=== PATIENT | female | born 1975 | race African-American/Black ===

== ENCOUNTER 2021-05-07 02:51 | Inpatient (IN) | payer OTHER ==
[2021-05-07] MEDS ORDERED: Acetaminophen 500 MG TAB ONE (03:53)
[2021-05-07 03:58] LABS: Mean Corpuscular HGB CONC 33.1 g/dL (32.0-36.0); Mean Corpuscular Hemoglobin 23.4 pg (27.0-31.0); Mean Corpuscular Volume 70.6 fL (78.0-98.0); Mean Platelet Volume 10.7 fL (7.4-10.4); Platelet Count 223 thou/uL (130-400); RBC Distribution Width 16.4 % (11.5-14.5); Red Blood Cell (RBC) Count 5.99 mill/uL (4.20-5.40); White Blood Cell (WBC) Count 6.3 thou/uL (4.8-10.8)
[2021-05-07 04:01] LABS: Bacteria/HPF None Seen HPF (None Seen); Bilirubin Negative (Negative); Blood, Urine Negative (Negative); Clarity Clear (Clear); Glucose, Urine (Dipstick) Greater than 1000 mg/dL (Negative); Ketone, Urine Negative (Negative); Leukocyte 25 Leu/uL (Negative); Nitrite Negative (Negative); Protein, Urine (Dipstick) 70 mg/dL (Neg-Trace); RBC/HPF 0-3 HPF (0-3); Specific Gravity, Urine 1.026 (1.002-1.036); Urobilinogen Normal mg/dL (Less than 2); pH, Urine 5.5 (5.0-9.0)
[2021-05-07 04:05] LABS: Amphetamine Not Detected (NotDetected); Barbiturates Screen Not Detected (NotDetected); Benzodiazepine Screen Not Detected (NotDetected); Cocaine Metabolite Screen Not Detected (NotDetected); Methadone Not Detected (NotDetected); Methamphetamine Not Detected (NotDetected); Opiate Screen Detected (NotDetected); Oxycodone Screen Not Detected (NotDetected); Phencyclidine (PCP) Not Detected (NotDetected); THC/Cannabinoid Screen Not Detected (NotDetected); Tricyclic Screen Not Detected (NotDetected)
[2021-05-07 04:18] LABS: ALT (SGPT) Less than 7 U/L (8-55); AST (SGOT) 22 U/L (5-34); Albumin 3.8 g/dL (3.5-5.0); Alkaline Phosphatase 155 U/L (40-110); Anion Gap 14 mmol/L (10-20); BUN (Urea Nitrogen) 24 mg/dL (7.0-18.7); Bilirubin, Total 0.7 mg/dL (0.2-1.2); Calc. Creatinine Clearance 0 mL/min (70-130); Calcium 9.6 mg/dL (7.8-10.44); Carbon Dioxide 28 mmol/L (22-29); Chloride 93 mmol/L (98-107); Globulin 4.3 g/dL (2.4-3.5); Glucose 233 mg/dL (70-105); Potassium 3.4 mmol/L (3.5-5.1); Protein, Total 8.1 g/dL (6.0-8.3); Sodium 132 mmol/L (136-145)
[2021-05-07 04:44] LABS: #Basophils 0.1 thou/uL (0.0-0.2); #Lymphocytes 2.8 thou/uL (1.20-3.40); #Monocytes 0.5 thou/uL (0.11-0.59); #Neutrophils 2.9 thou/uL (1.40-6.50); %Basophils 1.1 % (0.0-1.0); %Eosinophils 0.4 % (0.0-10.0); %Lymphocytes 44.4 % (21.0-51.0); %Monocytes 7.6 % (0.0-10.0); %Neutrophils 46.6 % (42.0-75.0); MDiff Complete? YES; Microcytosis SLIGHT = 6-15 cells (100X) (0-5/hpf)
[2021-05-07] MEDS ORDERED: Acetaminophen 325 MG TAB PO PRN (04:52)
[2021-05-07 04:53] LABS: CKMB 9.2 ng/mL (0-6.6)
[2021-05-07] MEDS ORDERED: Dextrose 50% Abboject 50 ML SYRINGE SLOW IVP PRN (05:10)
[2021-05-07] MEDS ORDERED: HumaLOG 300 UNITS/3 ML VIAL SC PRN ×2 (05:10)
[2021-05-07] MEDS ORDERED: Dextrose 5% in Water 1,000 ML IV PRN (05:10)
[2021-05-07 06:24] VITALS: BMI 29.2
[2021-05-07] MEDS ORDERED: Morphine 4 MG/ML VIAL SLOW IVP SCH ×3 (06:30→15:45)
[2021-05-07] MEDS ORDERED: Potassium Chloride 20 MEQ TAB PO SCH (06:30)
[2021-05-07 06:41] LABS: Hemoglobin A1c Greater than 14.0 % (4.0-6.0)
[2021-05-07 06:51] LABS: Actual Bicarbonate (HCO3v) 23 mEq/L (22-28); Base Excess -0.2 mEq/L (-2.0 to +3.0); Calcium, Ionized (venous) 1.08 mmol/L (1.16-1.32); Chloride (VBG) 98 mmol/L (98-106); Hemoglobin (Hb) 14.1 g/dL (11.7-16.0); Potassium (VBG) 3.55 mmol/L (3.70-5.30); Sodium 131.3 mmol/L (133-146); pH (venous) 7.45 (7.32-7.43)
[2021-05-07] MEDS ORDERED: Heparin 10,000 UNITS/ 10 ML VIAL SLOW IVP SCH (07:15)
[2021-05-07] MEDS ORDERED: Heparin 25,000 units/D5W 500 ML IVPB SCH (07:15)
[2021-05-07 07:19] LABS: Cardiac Risk 5.9 (Less than 4.5); Cholesterol 240 mg/dl (< 200 Desired); HDL Cholesterol 41 mg/dL (>60 Neg Risk); LDL Cholesterol, Calculated 134 mg/dL; Magnesium 1.9 mg/dL (1.6-2.6); Phosphorus 2.9 mg/dL (2.3-4.7); Triglycerides 324 mg/dL (Less than 150)
[2021-05-07 07:35] LABS: Hemoglobin 15.7 g/dL (12.0-16.0); Platelet Count 224 thou/uL (130-400)
[2021-05-07] MEDS ORDERED: Enoxaparin Sodium 40 MG/0.4 ML SYRINGE SC SCH (09:00)
[2021-05-07] MEDS ORDERED: Morphine 2 MG/ML VIAL SLOW IVP SCH (09:45)
[2021-05-07] MEDS ORDERED: Lactated Ringer's 500 ML IV SCH (09:45)
[2021-05-07] MEDS ORDERED: Labetalol HCl 100 MG/20 ML VIAL SLOW IVP PRN (16:31)
[2021-05-07] MEDS ORDERED: Labetalol HCl 100 MG/20 ML VIAL ONE (16:59)
[2021-05-07] MEDS ORDERED: Nitroglycerin 0.4 MG TAB (25 Tab Bottle) ONE (18:24)
[2021-05-07] MEDS ORDERED: hydrALAZINE 20 MG/ML VIAL ONE (18:25)
[2021-05-07] MEDS ORDERED: Fentanyl 100 MCG/2 ML VIAL SLOW IVP SCH (18:30)
[2021-05-07] MEDS ORDERED: hydrALAZINE 20 MG/ML VIAL SLOW IVP SCH (18:30)
[2021-05-07] MEDS: Morphine 4 MG/ML VIAL SLOW IVP PRN ×2 (19:48→23:20)
[2021-05-07] MEDS: Atorvastatin Calcium 40 MG TAB PO SCH (20:44)
[2021-05-07 21:14] LABS: Hemoglobin 14.3 g/dL (12.0-16.0); Mean Corpuscular HGB CONC 33.6 g/dL (32.0-36.0); Mean Corpuscular Hemoglobin 24.3 pg (27.0-31.0); Mean Corpuscular Volume 72.2 fL (78.0-98.0); Mean Platelet Volume 10.8 fL (7.4-10.4); Platelet Count 214 thou/uL (130-400); RBC Distribution Width 16.6 % (11.5-14.5); Red Blood Cell (RBC) Count 5.87 mill/uL (4.20-5.40); White Blood Cell (WBC) Count 8.3 thou/uL (4.8-10.8)
[2021-05-07 21:27] LABS: Phosphorus 3.1 mg/dL (2.3-4.7)
[2021-05-07 21:28] LABS: ALT (SGPT) 9 U/L (8-55); AST (SGOT) 40 U/L (5-34); Albumin 3.9 g/dL (3.5-5.0); Alkaline Phosphatase 152 U/L (40-110); Anion Gap 21 mmol/L (10-20); BUN (Urea Nitrogen) 23 mg/dL (7.0-18.7); Bilirubin, Total 0.7 mg/dL (0.2-1.2); Calc. Creatinine Clearance 50 mL/min (70-130); Calcium 9.5 mg/dL (7.8-10.44); Carbon Dioxide 20 mmol/L (22-29); Chloride 97 mmol/L (98-107); Globulin 4.4 g/dL (2.4-3.5); Glucose 163 mg/dL (70-105); Magnesium 1.7 mg/dL (1.6-2.6); Potassium 3.7 mmol/L (3.5-5.1); Protein, Total 8.3 g/dL (6.0-8.3); Sodium 134 mmol/L (136-145)
[2021-05-07 21:34] LABS: Lymphocytes 22 % (21-51); MDiff Complete? YES; Monocytes 10 % (0-10); Neutrophil 68 % (42-75)
[2021-05-07 21:38] LABS: Troponin I 0.085 ng/mL (< 0.028)
[2021-05-07] MEDS ORDERED: Magnesium 2 GM/50 ML 2 GM in Premix Bag 1 BAG IVPB SCH (21:45)
[2021-05-07 23:44] LABS: Lactic Acid 1.6 mmol/L (0.5-2.2)
[2021-05-07 23:53] LABS: Troponin I 0.122 ng/mL (< 0.028)
[2021-05-08] MEDS: Morphine 4 MG/ML VIAL SLOW IVP PRN ×3 (03:18→21:15)
[2021-05-08 04:48] LABS: #Lymphocytes 2.1 thou/uL (1.20-3.40); #Monocytes 0.4 thou/uL (0.11-0.59); #Neutrophils 2.6 thou/uL (1.40-6.50); %Basophils 0.7 % (0.0-1.0); %Eosinophils 0.2 % (0.0-10.0); %Lymphocytes 40.4 % (21.0-51.0); %Monocytes 7.2 % (0.0-10.0); %Neutrophils 51.4 % (42.0-75.0); Hemoglobin 13.4 g/dL (12.0-16.0); Mean Corpuscular HGB CONC 32.4 g/dL (32.0-36.0); Mean Corpuscular Hemoglobin 23.4 pg (27.0-31.0); Mean Corpuscular Volume 72.1 fL (78.0-98.0); Mean Platelet Volume 10.9 fL (7.4-10.4); Platelet Count 192 thou/uL (130-400); RBC Distribution Width 16.5 % (11.5-14.5); Red Blood Cell (RBC) Count 5.75 mill/uL (4.20-5.40); White Blood Cell (WBC) Count 5.1 thou/uL (4.8-10.8)
[2021-05-08 05:12] LABS: ALT (SGPT) 9 U/L (8-55); AST (SGOT) 42 U/L (5-34); Albumin 3.6 g/dL (3.5-5.0); Alkaline Phosphatase 133 U/L (40-110); Anion Gap 15 mmol/L (10-20); BUN (Urea Nitrogen) 25 mg/dL (7.0-18.7); Bilirubin, Total 0.7 mg/dL (0.2-1.2); Calc. Creatinine Clearance 45 mL/min (70-130); Calcium 9.3 mg/dL (7.8-10.44); Carbon Dioxide 23 mmol/L (22-29); Chloride 97 mmol/L (98-107); Globulin 4.3 g/dL (2.4-3.5); Glucose 249 mg/dL (70-105); Potassium 3.2 mmol/L (3.5-5.1); Protein, Total 7.9 g/dL (6.0-8.3); Sodium 132 mmol/L (136-145)
[2021-05-08] MEDS ORDERED: Potassium Chloride 20 MEQ TAB PO SCH (09:45)
[2021-05-08] MEDS: Lantus 1000 UNITS/10 ML VIAL SC SCH (11:21)
[2021-05-08] MEDS: Sodium Chloride 0.9% 1,000 ML IV SCH ×2 (11:21→20:15)
[2021-05-08] MEDS ORDERED: Morphine 4 MG/ML VIAL SLOW IVP SCH ×3 (11:45→16:00)
[2021-05-08] MEDS ORDERED: hydrALAZINE 20 MG/ML VIAL SLOW IVP SCH ×2 (11:45→17:45)
[2021-05-08] MEDS ORDERED: Iopamidol 370 76% 50 ML VIAL FS ONE (12:23)
[2021-05-08] MEDS ORDERED: Iopamidol 370 76% 100 ML VIAL ONE (12:23)
[2021-05-08 12:27] LABS: Troponin I 0.112 ng/mL (< 0.028)
[2021-05-08] MEDS ORDERED: diphenhydrAMINE 50 MG/ML VIAL IVP SCH (13:45)
[2021-05-08] MEDS ORDERED: Amlodipine 5 MG TAB PO SCH (14:30)
[2021-05-08] MEDS: Enoxaparin Sodium 40 MG/0.4 ML SYRINGE SC SCH (14:37)
[2021-05-08 15:17] LABS: Anion Gap 25 mmol/L (10-20); BUN (Urea Nitrogen) 22 mg/dL (7.0-18.7); Calc. Creatinine Clearance 49 mL/min (70-130); Calcium 9.9 mg/dL (7.8-10.44); Carbon Dioxide 12 mmol/L (22-29); Chloride 98 mmol/L (98-107); Glucose 305 mg/dL (70-105); Potassium 4.4 mmol/L (3.5-5.1); Sodium 131 mmol/L (136-145)
[2021-05-08 16:00] LABS: Troponin I 0.068 ng/mL (< 0.028)
[2021-05-08] MEDS ORDERED: Esmolol 2,500 MG/250 ML 250 ML IVPB SCH (18:00)
[2021-05-08] MEDS ORDERED: Lidocaine 1% (PF) 30 ML VIAL ONE (18:15)
[2021-05-08] MEDS ORDERED: Heparin 10,000 UNITS/ 10 ML VIAL ONE (18:15)
[2021-05-08] MEDS ORDERED: Verapamil 5 MG/2 ML VIAL ONE (18:31)
[2021-05-08] MEDS ORDERED: Labetalol HCl 100 MG/20 ML VIAL ONE (18:33)
[2021-05-08] MEDS ORDERED: Fentanyl 100 MCG/2 ML VIAL ONE ×2 (18:34→19:19)
[2021-05-08] MEDS ORDERED: Midazolam HCl 2 mg/2 ml Vial ONE ×4 (18:34→19:32)
[2021-05-08] MEDS ORDERED: Metoprolol Tartrate 5 MG/5 ML VIAL ONE (18:39)
[2021-05-08] MEDS ORDERED: Hydrocortisone Sod Succ/PF 100 mg/2 ml Vial ONE (18:40)
[2021-05-08] MEDS ORDERED: diphenhydrAMINE 50 MG/ML VIAL ONE (18:40)
[2021-05-08 18:44] LABS: CKMB 20.1 ng/mL (0-6.6)
[2021-05-08] MEDS ORDERED: Nitroglycerin 100MG/250ML BOT 250 ML ONE (19:05)
[2021-05-08] MEDS ORDERED: Metoclopramide HCl 10 MG/2 ML VIAL ONE (19:28)
[2021-05-08] MEDS ORDERED: Promethazine HCl 25 MG/ML VIAL ONE (19:31)
[2021-05-08] MEDS ORDERED: hydrALAZINE 20 MG/ML VIAL ONE (19:45)
[2021-05-08] MEDS ORDERED: Esmolol 100 MG/10 ML VIAL ONE (19:47)
[2021-05-08] MEDS ORDERED: Sodium Chloride 0.9% 200 ML IV PRN (20:00)
[2021-05-08 21:08] LABS: SARS-CoV-2 PCR by NAA Not Detected (NotDetected)
[2021-05-08] MEDS: Atorvastatin Calcium 40 MG TAB PO SCH (21:13)
[2021-05-08] MEDS: Gabapentin 300 MG CAP PO SCH (21:14)
[2021-05-09] MEDS: Morphine 4 MG/ML VIAL SLOW IVP PRN ×2 (01:13→08:52)
[2021-05-09 04:18] LABS: #Monocytes 0.4 thou/uL (0.11-0.59); %Basophils 0.2 % (0.0-1.0); %Eosinophils 0.2 % (0.0-10.0); %Lymphocytes 10.7 % (21.0-51.0); %Monocytes 4.6 % (0.0-10.0); %Neutrophils 84.3 % (42.0-75.0); Hemoglobin 13.7 g/dL (12.0-16.0); Mean Corpuscular HGB CONC 31.7 g/dL (32.0-36.0); Mean Corpuscular Hemoglobin 24.4 pg (27.0-31.0); Mean Corpuscular Volume 77.1 fL (78.0-98.0); Mean Platelet Volume 6.4 fL (7.4-10.4); Platelet Count 143 thou/uL (130-400); RBC Distribution Width 17.4 % (11.5-14.5); Red Blood Cell (RBC) Count 5.63 mill/uL (4.20-5.40); White Blood Cell (WBC) Count 9.5 thou/uL (4.8-10.8)
[2021-05-09 04:46] LABS: ALT (SGPT) 11 U/L (8-55); AST (SGOT) 44 U/L (5-34); Albumin 3.8 g/dL (3.5-5.0); Alkaline Phosphatase 152 U/L (40-110); Anion Gap 24 mmol/L (10-20); BUN (Urea Nitrogen) 23 mg/dL (7.0-18.7); Bilirubin, Total 0.9 mg/dL (0.2-1.2); Calc. Creatinine Clearance 47 mL/min (70-130); Carbon Dioxide 16 mmol/L (22-29); Chloride 98 mmol/L (98-107); Globulin 4.9 g/dL (2.4-3.5); Glucose 429 mg/dL (70-105); Potassium 4.5 mmol/L (3.5-5.1); Protein, Total 8.7 g/dL (6.0-8.3); Sodium 133 mmol/L (136-145)
[2021-05-09] MEDS ORDERED: Amlodipine 5 MG TAB ONE ×2 (07:47→12:10)
[2021-05-09] MEDS: Sodium Chloride 0.9% 1,000 ML IV SCH (07:56)
[2021-05-09] MEDS: HumaLOG 300 UNITS/3 ML VIAL SC PRN ×2 (07:57→11:20)
[2021-05-09] MEDS: Lantus 1000 UNITS/10 ML VIAL SC SCH (07:58)
[2021-05-09] MEDS ORDERED: Enoxaparin Sodium 40 MG/0.4 ML SYRINGE ONE (08:02)
[2021-05-09] MEDS ORDERED: Gabapentin 300 MG CAP ONE (08:02)
[2021-05-09] MEDS: Gabapentin 300 MG CAP PO SCH (08:03)
[2021-05-09] MEDS: Enoxaparin Sodium 40 MG/0.4 ML SYRINGE SC SCH (08:03)
[2021-05-09] MEDS ORDERED: Morphine 4 MG/ML VIAL ONE (08:52)
[2021-05-09] MEDS ORDERED: Amlodipine 5 MG TAB PO SCH ×2 (09:00→12:00)
[2021-05-09] MEDS ORDERED: Lantus 1000 UNITS/10 ML VIAL SC SCH (10:30)
[2021-05-09] MEDS ORDERED: Acetaminophen 325 MG TAB ONE (11:22)
[2021-05-09] MEDS ORDERED: cloNIDine 0.1mg/24 Hour PATCH ONE (12:11)
[2021-05-09] MEDS ORDERED: cloNIDine 0.3 MG TAB ONE (12:12)
[2021-05-09 12:14] VITALS: BP 198/91
[2021-05-09 12:21] VITALS: TEMP 98
[2021-05-09] MEDS ORDERED: cloNIDine 0.3 MG TAB PO SCH (15:00)
[2021-05-10] MEDS ORDERED: Buprenorphine 8mg/Naloxone 2mg per 1 FILM PO SCH (09:00)
[2021-05-10] MEDS ORDERED: Lantus 1000 UNITS/10 ML VIAL SC SCH (09:00)
== END 2021-05-09 13:29 | disposition left against medical advice (07) | DRG 287 ==
LOC: ERS 02:51 → 2SW 04:39 → OBSVTOIN 13:34 → 2NO 18:08 → CCU 18:34 → 2NO 18:41 → CCU 05-08 20:07
PROVIDERS: ADMIT Emergency Medicine; ATTEND Emergency Medicine
PROC: 4A023N7 Measurement of Cardiac Sampling and Pressure, Left Heart, Percutaneous Approach (ICD-10-PCS; principal; 2021-05-07)
PROC: B2151ZZ Fluoroscopy of Left Heart using Low Osmolar Contrast (ICD-10-PCS; 2021-05-07)
PROC: B2111ZZ Fluoroscopy of Multiple Coronary Arteries using Low Osmolar Contrast (ICD-10-PCS; 2021-05-07)
DX: I20.0 Unstable angina (principal); N17.9 Acute kidney failure, unspecified; E87.1 Hypo-osmolality and hyponatremia; I16.1 Hypertensive emergency; Z20.822 Contact with and (suspected) exposure to COVID-19; F31.9 Bipolar disorder, unspecified; E78.5 Hyperlipidemia, unspecified; E87.6 Hypokalemia; N18.9 Chronic kidney disease, unspecified; E11.22 Type 2 diabetes mellitus with diabetic chronic kidney disease; I12.9 Hypertensive chronic kidney disease with stage 1 through stage 4 chronic kidney disease, or unspecified chronic kidney disease; E78.00 Pure hypercholesterolemia, unspecified; I08.1 Rheumatic disorders of both mitral and tricuspid valves; Z88.6 Allergy status to analgesic agent; Z88.5 Allergy status to narcotic agent; Z88.8 Allergy status to other drugs, medicaments and biological substances; Z79.899 Other long term (current) drug therapy; I25.2 Old myocardial infarction; Z95.5 Presence of coronary angioplasty implant and graft; Z98.51 Tubal ligation status; Z90.710 Acquired absence of both cervix and uterus; Z90.89 Acquired absence of other organs; Z82.49 Family history of ischemic heart disease and other diseases of the circulatory system
CPT/HCPCS: 36140; 36415; 36416; 71045; 80053; 80061; 80306; 81003; 81015; 82010; 82553; 82805; 83036; 83605; 83735; 83835; 84100; 84443; 84484; 85025; 93005; 93010; 93306; 93458; 94760; 96374; 99152; 99153; C1769; G0378; J0360; J1200; J1644; J1650; J1720; J1815; J2001; J2250; J2270; J2550; J2765; J3010; J3475; J7050; J7120; Q9967; U0003; U0005

== ENCOUNTER 2021-05-29 00:31 | Inpatient (IN) | payer OTHER ==
[2021-05-29] MEDS ORDERED: niCARdipine 20MG In NaCl 20 MG/200 ML BAG ONE (00:52)
[2021-05-29] MEDS ORDERED: Dextrose 50% Abboject 50 ML SYRINGE SLOW IVP PRN (02:21)
[2021-05-29] MEDS ORDERED: Dextrose 5% in Water 1,000 ML IV PRN (02:21)
[2021-05-29] MEDS ORDERED: HumaLOG 300 UNITS/3 ML VIAL SC PRN ×2 (02:29)
[2021-05-29] MEDS ORDERED: Heparin 10,000 UNITS/ 10 ML VIAL SLOW IVP SCH (02:30)
[2021-05-29] MEDS ORDERED: Heparin 25,000 units/D5W 500 ML IVPB SCH (02:30)
[2021-05-29] MEDS ORDERED: Nitroglycerin 50 MG/250 ML BOT 250 ML IVPB SCH (02:30)
[2021-05-29 03:21] LABS: SARS-CoV-2 NAA Rapid Test Not Detected (NotDetected)
[2021-05-29 04:14] LABS: Actual Bicarbonate (HCO3v) 22 mEq/L (22-28); Analyzer IN Cardio ER; Base Excess 1.7 mEq/L (-2.0 to +3.0); Calcium, Ionized (venous) 1.03 mmol/L (1.16-1.32); Chloride (VBG) 94 mmol/L (98-106); Hemoglobin (Hb) 14.1 g/dL (11.7-16.0); Potassium (VBG) 3.49 mmol/L (3.70-5.30); Sodium 136.6 mmol/L (133-146); pH (venous) 7.57 (7.32-7.43)
[2021-05-29] MEDS ORDERED: Amlodipine 10 MG TAB PO SCH ×2 (04:30→06:15)
[2021-05-29 04:31] LABS: Anion Gap 24 mmol/L (10-20); BUN (Urea Nitrogen) 14 mg/dL (7.0-18.7); Calc. Creatinine Clearance 0 mL/min (70-130); Calcium 10.7 mg/dL (7.8-10.44); Carbon Dioxide 20 mmol/L (22-29); Chloride 93 mmol/L (98-107); Glucose 550 mg/dL (70-105); Potassium 3.4 mmol/L (3.5-5.1); Sodium 134 mmol/L (136-145)
[2021-05-29 04:36] LABS: Troponin I 0.106 ng/mL (< 0.028)
[2021-05-29 04:43] LABS: #Monocytes 0.2 thou/uL (0.11-0.59); #Neutrophils 8.5 thou/uL (1.40-6.50); %Eosinophils 0.1 % (0.0-10.0); %Lymphocytes 10.1 % (21.0-51.0); %Monocytes 1.9 % (0.0-10.0); %Neutrophils 87.9 % (42.0-75.0); Anisocytosis MODERATE=16-30 cells (100X) (0-5/hpf); Burr Cells SLIGHT = 2-5 cells (100X) (0-1/hpf); Hemoglobin 13.2 g/dL (12.0-16.0); MDiff Complete? YES; Mean Corpuscular HGB CONC 33.3 g/dL (32.0-36.0); Mean Corpuscular Hemoglobin 24.6 pg (27.0-31.0); Mean Corpuscular Volume 73.9 fL (78.0-98.0); Microcytosis SLIGHT = 6-15 cells (100X) (0-5/hpf); Platelet Count 273 thou/uL (130-400); Platelet Morphology Comment Appears Adequate; Polychromasia SLIGHT = 2-3 cells (100X) (0-2/hpf); RBC Distribution Width 16.2 % (11.5-14.5); Red Blood Cell (RBC) Count 5.35 mill/uL (4.20-5.40); Tear Drops SLIGHT = 2-5 cells (100X) (0-1/hpf); White Blood Cell (WBC) Count 9.7 thou/uL (4.8-10.8)
[2021-05-29 04:49] VITALS: BMI 27.6
[2021-05-29] MEDS ORDERED: niCARdipine 40MG In NaCl 40 MG/200 ML BAG IVPB SCH ×4 (06:15→14:51)
[2021-05-29] MEDS: niCARdipine 25 MG in Sodium Chloride 0.9% 250 ML 250 ML IVPB SCH ×2 (06:23→09:31)
[2021-05-29] MEDS: HumaLOG 300 UNITS/3 ML VIAL SC PRN ×4 (06:58→12:12)
[2021-05-29] MEDS ORDERED: Lactated Ringer's 1,000 ML IV SCH (07:15)
[2021-05-29] MEDS ORDERED: Electrolyte Replacement Protocol 1 EACH IVPB ONE (07:16)
[2021-05-29] MEDS ORDERED: Sodium Chloride 0.9% 1,000 ML IV SCH (07:30)
[2021-05-29 07:40] LABS: Lactic Acid 2.1 mmol/L (0.5-2.2)
[2021-05-29] MEDS ORDERED: Electrolyte Replacement Protocol FS PRN (07:45)
[2021-05-29] MEDS: Sodium Chloride 0.9% 1,000 ML IV SCH ×2 (07:50→16:30)
[2021-05-29 07:52] LABS: Anion Gap 25 mmol/L (10-20); BUN (Urea Nitrogen) 16 mg/dL (7.0-18.7); Calc. Creatinine Clearance 52 mL/min (70-130); Calcium 10.2 mg/dL (7.8-10.44); Carbon Dioxide 18 mmol/L (22-29); Chloride 96 mmol/L (98-107); Potassium 3.3 mmol/L (3.5-5.1); Sodium 136 mmol/L (136-145)
[2021-05-29 07:57] LABS: Glucose 571 mg/dL (70-105)
[2021-05-29] MEDS ORDERED: Lantus 1000 UNITS/10 ML VIAL SC SCH (09:00)
[2021-05-29] MEDS ORDERED: Lisinopril 10 MG TAB PO SCH (09:00)
[2021-05-29] MEDS ORDERED: FLU VACC QS2021-22(6MOS UP)/PF 60 MCG/0.5 ML SYRINGE IM ONE (09:00)
[2021-05-29] MEDS ORDERED: Potassium Chloride 40 MEQ in Sodium Chloride 0.9% 250 ML 250 ML IVPB SCH (09:30)
[2021-05-29 09:40] LABS: PTT 133.8 sec (22.9-36.1)
[2021-05-29 11:44] LABS: Anion Gap 17 mmol/L (10-20); BUN (Urea Nitrogen) 18 mg/dL (7.0-18.7); Calc. Creatinine Clearance 55 mL/min (70-130); Calcium 9.9 mg/dL (7.8-10.44); Carbon Dioxide 24 mmol/L (22-29); Chloride 101 mmol/L (98-107); Glucose 464 mg/dL (70-105); Potassium 3.1 mmol/L (3.5-5.1); Sodium 139 mmol/L (136-145)
[2021-05-29] MEDS ORDERED: Nitroglycerin 50 MG/250 ML BOT 250 ML IVPB PRN ×2 (14:23→14:51)
[2021-05-29] MEDS ORDERED: niCARdipine 25 MG in Sodium Chloride 0.9% 250 ML 250 ML IVPB PRN ×2 (14:23→14:51)
[2021-05-29] MEDS ORDERED: niCARdipine 25 MG in Sodium Chloride 0.9% 250 ML 250 ML IVPB SCH ×3 (14:30→14:51)
[2021-05-29] MEDS ORDERED: hydrALAZINE 20 MG/ML VIAL SLOW IVP PRN (14:48)
[2021-05-29 15:40] LABS: Anion Gap 13 mmol/L (10-20); BUN (Urea Nitrogen) 17 mg/dL (7.0-18.7); Calc. Creatinine Clearance 60 mL/min (70-130); Calcium 10.1 mg/dL (7.8-10.44); Carbon Dioxide 27 mmol/L (22-29); Chloride 104 mmol/L (98-107); Glucose 197 mg/dL (70-105); Sodium 141 mmol/L (136-145)
[2021-05-29] MEDS ORDERED: Potassium Chloride 20 MEQ TAB PO SCH (16:30)
[2021-05-29] MEDS: Carvedilol 6.25 MG TAB PO SCH (18:05)
[2021-05-29] MEDS: cloNIDine 0.3 MG TAB PO SCH (19:52)
[2021-05-30 04:04] LABS: Anion Gap 16 mmol/L (10-20); Calcium 9.4 mg/dL (7.8-10.44); Carbon Dioxide 19 mmol/L (22-29); Chloride 104 mmol/L (98-107); Glucose 137 mg/dL (70-105); Potassium 3.8 mmol/L (3.5-5.1); Sodium 135 mmol/L (136-145)
[2021-05-30 04:12] LABS: BUN (Urea Nitrogen) 18 mg/dL (7.0-18.7); Calc. Creatinine Clearance 62 mL/min (70-130)
[2021-05-30] MEDS: HumaLOG 300 UNITS/3 ML VIAL SC PRN ×2 (06:29→13:18)
[2021-05-30 07:21] LABS: #Lymphocytes 2.2 thou/uL (1.20-3.40); #Monocytes 0.8 thou/uL (0.11-0.59); #Neutrophils 3.7 thou/uL (1.40-6.50); %Basophils 0.4 % (0.0-1.0); %Eosinophils 0.2 % (0.0-10.0); %Lymphocytes 32.8 % (21.0-51.0); %Neutrophils 54.6 % (42.0-75.0); Hemoglobin 13.3 g/dL (12.0-16.0); Mean Corpuscular HGB CONC 30.8 g/dL (32.0-36.0); Mean Corpuscular Hemoglobin 23.4 pg (27.0-31.0); Mean Corpuscular Volume 76.1 fL (78.0-98.0); Mean Platelet Volume 9.8 fL (7.4-10.4); Platelet Count 262 thou/uL (130-400); RBC Distribution Width 16.7 % (11.5-14.5); Red Blood Cell (RBC) Count 5.67 mill/uL (4.20-5.40); White Blood Cell (WBC) Count 6.7 thou/uL (4.8-10.8)
[2021-05-30 08:14] LABS: MDiff Complete? YES; Microcytosis SLIGHT = 6-15 cells (100X) (0-5/hpf); Platelet Morphology Comment Appears Adequate; Polychromasia SLIGHT = 2-3 cells (100X) (0-2/hpf)
[2021-05-30] MEDS: Amlodipine 5 MG TAB PO SCH (08:47)
[2021-05-30] MEDS: Carvedilol 6.25 MG TAB PO SCH ×2 (08:47→17:00)
[2021-05-30] MEDS: cloNIDine 0.3 MG TAB PO SCH ×2 (08:47→21:27)
[2021-05-30] MEDS: Lantus 1000 UNITS/10 ML VIAL SC SCH ×2 (08:52→21:27)
[2021-05-30] MEDS: metFORMIN 500 MG TAB PO SCH ×2 (09:35→18:06)
[2021-05-30] MEDS ORDERED: Ibuprofen 200 MG TAB PO PRN (10:35)
[2021-05-30] MEDS: tiZANidine HCl 4 MG TAB PO PRN (13:19)
[2021-05-30] MEDS: Acetaminophen 325 MG TAB PO PRN (13:34)
[2021-05-30] MEDS: Atorvastatin Calcium 40 MG TAB PO SCH (21:27)
[2021-05-30 23:36] LABS: Troponin I 0.254 ng/mL (< 0.028)
[2021-05-31 04:54] LABS: Hemoglobin 12.4 g/dL (12.0-16.0); Mean Corpuscular HGB CONC 31.9 g/dL (32.0-36.0); Mean Corpuscular Hemoglobin 24.1 pg (27.0-31.0); Mean Corpuscular Volume 75.6 fL (78.0-98.0); Mean Platelet Volume 9.5 fL (7.4-10.4); Platelet Count 224 thou/uL (130-400); RBC Distribution Width 16.2 % (11.5-14.5); Red Blood Cell (RBC) Count 5.14 mill/uL (4.20-5.40)
[2021-05-31 05:27] LABS: Lymphocytes 60 % (21-51); MDiff Complete? YES; Monocytes 7 % (0-10); Neutrophil 33 % (42-75)
[2021-05-31 05:44] LABS: Anion Gap 14 mmol/L (10-20); BUN (Urea Nitrogen) 35 mg/dL (7.0-18.7); Calc. Creatinine Clearance 40 mL/min (70-130); Calcium 9.2 mg/dL (7.8-10.44); Carbon Dioxide 24 mmol/L (22-29); Chloride 99 mmol/L (98-107); Glucose 92 mg/dL (70-105); Potassium 3.4 mmol/L (3.5-5.1); Sodium 134 mmol/L (136-145)
[2021-05-31] MEDS: metFORMIN 500 MG TAB PO SCH ×2 (08:22→17:24)
[2021-05-31] MEDS: Carvedilol 6.25 MG TAB PO SCH ×2 (08:23→17:24)
[2021-05-31] MEDS: Acetaminophen 325 MG TAB PO PRN (08:25)
[2021-05-31] MEDS: Amlodipine 5 MG TAB PO SCH (08:25)
[2021-05-31] MEDS: cloNIDine 0.3 MG TAB PO SCH ×2 (08:25→20:43)
[2021-05-31] MEDS: Lantus 1000 UNITS/10 ML VIAL SC SCH ×2 (08:26→22:59)
[2021-05-31] MEDS ORDERED: Lactated Ringer's 1,000 ML IV SCH (09:00)
[2021-05-31] MEDS ORDERED: Potassium Chloride 20 MEQ TAB PO SCH (09:00)
[2021-05-31 12:39] LABS: Anion Gap 15 mmol/L (10-20); BUN (Urea Nitrogen) 30 mg/dL (7.0-18.7); Calc. Creatinine Clearance 46 mL/min (70-130); Calcium 8.9 mg/dL (7.8-10.44); Carbon Dioxide 18 mmol/L (22-29); Chloride 102 mmol/L (98-107); Glucose 111 mg/dL (70-105); Potassium 3.9 mmol/L (3.5-5.1); Sodium 131 mmol/L (136-145)
[2021-05-31] MEDS ORDERED: diphenhydrAMINE 50 MG CAP PO PRN (12:54)
[2021-05-31] MEDS: HYDROcodone/Acetaminophen 5/325 mg Tablet PO SCH ×2 (13:54→17:24)
[2021-05-31] MEDS: Atorvastatin Calcium 40 MG TAB PO SCH (20:43)
[2021-05-31] MEDS: tiZANidine HCl 4 MG TAB PO PRN (20:43)
[2021-05-31] MEDS ORDERED: Sodium Chloride 0.9% 500 ML IVPB SCH (23:15)
[2021-06-01] MEDS: HYDROcodone/Acetaminophen 5/325 mg Tablet PO SCH ×3 (01:09→12:17)
[2021-06-01] MEDS: metFORMIN 500 MG TAB PO SCH (08:04)
[2021-06-01] MEDS: Carvedilol 6.25 MG TAB PO SCH (08:04)
[2021-06-01] MEDS: cloNIDine 0.3 MG TAB PO SCH (08:05)
[2021-06-01] MEDS: Lantus 1000 UNITS/10 ML VIAL SC SCH (08:05)
[2021-06-01] MEDS: tiZANidine HCl 4 MG TAB PO PRN (08:09)
[2021-06-01] MEDS ORDERED: Amlodipine 5 MG TAB PO SCH (09:00)
[2021-06-01 09:12] LABS: Anion Gap 12 mmol/L (10-20); BUN (Urea Nitrogen) 18 mg/dL (7.0-18.7); Calc. Creatinine Clearance 78 mL/min (70-130); Calcium 9.4 mg/dL (7.8-10.44); Carbon Dioxide 25 mmol/L (22-29); Chloride 100 mmol/L (98-107); Glucose 84 mg/dL (70-105); Potassium 3.2 mmol/L (3.5-5.1); Sodium 134 mmol/L (136-145)
[2021-06-01 09:25] LABS: Band 2 % (5-11); Hemoglobin 11.9 g/dL (12.0-16.0); Lymphocytes 54 % (21-51); MDiff Complete? YES; Mean Corpuscular HGB CONC 30.2 g/dL (32.0-36.0); Mean Corpuscular Hemoglobin 22.6 pg (27.0-31.0); Mean Corpuscular Volume 74.8 fL (78.0-98.0); Mean Platelet Volume 9.5 fL (7.4-10.4); Microcytosis SLIGHT = 6-15 cells (100X) (0-5/hpf); Monocytes 8 % (0-10); Neutrophil 36 % (42-75); Platelet Count 252 thou/uL (130-400); RBC Distribution Width 15.8 % (11.5-14.5); Red Blood Cell (RBC) Count 5.24 mill/uL (4.20-5.40); White Blood Cell (WBC) Count 4.4 thou/uL (4.8-10.8)
[2021-06-01 11:56] VITALS: BP 123/59; TEMP 98
[2021-06-01] MEDS ORDERED: tiZANidine HCl 4 MG TAB PO SCH (13:00)
[2021-06-01] MEDS ORDERED: cloNIDine 0.3 MG TAB PO SCH (15:00)
[2021-06-01] MEDS ORDERED: Gabapentin 300 MG CAP PO SCH (21:00)
== END 2021-06-01 16:12 | disposition home or self-care (01) | DRG 897 ==
LOC: ERS 00:31 → CCU 01:46 → 2NO 05-30 19:10
PROVIDERS: ADMIT Family Medicine; ATTEND Family Medicine
DX: F11.23 Opioid dependence with withdrawal (principal); I16.1 Hypertensive emergency; N17.9 Acute kidney failure, unspecified; E87.1 Hypo-osmolality and hyponatremia; I67.4 Hypertensive encephalopathy; I13.0 Hypertensive heart and chronic kidney disease with heart failure and stage 1 through stage 4 chronic kidney disease, or unspecified chronic kidney disease; I50.30 Unspecified diastolic (congestive) heart failure; E87.4 Mixed disorder of acid-base balance; I25.110 Atherosclerotic heart disease of native coronary artery with unstable angina pectoris; E87.3 Alkalosis; Z20.822 Contact with and (suspected) exposure to COVID-19; N18.9 Chronic kidney disease, unspecified; I25.10 Atherosclerotic heart disease of native coronary artery without angina pectoris; E11.65 Type 2 diabetes mellitus with hyperglycemia; E11.22 Type 2 diabetes mellitus with diabetic chronic kidney disease; E87.6 Hypokalemia; F31.9 Bipolar disorder, unspecified; E78.00 Pure hypercholesterolemia, unspecified; G89.4 Chronic pain syndrome; Z88.6 Allergy status to analgesic agent; Z88.8 Allergy status to other drugs, medicaments and biological substances; Z82.49 Family history of ischemic heart disease and other diseases of the circulatory system; Z90.89 Acquired absence of other organs; Z79.899 Other long term (current) drug therapy; Z79.84 Long term (current) use of oral hypoglycemic drugs; Z91.19 Patient's noncompliance with other medical treatment and regimen; Z79.4 Long term (current) use of insulin; I25.2 Old myocardial infarction; Z98.51 Tubal ligation status; Z90.710 Acquired absence of both cervix and uterus
CPT/HCPCS: 36415; 36416; 71045; 80048; 82010; 82553; 82805; 83605; 84484; 85025; 85730; 93005; 93010; 94760; J1815; J3480; J7030; J7050; J7120; U0002

== ENCOUNTER 2021-06-16 23:52 | Inpatient (IN) | payer OTHER ==
[2021-06-17] MEDS ORDERED: Calcium Carbonate 500 MG ChewTAB PO PRN (01:45)
[2021-06-17] MEDS ORDERED: Dextrose 5% in Water 1,000 ML IV PRN (01:49)
[2021-06-17] MEDS ORDERED: HumaLOG 300 UNITS/3 ML VIAL SC PRN (01:49)
[2021-06-17] MEDS ORDERED: Dextrose 50% Abboject 50 ML SYRINGE SLOW IVP PRN (01:49)
[2021-06-17 01:50] LABS: Troponin I 0.086 ng/mL (< 0.028)
[2021-06-17] MEDS: niCARdipine 25 MG in Sodium Chloride 0.9% 250 ML 250 ML IVPB SCH ×3 (02:10→07:56)
[2021-06-17] MEDS ORDERED: Promethazine HCl 25 MG in Sodium Chloride 0.9% 50 ML IVPB PRN (02:19)
[2021-06-17 02:29] VITALS: BMI 28.0
[2021-06-17 04:19] LABS: #Eosinphils 0.1 thou/uL (0.0-0.7); #Lymphocytes 1.7 thou/uL (1.20-3.40); #Monocytes 0.6 thou/uL (0.11-0.59); #Neutrophils 5.2 thou/uL (1.40-6.50); %Basophils 0.3 % (0.0-1.0); %Eosinophils 0.9 % (0.0-10.0); %Lymphocytes 22.2 % (21.0-51.0); %Monocytes 7.6 % (0.0-10.0); Hemoglobin 11.7 g/dL (12.0-16.0); Mean Corpuscular HGB CONC 32.5 g/dL (32.0-36.0); Mean Corpuscular Hemoglobin 24.4 pg (27.0-31.0); Mean Platelet Volume 9.5 fL (7.4-10.4); Platelet Count 181 thou/uL (130-400); RBC Distribution Width 14.7 % (11.5-14.5); Red Blood Cell (RBC) Count 4.79 mill/uL (4.20-5.40); White Blood Cell (WBC) Count 7.6 thou/uL (4.8-10.8)
[2021-06-17 04:42] LABS: ALT (SGPT) 7 U/L (8-55); AST (SGOT) 15 U/L (5-34); Albumin 3.6 g/dL (3.5-5.0); Alkaline Phosphatase 135 U/L (40-110); Anion Gap 13 mmol/L (10-20); BUN (Urea Nitrogen) 10 mg/dL (7.0-18.7); Bilirubin, Total 0.9 mg/dL (0.2-1.2); Calc. Creatinine Clearance 69 mL/min (70-130); Calcium 9.9 mg/dL (7.8-10.44); Carbon Dioxide 31 mmol/L (22-29); Chloride 95 mmol/L (98-107); Globulin 4.5 g/dL (2.4-3.5); Glucose 464 mg/dL (70-105); Potassium 3.1 mmol/L (3.5-5.1); Protein, Total 8.1 g/dL (6.0-8.3); Sodium 136 mmol/L (136-145)
[2021-06-17] MEDS: HumaLOG 300 UNITS/3 ML VIAL SC PRN ×5 (04:45→20:57)
[2021-06-17] MEDS ORDERED: Potassium Chloride 20 MEQ TAB PO SCH (07:00)
[2021-06-17] MEDS: Carvedilol 6.25 MG TAB PO SCH ×2 (07:34→18:38)
[2021-06-17] MEDS: metFORMIN 500 MG TAB PO SCH ×2 (07:34→18:38)
[2021-06-17] MEDS ORDERED: FLU VACC QS2021-22(6MOS UP)/PF 60 MCG/0.5 ML SYRINGE IM ONE (09:00)
[2021-06-17] MEDS ORDERED: Pantoprazole 40 MG VIAL IVP SCH (09:00)
[2021-06-17] MEDS ORDERED: Lantus 1000 UNITS/10 ML VIAL SC SCH (09:00)
[2021-06-17] MEDS ORDERED: Gabapentin 300 MG CAP PO SCH (09:00)
[2021-06-17] MEDS: tiZANidine HCl 4 MG TAB PO SCH ×4 (10:00→20:32)
[2021-06-17] MEDS: Enoxaparin Sodium 40 MG/0.4 ML SYRINGE SC SCH (10:01)
[2021-06-17] MEDS: Atorvastatin Calcium 40 MG TAB PO SCH (20:32)
[2021-06-17] MEDS: Lantus 1000 UNITS/10 ML VIAL SC SCH (20:33)
[2021-06-17] MEDS ORDERED: Amlodipine 5 MG TAB PO SCH (21:00)
[2021-06-17] MEDS: Acetaminophen 325 MG TAB PO PRN (22:15)
[2021-06-17] MEDS ORDERED: hydrALAZINE 20 MG/ML VIAL SLOW IVP PRN (23:14)
[2021-06-18 04:45] LABS: Amphetamine Not Detected (NotDetected); Barbiturates Screen Not Detected (NotDetected); Benzodiazepine Screen Not Detected (NotDetected); Cocaine Metabolite Screen Not Detected (NotDetected); Methadone Not Detected (NotDetected); Methamphetamine Not Detected (NotDetected); Opiate Screen Detected (NotDetected); Oxycodone Screen Not Detected (NotDetected); Phencyclidine (PCP) Not Detected (NotDetected); THC/Cannabinoid Screen Not Detected (NotDetected); Tricyclic Screen Not Detected (NotDetected)
[2021-06-18] MEDS: HumaLOG 300 UNITS/3 ML VIAL SC PRN ×2 (06:16→10:55)
[2021-06-18] MEDS: Enoxaparin Sodium 40 MG/0.4 ML SYRINGE SC SCH (07:46)
[2021-06-18] MEDS: Carvedilol 6.25 MG TAB PO SCH ×2 (07:47→15:44)
[2021-06-18] MEDS: metFORMIN 500 MG TAB PO SCH ×2 (07:47→15:44)
[2021-06-18] MEDS: Lantus 1000 UNITS/10 ML VIAL SC SCH ×2 (07:48→21:01)
[2021-06-18] MEDS ORDERED: tiZANidine HCl 4 MG TAB PO SCH (09:00)
[2021-06-18] MEDS ORDERED: Gabapentin 300 MG CAP PO SCH (09:00)
[2021-06-18 09:03] LABS: Anion Gap 14 mmol/L (10-20); BUN (Urea Nitrogen) 21 mg/dL (7.0-18.7); Calc. Creatinine Clearance 42 mL/min (70-130); Calcium 10.1 mg/dL (7.8-10.44); Carbon Dioxide 29 mmol/L (22-29); Chloride 98 mmol/L (98-107); Glucose 146 mg/dL (70-105); Potassium 3.6 mmol/L (3.5-5.1); Sodium 137 mmol/L (136-145)
[2021-06-18 10:52] LABS: CKMB 1.3 ng/mL (0-6.6)
[2021-06-18] MEDS: Promethazine 25 MG TAB PO PRN (16:58)
[2021-06-18] MEDS: Amlodipine 10 MG TAB PO SCH (16:59)
[2021-06-18] MEDS: hydrALAZINE 20 MG/ML VIAL SLOW IVP PRN (19:09)
[2021-06-18] MEDS: Atorvastatin Calcium 40 MG TAB PO SCH (19:56)
[2021-06-18 22:20] LABS: Troponin I 0.065 ng/mL (< 0.028)
[2021-06-18 22:22] LABS: Magnesium 1.4 mg/dL (1.6-2.6)
[2021-06-18 22:24] LABS: Phosphorus 1.8 mg/dL (2.3-4.7)
[2021-06-18] MEDS ORDERED: hydrOXYzine 25 MG TAB PO SCH (22:30)
[2021-06-18] MEDS ORDERED: PHOS-NAK 1 PKT PACK PO SCH (22:30)
[2021-06-18] MEDS ORDERED: Magnesium 2 GM/50 ML 2 GM in Premix Bag 1 BAG IVPB SCH (22:30)
[2021-06-19 00:27] LABS: Troponin I 0.055 ng/mL (< 0.028)
[2021-06-19] MEDS ORDERED: tiZANidine HCl 4 MG TAB PO SCH ×2 (00:30→12:45)
[2021-06-19] MEDS: Carvedilol 6.25 MG TAB PO SCH ×2 (08:40→17:37)
[2021-06-19] MEDS: Enoxaparin Sodium 40 MG/0.4 ML SYRINGE SC SCH (08:40)
[2021-06-19] MEDS: metFORMIN 500 MG TAB PO SCH ×3 (08:40→18:31)
[2021-06-19] MEDS: Lantus 1000 UNITS/10 ML VIAL SC SCH ×2 (08:41→20:50)
[2021-06-19] MEDS: hydrALAZINE 20 MG/ML VIAL SLOW IVP PRN (10:22)
[2021-06-19] MEDS: HumaLOG 300 UNITS/3 ML VIAL SC PRN (11:07)
[2021-06-19] MEDS: Acetaminophen 325 MG TAB PO PRN (11:12)
[2021-06-19] MEDS ORDERED: Buprenorphine HCl 2 MG SL TAB SL SCH (11:30)
[2021-06-19 13:57] LABS: #Lymphocytes 1.9 thou/uL (1.20-3.40); #Monocytes 0.6 thou/uL (0.11-0.59); #Neutrophils 2.7 thou/uL (1.40-6.50); %Basophils 0.1 % (0.0-1.0); %Eosinophils 0.6 % (0.0-10.0); %Lymphocytes 36.3 % (21.0-51.0); %Monocytes 10.7 % (0.0-10.0); %Neutrophils 52.3 % (42.0-75.0); Hemoglobin 11.7 g/dL (12.0-16.0); Mean Corpuscular Hemoglobin 24.1 pg (27.0-31.0); Mean Corpuscular Volume 75.3 fL (78.0-98.0); Mean Platelet Volume 8.8 fL (7.4-10.4); Platelet Count 243 thou/uL (130-400); RBC Distribution Width 14.7 % (11.5-14.5); Red Blood Cell (RBC) Count 4.88 mill/uL (4.20-5.40); White Blood Cell (WBC) Count 5.2 thou/uL (4.8-10.8)
[2021-06-19 14:11] LABS: Anion Gap 13 mmol/L (10-20); BUN (Urea Nitrogen) 19 mg/dL (7.0-18.7); Calc. Creatinine Clearance 56 mL/min (70-130); Calcium 9.7 mg/dL (7.8-10.44); Carbon Dioxide 28 mmol/L (22-29); Chloride 99 mmol/L (98-107); Glucose 70 mg/dL (70-105); Potassium 3.3 mmol/L (3.5-5.1); Sodium 137 mmol/L (136-145)
[2021-06-19] MEDS ORDERED: Magnesium Oxide 400 MG TAB PO SCH (14:30)
[2021-06-19] MEDS ORDERED: Potassium Chloride 20 MEQ TAB PO SCH (17:00)
[2021-06-19] MEDS ORDERED: Carvedilol 25 MG TAB PO SCH (17:45)
[2021-06-19] MEDS: Buprenorphine HCl 2 MG SL TAB SL SCH (20:49)
[2021-06-19] MEDS: Amlodipine 10 MG TAB PO SCH (20:49)
[2021-06-19] MEDS: Atorvastatin Calcium 40 MG TAB PO SCH (20:49)
[2021-06-19] MEDS: tiZANidine HCl 4 MG TAB PO PRN (22:16)
[2021-06-20] MEDS: hydrALAZINE 20 MG/ML VIAL SLOW IVP PRN ×2 (03:54→21:01)
[2021-06-20 05:39] LABS: Anion Gap 13 mmol/L (10-20); BUN (Urea Nitrogen) 20 mg/dL (7.0-18.7); Calc. Creatinine Clearance 56 mL/min (70-130); Carbon Dioxide 27 mmol/L (22-29); Chloride 99 mmol/L (98-107); Glucose 75 mg/dL (70-105); Magnesium 1.6 mg/dL (1.6-2.6); Potassium 3.5 mmol/L (3.5-5.1); Sodium 135 mmol/L (136-145)
[2021-06-20] MEDS: tiZANidine HCl 4 MG TAB PO PRN ×3 (06:19→22:26)
[2021-06-20] MEDS: metFORMIN 500 MG TAB PO SCH ×2 (08:13→17:43)
[2021-06-20] MEDS: Enoxaparin Sodium 40 MG/0.4 ML SYRINGE SC SCH (08:13)
[2021-06-20] MEDS: Carvedilol 25 MG TAB PO SCH ×3 (08:13→17:47)
[2021-06-20] MEDS: Lantus 1000 UNITS/10 ML VIAL SC SCH ×2 (09:28→20:58)
[2021-06-20] MEDS ORDERED: Sodium Chloride 0.9% 1,000 ML IV SCH (10:00)
[2021-06-20] MEDS: Buprenorphine HCl 2 MG SL TAB SL SCH ×2 (12:51→20:58)
[2021-06-20] MEDS: Acetaminophen 325 MG TAB PO PRN ×2 (12:52→21:01)
[2021-06-20] MEDS: Amlodipine 10 MG TAB PO SCH (20:58)
[2021-06-20] MEDS: Atorvastatin Calcium 40 MG TAB PO SCH (20:58)
[2021-06-20] MEDS: Magnesium Oxide 400 MG TAB PO SCH (20:59)
[2021-06-20 22:00] LABS: Troponin I 0.053 ng/mL (< 0.028)
[2021-06-21] MEDS ORDERED: tiZANidine HCl 4 MG TAB PO PRN (00:56)
[2021-06-21 01:26] LABS: Troponin I 0.045 ng/mL (< 0.028)
[2021-06-21 07:05] LABS: Anion Gap 15 mmol/L (10-20); BUN (Urea Nitrogen) 17 mg/dL (7.0-18.7); Calc. Creatinine Clearance 66 mL/min (70-130); Calcium 9.3 mg/dL (7.8-10.44); Carbon Dioxide 24 mmol/L (22-29); Chloride 101 mmol/L (98-107); Glucose 86 mg/dL (70-105); Magnesium 1.4 mg/dL (1.6-2.6); Potassium 3.6 mmol/L (3.5-5.1); Sodium 136 mmol/L (136-145)
[2021-06-21] MEDS: metFORMIN 500 MG TAB PO SCH ×2 (08:23→16:11)
[2021-06-21] MEDS: Magnesium Oxide 400 MG TAB PO SCH (08:23)
[2021-06-21] MEDS: Enoxaparin Sodium 40 MG/0.4 ML SYRINGE SC SCH (08:23)
[2021-06-21] MEDS: Lantus 1000 UNITS/10 ML VIAL SC SCH ×2 (08:24→20:19)
[2021-06-21] MEDS: Carvedilol 25 MG TAB PO SCH ×2 (08:37→16:11)
[2021-06-21] MEDS ORDERED: Carvedilol 6.25 MG TAB PO SCH (09:15)
[2021-06-21] MEDS ORDERED: Magnesium 2 GM/50 ML 2 GM in Premix Bag 1 BAG IVPB SCH (10:45)
[2021-06-21] MEDS: tiZANidine HCl 4 MG TAB PO PRN ×2 (12:13→20:21)
[2021-06-21] MEDS: Buprenorphine HCl 2 MG SL TAB SL SCH ×2 (12:17→20:18)
[2021-06-21] MEDS: hydrOXYzine 25 MG TAB PO SCH ×2 (16:11→20:18)
[2021-06-21] MEDS: Atorvastatin Calcium 40 MG TAB PO SCH (20:18)
[2021-06-21] MEDS: Amlodipine 10 MG TAB PO SCH (20:18)
[2021-06-22] MEDS: tiZANidine HCl 4 MG TAB PO PRN ×2 (04:25→11:39)
[2021-06-22] MEDS: Acetaminophen 325 MG TAB PO PRN (04:32)
[2021-06-22] MEDS: hydrALAZINE 20 MG/ML VIAL SLOW IVP PRN (04:33)
[2021-06-22] MEDS: Promethazine 25 MG TAB PO PRN (04:39)
[2021-06-22] MEDS ORDERED: Carvedilol 25 MG TAB PO SCH (08:00)
[2021-06-22] MEDS: hydrOXYzine 25 MG TAB PO SCH ×2 (08:20→15:10)
[2021-06-22] MEDS: Carvedilol 25 MG TAB PO SCH (08:21)
[2021-06-22] MEDS: Enoxaparin Sodium 40 MG/0.4 ML SYRINGE SC SCH (08:21)
[2021-06-22] MEDS: metFORMIN 500 MG TAB PO SCH (08:21)
[2021-06-22] MEDS: Lantus 1000 UNITS/10 ML VIAL SC SCH ×2 (08:22→11:51)
[2021-06-22 09:25] LABS: Anion Gap 14 mmol/L (10-20); BUN (Urea Nitrogen) 16 mg/dL (7.0-18.7); Calc. Creatinine Clearance 66 mL/min (70-130); Calcium 9.7 mg/dL (7.8-10.44); Carbon Dioxide 27 mmol/L (22-29); Chloride 99 mmol/L (98-107); Glucose 115 mg/dL (70-105); Magnesium 1.6 mg/dL (1.6-2.6); Potassium 3.9 mmol/L (3.5-5.1); Sodium 136 mmol/L (136-145)
[2021-06-22] MEDS: Buprenorphine HCl 2 MG SL TAB SL SCH (11:38)
[2021-06-22 12:20] VITALS: BP 124/60; TEMP 98.3
[2021-06-23 15:14] LABS: Dopamine 24H Ur 542 ug/24 hr (0-510); Dopamine,Ur 361 ug/L (Undefined); Epinephrine 24H Ur 15 ug/24 hr (0-20); Epinephrine,Ur 10 ug/L (Undefined); Norephinephrine 24H U 66 ug/24 hr (0-135); Norephinephrine,Ur 44 ug/L (Undefined)
[2021-06-26 21:39] LABS: Metanephrine,Ur 173 ug/L (Undefined); Metanephrines Total-24H 260 ug/24 hr (36-209); Normetanephrine,Ur 447 ug/L (Undefined); Normetanephrines-24H U 671 ug/24 hr (131-612)
== END 2021-06-22 16:05 | disposition home or self-care (01) | DRG 304 ==
LOC: ERS 23:52 → CCU 06-17 00:37 → 2SW 06-18 15:10
PROVIDERS: ADMIT Student in an Organized Health Care Education/Training Program; ATTEND Student in an Organized Health Care Education/Training Program
PROC: 8E0ZXY6 Isolation (ICD-10-PCS; principal; 2021-06-17)
DX: I16.1 Hypertensive emergency (principal); U07.1 COVID-19; N17.9 Acute kidney failure, unspecified; F11.20 Opioid dependence, uncomplicated; I24.8 Other forms of acute ischemic heart disease; F41.9 Anxiety disorder, unspecified; E78.5 Hyperlipidemia, unspecified; I25.10 Atherosclerotic heart disease of native coronary artery without angina pectoris; N18.9 Chronic kidney disease, unspecified; E11.22 Type 2 diabetes mellitus with diabetic chronic kidney disease; I12.9 Hypertensive chronic kidney disease with stage 1 through stage 4 chronic kidney disease, or unspecified chronic kidney disease; E78.00 Pure hypercholesterolemia, unspecified; E11.65 Type 2 diabetes mellitus with hyperglycemia; F31.9 Bipolar disorder, unspecified; I51.7 Cardiomegaly; K21.9 Gastro-esophageal reflux disease without esophagitis; Z88.8 Allergy status to other drugs, medicaments and biological substances; Z88.6 Allergy status to analgesic agent; Z79.84 Long term (current) use of oral hypoglycemic drugs; Z79.4 Long term (current) use of insulin; Z79.899 Other long term (current) drug therapy; Z90.09 Acquired absence of other part of head and neck; Z95.5 Presence of coronary angioplasty implant and graft; Z91.14 Patient's other noncompliance with medication regimen; Z98.51 Tubal ligation status; Z90.710 Acquired absence of both cervix and uterus; Z76.5 Malingerer [conscious simulation]
CPT/HCPCS: 36415; 36416; 71275; 74174; 80048; 80053; 80306; 82384; 82553; 83735; 83835; 84100; 84484; 85025; 93005; 93010; 96374; J0360; J0571; J1650; J1815; J3475; J7050; Q0169

== ENCOUNTER 2021-07-06 13:53 | Observation (INO) | payer OTHER ==
[2021-07-06 16:17] VITALS: BMI 30.7
[2021-07-06] MEDS ORDERED: Acetaminophen 325 MG TAB PO PRN (16:38)
[2021-07-06] MEDS ORDERED: Gabapentin 300 MG CAP PO PRN (16:51)
[2021-07-06] MEDS ORDERED: hydrALAZINE 20 MG/ML VIAL SLOW IVP PRN ×2 (16:54→17:06)
[2021-07-06] MEDS ORDERED: hydrALAZINE 25 MG TAB PO SCH ×2 (17:30→21:00)
[2021-07-06] MEDS: Carvedilol 25 MG TAB PO SCH (17:59)
[2021-07-06] MEDS: metFORMIN 500 MG TAB PO SCH (17:59)
[2021-07-06] MEDS ORDERED: tiZANidine HCl 4 MG TAB PO SCH ×2 (18:00→21:00)
[2021-07-06] MEDS: HumaLOG 300 UNITS/3 ML VIAL SC SCH (18:01)
[2021-07-06 18:42] LABS: Troponin I 0.055 ng/mL (< 0.028)
[2021-07-06 20:45] LABS: Troponin I 0.057 ng/mL (< 0.028)
[2021-07-06] MEDS ORDERED: Amlodipine 10 MG TAB PO SCH (21:00)
[2021-07-06] MEDS ORDERED: Atorvastatin Calcium 40 MG TAB PO SCH (21:00)
[2021-07-06] MEDS ORDERED: Buprenorphine HCl 2 MG SL TAB PO SCH (21:00)
[2021-07-06] MEDS: hydrOXYzine 25 MG TAB PO SCH (21:24)
[2021-07-06] MEDS: Lantus 1000 UNITS/10 ML VIAL SC SCH (21:33)
[2021-07-06] MEDS ORDERED: Nitroglycerin 2% Ointment 1 INCH/1 GM Packet TOP SCH (22:00)
[2021-07-07] MEDS ORDERED: hydrOXYzine 25 MG TAB PO SCH (05:15)
[2021-07-07] MEDS ORDERED: hydrALAZINE 20 MG/ML VIAL SLOW IVP SCH (05:15)
[2021-07-07] MEDS ORDERED: Lidocaine 5% Patch TD SCH (05:15)
[2021-07-07] MEDS ORDERED: tiZANidine HCl 4 MG TAB PO SCH ×2 (05:15→09:00)
[2021-07-07 06:12] LABS: ALT (SGPT) 12 U/L (8-55); AST (SGOT) 27 U/L (5-34); Albumin 4.5 g/dL (3.5-5.0); Alkaline Phosphatase 144 U/L (40-110); Anion Gap 16 mmol/L (10-20); BUN (Urea Nitrogen) 25 mg/dL (7.0-18.7); Bilirubin, Total 1.5 mg/dL (0.2-1.2); Calc. Creatinine Clearance 67 mL/min (70-130); Calcium 10.5 mg/dL (7.8-10.44); Carbon Dioxide 30 mmol/L (22-29); Chloride 93 mmol/L (98-107); Globulin 5.2 g/dL (2.4-3.5); Glucose 107 mg/dL (70-105); Potassium 3.1 mmol/L (3.5-5.1); Protein, Total 9.7 g/dL (6.0-8.3); Sodium 136 mmol/L (136-145)
[2021-07-07] MEDS: Promethazine 25 MG TAB PO PRN ×2 (06:50→18:01)
[2021-07-07] MEDS ORDERED: Dextrose 50% Abboject 50 ML SYRINGE SLOW IVP PRN (07:12)
[2021-07-07] MEDS ORDERED: HumaLOG 300 UNITS/3 ML VIAL SC PRN ×2 (07:12)
[2021-07-07] MEDS ORDERED: Dextrose 5% in Water 1,000 ML IV PRN (07:12)
[2021-07-07] MEDS ORDERED: Potassium Chloride 20 MEQ TAB PO SCH (07:15)
[2021-07-07] MEDS: tiZANidine HCl 4 MG TAB PO SCH ×3 (08:39→16:56)
[2021-07-07] MEDS: metFORMIN 500 MG TAB PO SCH ×2 (08:40→17:24)
[2021-07-07] MEDS: Carvedilol 25 MG TAB PO SCH ×2 (08:40→16:58)
[2021-07-07] MEDS: hydrOXYzine 25 MG TAB PO SCH ×2 (08:40→16:56)
[2021-07-07] MEDS ORDERED: Lisinopril 5 MG TAB PO SCH (09:00)
[2021-07-07] MEDS ORDERED: Famotidine 20 MG TAB PO SCH (09:00)
[2021-07-07] MEDS ORDERED: FLU VACC QS2021-22(6MOS UP)/PF 60 MCG/0.5 ML SYRINGE IM ONE (09:00)
[2021-07-07] MEDS ORDERED: hydrALAZINE 25 MG TAB PO SCH (09:00)
[2021-07-07] MEDS ORDERED: Enoxaparin Sodium 30 MG/0.3 ML SYRINGE SC SCH (09:00)
[2021-07-07 10:06] LABS: Magnesium 1.8 mg/dL (1.6-2.6)
[2021-07-07] MEDS ORDERED: Magnesium Sulfate 2 GM in Sodium Chloride 0.9% 100 ML IVPB SCH (11:15)
[2021-07-07] MEDS ORDERED: Magnesium 2 GM/50 ML 2 GM in Premix Bag 1 BAG IVPB SCH (12:00)
[2021-07-07] MEDS: HumaLOG 300 UNITS/3 ML VIAL SC SCH ×3 (12:33→17:23)
[2021-07-07] MEDS: Lantus 1000 UNITS/10 ML VIAL SC SCH (12:37)
[2021-07-07] MEDS ORDERED: Sodium Chloride 0.9% 500 ML IV SCH (13:00)
[2021-07-07 16:11] VITALS: TEMP 98.6
[2021-07-07] MEDS ORDERED: predniSONE 50 MG TAB ONE (16:39)
[2021-07-07 18:03] VITALS: BP 144/67
[2021-07-07] MEDS ORDERED: Transdermal Patch Removal TOP SCH (21:00)
[2021-07-08] MEDS ORDERED: Lidocaine 5% Patch TD SCH (09:00)
[2021-07-08] MEDS ORDERED: Enoxaparin Sodium 40 MG/0.4 ML SYRINGE SC SCH (09:00)
== END 2021-07-07 18:15 | disposition home or self-care (01) ==
LOC: 2NO 16:01
PROVIDERS: ADMIT Student in an Organized Health Care Education/Training Program; ATTEND Student in an Organized Health Care Education/Training Program
DX: I16.0 Hypertensive urgency (principal); G89.29 Other chronic pain; R07.89 Other chest pain; E11.65 Type 2 diabetes mellitus with hyperglycemia; I25.10 Atherosclerotic heart disease of native coronary artery without angina pectoris; F11.10 Opioid abuse, uncomplicated; I11.9 Hypertensive heart disease without heart failure; E78.5 Hyperlipidemia, unspecified; I25.2 Old myocardial infarction; Z91.14 Patient's other noncompliance with medication regimen; Z79.4 Long term (current) use of insulin; Z79.84 Long term (current) use of oral hypoglycemic drugs; Z79.899 Other long term (current) drug therapy; Z88.5 Allergy status to narcotic agent; Z88.6 Allergy status to analgesic agent; Z88.8 Allergy status to other drugs, medicaments and biological substances
CPT/HCPCS: 36415; 36416; 80053; 83735; 96372; 96374; G0378; J0360; J1650; J1815; J3475; J7050; J7512; Q0169

== ENCOUNTER 2021-07-14 01:12 | Inpatient (IN) | payer OTHER ==
[2021-07-14] MEDS ORDERED: Labetalol HCl 100 MG/20 ML VIAL ONE (02:38)
[2021-07-14] MEDS ORDERED: Acetaminophen 325 MG TAB ONE ×2 (03:15→11:41)
[2021-07-14] MEDS ORDERED: Clindamycin/D5W 600 mg/50 ml Premix Bag ONE ×2 (03:33→14:21)
[2021-07-14 04:15] LABS: Bacteria/HPF None Seen HPF (None Seen); Bilirubin Negative (Negative); Blood, Urine Negative (Negative); Clarity Clear (Clear); Glucose, Urine (Dipstick) 300 mg/dL (Negative); Ketone, Urine Negative (Negative); Leukocyte 75 Leu/uL (Negative); Nitrite Negative (Negative); Protein, Urine (Dipstick) 20 mg/dL (Neg-Trace); RBC/HPF None Seen HPF (0-3); Specific Gravity, Urine 1.012 (1.002-1.036); Urobilinogen Normal mg/dL (Less than 2); WBC/HPF 0-3 HPF (0-3)
[2021-07-14] MEDS ORDERED: Labetalol HCl 100 MG/20 ML VIAL SLOW IVP SCH (04:30)
[2021-07-14] MEDS ORDERED: Amlodipine 10 MG TAB PO SCH (04:30)
[2021-07-14] MEDS ORDERED: Lisinopril 5 MG TAB PO SCH (04:30)
[2021-07-14] MEDS ORDERED: Dextrose 5% in Water 1,000 ML IV PRN (04:37)
[2021-07-14] MEDS ORDERED: Dextrose 50% Abboject 50 ML SYRINGE SLOW IVP PRN (04:37)
[2021-07-14] MEDS ORDERED: Acetaminophen 325 MG TAB PO PRN (04:37)
[2021-07-14] MEDS ORDERED: HumaLOG 300 UNITS/3 ML VIAL SC PRN (04:43)
[2021-07-14] MEDS ORDERED: Lisinopril 10 MG TAB ONE (04:50)
[2021-07-14] MEDS ORDERED: Amlodipine 5 MG TAB ONE (04:50)
[2021-07-14] MEDS ORDERED: Labetalol HCl 100 MG/20 ML VIAL SLOW IVP PRN (04:53)
[2021-07-14] MEDS ORDERED: Gabapentin 300 MG CAP PO PRN (05:06)
[2021-07-14 06:07] LABS: BUN (Urea Nitrogen) 15 mg/dL (7.0-18.7); CRP (Inflammatory) 5.07 mg/dL (= or < 0.5); Calc. Creatinine Clearance 0 mL/min (70-130); Carbon Dioxide 21 mmol/L (22-29); Chloride 104 mmol/L (98-107); Glucose 203 mg/dL (70-105); Potassium 3.7 mmol/L (3.5-5.1); Sodium 137 mmol/L (136-145)
[2021-07-14 06:08] LABS: Anion Gap 16 mmol/L (10-20)
[2021-07-14] MEDS ORDERED: Morphine 4 MG/ML VIAL ONE (06:10)
[2021-07-14] MEDS ORDERED: diphenhydrAMINE 50 MG/ML VIAL ONE (06:10)
[2021-07-14] MEDS ORDERED: hydrALAZINE 20 MG/ML VIAL ONE (06:14)
[2021-07-14] MEDS: Clindamycin/D5W 600 MG in Premix Bag 1 BAG IVPB SCH ×3 (06:28→21:29)
[2021-07-14 06:57] LABS: #Eosinphils 0.1 thou/uL (0.0-0.7); #Lymphocytes 2.1 thou/uL (1.20-3.40); #Monocytes 1.2 thou/uL (0.11-0.59); #Neutrophils 7.6 thou/uL (1.40-6.50); %Basophils 0.2 % (0.0-1.0); %Eosinophils 0.5 % (0.0-10.0); %Lymphocytes 19.2 % (21.0-51.0); %Monocytes 11.3 % (0.0-10.0); %Neutrophils 68.8 % (42.0-75.0); Hemoglobin 9.9 g/dL (12.0-16.0); Mean Corpuscular HGB CONC 31.2 g/dL (32.0-36.0); Mean Corpuscular Hemoglobin 23.4 pg (27.0-31.0); Mean Corpuscular Volume 75.1 fL (78.0-98.0); Mean Platelet Volume 9.9 fL (7.4-10.4); Platelet Count 195 thou/uL (130-400); RBC Distribution Width 14.1 % (11.5-14.5); Red Blood Cell (RBC) Count 4.21 mill/uL (4.20-5.40); White Blood Cell (WBC) Count 11.1 thou/uL (4.8-10.8)
[2021-07-14 08:31] LABS: Iron 14 ug/dL (50-170); Iron Binding Capacity, Total 428 mcg/dL (265-497)
[2021-07-14 08:33] LABS: Troponin I 0.047 ng/mL (< 0.028)
[2021-07-14] MEDS ORDERED: Lantus 1000 UNITS/10 ML VIAL SC SCH ×3 (09:00→21:00)
[2021-07-14] MEDS ORDERED: Insulin Glargine 80 UNITS in Pre-Filled Syringe 1 EACH SC SCH (09:00)
[2021-07-14] MEDS: Carvedilol 25 MG TAB PO SCH ×2 (11:22→18:22)
[2021-07-14] MEDS: Enoxaparin Sodium 40 MG/0.4 ML SYRINGE SC SCH (11:22)
[2021-07-14] MEDS: hydrOXYzine 25 MG TAB PO SCH ×3 (11:22→21:25)
[2021-07-14 11:25] LABS: SARS-CoV-2 PCR by NAA Not Detected (NotDetected)
[2021-07-14] MEDS ORDERED: hydrOXYzine 25 MG TAB ONE ×2 (11:30→11:32)
[2021-07-14] MEDS ORDERED: Enoxaparin Sodium 40 MG/0.4 ML SYRINGE ONE (11:30)
[2021-07-14] MEDS: Lidocaine 5% Patch TD SCH (11:38)
[2021-07-14] MEDS ORDERED: hydrALAZINE 20 MG/ML VIAL SLOW IVP PRN (12:00)
[2021-07-14 12:37] VITALS: BMI 28.8
[2021-07-14] MEDS: tiZANidine HCl 4 MG TAB PO SCH ×4 (12:54→21:26)
[2021-07-14 15:59] LABS: Amphetamine Not Detected (NotDetected); Barbiturates Screen Not Detected (NotDetected); Benzodiazepine Screen Not Detected (NotDetected); Cocaine Metabolite Screen Not Detected (NotDetected); Methadone Not Detected (NotDetected); Methamphetamine Not Detected (NotDetected); Opiate Screen Not Detected (NotDetected); Oxycodone Screen Not Detected (NotDetected); Phencyclidine (PCP) Not Detected (NotDetected); THC/Cannabinoid Screen Not Detected (NotDetected); Tricyclic Screen Not Detected (NotDetected)
[2021-07-14] MEDS: Lantus 1000 UNITS/10 ML VIAL SC SCH ×2 (16:17→22:12)
[2021-07-14] MEDS ORDERED: Naloxone HCl 0.4 mg/ml Vial IV SCH (16:45)
[2021-07-14] MEDS: Atorvastatin Calcium 40 MG TAB PO SCH (21:26)
[2021-07-14] MEDS: Transdermal Patch Removal TOP SCH (21:37)
[2021-07-14] MEDS ORDERED: Carvedilol 25 MG TAB PO SCH (22:00)
[2021-07-15 04:44] LABS: #Lymphocytes 1.6 thou/uL (1.20-3.40); #Monocytes 1.3 thou/uL (0.11-0.59); #Neutrophils 6.7 thou/uL (1.40-6.50); %Basophils 0.3 % (0.0-1.0); %Eosinophils 0.4 % (0.0-10.0); %Monocytes 12.9 % (0.0-10.0); %Neutrophils 69.4 % (42.0-75.0); Hemoglobin 9.7 g/dL (12.0-16.0); Mean Corpuscular HGB CONC 31.4 g/dL (32.0-36.0); Mean Corpuscular Hemoglobin 24.1 pg (27.0-31.0); Mean Corpuscular Volume 76.7 fL (78.0-98.0); Platelet Count 199 thou/uL (130-400); RBC Distribution Width 14.2 % (11.5-14.5); Red Blood Cell (RBC) Count 4.01 mill/uL (4.20-5.40); White Blood Cell (WBC) Count 9.6 thou/uL (4.8-10.8)
[2021-07-15 05:11] LABS: Anion Gap 13 mmol/L (10-20); BUN (Urea Nitrogen) 21 mg/dL (7.0-18.7); Calc. Creatinine Clearance 59 mL/min (70-130); Carbon Dioxide 26 mmol/L (22-29); Chloride 101 mmol/L (98-107); Glucose 126 mg/dL (70-105); Potassium 3.6 mmol/L (3.5-5.1); Sodium 136 mmol/L (136-145)
[2021-07-15] MEDS: Clindamycin/D5W 600 MG in Premix Bag 1 BAG IVPB SCH ×3 (05:34→22:44)
[2021-07-15] MEDS ORDERED: Promethazine 25 MG TAB PO SCH (09:30)
[2021-07-15] MEDS ORDERED: Ferrous Sulfate 325 MG TAB PO SCH (09:45)
[2021-07-15] MEDS ORDERED: Acetaminophen/Codeine 30-300mg Tablet PO SCH (09:45)
[2021-07-15] MEDS: Buprenorphine 8mg/Naloxone 2mg per 1 FILM SL SCH (10:01)
[2021-07-15] MEDS: Enoxaparin Sodium 40 MG/0.4 ML SYRINGE SC SCH (10:02)
[2021-07-15] MEDS: Lantus 1000 UNITS/10 ML VIAL SC SCH ×2 (10:03→22:49)
[2021-07-15] MEDS: Lisinopril 5 MG TAB PO SCH (10:03)
[2021-07-15] MEDS: Carvedilol 25 MG TAB PO SCH ×2 (10:03→16:21)
[2021-07-15] MEDS: hydrOXYzine 25 MG TAB PO SCH ×3 (10:04→22:42)
[2021-07-15] MEDS: tiZANidine HCl 4 MG TAB PO SCH ×4 (10:04→22:42)
[2021-07-15] MEDS: Lidocaine 5% Patch TD SCH (10:07)
[2021-07-15] MEDS: HumaLOG 300 UNITS/3 ML VIAL SC PRN (12:04)
[2021-07-15] MEDS: Acetaminophen/Codeine 30-300mg Tablet PO PRN ×2 (15:10→22:42)
[2021-07-15] MEDS ORDERED: Amlodipine 10 MG TAB PO SCH (21:00)
[2021-07-15] MEDS: Atorvastatin Calcium 40 MG TAB PO SCH (22:42)
[2021-07-15] MEDS: Transdermal Patch Removal TOP SCH (22:49)
[2021-07-16] MEDS: Acetaminophen/Codeine 30-300mg Tablet PO PRN ×3 (04:57→14:12)
[2021-07-16] MEDS: Clindamycin/D5W 600 MG in Premix Bag 1 BAG IVPB SCH ×2 (04:58→14:09)
[2021-07-16 05:19] LABS: #Eosinphils 0.1 thou/uL (0.0-0.7); #Lymphocytes 2.3 thou/uL (1.20-3.40); #Monocytes 1.3 thou/uL (0.11-0.59); #Neutrophils 6.4 thou/uL (1.40-6.50); %Basophils 0.1 % (0.0-1.0); %Eosinophils 0.5 % (0.0-10.0); %Lymphocytes 23.1 % (21.0-51.0); %Monocytes 13.2 % (0.0-10.0); %Neutrophils 63.1 % (42.0-75.0); Hemoglobin 11.6 g/dL (12.0-16.0); Mean Corpuscular HGB CONC 31.1 g/dL (32.0-36.0); Mean Corpuscular Hemoglobin 24.1 pg (27.0-31.0); Mean Corpuscular Volume 77.4 fL (78.0-98.0); Mean Platelet Volume 9.5 fL (7.4-10.4); Platelet Count 220 thou/uL (130-400); RBC Distribution Width 14.3 % (11.5-14.5); Red Blood Cell (RBC) Count 4.83 mill/uL (4.20-5.40); White Blood Cell (WBC) Count 10.1 thou/uL (4.8-10.8)
[2021-07-16 05:42] LABS: Anion Gap 18 mmol/L (10-20); BUN (Urea Nitrogen) 23 mg/dL (7.0-18.7); Calc. Creatinine Clearance 55 mL/min (70-130); Calcium 9.7 mg/dL (7.8-10.44); Carbon Dioxide 20 mmol/L (22-29); Chloride 100 mmol/L (98-107); Glucose 162 mg/dL (70-105); Potassium 3.6 mmol/L (3.5-5.1); Sodium 134 mmol/L (136-145)
[2021-07-16] MEDS: HumaLOG 300 UNITS/3 ML VIAL SC PRN (05:56)
[2021-07-16] MEDS ORDERED: Ferrous Sulfate 325 MG TAB PO SCH (08:00)
[2021-07-16] MEDS: Carvedilol 25 MG TAB PO SCH (09:03)
[2021-07-16] MEDS: Lisinopril 5 MG TAB PO SCH (09:03)
[2021-07-16] MEDS: hydrOXYzine 25 MG TAB PO SCH (09:03)
[2021-07-16] MEDS: Enoxaparin Sodium 40 MG/0.4 ML SYRINGE SC SCH (09:07)
[2021-07-16] MEDS: Lidocaine 5% Patch TD SCH (09:09)
[2021-07-16] MEDS: Lantus 1000 UNITS/10 ML VIAL SC SCH (09:09)
[2021-07-16] MEDS: tiZANidine HCl 4 MG TAB PO SCH ×2 (09:37→14:10)
[2021-07-16] MEDS ORDERED: Promethazine 25 MG TAB PO SCH (09:45)
[2021-07-16] MEDS: Buprenorphine 8mg/Naloxone 2mg per 1 FILM SL SCH (09:51)
[2021-07-16 15:53] VITALS: BP 100/53; TEMP 97.7
== END 2021-07-16 16:51 | disposition home or self-care (01) | DRG 872 ==
LOC: ERS 01:12 → INTOOBSV 03:48 → ERHOLD 03:48 → 2NO 14:54 → OBSVTOIN 07-16 09:59
PROVIDERS: ADMIT Emergency Medicine; ATTEND Emergency Medicine
PROC: 0HBMXZZ Excision of Right Foot Skin, External Approach (ICD-10-PCS; principal; 2021-07-15)
DX: A41.89 Other specified sepsis (principal); E87.1 Hypo-osmolality and hyponatremia; L03.115 Cellulitis of right lower limb; E78.5 Hyperlipidemia, unspecified; I25.10 Atherosclerotic heart disease of native coronary artery without angina pectoris; F31.9 Bipolar disorder, unspecified; I16.0 Hypertensive urgency; D50.9 Iron deficiency anemia, unspecified; N18.31 Chronic kidney disease, stage 3a; I12.9 Hypertensive chronic kidney disease with stage 1 through stage 4 chronic kidney disease, or unspecified chronic kidney disease; E11.22 Type 2 diabetes mellitus with diabetic chronic kidney disease; L84 Corns and callosities; G89.4 Chronic pain syndrome; E78.00 Pure hypercholesterolemia, unspecified; M60.9 Myositis, unspecified; Z20.822 Contact with and (suspected) exposure to COVID-19; Z95.5 Presence of coronary angioplasty implant and graft; Z79.899 Other long term (current) drug therapy; Z88.8 Allergy status to other drugs, medicaments and biological substances; Z79.4 Long term (current) use of insulin; I25.2 Old myocardial infarction; Z90.49 Acquired absence of other specified parts of digestive tract; Z98.51 Tubal ligation status; Z90.710 Acquired absence of both cervix and uterus; Z88.5 Allergy status to narcotic agent
CPT/HCPCS: 36415; 36416; 80048; 80306; 81003; 82728; 83540; 83550; 84484; 85025; 85652; 86140; 93005; 93010; 96365; 96372; 96375; 96376; G0378; J0360; J1200; J1650; J1815; J2270; J2310; J3490; Q0169; U0003; U0005

== ENCOUNTER 2021-07-21 05:19 | Inpatient (IN) | payer OTHER ==
[2021-07-21] MEDS: Morphine 4 MG/ML VIAL SLOW IVP PRN ×4 (08:39→20:40)
[2021-07-21] MEDS ORDERED: Dextrose 5% in Water 1,000 ML IV PRN (08:43)
[2021-07-21] MEDS ORDERED: Guaifenesin DM 100-10/5 ML UDCUP PO PRN (08:43)
[2021-07-21] MEDS ORDERED: Acetaminophen 325 MG TAB PO PRN (08:43)
[2021-07-21] MEDS ORDERED: Dextrose 50% Abboject 50 ML SYRINGE SLOW IVP PRN (08:43)
[2021-07-21] MEDS ORDERED: HumaLOG 300 UNITS/3 ML VIAL SC PRN ×2 (08:46)
[2021-07-21] MEDS ORDERED: Promethazine HCl 12.5 MG in Sodium Chloride 0.9% 50 ML IVPB PRN (08:52)
[2021-07-21] MEDS ORDERED: Benzonatate 100 MG CAP PO PRN (08:54)
[2021-07-21] MEDS ORDERED: Acetaminophen 500 MG TAB PO SCH (09:00)
[2021-07-21] MEDS ORDERED: Promethazine 25 MG TAB PO PRN (09:10)
[2021-07-21] MEDS ORDERED: hydrALAZINE 20 MG/ML VIAL SLOW IVP PRN (09:12)
[2021-07-21] MEDS ORDERED: Morphine 4 MG/ML VIAL SLOW IVP PRN (09:31)
[2021-07-21] MEDS ORDERED: Carvedilol 25 MG TAB PO SCH ×3 (09:37→17:00)
[2021-07-21] MEDS ORDERED: Lisinopril 5 MG TAB PO SCH ×2 (09:38→10:00)
[2021-07-21] MEDS ORDERED: Piperacillin/Tazobactam 3.375 GM in Sodium Chloride 0.9% 100 ML IVPB SCH ×2 (12:00→14:00)
[2021-07-21] MEDS: Lactated Ringer's 1,000 ML IV SCH ×2 (12:11→17:02)
[2021-07-21] MEDS: Vancomycin HCl 1.5 GM in Sodium Chloride 0.9% 250 ML 300 ML IVPB SCH (12:11)
[2021-07-21] MEDS: Acetaminophen 325 MG TAB PO SCH ×3 (12:11→23:00)
[2021-07-21] MEDS: tiZANidine HCl 4 MG TAB PO SCH ×3 (12:11→20:05)
[2021-07-21] MEDS ORDERED: Non-Formulary Item 1 EACH (Tizanidine Hcl [Tizanidine Hcl] 4 MG Capsule) PO SCH (13:00)
[2021-07-21] MEDS: hydrOXYzine 25 MG TAB PO SCH ×2 (15:44→20:11)
[2021-07-21] MEDS: Carvedilol 25 MG TAB PO SCH (15:44)
[2021-07-21] MEDS: Enoxaparin Sodium 40 MG/0.4 ML SYRINGE SC SCH (20:05)
[2021-07-21] MEDS: Atorvastatin Calcium 40 MG TAB PO SCH (20:06)
[2021-07-21] MEDS: Amlodipine 10 MG TAB PO SCH (20:06)
[2021-07-21] MEDS: Gabapentin 300 MG CAP PO PRN (20:06)
[2021-07-21] MEDS: Lantus 1000 UNITS/10 ML VIAL SC SCH (20:07)
[2021-07-21] MEDS: Transdermal Patch Removal TOP SCH (20:40)
[2021-07-22] MEDS ORDERED: Piperacillin/Tazobactam 3.375 GM in Sodium Chloride 0.9% 100 ML IVPB SCH (00:01)
[2021-07-22] MEDS: Morphine 4 MG/ML VIAL SLOW IVP PRN ×3 (01:01→09:07)
[2021-07-22] MEDS: Piperacillin/Tazobactam 3.375 GM in Sodium Chloride 0.9% 100 ML IVPB SCH ×3 (03:03→20:30)
[2021-07-22] MEDS: Lactated Ringer's 1,000 ML IV SCH ×2 (03:03→11:22)
[2021-07-22] MEDS: HumaLOG 300 UNITS/3 ML VIAL SC PRN ×2 (04:12→11:24)
[2021-07-22] MEDS: Acetaminophen 325 MG TAB PO SCH ×4 (05:07→23:02)
[2021-07-22 06:32] LABS: #Eosinphils 0.2 thou/uL (0.0-0.7); #Lymphocytes 1.6 thou/uL (1.20-3.40); #Monocytes 0.4 thou/uL (0.11-0.59); #Neutrophils 2.6 thou/uL (1.40-6.50); %Basophils 0.4 % (0.0-1.0); %Eosinophils 3.7 % (0.0-10.0); %Lymphocytes 32.9 % (21.0-51.0); Hemoglobin 8.4 g/dL (12.0-16.0); Mean Corpuscular HGB CONC 31.5 g/dL (32.0-36.0); Mean Corpuscular Hemoglobin 23.8 pg (27.0-31.0); Mean Corpuscular Volume 75.7 fL (78.0-98.0); Mean Platelet Volume 8.1 fL (7.4-10.4); Platelet Count 302 thou/uL (130-400); Red Blood Cell (RBC) Count 3.54 mill/uL (4.20-5.40); White Blood Cell (WBC) Count 4.8 thou/uL (4.8-10.8)
[2021-07-22 06:50] LABS: ALT (SGPT) 16 U/L (8-55); AST (SGOT) 29 U/L (5-34); Albumin 2.9 g/dL (3.5-5.0); Alkaline Phosphatase 146 U/L (40-110); Anion Gap 12 mmol/L (10-20); BUN (Urea Nitrogen) 17 mg/dL (7.0-18.7); Bilirubin, Total 0.3 mg/dL (0.2-1.2); Calc. Creatinine Clearance 786 mL/min (70-130); Calcium 8.7 mg/dL (7.8-10.44); Carbon Dioxide 24 mmol/L (22-29); Chloride 103 mmol/L (98-107); Globulin 4.3 g/dL (2.4-3.5); Glucose 207 mg/dL (70-105); Potassium 3.7 mmol/L (3.5-5.1); Protein, Total 7.2 g/dL (6.0-8.3); Sodium 135 mmol/L (136-145)
[2021-07-22] MEDS ORDERED: Lisinopril 5 MG TAB PO SCH (09:00)
[2021-07-22] MEDS ORDERED: LACTOBACILLUS COMBINATION NO 4 PO SCH (09:00)
[2021-07-22] MEDS: hydrOXYzine 25 MG TAB PO SCH ×3 (09:07→20:29)
[2021-07-22] MEDS: Carvedilol 25 MG TAB PO SCH ×2 (09:07→17:46)
[2021-07-22] MEDS: tiZANidine HCl 4 MG TAB PO SCH ×4 (09:07→20:31)
[2021-07-22] MEDS: Lisinopril 5 MG TAB PO SCH (09:07)
[2021-07-22] MEDS: Ferrous Sulfate 325 MG TAB PO SCH (09:07)
[2021-07-22] MEDS: Saccharomyces boulardii 250 MG CAP PO SCH (09:07)
[2021-07-22] MEDS: Lidocaine 5% Patch TD SCH (09:09)
[2021-07-22] MEDS: Lantus 1000 UNITS/10 ML VIAL SC SCH ×2 (09:09→20:31)
[2021-07-22] MEDS: Buprenorphine 8mg/Naloxone 2mg per 1 FILM SL SCH (09:35)
[2021-07-22] MEDS: Polyethylene Glycol 3350 17 GM Packet PO SCH (09:36)
[2021-07-22 10:26] VITALS: BMI 31.8
[2021-07-22] MEDS ORDERED: Buprenorphine 8mg/Naloxone 2mg per 1 FILM SL PRN (10:42)
[2021-07-22] MEDS: Vancomycin HCl 1.5 GM in Sodium Chloride 0.9% 250 ML 300 ML IVPB SCH (11:22)
[2021-07-22] MEDS: Gabapentin 300 MG CAP PO PRN ×2 (13:34→20:31)
[2021-07-22] MEDS: Enoxaparin Sodium 40 MG/0.4 ML SYRINGE SC SCH (20:30)
[2021-07-22] MEDS: Amlodipine 10 MG TAB PO SCH (20:30)
[2021-07-22] MEDS: Atorvastatin Calcium 40 MG TAB PO SCH (20:31)
[2021-07-22] MEDS: Transdermal Patch Removal TOP SCH (20:32)
[2021-07-23] MEDS: Piperacillin/Tazobactam 3.375 GM in Sodium Chloride 0.9% 100 ML IVPB SCH (06:07)
[2021-07-23] MEDS: Acetaminophen 325 MG TAB PO SCH (06:08)
[2021-07-23] MEDS: Gabapentin 300 MG CAP PO PRN (06:08)
[2021-07-23] MEDS ORDERED: Buprenorphine HCl 2 MG SL TAB SL SCH (06:30)
[2021-07-23 06:47] LABS: #Eosinphils 0.2 thou/uL (0.0-0.7); #Lymphocytes 1.9 thou/uL (1.20-3.40); #Monocytes 0.4 thou/uL (0.11-0.59); #Neutrophils 2.6 thou/uL (1.40-6.50); %Basophils 0.8 % (0.0-1.0); %Eosinophils 4.8 % (0.0-10.0); %Lymphocytes 36.7 % (21.0-51.0); %Monocytes 8.2 % (0.0-10.0); %Neutrophils 49.6 % (42.0-75.0); Hemoglobin 9.2 g/dL (12.0-16.0); Mean Corpuscular HGB CONC 31.3 g/dL (32.0-36.0); Mean Corpuscular Hemoglobin 23.7 pg (27.0-31.0); Mean Corpuscular Volume 75.5 fL (78.0-98.0); Mean Platelet Volume 7.8 fL (7.4-10.4); Platelet Count 365 thou/uL (130-400); RBC Distribution Width 14.1 % (11.5-14.5); Red Blood Cell (RBC) Count 3.88 mill/uL (4.20-5.40); White Blood Cell (WBC) Count 5.2 thou/uL (4.8-10.8)
[2021-07-23 07:20] LABS: ALT (SGPT) 26 U/L (8-55); AST (SGOT) 43 U/L (5-34); Albumin 3.2 g/dL (3.5-5.0); Alkaline Phosphatase 235 U/L (40-110); Anion Gap 14 mmol/L (10-20); BUN (Urea Nitrogen) 16 mg/dL (7.0-18.7); Bilirubin, Total 0.3 mg/dL (0.2-1.2); Calc. Creatinine Clearance 71 mL/min (70-130); Calcium 9.2 mg/dL (7.8-10.44); Carbon Dioxide 25 mmol/L (22-29); Globulin 4.9 g/dL (2.4-3.5); Glucose 131 mg/dL (70-105); Potassium 4.3 mmol/L (3.5-5.1); Protein, Total 8.1 g/dL (6.0-8.3)
[2021-07-23 08:04] LABS: Chloride 103 mmol/L (98-107); Sodium 138 mmol/L (136-145)
[2021-07-23 08:18] LABS: Cocaine Metabolite Screen Not Detected (NotDetected); Methamphetamine Not Detected (NotDetected); Opiate Screen Detected (NotDetected); Phencyclidine (PCP) Not Detected (NotDetected); THC/Cannabinoid Screen Not Detected (NotDetected)
[2021-07-23 08:19] LABS: Amphetamine Not Detected (NotDetected); Barbiturates Screen Not Detected (NotDetected); Benzodiazepine Screen Not Detected (NotDetected); Methadone Not Detected (NotDetected); Oxycodone Screen Not Detected (NotDetected); Tricyclic Screen Not Detected (NotDetected)
[2021-07-23] MEDS: Carvedilol 25 MG TAB PO SCH (09:31)
[2021-07-23] MEDS: hydrOXYzine 25 MG TAB PO SCH (09:31)
[2021-07-23] MEDS: Ferrous Sulfate 325 MG TAB PO SCH (09:31)
[2021-07-23] MEDS: Polyethylene Glycol 3350 17 GM Packet PO SCH (09:32)
[2021-07-23] MEDS: Lisinopril 5 MG TAB PO SCH (09:32)
[2021-07-23] MEDS: tiZANidine HCl 4 MG TAB PO SCH ×2 (09:32→12:30)
[2021-07-23] MEDS: Saccharomyces boulardii 250 MG CAP PO SCH (09:35)
[2021-07-23] MEDS: Lantus 1000 UNITS/10 ML VIAL SC SCH (09:35)
[2021-07-23] MEDS ORDERED: HYDROcodone/Acetaminophen 10/325 mg Tablet PO SCH (10:00)
[2021-07-23] MEDS: Buprenorphine 8mg/Naloxone 2mg per 1 FILM SL SCH (10:18)
[2021-07-23] MEDS: Lidocaine 5% Patch TD SCH (10:20)
[2021-07-23 11:51] LABS: Vancomycin, Trough 9.1 ug/mL
[2021-07-23] MEDS: HumaLOG 300 UNITS/3 ML VIAL SC PRN (12:26)
[2021-07-23 12:30] VITALS: BP 148/80; TEMP 97.9
[2021-07-23] MEDS ORDERED: Vancomycin 1 GM in Premix Bag 1 BAG IVPB SCH (12:30)
[2021-07-24] MEDS ORDERED: Vancomycin 1 GM in Premix Bag 1 BAG IVPB SCH (00:01)
== END 2021-07-23 13:21 | disposition home or self-care (01) | DRG 638 ==
LOC: T4-A 07:07
PROVIDERS: ADMIT Family Medicine; ATTEND Family Medicine
PROC: 0HBMXZZ Excision of Right Foot Skin, External Approach (ICD-10-PCS; principal; 2021-07-21)
PROC: 0HBMXZZ Excision of Right Foot Skin, External Approach (ICD-10-PCS; 2021-07-22)
DX: E11.628 Type 2 diabetes mellitus with other skin complications (principal); L03.115 Cellulitis of right lower limb; F11.20 Opioid dependence, uncomplicated; Z20.822 Contact with and (suspected) exposure to COVID-19; E78.5 Hyperlipidemia, unspecified; I25.10 Atherosclerotic heart disease of native coronary artery without angina pectoris; F41.9 Anxiety disorder, unspecified; M60.9 Myositis, unspecified; E11.22 Type 2 diabetes mellitus with diabetic chronic kidney disease; N18.32 Chronic kidney disease, stage 3b; I12.9 Hypertensive chronic kidney disease with stage 1 through stage 4 chronic kidney disease, or unspecified chronic kidney disease; L84 Corns and callosities; K59.00 Constipation, unspecified; Z79.82 Long term (current) use of aspirin; Z79.899 Other long term (current) drug therapy; I25.2 Old myocardial infarction
CPT/HCPCS: 36415; 36416; 76705; 80053; 80202; 80306; 85025; J0360; J0571; J1650; J1815; J2270; J2543; J3370; J3490; J7050; J7120; Q0169

== ENCOUNTER 2021-07-30 17:36 | Inpatient (IN) | payer OTHER ==
[2021-07-30] MEDS ORDERED: Morphine 4 MG/ML VIAL ONE (18:15)
[2021-07-30] MEDS ORDERED: niCARdipine 25 MG/10 ML VIAL ONE (18:58)
[2021-07-30] MEDS ORDERED: Acetaminophen 325 MG TAB PO PRN (19:25)
[2021-07-30] MEDS ORDERED: niCARdipine 25 MG in Sodium Chloride 0.9% 250 ML 250 ML IVPB PRN (19:25)
[2021-07-30] MEDS ORDERED: Senokot S 8.6-50 MG TAB PO PRN (19:25)
[2021-07-30] MEDS ORDERED: Electrolyte Replacement Protocol 1 EACH IVPB ONE (19:25)
[2021-07-30] MEDS ORDERED: Dextrose 50% Abboject 50 ML SYRINGE SLOW IVP PRN (19:25)
[2021-07-30] MEDS ORDERED: HumaLOG 300 UNITS/3 ML VIAL SC PRN (19:25)
[2021-07-30] MEDS ORDERED: Calcium Carbonate 500 MG ChewTAB PO PRN (19:25)
[2021-07-30] MEDS ORDERED: Acetaminophen 650 MG Suppository PR PRN (19:25)
[2021-07-30] MEDS ORDERED: Dextrose 5% in Water 1,000 ML IV PRN (19:25)
[2021-07-30 19:31] LABS: CKMB 2.6 ng/mL (0-6.6)
[2021-07-30] MEDS ORDERED: tiZANidine HCl 4 MG TAB PO SCH (19:45)
[2021-07-30] MEDS ORDERED: Electrolyte Replacement Protocol FS PRN (19:45)
[2021-07-30] MEDS ORDERED: HYDROcodone/Acetaminophen 10/325 mg Tablet PO SCH (20:15)
[2021-07-30] MEDS ORDERED: Lidocaine 5% Patch TD SCH (20:15)
[2021-07-30] MEDS ORDERED: hydrOXYzine 25 MG TAB PO SCH ×2 (20:15→21:00)
[2021-07-30] MEDS ORDERED: Gabapentin 300 MG CAP PO PRN (20:31)
[2021-07-30] MEDS ORDERED: HYDROcodone/Acetaminophen 10/325 mg Tablet PO PRN (20:35)
[2021-07-30] MEDS: SODIUM CHLORIDE IVPB PRN (21:58)
[2021-07-30] MEDS: ADMIXTURE FEE IVPB PRN (21:58)
[2021-07-30] MEDS: NICARDIPINE IVPB PRN (21:58)
[2021-07-30 22:01] LABS: Bacteria/HPF None Seen HPF (None Seen); Bilirubin Negative (Negative); Blood, Urine Negative (Negative); Clarity Clear (Clear); Glucose, Urine (Dipstick) Normal (Negative); Ketone, Urine Negative (Negative); Leukocyte Negative Leu/uL (Negative); Nitrite Negative (Negative); Protein, Urine (Dipstick) 30 mg/dL (Neg-Trace); RBC/HPF 0-3 HPF (0-3); Specific Gravity, Urine 1.008 (1.002-1.036); Squamous Epithelial None Seen HPF (0-3); Urobilinogen Normal mg/dL (Less than 2); WBC/HPF 0-3 HPF (0-3)
[2021-07-30] MEDS: Amlodipine 10 MG TAB PO SCH (22:01)
[2021-07-30] MEDS: Famotidine 20 MG TAB PO SCH (22:01)
[2021-07-30] MEDS: Atorvastatin Calcium 40 MG TAB PO SCH (22:01)
[2021-07-30 22:07] LABS: Urine Culture Reflex No No
[2021-07-30 22:10] LABS: Amphetamine Not Detected (NotDetected); Barbiturates Screen Not Detected (NotDetected); Benzodiazepine Screen Not Detected (NotDetected); Cocaine Metabolite Screen Not Detected (NotDetected); Methadone Not Detected (NotDetected); Methamphetamine Not Detected (NotDetected); Opiate Screen Detected (NotDetected); Oxycodone Screen Not Detected (NotDetected); Phencyclidine (PCP) Not Detected (NotDetected); THC/Cannabinoid Screen Not Detected (NotDetected); Tricyclic Screen Not Detected (NotDetected)
[2021-07-30] MEDS: Clindamycin 150 MG CAP PO SCH (22:12)
[2021-07-30] MEDS: tiZANidine HCl 4 MG TAB PO SCH (22:14)
[2021-07-30 22:29] LABS: Troponin I 0.037 ng/mL (< 0.028)
[2021-07-30] MEDS: Promethazine 25 MG TAB PO PRN (22:30)
[2021-07-30 22:35] VITALS: BMI 32.3
[2021-07-30 22:37] LABS: Creatinine, Urine Less than 20.00 mg/dL (47-110); Protein, Urine Random Quant 40 mg/dL (1-14)
[2021-07-31] MEDS: tiZANidine HCl 4 MG TAB PO SCH ×5 (00:08→20:43)
[2021-07-31] MEDS: ADMIXTURE FEE IVPB PRN (02:57)
[2021-07-31] MEDS: SODIUM CHLORIDE IVPB PRN (02:57)
[2021-07-31] MEDS: NICARDIPINE IVPB PRN (02:57)
[2021-07-31 04:05] LABS: #Basophils 0.2 thou/uL (0.0-0.2); #Eosinphils 0.1 thou/uL (0.0-0.7); #Lymphocytes 2.3 thou/uL (1.20-3.40); #Monocytes 0.6 thou/uL (0.11-0.59); #Neutrophils 3.4 thou/uL (1.40-6.50); %Basophils 2.4 % (0.0-1.0); %Eosinophils 1.3 % (0.0-10.0); %Lymphocytes 35.3 % (21.0-51.0); %Monocytes 9.3 % (0.0-10.0); %Neutrophils 51.7 % (42.0-75.0); Hemoglobin 9.6 g/dL (12.0-16.0); Mean Corpuscular Hemoglobin 23.7 pg (27.0-31.0); Mean Platelet Volume 7.5 fL (7.4-10.4); Platelet Count 335 thou/uL (130-400); RBC Distribution Width 14.7 % (11.5-14.5); Red Blood Cell (RBC) Count 4.04 mill/uL (4.20-5.40); White Blood Cell (WBC) Count 6.6 thou/uL (4.8-10.8)
[2021-07-31 04:22] LABS: ALT (SGPT) 21 U/L (8-55); AST (SGOT) 29 U/L (5-34); Alkaline Phosphatase 118 U/L (40-110); Anion Gap 11 mmol/L (10-20); BUN (Urea Nitrogen) 22 mg/dL (7.0-18.7); Bilirubin, Total 0.8 mg/dL (0.2-1.2); Calc. Creatinine Clearance 88 mL/min (70-130); Carbon Dioxide 26 mmol/L (22-29); Chloride 104 mmol/L (98-107); Globulin 4.3 g/dL (2.4-3.5); Glucose 79 mg/dL (70-105); Potassium 3.6 mmol/L (3.5-5.1); Protein, Total 7.3 g/dL (6.0-8.3); Sodium 137 mmol/L (136-145)
[2021-07-31] MEDS: Clindamycin 150 MG CAP PO SCH ×3 (05:38→20:36)
[2021-07-31] MEDS ORDERED: Carvedilol 25 MG TAB PO SCH (08:00)
[2021-07-31] MEDS: Ferrous Sulfate 325 MG TAB PO SCH (08:46)
[2021-07-31] MEDS ORDERED: Buprenorphine 8mg/Naloxone 2mg per 1 FILM PO SCH (09:00)
[2021-07-31] MEDS ORDERED: Transdermal Patch Removal TOP SCH (09:00)
[2021-07-31] MEDS ORDERED: Carvedilol 6.25 MG TAB PO SCH (09:00)
[2021-07-31] MEDS ORDERED: Lisinopril 5 MG TAB PO SCH (09:00)
[2021-07-31] MEDS: Buprenorphine HCl 2 MG SL TAB SL SCH (09:33)
[2021-07-31] MEDS: Enoxaparin Sodium 40 MG/0.4 ML SYRINGE SC SCH (09:34)
[2021-07-31] MEDS: Lisinopril 20 MG TAB PO SCH (09:34)
[2021-07-31] MEDS: Famotidine 20 MG TAB PO SCH (09:34)
[2021-07-31] MEDS: Floranex 1 GM Packet PO SCH (09:34)
[2021-07-31] MEDS: HumaLOG 300 UNITS/3 ML VIAL SC PRN ×2 (11:39→17:51)
[2021-07-31] MEDS: Lidocaine Patch Removal TOP SCH (11:41)
[2021-07-31] MEDS: Carvedilol 6.25 MG TAB PO SCH (16:15)
[2021-07-31] MEDS: Amlodipine 10 MG TAB PO SCH (20:37)
[2021-07-31] MEDS: Atorvastatin Calcium 40 MG TAB PO SCH (20:38)
[2021-07-31] MEDS ORDERED: Lidocaine 5% Patch TD SCH (21:00)
[2021-08-01] MEDS ORDERED: tiZANidine HCl 4 MG TAB PO SCH (01:45)
[2021-08-01] MEDS ORDERED: Valproate Sodium 250 mg/5 ml UD Cup PER TUBE SCH (02:00)
[2021-08-01] MEDS: Clindamycin 150 MG CAP PO SCH (05:47)
[2021-08-01] MEDS: HumaLOG 300 UNITS/3 ML VIAL SC PRN (05:48)
[2021-08-01] MEDS: Carvedilol 6.25 MG TAB PO SCH ×2 (07:59→16:07)
[2021-08-01] MEDS: tiZANidine HCl 4 MG TAB PO SCH ×3 (07:59→16:07)
[2021-08-01] MEDS: Lisinopril 20 MG TAB PO SCH (08:00)
[2021-08-01] MEDS: Enoxaparin Sodium 40 MG/0.4 ML SYRINGE SC SCH (08:00)
[2021-08-01] MEDS: Ferrous Sulfate 325 MG TAB PO SCH (08:00)
[2021-08-01] MEDS: Lidocaine Patch Removal TOP SCH (08:00)
[2021-08-01] MEDS: Promethazine 25 MG TAB PO PRN (08:23)
[2021-08-01] MEDS: Floranex 1 GM Packet PO SCH (08:24)
[2021-08-01] MEDS: Buprenorphine HCl 2 MG SL TAB SL SCH (09:21)
[2021-08-01] MEDS ORDERED: Lantus 1000 UNITS/10 ML VIAL SC SCH ×5 (10:00→21:00)
[2021-08-01 16:59] VITALS: BP 149/84; TEMP 98
[2021-08-02] MEDS ORDERED: Lantus 1000 UNITS/10 ML VIAL SC SCH (09:00)
[2021-08-02] MEDS ORDERED: FLU VACC QS2021-22(6MOS UP)/PF 60 MCG/0.5 ML SYRINGE IM ONE (09:00)
[2021-08-03 15:02] LABS: ANA Symphony (Qualitative) Negative (Negative); ANA Symphony (Quantitative) 0.3 Ratio (< 0.7 Negative); dsDNA IgG Antibody 2.2 IU/mL (<10 Negative)
== END 2021-08-01 17:00 | disposition home or self-care (01) | DRG 280 ==
LOC: ERS 17:36 → CCU 19:21 → T4-A 07-31 12:22
PROVIDERS: ADMIT Family Medicine; ATTEND Family Medicine
DX: I16.1 Hypertensive emergency (principal); J81.0 Acute pulmonary edema; I21.A1 Myocardial infarction type 2; F11.20 Opioid dependence, uncomplicated; L03.115 Cellulitis of right lower limb; Z20.822 Contact with and (suspected) exposure to COVID-19; Z23 Encounter for immunization; E78.5 Hyperlipidemia, unspecified; F31.9 Bipolar disorder, unspecified; D50.9 Iron deficiency anemia, unspecified; E78.00 Pure hypercholesterolemia, unspecified; N18.32 Chronic kidney disease, stage 3b; E11.22 Type 2 diabetes mellitus with diabetic chronic kidney disease; K59.09 Other constipation; I12.9 Hypertensive chronic kidney disease with stage 1 through stage 4 chronic kidney disease, or unspecified chronic kidney disease; E11.621 Type 2 diabetes mellitus with foot ulcer; Z88.6 Allergy status to analgesic agent; Z88.5 Allergy status to narcotic agent; Z88.8 Allergy status to other drugs, medicaments and biological substances; I25.2 Old myocardial infarction; Z79.84 Long term (current) use of oral hypoglycemic drugs; Z79.899 Other long term (current) drug therapy
CPT/HCPCS: 36415; 36416; 76770; 80053; 80306; 81001; 82088; 82306; 82533; 82553; 82570; 84156; 84244; 85025; 85652; 86038; 86225; 93005; 93010; 93306; 93975; J0571; J1650; J1815; J2270; J7050; Q0169

== ENCOUNTER 2021-08-17 20:11 | Emergency (ER) | payer OTHER ==
[2021-08-17] MEDS ORDERED: hydrOXYzine 25 MG TAB ONE (22:14)
[2021-08-17] MEDS ORDERED: Amlodipine 5 MG TAB ONE ×2 (22:14→22:20)
[2021-08-17] MEDS ORDERED: Carvedilol 6.25 MG TAB PO SCH (22:30)
[2021-08-17] MEDS ORDERED: Amlodipine 10 MG TAB PO SCH (22:30)
== END 2021-08-17 22:45 | disposition home or self-care (01) ==
LOC: ERS 20:11
DX: M79.89 Other specified soft tissue disorders (principal); I10 Essential (primary) hypertension; E78.00 Pure hypercholesterolemia, unspecified; E11.9 Type 2 diabetes mellitus without complications; I25.10 Atherosclerotic heart disease of native coronary artery without angina pectoris; Z79.899 Other long term (current) drug therapy

== ENCOUNTER 2021-10-24 03:03 | Inpatient (IN) | payer OTHER ==
[2021-10-24 04:40] VITALS: BMI 31.8
[2021-10-24] MEDS ORDERED: Morphine 10 MG/ML VIAL SLOW IVP PRN (05:51)
[2021-10-24] MEDS ORDERED: Dextrose 5% in Water 1,000 ML IV PRN (05:51)
[2021-10-24] MEDS ORDERED: Dextrose 50% Abboject 50 ML SYRINGE SLOW IVP PRN (05:51)
[2021-10-24] MEDS ORDERED: HumaLOG 300 UNITS/3 ML VIAL SC PRN (05:51)
[2021-10-24] MEDS ORDERED: Senokot S 8.6-50 MG TAB PO PRN (08:24)
[2021-10-24] MEDS ORDERED: Calcium Carbonate 500 MG ChewTAB PO PRN (08:24)
[2021-10-24] MEDS ORDERED: Ondansetron PF 4 MG/2 ML Vial IVP PRN (08:24)
[2021-10-24] MEDS ORDERED: Acetaminophen 325 MG TAB PO PRN (08:24)
[2021-10-24] MEDS ORDERED: Morphine 2 MG/ML VIAL SLOW IVP PRN (08:27)
[2021-10-24] MEDS ORDERED: tiZANidine HCl 4 MG TAB PO SCH (09:00)
[2021-10-24] MEDS: Famotidine 20 MG TAB PO SCH ×2 (10:42→20:54)
[2021-10-24] MEDS: Cefepime 1 GM in Sodium Chloride 0.9% 100 ML IVPB SCH ×2 (10:42→21:48)
[2021-10-24] MEDS: Sodium Chloride 0.9% 1,000 ML IV SCH ×2 (10:42→18:33)
[2021-10-24] MEDS: Morphine 4 MG/ML VIAL SLOW IVP PRN ×3 (10:43→19:24)
[2021-10-24] MEDS: Enoxaparin Sodium 40 MG/0.4 ML SYRINGE SC SCH (10:44)
[2021-10-24] MEDS ORDERED: fentaNYL Citrate/PF 100 MCG/2 ML SYRINGE ONE (15:56)
[2021-10-24] MEDS ORDERED: HYDROmorphone 0.5 MG/0.5 ML SYRINGE ONE ×3 (16:07→18:05)
[2021-10-24] MEDS ORDERED: Labetalol HCl 100 MG/20 ML VIAL ONE ×2 (16:13→17:34)
[2021-10-24] MEDS ORDERED: Lidocaine 1% w/Epinephrine 1:100K 20 ML VIAL ONE (16:20)
[2021-10-24] MEDS ORDERED: Bupivacaine PF 0.5% 30 ML VIAL ONE (16:20)
[2021-10-24] MEDS ORDERED: Lidocaine 1% PF 5 ML VIAL ONE (16:41)
[2021-10-24] MEDS ORDERED: PROPOFOL 200 MG/20 ML VIAL ONE (16:41)
[2021-10-24] MEDS: tiZANidine HCl 4 MG TAB PO SCH ×3 (17:16→20:54)
[2021-10-24] MEDS ORDERED: Promethazine HCl 25 MG/ML VIAL IVPB PRN (17:37)
[2021-10-24] MEDS ORDERED: Meperidine HCl/PF 25 MG/ML VIAL SLOW IVP PRN (17:37)
[2021-10-24] MEDS ORDERED: HYDROmorphone 2 MG/ML VIAL SLOW IVP PRN (17:37)
[2021-10-24] MEDS ORDERED: Promethazine HCl 25 MG/ML VIAL IM PRN (17:37)
[2021-10-24] MEDS ORDERED: hydrALAZINE 20 MG/ML VIAL SLOW IVP SCH (17:45)
[2021-10-24] MEDS ORDERED: hydrALAZINE 20 MG/ML VIAL ONE (17:45)
[2021-10-25] MEDS: VANCOMYCIN 1.25 GM/250 ML BAG 1.25 GM in Premix Bag 1 BAG IVPB SCH (01:22)
[2021-10-25] MEDS: Morphine 4 MG/ML VIAL SLOW IVP PRN ×6 (01:50→20:16)
[2021-10-25] MEDS: tiZANidine HCl 4 MG TAB PO SCH ×4 (03:16→21:18)
[2021-10-25] MEDS: Sodium Chloride 0.9% 1,000 ML IV SCH ×2 (03:17→14:19)
[2021-10-25 06:26] LABS: #Eosinphils 0.1 thou/uL (0.0-0.7); #Lymphocytes 1.1 thou/uL (1.20-3.40); #Monocytes 0.5 thou/uL (0.11-0.59); #Neutrophils 4.5 thou/uL (1.40-6.50); %Basophils 0.1 % (0.0-1.0); %Eosinophils 1.8 % (0.0-10.0); %Lymphocytes 16.8 % (21.0-51.0); %Monocytes 8.5 % (0.0-10.0); %Neutrophils 72.7 % (42.0-75.0); Hemoglobin 7.5 g/dL (12.0-16.0); Mean Corpuscular HGB CONC 29.4 g/dL (32.0-36.0); Mean Corpuscular Hemoglobin 20.9 pg (27.0-31.0); Mean Corpuscular Volume 71.2 fL (78.0-98.0); Mean Platelet Volume 9.9 fL (7.4-10.4); Platelet Count 284 thou/uL (130-400); RBC Distribution Width 17.8 % (11.5-14.5); Red Blood Cell (RBC) Count 3.58 mill/uL (4.20-5.40); White Blood Cell (WBC) Count 6.3 thou/uL (4.8-10.8)
[2021-10-25 06:29] LABS: INR-International Normal Ratio 1.2; Prothrombin Time 15.4 sec (12.0-14.7)
[2021-10-25] MEDS: HumaLOG 300 UNITS/3 ML VIAL SC PRN ×3 (06:38→17:23)
[2021-10-25 07:05] LABS: ALT (SGPT) 7 U/L (8-55); AST (SGOT) 15 U/L (5-34); Albumin 2.5 g/dL (3.5-5.0); Alkaline Phosphatase 106 U/L (40-110); Anion Gap 15 mmol/L (10-20); BUN (Urea Nitrogen) 18 mg/dL (7.0-18.7); Bilirubin, Total 0.4 mg/dL (0.2-1.2); Calc. Creatinine Clearance 73 mL/min (70-130); Carbon Dioxide 20 mmol/L (22-29); Chloride 103 mmol/L (98-107); Globulin 4.4 g/dL (2.4-3.5); Glucose 195 mg/dL (70-105); Potassium 3.8 mmol/L (3.5-5.1); Protein, Total 6.9 g/dL (6.0-8.3); Sodium 134 mmol/L (136-145)
[2021-10-25] MEDS: Famotidine 20 MG TAB PO SCH ×2 (08:28→20:09)
[2021-10-25] MEDS: Enoxaparin Sodium 40 MG/0.4 ML SYRINGE SC SCH (08:29)
[2021-10-25] MEDS: hydrALAZINE 20 MG/ML VIAL SLOW IVP PRN ×2 (08:29→17:24)
[2021-10-25] MEDS: Cefepime 1 GM in Sodium Chloride 0.9% 100 ML IVPB SCH ×2 (09:39→21:19)
[2021-10-25] MEDS: HYDROcodone/Acetaminophen 5/325 mg Tablet PO PRN ×3 (10:27→20:09)
[2021-10-25] MEDS ORDERED: Gabapentin 300 MG CAP PO SCH (21:00)
[2021-10-25] MEDS: Labetalol HCl 100 MG/20 ML VIAL SLOW IVP PRN (21:21)
[2021-10-26] MEDS: Sodium Chloride 0.9% 1,000 ML IV SCH ×3 (00:04→21:07)
[2021-10-26] MEDS: Morphine 4 MG/ML VIAL SLOW IVP PRN ×6 (00:04→23:44)
[2021-10-26 01:01] LABS: Vancomycin, Trough 9.3 ug/mL
[2021-10-26] MEDS: hydrALAZINE 20 MG/ML VIAL SLOW IVP PRN (01:19)
[2021-10-26] MEDS: HYDROcodone/Acetaminophen 5/325 mg Tablet PO PRN ×3 (01:19→10:53)
[2021-10-26] MEDS: Labetalol HCl 100 MG/20 ML VIAL SLOW IVP PRN ×2 (01:20→08:44)
[2021-10-26] MEDS: VANCOMYCIN 1.25 GM/250 ML BAG 1.25 GM in Premix Bag 1 BAG IVPB SCH ×3 (02:02→23:44)
[2021-10-26] MEDS: tiZANidine HCl 4 MG TAB PO SCH ×4 (03:14→21:08)
[2021-10-26] MEDS: HumaLOG 300 UNITS/3 ML VIAL SC PRN ×3 (05:41→17:03)
[2021-10-26] MEDS: Enoxaparin Sodium 40 MG/0.4 ML SYRINGE SC SCH (08:40)
[2021-10-26] MEDS: Famotidine 20 MG TAB PO SCH ×2 (08:40→21:08)
[2021-10-26] MEDS ORDERED: Gabapentin 300 MG CAP PO PRN (08:49)
[2021-10-26] MEDS ORDERED: hydrOXYzine 25 MG TAB PO PRN (08:49)
[2021-10-26] MEDS ORDERED: Floranex 1 GM Packet PO SCH (09:15)
[2021-10-26] MEDS ORDERED: metFORMIN 500 MG TAB PO SCH (09:15)
[2021-10-26] MEDS ORDERED: Carvedilol 6.25 MG TAB PO SCH (09:15)
[2021-10-26] MEDS ORDERED: Gabapentin 300 MG CAP PO SCH (09:30)
[2021-10-26] MEDS: Insulin Glargine 30 UNITS/0.3 ML VIAL SC SCH ×2 (09:32→21:09)
[2021-10-26] MEDS: Cefepime 1 GM in Sodium Chloride 0.9% 100 ML IVPB SCH ×2 (09:32→21:16)
[2021-10-26] MEDS: Lisinopril 20 MG TAB PO SCH (10:08)
[2021-10-26] MEDS: TICAGRELOR 90 MG TABLET PO SCH ×2 (10:09→21:15)
[2021-10-26] MEDS: NIFEdipine XL 60 MG TAB PO SCH (10:09)
[2021-10-26] MEDS: Promethazine 25 MG TAB PO PRN (10:53)
[2021-10-26] MEDS: HYDROcodone/Acetaminophen 10/325 mg Tablet PO PRN ×2 (15:53→21:09)
[2021-10-26] MEDS: Carvedilol 6.25 MG TAB PO SCH (17:02)
[2021-10-26] MEDS: metFORMIN 500 MG TAB PO SCH (17:03)
[2021-10-26] MEDS: Gabapentin 300 MG CAP PO SCH (20:28)
[2021-10-26] MEDS: Atorvastatin Calcium 40 MG TAB PO SCH (21:08)
[2021-10-27] MEDS: HYDROcodone/Acetaminophen 10/325 mg Tablet PO PRN ×3 (01:50→22:13)
[2021-10-27] MEDS: tiZANidine HCl 4 MG TAB PO SCH ×4 (03:08→21:39)
[2021-10-27] MEDS: Morphine 4 MG/ML VIAL SLOW IVP PRN ×5 (03:08→20:44)
[2021-10-27 06:22] LABS: #Eosinphils 0.2 thou/uL (0.0-0.7); #Lymphocytes 1.1 thou/uL (1.20-3.40); #Monocytes 0.4 thou/uL (0.11-0.59); #Neutrophils 5.6 thou/uL (1.40-6.50); %Eosinophils 2.2 % (0.0-10.0); %Lymphocytes 15.5 % (21.0-51.0); %Monocytes 4.9 % (0.0-10.0); %Neutrophils 77.4 % (42.0-75.0); Mean Corpuscular HGB CONC 30.3 g/dL (32.0-36.0); Mean Corpuscular Hemoglobin 21.6 pg (27.0-31.0); Mean Corpuscular Volume 71.2 fL (78.0-98.0); Mean Platelet Volume 9.3 fL (7.4-10.4); Platelet Count 324 thou/uL (130-400); RBC Distribution Width 18.2 % (11.5-14.5); White Blood Cell (WBC) Count 7.2 thou/uL (4.8-10.8)
[2021-10-27] MEDS: Famotidine 20 MG TAB PO SCH ×2 (09:21→21:36)
[2021-10-27] MEDS: Cefepime 1 GM in Sodium Chloride 0.9% 100 ML IVPB SCH ×2 (09:21→21:35)
[2021-10-27] MEDS: metFORMIN 500 MG TAB PO SCH ×2 (09:22→17:35)
[2021-10-27] MEDS: TICAGRELOR 90 MG TABLET PO SCH ×2 (09:22→21:36)
[2021-10-27] MEDS: Lisinopril 20 MG TAB PO SCH (09:22)
[2021-10-27] MEDS: NIFEdipine XL 60 MG TAB PO SCH (09:22)
[2021-10-27] MEDS: Carvedilol 6.25 MG TAB PO SCH ×2 (09:22→17:35)
[2021-10-27] MEDS: Gabapentin 300 MG CAP PO SCH ×2 (09:22→21:36)
[2021-10-27] MEDS: Enoxaparin Sodium 40 MG/0.4 ML SYRINGE SC SCH (09:23)
[2021-10-27] MEDS: Spironolactone 25 MG TAB PO SCH (09:23)
[2021-10-27] MEDS: Ferrous Sulfate 325 MG TAB PO SCH (09:23)
[2021-10-27] MEDS: Floranex 1 GM Packet PO SCH (09:23)
[2021-10-27] MEDS: Sodium Chloride 0.9% 1,000 ML IV SCH ×2 (09:24→21:38)
[2021-10-27] MEDS: Insulin Glargine 30 UNITS/0.3 ML VIAL SC SCH ×2 (09:30→21:40)
[2021-10-27] MEDS: VANCOMYCIN 1.25 GM/250 ML BAG 1.25 GM in Premix Bag 1 BAG IVPB SCH (12:53)
[2021-10-27] MEDS: Promethazine 25 MG TAB PO PRN (13:30)
[2021-10-27 14:44] LABS: Anion Gap 13 mmol/L (10-20); BUN (Urea Nitrogen) 7 mg/dL (7.0-18.7); Calc. Creatinine Clearance 105 mL/min (70-130); Calcium 8.7 mg/dL (7.8-10.44); Carbon Dioxide 23 mmol/L (22-29); Chloride 107 mmol/L (98-107); Glucose 78 mg/dL (70-105); Potassium 3.6 mmol/L (3.5-5.1); Sodium 139 mmol/L (136-145)
[2021-10-27] MEDS ORDERED: Insulin Glargine 30 UNITS/0.3 ML VIAL SC SCH (21:00)
[2021-10-27] MEDS: Atorvastatin Calcium 40 MG TAB PO SCH (21:36)
[2021-10-27 23:41] LABS: Vancomycin, Trough 27.2 ug/mL
[2021-10-28] MEDS: VANCOMYCIN 1.25 GM/250 ML BAG 1.25 GM in Premix Bag 1 BAG IVPB SCH (00:30)
[2021-10-28] MEDS: Morphine 4 MG/ML VIAL SLOW IVP PRN ×5 (02:05→21:19)
[2021-10-28] MEDS: HYDROcodone/Acetaminophen 10/325 mg Tablet PO PRN ×2 (04:10→17:03)
[2021-10-28] MEDS: tiZANidine HCl 4 MG TAB PO SCH ×4 (04:10→21:18)
[2021-10-28] MEDS: TICAGRELOR 90 MG TABLET PO SCH ×2 (08:55→21:19)
[2021-10-28] MEDS: metFORMIN 500 MG TAB PO SCH ×2 (08:55→15:27)
[2021-10-28] MEDS: Carvedilol 6.25 MG TAB PO SCH ×2 (08:55→15:27)
[2021-10-28] MEDS: Ferrous Sulfate 325 MG TAB PO SCH (08:56)
[2021-10-28] MEDS: Famotidine 20 MG TAB PO SCH ×2 (08:56→21:18)
[2021-10-28] MEDS: Spironolactone 25 MG TAB PO SCH (08:56)
[2021-10-28] MEDS: Gabapentin 300 MG CAP PO SCH ×2 (08:56→21:19)
[2021-10-28] MEDS: Lisinopril 20 MG TAB PO SCH (08:56)
[2021-10-28] MEDS: Insulin Glargine 30 UNITS/0.3 ML VIAL SC SCH ×2 (08:56→21:23)
[2021-10-28] MEDS: Floranex 1 GM Packet PO SCH (08:57)
[2021-10-28] MEDS: Enoxaparin Sodium 40 MG/0.4 ML SYRINGE SC SCH (08:57)
[2021-10-28] MEDS: Cefepime 1 GM in Sodium Chloride 0.9% 100 ML IVPB SCH (08:57)
[2021-10-28] MEDS: NIFEdipine XL 60 MG TAB PO SCH (08:57)
[2021-10-28] MEDS: Sodium Chloride 0.9% 1,000 ML IV SCH ×2 (10:16→21:31)
[2021-10-28] MEDS: Vancomycin 1 GM in Premix Bag 1 BAG IVPB SCH ×2 (12:10→23:50)
[2021-10-28] MEDS: Atorvastatin Calcium 40 MG TAB PO SCH (21:19)
[2021-10-28] MEDS: Cefepime 2 GM in Sodium Chloride 0.9% 100 ML IVPB SCH (21:23)
[2021-10-29] MEDS: tiZANidine HCl 4 MG TAB PO SCH ×2 (04:13→09:54)
[2021-10-29] MEDS: Morphine 4 MG/ML VIAL SLOW IVP PRN ×3 (04:13→12:50)
[2021-10-29 04:33] LABS: #Eosinphils 0.2 thou/uL (0.0-0.7); #Lymphocytes 1.6 thou/uL (1.20-3.40); #Monocytes 0.5 thou/uL (0.11-0.59); #Neutrophils 4.1 thou/uL (1.40-6.50); %Basophils 0.4 % (0.0-1.0); %Lymphocytes 25.6 % (21.0-51.0); %Monocytes 7.1 % (0.0-10.0); %Neutrophils 63.9 % (42.0-75.0); Mean Corpuscular HGB CONC 30.7 g/dL (32.0-36.0); Mean Corpuscular Hemoglobin 21.9 pg (27.0-31.0); Mean Corpuscular Volume 71.4 fL (78.0-98.0); Mean Platelet Volume 9.2 fL (7.4-10.4); Platelet Count 332 thou/uL (130-400); Red Blood Cell (RBC) Count 3.66 mill/uL (4.20-5.40); White Blood Cell (WBC) Count 6.3 thou/uL (4.8-10.8)
[2021-10-29 04:53] LABS: Anion Gap 11 mmol/L (10-20); BUN (Urea Nitrogen) 11 mg/dL (7.0-18.7); Calc. Creatinine Clearance 77 mL/min (70-130); Calcium 8.2 mg/dL (7.8-10.44); Carbon Dioxide 24 mmol/L (22-29); Chloride 104 mmol/L (98-107); Glucose 142 mg/dL (70-105); Potassium 3.9 mmol/L (3.5-5.1); Sodium 135 mmol/L (136-145)
[2021-10-29 08:12] VITALS: TEMP 98.4
[2021-10-29] MEDS: Ferrous Sulfate 325 MG TAB PO SCH (08:25)
[2021-10-29] MEDS: TICAGRELOR 90 MG TABLET PO SCH (08:25)
[2021-10-29] MEDS: Enoxaparin Sodium 40 MG/0.4 ML SYRINGE SC SCH (08:25)
[2021-10-29] MEDS: Floranex 1 GM Packet PO SCH (08:25)
[2021-10-29] MEDS: Lisinopril 20 MG TAB PO SCH (08:25)
[2021-10-29] MEDS: Famotidine 20 MG TAB PO SCH (08:25)
[2021-10-29] MEDS: NIFEdipine XL 60 MG TAB PO SCH (08:25)
[2021-10-29] MEDS: metFORMIN 500 MG TAB PO SCH (08:26)
[2021-10-29] MEDS: Spironolactone 25 MG TAB PO SCH (08:26)
[2021-10-29] MEDS: Carvedilol 6.25 MG TAB PO SCH (08:26)
[2021-10-29] MEDS: Gabapentin 300 MG CAP PO SCH (08:26)
[2021-10-29] MEDS: Insulin Glargine 30 UNITS/0.3 ML VIAL SC SCH (08:27)
[2021-10-29] MEDS: HYDROcodone/Acetaminophen 10/325 mg Tablet PO PRN ×2 (08:34→13:58)
[2021-10-29 08:35] VITALS: BP 97/64
[2021-10-29] MEDS: Sodium Chloride 0.9% 1,000 ML IV SCH (09:54)
[2021-10-29] MEDS: Cefepime 2 GM in Sodium Chloride 0.9% 100 ML IVPB SCH (09:54)
[2021-10-29] MEDS: Vancomycin 1 GM in Premix Bag 1 BAG IVPB SCH (11:41)
[2021-10-29] MEDS: Promethazine 25 MG TAB PO PRN (13:24)
== END 2021-10-29 14:08 | disposition home or self-care (01) | DRG 240 ==
LOC: T4-A 04:01
PROVIDERS: ADMIT Emergency Medicine; ATTEND Emergency Medicine
PROC: 0Y6N0Z9 Detachment at Left Foot, Partial 1st Ray, Open Approach (ICD-10-PCS; principal; 2021-10-24)
PROC: 0Y6N0ZB Detachment at Left Foot, Partial 2nd Ray, Open Approach (ICD-10-PCS; 2021-10-24)
PROC: 02H633Z Insertion of Infusion Device into Right Atrium, Percutaneous Approach (ICD-10-PCS; 2021-10-26)
DX: E11.52 Type 2 diabetes mellitus with diabetic peripheral angiopathy with gangrene (principal); N17.9 Acute kidney failure, unspecified; I25.810 Atherosclerosis of coronary artery bypass graft(s) without angina pectoris; Z20.822 Contact with and (suspected) exposure to COVID-19; E11.628 Type 2 diabetes mellitus with other skin complications; E11.22 Type 2 diabetes mellitus with diabetic chronic kidney disease; I12.9 Hypertensive chronic kidney disease with stage 1 through stage 4 chronic kidney disease, or unspecified chronic kidney disease; F31.9 Bipolar disorder, unspecified; E66.9 Obesity, unspecified; E11.621 Type 2 diabetes mellitus with foot ulcer; N18.30 Chronic kidney disease, stage 3 unspecified; L97.529 Non-pressure chronic ulcer of other part of left foot with unspecified severity; N18.2 Chronic kidney disease, stage 2 (mild); R33.9 Retention of urine, unspecified; E11.65 Type 2 diabetes mellitus with hyperglycemia; D63.1 Anemia in chronic kidney disease; Z88.6 Allergy status to analgesic agent; Z88.8 Allergy status to other drugs, medicaments and biological substances; Z79.899 Other long term (current) drug therapy; Z91.14 Patient's other noncompliance with medication regimen; Z79.4 Long term (current) use of insulin; Z79.84 Long term (current) use of oral hypoglycemic drugs; Z68.31 Body mass index [BMI] 31.0-31.9, adult; Z95.5 Presence of coronary angioplasty implant and graft
CPT/HCPCS: 36415; 36416; 71045; 80048; 80053; 80202; 85025; 85610; 88305; 93005; 93010; C1713; J0360; J0692; J1170; J1650; J1815; J2270; J2704; J3370; J3490; J7050; Q0169; S0020

== ENCOUNTER 2021-11-10 23:37 | Inpatient (IN) | payer OTHER ==
[2021-11-11] MEDS ORDERED: Ondansetron PF 4 MG/2 ML Vial IVP PRN (00:22)
[2021-11-11] MEDS ORDERED: Acetaminophen 325 MG TAB PO PRN (00:22)
[2021-11-11] MEDS ORDERED: hydrALAZINE 20 MG/ML VIAL SLOW IVP PRN (00:35)
[2021-11-11] MEDS ORDERED: niCARdipine 25 MG in Sodium Chloride 0.9% 250 ML 250 ML IVPB SCH (00:45)
[2021-11-11] MEDS ORDERED: Morphine 2 MG/ML VIAL ONE (00:52)
[2021-11-11] MEDS ORDERED: niCARdipine 25 MG/10 ML VIAL ONE (00:53)
[2021-11-11] MEDS ORDERED: cloNIDine 0.1 MG TAB ONE (00:53)
[2021-11-11] MEDS ORDERED: Lisinopril 20 MG TAB PO SCH ×2 (01:00→09:00)
[2021-11-11] MEDS ORDERED: cloNIDine 0.3 MG TAB PO SCH (01:00)
[2021-11-11] MEDS ORDERED: Labetalol HCl 100 MG TAB PO SCH (01:00)
[2021-11-11] MEDS ORDERED: Promethazine HCl 12.5 MG in Sodium Chloride 0.9% 50 ML IVPB SCH (01:15)
[2021-11-11] MEDS ORDERED: HYDROcodone/Acetaminophen 5/325 mg Tablet ONE (02:51)
[2021-11-11] MEDS ORDERED: HYDROcodone/Acetaminophen 10/325 mg Tablet ONE (02:53)
[2021-11-11] MEDS: Morphine 2 MG/ML VIAL SLOW IVP PRN ×2 (03:42→10:51)
[2021-11-11] MEDS: Sodium Chloride 0.9% 1,000 ML IV SCH (03:54)
[2021-11-11] MEDS: HumaLOG 300 UNITS/3 ML VIAL SC PRN ×3 (06:23→20:37)
[2021-11-11 08:49] LABS: Anion Gap 15 mmol/L (10-20); BUN (Urea Nitrogen) 13 mg/dL (7.0-18.7); Calc. Creatinine Clearance 80 mL/min (70-130); Calcium 9.2 mg/dL (7.8-10.44); Carbon Dioxide 25 mmol/L (22-29); Chloride 100 mmol/L (98-107); Glucose 296 mg/dL (70-105); Sodium 136 mmol/L (136-145)
[2021-11-11 08:53] LABS: Troponin I 0.101 ng/mL (< 0.028)
[2021-11-11 09:14] LABS: #Basophils 0.1 thou/uL (0.0-0.2); #Lymphocytes 1.1 thou/uL (1.20-3.40); #Monocytes 0.4 thou/uL (0.11-0.59); #Neutrophils 5.9 thou/uL (1.40-6.50); %Basophils 0.7 % (0.0-1.0); %Eosinophils 0.2 % (0.0-10.0); %Lymphocytes 15.1 % (21.0-51.0); %Monocytes 5.7 % (0.0-10.0); %Neutrophils 78.2 % (42.0-75.0); Hemoglobin 9.8 g/dL (12.0-16.0); Mean Corpuscular HGB CONC 29.3 g/dL (32.0-36.0); Mean Corpuscular Hemoglobin 20.9 pg (27.0-31.0); Mean Corpuscular Volume 71.3 fL (78.0-98.0); Mean Platelet Volume 6.3 fL (7.4-10.4); Platelet Count 200 thou/uL (130-400); RBC Distribution Width 18.6 % (11.5-14.5); Red Blood Cell (RBC) Count 4.67 mill/uL (4.20-5.40); White Blood Cell (WBC) Count 7.5 thou/uL (4.8-10.8)
[2021-11-11 09:15] LABS: Hypochromia SLIGHT = 6-15 cells (100X) (0-5/hpf); MDiff Complete? YES; Microcytosis SLIGHT = 6-15 cells (100X) (0-5/hpf); Platelet Morphology Comment Appears Adequate; Polychromasia SLIGHT = 2-3 cells (100X) (0-2/hpf)
[2021-11-11] MEDS: Enoxaparin Sodium 40 MG/0.4 ML SYRINGE SC SCH (09:55)
[2021-11-11] MEDS: Famotidine 20 MG TAB PO SCH ×2 (09:56→20:19)
[2021-11-11] MEDS: cloNIDine 0.3 MG TAB PO SCH ×2 (09:56→16:07)
[2021-11-11] MEDS: Labetalol HCl 100 MG TAB PO SCH ×3 (09:56→21:31)
[2021-11-11] MEDS: metFORMIN 500 MG TAB PO SCH ×2 (09:56→20:18)
[2021-11-11] MEDS: TICAGRELOR 90 MG TABLET PO SCH ×2 (09:57→20:19)
[2021-11-11] MEDS ORDERED: NPH, Human Insulin Isophane 300 UNIT/3 ML VIAL SC SCH (11:00)
[2021-11-11] MEDS ORDERED: Amlodipine 5 MG TAB PO SCH (11:15)
[2021-11-11] MEDS ORDERED: NIFEdipine XL 60 MG TAB PO SCH (11:30)
[2021-11-11] MEDS: tiZANidine HCl 4 MG TAB PO SCH ×3 (13:53→20:17)
[2021-11-11] MEDS ORDERED: Carvedilol 6.25 MG TAB PO SCH (17:00)
[2021-11-11] MEDS: Gabapentin 300 MG CAP PO PRN (19:27)
[2021-11-11] MEDS: Atorvastatin Calcium 40 MG TAB PO SCH (20:19)
[2021-11-11] MEDS: HYDROcodone/Acetaminophen 10/325 mg Tablet PO PRN (20:24)
[2021-11-11] MEDS: Insulin Glargine 30 UNITS/0.3 ML VIAL SC SCH (20:28)
[2021-11-11] MEDS: Promethazine 25 MG TAB PO PRN (20:37)
[2021-11-11] MEDS: NIFEdipine XL 60 MG TAB PO SCH (21:32)
[2021-11-11 22:25] LABS: Amphetamine Not Detected (NotDetected); Barbiturates Screen Not Detected (NotDetected); Benzodiazepine Screen Not Detected (NotDetected); Cocaine Metabolite Screen Not Detected (NotDetected); Methadone Not Detected (NotDetected); Methamphetamine Not Detected (NotDetected); Opiate Screen Detected (NotDetected); Oxycodone Screen Not Detected (NotDetected); Phencyclidine (PCP) Not Detected (NotDetected); THC/Cannabinoid Screen Not Detected (NotDetected); Tricyclic Screen Not Detected (NotDetected)
[2021-11-11 22:34] LABS: SARS-CoV-2 NAA Rapid Test Not Detected (NotDetected)
[2021-11-12 04:34] LABS: Albumin 2.8 g/dL (3.5-5.0); Anion Gap 14 mmol/L (10-20); BUN (Urea Nitrogen) 19 mg/dL (7.0-18.7); BUN/Creatinine Ratio 8.12; Calc. Creatinine Clearance 39 mL/min (70-130); Calcium 9.2 mg/dL (7.8-10.44); Carbon Dioxide 25 mmol/L (22-29); Chloride 104 mmol/L (98-107); Glucose 63 mg/dL (70-105); Phosphorus 4.9 mg/dL (2.3-4.7); Potassium 3.5 mmol/L (3.5-5.1); Sodium 139 mmol/L (136-145)
[2021-11-12] MEDS: Sodium Chloride 0.9% 1,000 ML IV SCH ×4 (05:47→17:19)
[2021-11-12] MEDS ORDERED: Spironolactone 25 MG TAB PO SCH (08:00)
[2021-11-12] MEDS ORDERED: Senokot S 8.6-50 MG TAB PO PRN (08:28)
[2021-11-12] MEDS: Famotidine 20 MG TAB PO SCH ×2 (08:52→21:27)
[2021-11-12] MEDS: LACTINEX 1 TAB PO SCH (08:52)
[2021-11-12] MEDS: Enoxaparin Sodium 40 MG/0.4 ML SYRINGE SC SCH (08:52)
[2021-11-12] MEDS: Ferrous Sulfate 325 MG TAB PO SCH (08:52)
[2021-11-12] MEDS: metFORMIN 500 MG TAB PO SCH ×2 (08:53→21:27)
[2021-11-12] MEDS: TICAGRELOR 90 MG TABLET PO SCH ×2 (08:54→21:27)
[2021-11-12] MEDS: Gabapentin 300 MG CAP PO PRN (08:54)
[2021-11-12] MEDS: tiZANidine HCl 4 MG TAB PO SCH ×4 (08:54→21:27)
[2021-11-12] MEDS ORDERED: Amlodipine 5 MG TAB PO SCH (09:00)
[2021-11-12] MEDS ORDERED: NIFEdipine XL 60 MG TAB PO SCH (09:00)
[2021-11-12] MEDS ORDERED: Lisinopril 20 MG TAB PO SCH (09:00)
[2021-11-12] MEDS: NIFEdipine XL 60 MG TAB PO SCH ×2 (09:18→21:27)
[2021-11-12] MEDS: Morphine 2 MG/ML VIAL SLOW IVP PRN ×3 (10:34→21:28)
[2021-11-12] MEDS: Labetalol HCl 100 MG TAB PO SCH ×2 (10:35→21:33)
[2021-11-12 14:31] VITALS: BMI 30.5
[2021-11-12] MEDS: Atorvastatin Calcium 40 MG TAB PO SCH (21:27)
[2021-11-12] MEDS: Insulin Glargine 30 UNITS/0.3 ML VIAL SC SCH (21:28)
[2021-11-13] MEDS: Sodium Chloride 0.9% 1,000 ML IV SCH ×3 (01:06→16:21)
[2021-11-13] MEDS: Morphine 2 MG/ML VIAL SLOW IVP PRN ×5 (02:56→20:36)
[2021-11-13 06:35] LABS: Hemoglobin 10.3 g/dL (12.0-16.0); Mean Corpuscular HGB CONC 29.7 g/dL (32.0-36.0); Mean Corpuscular Hemoglobin 21.2 pg (27.0-31.0); Mean Corpuscular Volume 71.2 fL (78.0-98.0); Mean Platelet Volume 6.1 fL (7.4-10.4); Platelet Count 168 thou/uL (130-400); RBC Distribution Width 18.8 % (11.5-14.5); Red Blood Cell (RBC) Count 4.86 mill/uL (4.20-5.40); White Blood Cell (WBC) Count 3.5 thou/uL (4.8-10.8)
[2021-11-13 06:53] LABS: Anion Gap 13 mmol/L (10-20); BUN (Urea Nitrogen) 19 mg/dL (7.0-18.7); Calc. Creatinine Clearance 54 mL/min (70-130); Calcium 8.5 mg/dL (7.8-10.44); Carbon Dioxide 21 mmol/L (22-29); Chloride 108 mmol/L (98-107); Glucose 89 mg/dL (70-105); Potassium 4.8 mmol/L (3.5-5.1); Sodium 137 mmol/L (136-145)
[2021-11-13] MEDS: Ferrous Sulfate 325 MG TAB PO SCH (08:47)
[2021-11-13] MEDS: TICAGRELOR 90 MG TABLET PO SCH ×2 (08:47→20:47)
[2021-11-13] MEDS: LACTINEX 1 TAB PO SCH (08:47)
[2021-11-13] MEDS: Famotidine 20 MG TAB PO SCH ×2 (08:48→20:35)
[2021-11-13] MEDS: metFORMIN 500 MG TAB PO SCH ×2 (08:48→20:34)
[2021-11-13] MEDS: NIFEdipine XL 60 MG TAB PO SCH ×2 (08:48→20:34)
[2021-11-13] MEDS: tiZANidine HCl 4 MG TAB PO SCH ×4 (08:48→20:35)
[2021-11-13] MEDS: Enoxaparin Sodium 40 MG/0.4 ML SYRINGE SC SCH (08:49)
[2021-11-13] MEDS: Labetalol HCl 100 MG TAB PO SCH ×2 (08:49→20:34)
[2021-11-13] MEDS: Promethazine 25 MG TAB PO PRN ×2 (10:39→20:46)
[2021-11-13 12:20] LABS: Bilirubin Negative (Negative); Blood, Urine Negative (Negative); Clarity Clear (Clear); Glucose, Urine (Dipstick) 50 mg/dL (Negative); Ketone, Urine Negative (Negative); Leukocyte Negative Leu/uL (Negative); Nitrite Negative (Negative); Protein, Urine (Dipstick) 50 mg/dL (Neg-Trace); RBC/HPF 0-3 HPF (0-3); Specific Gravity, Urine 1.012 (1.002-1.036); Squamous Epithelial 0-3 HPF (0-3); Urobilinogen Normal mg/dL (Less than 2)
[2021-11-13 12:21] LABS: Bacteria/HPF 1+ HPF (None Seen)
[2021-11-13 12:22] LABS: Urine Culture Reflex Yes Yes
[2021-11-13 12:52] LABS: Protein, Urine Random Quant 58 mg/dL (1-14); Sodium, Urine 108 mmol/L (Not Available); Urea Nitrogen, Random Urine 277 mg/dl
[2021-11-13] MEDS: Insulin Glargine 30 UNITS/0.3 ML VIAL SC SCH (20:35)
[2021-11-13] MEDS: Atorvastatin Calcium 40 MG TAB PO SCH (20:35)
[2021-11-14] MEDS: Morphine 2 MG/ML VIAL SLOW IVP PRN ×3 (00:36→14:17)
[2021-11-14] MEDS ORDERED: Baclofen 10 MG TAB PO SCH (01:15)
[2021-11-14] MEDS: HYDROcodone/Acetaminophen 10/325 mg Tablet PO PRN ×2 (03:49→11:18)
[2021-11-14] MEDS: hydrOXYzine 25 MG TAB PO PRN (03:50)
[2021-11-14] MEDS: Promethazine 25 MG TAB PO PRN (06:17)
[2021-11-14] MEDS: Sodium Chloride 0.9% 1,000 ML IV SCH ×3 (06:22→21:07)
[2021-11-14] MEDS ORDERED: Morphine 2 MG/ML VIAL SLOW IVP SCH ×2 (06:30→07:15)
[2021-11-14 06:43] LABS: Albumin 3.3 g/dL (3.5-5.0); Anion Gap 13 mmol/L (10-20); BUN (Urea Nitrogen) 13 mg/dL (7.0-18.7); BUN/Creatinine Ratio 11.02; Calc. Creatinine Clearance 77 mL/min (70-130); Calcium 9.2 mg/dL (7.8-10.44); Carbon Dioxide 20 mmol/L (22-29); Chloride 106 mmol/L (98-107); Glucose 91 mg/dL (70-105); Iron 28 ug/dL (50-170); Iron Binding Capacity, Total 410 mcg/dL (265-497); Phosphorus 2.9 mg/dL (2.3-4.7); Potassium 4.2 mmol/L (3.5-5.1); Sodium 135 mmol/L (136-145)
[2021-11-14] MEDS: TICAGRELOR 90 MG TABLET PO SCH ×2 (07:57→21:07)
[2021-11-14] MEDS: Enoxaparin Sodium 40 MG/0.4 ML SYRINGE SC SCH (07:57)
[2021-11-14] MEDS: NIFEdipine XL 60 MG TAB PO SCH ×2 (07:58→21:08)
[2021-11-14] MEDS: Ferrous Sulfate 325 MG TAB PO SCH (07:58)
[2021-11-14] MEDS: Labetalol HCl 100 MG TAB PO SCH ×3 (07:58→21:09)
[2021-11-14] MEDS: metFORMIN 500 MG TAB PO SCH ×2 (07:59→21:08)
[2021-11-14] MEDS: LACTINEX 1 TAB PO SCH (07:59)
[2021-11-14] MEDS: tiZANidine HCl 4 MG TAB PO SCH ×4 (07:59→21:09)
[2021-11-14] MEDS: Famotidine 20 MG TAB PO SCH ×2 (07:59→21:08)
[2021-11-14] MEDS ORDERED: Prevnar 13-Val Conj/PF 0.5 ML SYRINGE IM ONE (09:00)
[2021-11-14] MEDS: Sodium Bicarbonate Tab 325 MG TAB PO SCH ×2 (09:08→21:08)
[2021-11-14] MEDS ORDERED: Iron, Sodium Ferric Gluconate 250 MG in Sodium Chloride 0.9% 250 ML 250 ML IVPB SCH (13:30)
[2021-11-14] MEDS: Insulin Glargine 30 UNITS/0.3 ML VIAL SC SCH (20:13)
[2021-11-14] MEDS: Atorvastatin Calcium 40 MG TAB PO SCH (21:08)
[2021-11-15] MEDS: hydrOXYzine 25 MG TAB PO PRN (01:59)
[2021-11-15] MEDS: Gabapentin 300 MG CAP PO PRN (03:52)
[2021-11-15] MEDS: HYDROcodone/Acetaminophen 10/325 mg Tablet PO PRN ×2 (04:20→09:15)
[2021-11-15] MEDS: Sodium Chloride 0.9% 1,000 ML IV SCH (05:25)
[2021-11-15] MEDS ORDERED: Iopamidol 370 76% 100 ML VIAL ONE (08:41)
[2021-11-15] MEDS ORDERED: tiZANidine HCl 4 MG TAB PO SCH ×2 (09:00→17:00)
[2021-11-15] MEDS: NIFEdipine XL 60 MG TAB PO SCH ×2 (09:15→20:50)
[2021-11-15] MEDS: LACTINEX 1 TAB PO SCH (09:15)
[2021-11-15] MEDS: Sodium Bicarbonate Tab 325 MG TAB PO SCH (09:15)
[2021-11-15] MEDS: Enoxaparin Sodium 40 MG/0.4 ML SYRINGE SC SCH (09:15)
[2021-11-15] MEDS: Ferrous Sulfate 325 MG TAB PO SCH (09:17)
[2021-11-15] MEDS: Famotidine 20 MG TAB PO SCH ×2 (09:17→20:50)
[2021-11-15] MEDS: Labetalol HCl 100 MG TAB PO SCH ×3 (09:18→20:49)
[2021-11-15] MEDS: metFORMIN 500 MG TAB PO SCH ×2 (09:18→20:06)
[2021-11-15] MEDS: TICAGRELOR 90 MG TABLET PO SCH ×2 (09:19→20:53)
[2021-11-15 10:19] LABS: Anion Gap 18 mmol/L (10-20); BUN (Urea Nitrogen) 9 mg/dL (7.0-18.7); Calc. Creatinine Clearance 91 mL/min (70-130); Calcium 9.4 mg/dL (7.8-10.44); Carbon Dioxide 13 mmol/L (22-29); Chloride 110 mmol/L (98-107); Glucose 62 mg/dL (70-105); Potassium 5.4 mmol/L (3.5-5.1); Sodium 136 mmol/L (136-145)
[2021-11-15] MEDS ORDERED: Sodium Bicarbonate Tab 325 MG TAB PO SCH ×2 (12:06→12:15)
[2021-11-15] MEDS ORDERED: Dextrose 50% Abboject 50 ML SYRINGE SLOW IVP SCH (12:15)
[2021-11-15] MEDS ORDERED: Insulin Regular 300 UNITS/3 ML VIAL IVP SCH (12:15)
[2021-11-15] MEDS: HYDROmorphone 2 MG TAB PO PRN ×2 (13:34→20:49)
[2021-11-15] MEDS: tiZANidine HCl 4 MG TAB PO SCH ×2 (16:42→20:48)
[2021-11-15] MEDS: Insulin Glargine 30 UNITS/0.3 ML VIAL SC SCH (19:15)
[2021-11-15 19:54] LABS: Anion Gap 12 mmol/L (10-20); BUN (Urea Nitrogen) 9 mg/dL (7.0-18.7); Calc. Creatinine Clearance 90 mL/min (70-130); Calcium 8.6 mg/dL (7.8-10.44); Carbon Dioxide 22 mmol/L (22-29); Chloride 107 mmol/L (98-107); Glucose 67 mg/dL (70-105); Potassium 3.7 mmol/L (3.5-5.1); Sodium 137 mmol/L (136-145)
[2021-11-15] MEDS: Atorvastatin Calcium 40 MG TAB PO SCH (20:50)
[2021-11-16] MEDS: HYDROmorphone 2 MG TAB PO PRN ×3 (04:09→16:06)
[2021-11-16] MEDS: Gabapentin 300 MG CAP PO PRN (04:10)
[2021-11-16] MEDS: Morphine 2 MG/ML VIAL SLOW IVP PRN (04:46)
[2021-11-16 06:55] LABS: Anion Gap 17 mmol/L (10-20); BUN (Urea Nitrogen) 9 mg/dL (7.0-18.7); Calc. Creatinine Clearance 73 mL/min (70-130); Calcium 9.3 mg/dL (7.8-10.44); Carbon Dioxide 20 mmol/L (22-29); Chloride 104 mmol/L (98-107); Glucose 131 mg/dL (70-105); Potassium 3.9 mmol/L (3.5-5.1); Sodium 137 mmol/L (136-145)
[2021-11-16 07:22] LABS: #Eosinphils 0.1 thou/uL (0.0-0.7); #Lymphocytes 1.2 thou/uL (1.20-3.40); #Monocytes 0.5 thou/uL (0.11-0.59); #Neutrophils 3.3 thou/uL (1.40-6.50); %Basophils 0.5 % (0.0-1.0); %Eosinophils 1.9 % (0.0-10.0); %Lymphocytes 23.3 % (21.0-51.0); %Monocytes 10.3 % (0.0-10.0); Anisocytosis SLIGHT = 6-15 cells (100X) (0-5/hpf); Hemoglobin 11.3 g/dL (12.0-16.0); MDiff Complete? YES; Mean Corpuscular HGB CONC 29.3 g/dL (32.0-36.0); Mean Corpuscular Hemoglobin 20.8 pg (27.0-31.0); Mean Corpuscular Volume 71.1 fL (78.0-98.0); Mean Platelet Volume 6.4 fL (7.4-10.4); Platelet Count 232 thou/uL (130-400); RBC Distribution Width 19.4 % (11.5-14.5); Red Blood Cell (RBC) Count 5.41 mill/uL (4.20-5.40); White Blood Cell (WBC) Count 5.1 thou/uL (4.8-10.8)
[2021-11-16] MEDS: LACTINEX 1 TAB PO SCH (09:21)
[2021-11-16] MEDS: Ferrous Sulfate 325 MG TAB PO SCH (09:22)
[2021-11-16] MEDS: NIFEdipine XL 60 MG TAB PO SCH (09:22)
[2021-11-16] MEDS: Sodium Bicarbonate Tab 325 MG TAB PO SCH ×2 (09:22→16:07)
[2021-11-16] MEDS: Enoxaparin Sodium 40 MG/0.4 ML SYRINGE SC SCH (09:23)
[2021-11-16] MEDS: Famotidine 20 MG TAB PO SCH (09:23)
[2021-11-16] MEDS: tiZANidine HCl 4 MG TAB PO SCH ×3 (09:23→16:08)
[2021-11-16] MEDS: TICAGRELOR 90 MG TABLET PO SCH (09:26)
[2021-11-16] MEDS: Labetalol HCl 100 MG TAB PO SCH ×2 (09:27→16:05)
[2021-11-16] MEDS ORDERED: Carvedilol 6.25 MG TAB PO SCH (10:00)
[2021-11-16] MEDS: Carvedilol 6.25 MG TAB PO SCH ×2 (16:08→16:12)
[2021-11-16 16:49] VITALS: BP 107/70; TEMP 98.1
== END 2021-11-16 18:50 | disposition home or self-care (01) | DRG 281 ==
LOC: ERS 23:37 → CCU 11-11 00:30 → T4-B 11-12 10:10
PROVIDERS: ADMIT Hospitalist; ATTEND Hospitalist
DX: I16.1 Hypertensive emergency (principal); I21.A1 Myocardial infarction type 2; N17.9 Acute kidney failure, unspecified; E87.2 Acidosis; I16.0 Hypertensive urgency; Z20.822 Contact with and (suspected) exposure to COVID-19; I10 Essential (primary) hypertension; E11.65 Type 2 diabetes mellitus with hyperglycemia; K59.00 Constipation, unspecified; E11.51 Type 2 diabetes mellitus with diabetic peripheral angiopathy without gangrene; E11.40 Type 2 diabetes mellitus with diabetic neuropathy, unspecified; E78.5 Hyperlipidemia, unspecified; G89.29 Other chronic pain; D64.9 Anemia, unspecified; I15.9 Secondary hypertension, unspecified; E11.22 Type 2 diabetes mellitus with diabetic chronic kidney disease; N18.2 Chronic kidney disease, stage 2 (mild); E78.2 Mixed hyperlipidemia; S91.302A Unspecified open wound, left foot, initial encounter; I25.118 Atherosclerotic heart disease of native coronary artery with other forms of angina pectoris; Z79.82 Long term (current) use of aspirin; Z79.899 Other long term (current) drug therapy; Z88.8 Allergy status to other drugs, medicaments and biological substances; Z88.5 Allergy status to narcotic agent; Z79.84 Long term (current) use of oral hypoglycemic drugs; Z79.4 Long term (current) use of insulin
CPT/HCPCS: 36415; 36416; 71275; 74018; 80048; 80069; 80306; 81001; 82550; 82728; 83540; 83550; 84156; 84300; 84443; 84540; 85025; 85027; 87086; 93005; 96365; 96374; 96375; J1650; J1815; J2270; J2550; J2916; J7050; J7999; Q0169; U0002

== ENCOUNTER 2021-11-25 14:56 | Inpatient (IN) | payer OTHER ==
[2021-11-25] MEDS ORDERED: Promethazine HCl 25 MG in Sodium Chloride 0.9% 50 ML IVPB SCH (16:00)
[2021-11-25] MEDS ORDERED: tiZANidine HCl 4 MG TAB PO SCH (16:00)
[2021-11-25 17:17] LABS: CKMB 3.2 ng/mL (0-6.6)
[2021-11-25 17:31] LABS: SARS-CoV-2 NAA Rapid Test Not Detected (NotDetected)
[2021-11-25] MEDS ORDERED: Morphine 2 MG/ML VIAL SLOW IVP PRN (18:09)
[2021-11-25] MEDS ORDERED: Bisacodyl 5 MG TAB PO PRN (18:10)
[2021-11-25] MEDS ORDERED: Acetaminophen 325 MG TAB PO PRN (18:10)
[2021-11-25] MEDS ORDERED: niCARdipine 40MG In NaCl 40 MG/200 ML BAG IVPB SCH (18:15)
[2021-11-25] MEDS ORDERED: Dextrose 50% Abboject 50 ML SYRINGE SLOW IVP PRN (18:16)
[2021-11-25] MEDS ORDERED: Dextrose 5% in Water 1,000 ML IV PRN (18:16)
[2021-11-25] MEDS ORDERED: niCARdipine 25 MG/10 ML VIAL ONE ×2 (18:31→22:13)
[2021-11-25] MEDS ORDERED: Morphine 2 MG/ML VIAL ONE (21:26)
[2021-11-25] MEDS: Morphine 2 MG/ML VIAL SLOW IVP PRN (21:32)
[2021-11-25] MEDS ORDERED: Acetaminophen 325 MG TAB ONE (22:21)
[2021-11-25] MEDS: NIFEdipine XL 60 MG TAB PO SCH (23:38)
[2021-11-25] MEDS: TICAGRELOR 90 MG TABLET PO SCH (23:38)
[2021-11-26 00:25] VITALS: BMI 29.2
[2021-11-26] MEDS: tiZANidine HCl 4 MG TAB PO PRN ×4 (02:18→22:27)
[2021-11-26] MEDS: Morphine 2 MG/ML VIAL SLOW IVP PRN ×5 (02:47→21:30)
[2021-11-26] MEDS: HumaLOG 300 UNITS/3 ML VIAL SC PRN ×3 (06:12→17:01)
[2021-11-26 07:23] LABS: #Eosinphils 0.1 thou/uL (0.0-0.7); #Lymphocytes 1.8 thou/uL (1.20-3.40); #Monocytes 0.4 thou/uL (0.11-0.59); #Neutrophils 2.1 thou/uL (1.40-6.50); %Basophils 0.7 % (0.0-1.0); %Eosinophils 1.2 % (0.0-10.0); %Lymphocytes 40.3 % (21.0-51.0); %Monocytes 9.6 % (0.0-10.0); %Neutrophils 48.3 % (42.0-75.0); Hemoglobin 11.8 g/dL (12.0-16.0); Mean Corpuscular HGB CONC 30.3 g/dL (32.0-36.0); Mean Corpuscular Hemoglobin 21.6 pg (27.0-31.0); Mean Corpuscular Volume 71.4 fL (78.0-98.0); Mean Platelet Volume 11.3 fL (7.4-10.4); Platelet Count 260 thou/uL (130-400); Red Blood Cell (RBC) Count 5.47 mill/uL (4.20-5.40); White Blood Cell (WBC) Count 4.4 thou/uL (4.8-10.8)
[2021-11-26 07:40] LABS: Anion Gap 16 mmol/L (10-20); BUN (Urea Nitrogen) 15 mg/dL (7.0-18.7); Calc. Creatinine Clearance 88 mL/min (70-130); Calcium 10.1 mg/dL (7.8-10.44); Carbon Dioxide 25 mmol/L (22-29); Chloride 99 mmol/L (98-107); Glucose 190 mg/dL (70-105); Potassium 3.6 mmol/L (3.5-5.1); Sodium 136 mmol/L (136-145)
[2021-11-26] MEDS: NIFEdipine XL 60 MG TAB PO SCH ×2 (08:08→21:31)
[2021-11-26] MEDS: Enoxaparin Sodium 40 MG/0.4 ML SYRINGE SC SCH (08:08)
[2021-11-26] MEDS: Gabapentin 300 MG CAP PO PRN (08:09)
[2021-11-26] MEDS: Ferrous Sulfate 325 MG TAB PO SCH (08:09)
[2021-11-26] MEDS: TICAGRELOR 90 MG TABLET PO SCH ×2 (08:11→21:31)
[2021-11-26] MEDS: Carvedilol 6.25 MG TAB PO SCH ×2 (08:11→16:53)
[2021-11-26] MEDS: Polyethylene Glycol 3350 17 GM Packet PO SCH (08:11)
[2021-11-26] MEDS ORDERED: Docusate 100 MG CAP PO SCH (16:45)
[2021-11-26] MEDS: Docusate 100 MG CAP PO SCH (21:31)
[2021-11-26] MEDS: Buprenorphine 8mg/Naloxone 2mg per 1 FILM PO SCH (21:56)
[2021-11-26] MEDS: Promethazine HCl 25 MG in Sodium Chloride 0.9% 50 ML IVPB PRN (22:20)
[2021-11-27] MEDS: Morphine 2 MG/ML VIAL SLOW IVP PRN ×5 (01:25→21:07)
[2021-11-27] MEDS: HumaLOG 300 UNITS/3 ML VIAL SC PRN ×4 (06:06→21:07)
[2021-11-27] MEDS: Carvedilol 6.25 MG TAB PO SCH ×2 (08:25→16:35)
[2021-11-27] MEDS: NIFEdipine XL 60 MG TAB PO SCH ×2 (08:25→21:06)
[2021-11-27] MEDS: Enoxaparin Sodium 40 MG/0.4 ML SYRINGE SC SCH (08:25)
[2021-11-27] MEDS: Amlodipine 5 MG TAB PO SCH (08:26)
[2021-11-27] MEDS: Polyethylene Glycol 3350 17 GM Packet PO SCH (08:26)
[2021-11-27] MEDS: TICAGRELOR 90 MG TABLET PO SCH ×2 (08:26→21:06)
[2021-11-27] MEDS: Ferrous Sulfate 325 MG TAB PO SCH (08:26)
[2021-11-27] MEDS: Spironolactone 25 MG TAB PO SCH (08:26)
[2021-11-27] MEDS: Buprenorphine 8mg/Naloxone 2mg per 1 FILM PO SCH ×2 (08:26→21:06)
[2021-11-27] MEDS: Docusate 100 MG CAP PO SCH ×2 (08:26→21:06)
[2021-11-27] MEDS: tiZANidine HCl 4 MG TAB PO PRN ×3 (08:44→22:45)
[2021-11-27] MEDS: Promethazine HCl 25 MG in Sodium Chloride 0.9% 50 ML IVPB PRN ×2 (09:23→21:08)
[2021-11-27] MEDS ORDERED: Methylnaltrexone 12 MG/0.6 ML VIAL SC SCH ×2 (13:15→16:00)
[2021-11-28] MEDS ORDERED: hydrALAZINE 20 MG/ML VIAL SLOW IVP PRN (01:37)
[2021-11-28] MEDS: Morphine 2 MG/ML VIAL SLOW IVP PRN (02:01)
[2021-11-28] MEDS: Gabapentin 300 MG CAP PO PRN (02:01)
[2021-11-28] MEDS: tiZANidine HCl 4 MG TAB PO PRN ×2 (04:27→19:11)
[2021-11-28 04:28] LABS: Hemoglobin 11.7 g/dL (12.0-16.0); Mean Corpuscular HGB CONC 31.5 g/dL (32.0-36.0); Mean Corpuscular Hemoglobin 22.3 pg (27.0-31.0); Mean Corpuscular Volume 70.6 fL (78.0-98.0); Platelet Count 224 thou/uL (130-400); RBC Distribution Width 19.6 % (11.5-14.5); Red Blood Cell (RBC) Count 5.26 mill/uL (4.20-5.40); White Blood Cell (WBC) Count 5.1 thou/uL (4.8-10.8)
[2021-11-28 04:41] LABS: Anion Gap 16 mmol/L (10-20); BUN (Urea Nitrogen) 19 mg/dL (7.0-18.7); Calc. Creatinine Clearance 71 mL/min (70-130); Calcium 9.4 mg/dL (7.8-10.44); Carbon Dioxide 20 mmol/L (22-29); Chloride 99 mmol/L (98-107); Glucose 208 mg/dL (70-105); Potassium 5.2 mmol/L (3.5-5.1); Sodium 130 mmol/L (136-145)
[2021-11-28] MEDS ORDERED: Gabapentin 300 MG CAP PO SCH (05:00)
[2021-11-28] MEDS: Morphine 4 MG/ML VIAL SLOW IVP PRN ×4 (05:17→19:11)
[2021-11-28] MEDS: HumaLOG 300 UNITS/3 ML VIAL SC PRN ×2 (06:22→20:39)
[2021-11-28] MEDS ORDERED: Sodium Chloride 0.9% 1,000 ML IV SCH (08:15)
[2021-11-28] MEDS: Carvedilol 6.25 MG TAB PO SCH ×2 (08:52→20:33)
[2021-11-28] MEDS: Ferrous Sulfate 325 MG TAB PO SCH (08:53)
[2021-11-28] MEDS: Spironolactone 25 MG TAB PO SCH (08:53)
[2021-11-28] MEDS: Amlodipine 5 MG TAB PO SCH (08:54)
[2021-11-28] MEDS: Docusate 100 MG CAP PO SCH ×2 (08:54→20:34)
[2021-11-28] MEDS: Enoxaparin Sodium 40 MG/0.4 ML SYRINGE SC SCH (08:55)
[2021-11-28] MEDS: Lidocaine 5% Patch TD SCH (08:56)
[2021-11-28] MEDS: Polyethylene Glycol 3350 17 GM Packet PO SCH (08:56)
[2021-11-28] MEDS: TICAGRELOR 90 MG TABLET PO SCH ×2 (08:56→20:35)
[2021-11-28] MEDS: NIFEdipine XL 60 MG TAB PO SCH ×2 (09:01→20:34)
[2021-11-28] MEDS: Buprenorphine 8mg/Naloxone 2mg per 1 FILM PO SCH ×2 (09:24→20:35)
[2021-11-28] MEDS: cloNIDine 0.1 MG TAB PO SCH (20:34)
[2021-11-28] MEDS ORDERED: Transdermal Patch Removal TOP SCH (21:00)
[2021-11-29] MEDS: tiZANidine HCl 4 MG TAB PO PRN ×3 (01:19→13:50)
[2021-11-29] MEDS: Morphine 4 MG/ML VIAL SLOW IVP PRN ×3 (01:19→13:47)
[2021-11-29] MEDS: HumaLOG 300 UNITS/3 ML VIAL SC PRN (06:40)
[2021-11-29 06:41] LABS: Anion Gap 14 mmol/L (10-20); BUN (Urea Nitrogen) 19 mg/dL (7.0-18.7); Calc. Creatinine Clearance 69 mL/min (70-130); Calcium 9.6 mg/dL (7.8-10.44); Carbon Dioxide 27 mmol/L (22-29); Chloride 98 mmol/L (98-107); Glucose 161 mg/dL (70-105); Potassium 3.8 mmol/L (3.5-5.1); Sodium 135 mmol/L (136-145)
[2021-11-29 08:38] VITALS: BP 145/76; TEMP 97.8
[2021-11-29] MEDS: Polyethylene Glycol 3350 17 GM Packet PO SCH (08:41)
[2021-11-29] MEDS: Enoxaparin Sodium 40 MG/0.4 ML SYRINGE SC SCH (08:42)
[2021-11-29] MEDS: cloNIDine 0.1 MG TAB PO SCH (08:42)
[2021-11-29] MEDS: NIFEdipine XL 60 MG TAB PO SCH (08:42)
[2021-11-29] MEDS: Docusate 100 MG CAP PO SCH (08:42)
[2021-11-29] MEDS: Ferrous Sulfate 325 MG TAB PO SCH (08:42)
[2021-11-29] MEDS: Carvedilol 6.25 MG TAB PO SCH (08:42)
[2021-11-29] MEDS: Lidocaine 5% Patch TD SCH (08:43)
[2021-11-29] MEDS: Buprenorphine 8mg/Naloxone 2mg per 1 FILM PO SCH (09:59)
[2021-11-29] MEDS: TICAGRELOR 90 MG TABLET PO SCH (11:37)
== END 2021-11-29 14:46 | disposition home or self-care (01) | DRG 281 ==
LOC: ERS 14:56 → ERHOLD 17:48 → CCU 23:46 → IMCU/EMU 11-26 06:36 → 2NO 11-26 19:02 → T4-A 11-28 13:37
PROVIDERS: ADMIT Internal Medicine; ATTEND Internal Medicine
DX: I16.0 Hypertensive urgency (principal); I21.A1 Myocardial infarction type 2; I16.1 Hypertensive emergency; E87.1 Hypo-osmolality and hyponatremia; I25.10 Atherosclerotic heart disease of native coronary artery without angina pectoris; G89.4 Chronic pain syndrome; E11.51 Type 2 diabetes mellitus with diabetic peripheral angiopathy without gangrene; K59.00 Constipation, unspecified; E87.5 Hyperkalemia; Z20.822 Contact with and (suspected) exposure to COVID-19; Z89.612 Acquired absence of left leg above knee; Z90.710 Acquired absence of both cervix and uterus; Z88.8 Allergy status to other drugs, medicaments and biological substances; Z79.4 Long term (current) use of insulin; Z79.899 Other long term (current) drug therapy; Z95.5 Presence of coronary angioplasty implant and graft; Z90.49 Acquired absence of other specified parts of digestive tract
CPT/HCPCS: 36415; 36416; 74018; 80048; 82553; 85025; 85027; 93005; 96365; 96366; 96368; J0360; J1650; J1815; J2212; J2270; J2550; J7050; U0002

== ENCOUNTER 2022-06-30 14:40 | Day surgery (SDC) | payer OTHER | END 2022-06-30 15:18 | disposition home or self-care (01) | LOC: ONC/OP 14:40 | PROVIDERS: ATTEND Internal Medicine | DX: Z45.2 Encounter for adjustment and management of vascular access device (principal); Z88.5 Allergy status to narcotic agent; Z88.8 Allergy status to other drugs, medicaments and biological substances ==

== ENCOUNTER 2022-07-11 00:47 | Inpatient (IN) | payer OTHER ==
[2022-07-11] MEDS: Azithromycin 500 MG in Sodium Chloride 0.9% 250 ML 250 ML IVPB SCH (04:19)
[2022-07-11 04:35] LABS: #Monocytes 1.1 thou/uL (0.11-0.59); #Neutrophils 4.9 thou/uL (1.40-6.50); %Basophils 0.3 % (0.0-1.0); %Eosinophils 0.5 % (0.0-10.0); %Lymphocytes 24.9 % (21.0-51.0); %Monocytes 13.9 % (0.0-10.0); %Neutrophils 60.5 % (42.0-75.0); Mean Corpuscular HGB CONC 30.4 g/dL (32.0-36.0); Mean Corpuscular Hemoglobin 24.4 pg (27.0-31.0); Mean Corpuscular Volume 80.3 fl (78.0-98.0); Mean Platelet Volume 10.6 fL (7.4-10.4); Platelet Count 199 10x3/uL (130-400); RBC Distribution Width 18.6 % (11.5-14.5); Red Blood Cell (RBC) Count 3.68 mill/uL (4.20-5.40); White Blood Cell (WBC) Count 8.1 10x3/uL (4.8-10.8)
[2022-07-11 04:55] LABS: Anion Gap 13 mmol/L (10-20); BUN (Urea Nitrogen) 16 mg/dL (7.0-18.7); Calc. Creatinine Clearance 81 mL/min (70-130); Calcium 8.6 mg/dL (7.8-10.44); Carbon Dioxide 21 mmol/L (22-29); Chloride 104 mmol/L (98-107); Estimated GFR 54; Glucose 162 mg/dL (70-105); Potassium 3.4 mmol/L (3.5-5.1); Sodium 135 mmol/L (136-145)
[2022-07-11] MEDS: Furosemide 40 MG/4 ML VIAL SLOW IVP SCH ×2 (05:15→14:20)
[2022-07-11] MEDS: Morphine 4 MG/ML VIAL SLOW IVP PRN ×4 (05:15→18:25)
[2022-07-11 07:56] LABS: Troponin I 0.044 ng/mL (< 0.028)
[2022-07-11] MEDS: cloNIDine 0.1 MG TAB PO SCH ×2 (09:16→21:34)
[2022-07-11] MEDS: Potassium Chloride 20 MEQ TAB PO SCH (09:16)
[2022-07-11] MEDS: Empagliflozin 10 MG TAB PO SCH (09:16)
[2022-07-11] MEDS: Amlodipine 5 MG TAB PO SCH ×2 (09:16→21:32)
[2022-07-11] MEDS: Heparin 5,000 UNITS/ML VIAL SC SCH ×3 (09:17→21:34)
[2022-07-11] MEDS: Insulin Glargine 30 UNITS/0.3 ML VIAL SC SCH (09:24)
[2022-07-11] MEDS ORDERED: HumaLOG 300 UNITS/3 ML VIAL SC PRN (11:31)
[2022-07-11] MEDS ORDERED: Dextrose 50% Abboject 50 ML SYRINGE SLOW IVP PRN (11:31)
[2022-07-11] MEDS ORDERED: Dextrose 5% in Water 1,000 ML IV PRN (11:31)
[2022-07-11] MEDS ORDERED: Electrolyte Replacement Protocol FS SCH (11:45)
[2022-07-11 11:59] LABS: Iron 16 ug/dL (50-170); Iron Binding Capacity, Total 313 mcg/dL (265-497)
[2022-07-11] MEDS: Iron, Sodium Ferric Gluconate 125 MG in Sodium Chloride 0.9% 100 ML IVPB SCH (16:29)
[2022-07-11] MEDS ORDERED: Promethazine HCl 6.25 MG/5 ML Syrup PO PRN (16:44)
[2022-07-11] MEDS: tiZANidine HCl 4 MG TAB PO SCH ×2 (17:08→21:32)
[2022-07-11] MEDS ORDERED: Buprenorphine HCl 2 MG SL TAB PO SCH (21:00)
[2022-07-11] MEDS: Buprenorphine HCl 2 MG SL TAB PO SCH (21:31)
[2022-07-11] MEDS: Gabapentin 300 MG CAP PO SCH (21:33)
[2022-07-11] MEDS: Atorvastatin Calcium 40 MG TAB PO SCH (21:34)
[2022-07-11] MEDS: Sodium Bicarbonate Tab 325 MG TAB PO SCH (21:34)
[2022-07-11] MEDS: Colchicine 0.6 MG TAB PO SCH (21:34)
[2022-07-12] MEDS: cefTRIAXone\\ROCEPHIN 2 GM in Sodium Chloride 0.9% 100 ML IVPB SCH (00:26)
[2022-07-12] MEDS: Azithromycin 500 MG in Sodium Chloride 0.9% 250 ML 250 ML IVPB SCH (02:58)
[2022-07-12 05:03] LABS: #Lymphocytes 1.6 thou/uL (1.20-3.40); #Monocytes 1.3 thou/uL (0.11-0.59); #Neutrophils 6.1 thou/uL (1.40-6.50); %Basophils 0.2 % (0.0-1.0); %Eosinophils 0.5 % (0.0-10.0); %Lymphocytes 17.5 % (21.0-51.0); %Neutrophils 67.7 % (42.0-75.0); Hemoglobin 8.7 g/dL (12.0-16.0); Mean Corpuscular HGB CONC 30.4 g/dL (32.0-36.0); Mean Corpuscular Hemoglobin 24.4 pg (27.0-31.0); Mean Corpuscular Volume 80.4 fl (78.0-98.0); Mean Platelet Volume 10.7 fL (7.4-10.4); Platelet Count 201 10x3/uL (130-400); RBC Distribution Width 18.2 % (11.5-14.5); Red Blood Cell (RBC) Count 3.57 mill/uL (4.20-5.40); White Blood Cell (WBC) Count 9.1 10x3/uL (4.8-10.8)
[2022-07-12 05:25] LABS: Troponin I 0.044 ng/mL (< 0.028)
[2022-07-12 05:27] LABS: Anion Gap 15 mmol/L (10-20); BUN (Urea Nitrogen) 18 mg/dL (7.0-18.7); Calc. Creatinine Clearance 73 mL/min (70-130); Calcium 8.4 mg/dL (7.8-10.44); Carbon Dioxide 24 mmol/L (22-29); Chloride 102 mmol/L (98-107); Estimated GFR 48; Glucose 139 mg/dL (70-105); Potassium 3.7 mmol/L (3.5-5.1); Sodium 137 mmol/L (136-145)
[2022-07-12] MEDS: Furosemide 40 MG/4 ML VIAL SLOW IVP SCH ×2 (06:22→14:36)
[2022-07-12] MEDS ORDERED: Aspirin 81 mg Enteric Coated Tablet PO SCH (09:00)
[2022-07-12] MEDS: Sodium Bicarbonate Tab 325 MG TAB PO SCH ×2 (09:09→21:01)
[2022-07-12] MEDS: cloNIDine 0.1 MG TAB PO SCH (09:09)
[2022-07-12] MEDS: Carvedilol 6.25 MG TAB PO SCH ×2 (09:09→16:43)
[2022-07-12] MEDS: Potassium Chloride 20 MEQ TAB PO SCH (09:10)
[2022-07-12] MEDS: Gabapentin 300 MG CAP PO SCH ×3 (09:10→21:01)
[2022-07-12] MEDS: Heparin 5,000 UNITS/ML VIAL SC SCH ×3 (09:10→21:02)
[2022-07-12] MEDS: Colchicine 0.6 MG TAB PO SCH ×2 (09:10→21:02)
[2022-07-12] MEDS: Amlodipine 5 MG TAB PO SCH (09:10)
[2022-07-12] MEDS: Empagliflozin 10 MG TAB PO SCH (09:10)
[2022-07-12] MEDS: tiZANidine HCl 4 MG TAB PO SCH ×4 (09:10→21:01)
[2022-07-12] MEDS: Ferrous Sulfate 325 MG TAB PO SCH (09:10)
[2022-07-12] MEDS: Morphine 4 MG/ML VIAL SLOW IVP PRN ×2 (09:11→22:07)
[2022-07-12] MEDS: Buprenorphine HCl 2 MG SL TAB PO SCH ×2 (09:19→21:02)
[2022-07-12] MEDS: HumaLOG 300 UNITS/3 ML VIAL SC PRN (11:31)
[2022-07-12] MEDS: Iron, Sodium Ferric Gluconate 125 MG in Sodium Chloride 0.9% 100 ML IVPB SCH (16:42)
[2022-07-12] MEDS: Atorvastatin Calcium 40 MG TAB PO SCH (21:02)
[2022-07-13] MEDS: cefTRIAXone\\ROCEPHIN 2 GM in Sodium Chloride 0.9% 100 ML IVPB SCH (00:39)
[2022-07-13] MEDS: Azithromycin 500 MG in Sodium Chloride 0.9% 250 ML 250 ML IVPB SCH (02:31)
[2022-07-13 05:15] LABS: Anion Gap 16 mmol/L (10-20); BUN (Urea Nitrogen) 21 mg/dL (7.0-18.7); Calc. Creatinine Clearance 58 mL/min (70-130); Calcium 8.1 mg/dL (7.8-10.44); Carbon Dioxide 22 mmol/L (22-29); Chloride 102 mmol/L (98-107); Estimated GFR 38; Glucose 173 mg/dL (70-105); Potassium 3.8 mmol/L (3.5-5.1); Sodium 136 mmol/L (136-145)
[2022-07-13 05:17] LABS: #Eosinphils 0.2 thou/uL (0.0-0.7); #Neutrophils 3.7 thou/uL (1.40-6.50); %Basophils 0.6 % (0.0-1.0); %Eosinophils 2.6 % (0.0-10.0); %Monocytes 14.1 % (0.0-10.0); %Neutrophils 53.8 % (42.0-75.0); Hemoglobin 8.9 g/dL (12.0-16.0); Mean Corpuscular HGB CONC 29.9 g/dL (32.0-36.0); Mean Corpuscular Hemoglobin 24.2 pg (27.0-31.0); Mean Platelet Volume 10.6 fL (7.4-10.4); Platelet Count 199 10x3/uL (130-400); RBC Distribution Width 18.1 % (11.5-14.5); Red Blood Cell (RBC) Count 3.67 mill/uL (4.20-5.40); White Blood Cell (WBC) Count 6.9 10x3/uL (4.8-10.8)
[2022-07-13] MEDS: Furosemide 40 MG/4 ML VIAL SLOW IVP SCH (05:35)
[2022-07-13] MEDS: Morphine 4 MG/ML VIAL SLOW IVP PRN ×3 (07:23→21:31)
[2022-07-13] MEDS: Sodium Bicarbonate Tab 325 MG TAB PO SCH ×2 (08:50→21:30)
[2022-07-13] MEDS: Ferrous Sulfate 325 MG TAB PO SCH (08:50)
[2022-07-13] MEDS: Potassium Chloride 20 MEQ TAB PO SCH (08:51)
[2022-07-13] MEDS: Carvedilol 6.25 MG TAB PO SCH ×2 (08:51→17:04)
[2022-07-13] MEDS: Empagliflozin 10 MG TAB PO SCH (08:51)
[2022-07-13] MEDS: Gabapentin 300 MG CAP PO SCH ×3 (08:51→21:31)
[2022-07-13] MEDS: tiZANidine HCl 4 MG TAB PO SCH ×4 (08:51→21:31)
[2022-07-13] MEDS: Heparin 5,000 UNITS/ML VIAL SC SCH ×3 (08:51→21:32)
[2022-07-13] MEDS: Colchicine 0.6 MG TAB PO SCH ×2 (08:51→21:31)
[2022-07-13] MEDS ORDERED: EPOETIN ALFA-EPBX (ESRD) 10,000 UNIT/ML VIAL SC SCH (09:00)
[2022-07-13] MEDS: Buprenorphine HCl 2 MG SL TAB PO SCH ×2 (09:03→21:32)
[2022-07-13] MEDS: HumaLOG 300 UNITS/3 ML VIAL SC PRN (11:41)
[2022-07-13] MEDS: HYDROcodone/Acetaminophen 10/325 mg Tablet PO PRN (17:04)
[2022-07-13] MEDS: Atorvastatin Calcium 40 MG TAB PO SCH (21:30)
[2022-07-14] MEDS: cefTRIAXone\\ROCEPHIN 2 GM in Sodium Chloride 0.9% 100 ML IVPB SCH (00:26)
[2022-07-14] MEDS: Azithromycin 500 MG in Sodium Chloride 0.9% 250 ML 250 ML IVPB SCH (02:51)
[2022-07-14] MEDS: Morphine 4 MG/ML VIAL SLOW IVP PRN ×3 (02:55→11:37)
[2022-07-14] MEDS: HYDROcodone/Acetaminophen 10/325 mg Tablet PO PRN (04:12)
[2022-07-14 04:35] LABS: #Eosinphils 0.1 thou/uL (0.0-0.7); #Lymphocytes 1.8 thou/uL (1.20-3.40); #Neutrophils 4.1 thou/uL (1.40-6.50); %Basophils 0.3 % (0.0-1.0); %Eosinophils 1.8 % (0.0-10.0); %Lymphocytes 25.4 % (21.0-51.0); %Monocytes 14.3 % (0.0-10.0); %Neutrophils 58.2 % (42.0-75.0); Hemoglobin 10.4 g/dL (12.0-16.0); Mean Corpuscular HGB CONC 29.7 g/dL (32.0-36.0); Mean Corpuscular Hemoglobin 24.5 pg (27.0-31.0); Mean Corpuscular Volume 82.5 fl (78.0-98.0); Mean Platelet Volume 10.3 fL (7.4-10.4); Platelet Count 214 10x3/uL (130-400); RBC Distribution Width 18.2 % (11.5-14.5); Red Blood Cell (RBC) Count 4.25 mill/uL (4.20-5.40)
[2022-07-14 04:41] LABS: Anion Gap 16 mmol/L (10-20); BUN (Urea Nitrogen) 21 mg/dL (7.0-18.7); Calc. Creatinine Clearance 58 mL/min (70-130); Calcium 8.7 mg/dL (7.8-10.44); Carbon Dioxide 21 mmol/L (22-29); Chloride 103 mmol/L (98-107); Estimated GFR 39; Glucose 161 mg/dL (70-105); Potassium 4.4 mmol/L (3.5-5.1); Sodium 136 mmol/L (136-145)
[2022-07-14] MEDS: Sodium Bicarbonate Tab 325 MG TAB PO SCH (09:08)
[2022-07-14] MEDS: Carvedilol 6.25 MG TAB PO SCH (09:09)
[2022-07-14] MEDS: Ferrous Sulfate 325 MG TAB PO SCH (09:10)
[2022-07-14] MEDS: Potassium Chloride 20 MEQ TAB PO SCH (09:10)
[2022-07-14] MEDS: Colchicine 0.6 MG TAB PO SCH (09:10)
[2022-07-14] MEDS: Gabapentin 300 MG CAP PO SCH ×2 (09:11→14:33)
[2022-07-14] MEDS: Empagliflozin 10 MG TAB PO SCH (09:11)
[2022-07-14] MEDS: Buprenorphine HCl 2 MG SL TAB PO SCH (09:12)
[2022-07-14] MEDS: tiZANidine HCl 4 MG TAB PO SCH ×2 (09:13→14:33)
[2022-07-14] MEDS: Heparin 5,000 UNITS/ML VIAL SC SCH ×2 (09:13→14:33)
[2022-07-14] MEDS: Insulin Glargine 30 UNITS/0.3 ML VIAL SC SCH (09:14)
[2022-07-14] MEDS: HumaLOG 300 UNITS/3 ML VIAL SC PRN (11:37)
[2022-07-14 12:20] VITALS: BP 116/72; TEMP 98.2
[2022-07-14 15:10] VITALS: BMI 31.8
== END 2022-07-14 16:00 | disposition home or self-care (01) | DRG 193 ==
LOC: 2NO 02:10
PROVIDERS: ADMIT Internal Medicine; ATTEND Internal Medicine
DX: J18.9 Pneumonia, unspecified organism (principal); I50.33 Acute on chronic diastolic (congestive) heart failure; J96.01 Acute respiratory failure with hypoxia; I24.8 Other forms of acute ischemic heart disease; I13.0 Hypertensive heart and chronic kidney disease with heart failure and stage 1 through stage 4 chronic kidney disease, or unspecified chronic kidney disease; N17.9 Acute kidney failure, unspecified; E87.20 Acidosis, unspecified; D63.1 Anemia in chronic kidney disease; N18.30 Chronic kidney disease, stage 3 unspecified; E11.22 Type 2 diabetes mellitus with diabetic chronic kidney disease; E78.5 Hyperlipidemia, unspecified; I34.0 Nonrheumatic mitral (valve) insufficiency; E03.9 Hypothyroidism, unspecified; I25.118 Atherosclerotic heart disease of native coronary artery with other forms of angina pectoris; Z79.899 Other long term (current) drug therapy; Z88.8 Allergy status to other drugs, medicaments and biological substances; Z88.6 Allergy status to analgesic agent; Z79.4 Long term (current) use of insulin; Z91.14 Patient's other noncompliance with medication regimen
CPT/HCPCS: 36415; 36416; 71046; 80048; 82040; 82728; 83036; 83540; 83550; 84145; 84443; 84484; 85025; 93306; 97139; J0456; J0571; J0696; J1644; J1815; J1940; J2270; J2916; J3490; J7050; Q5105; U0003; U0005

== ENCOUNTER 2022-08-11 16:12 | Emergency (ER) | payer OTHER ==
[~2022-08-11 16:12] MED LIST: Iopamidol-370 76% 500 ML 1 ML ONE
[2022-08-11 17:42] LABS: #Basophils 0.1 thou/uL (0.0-0.2); #Lymphocytes 0.9 thou/uL (1.20-3.40); #Monocytes 0.3 thou/uL (0.11-0.59); #Neutrophils 2.7 thou/uL (1.40-6.50); %Basophils 2.3 % (0.0-1.0); %Eosinophils 0.7 % (0.0-10.0); %Lymphocytes 22.7 % (21.0-51.0); %Monocytes 7.5 % (0.0-10.0); %Neutrophils 66.9 % (42.0-75.0); Hemoglobin 13.1 g/dL (12.0-16.0); Mean Corpuscular Hemoglobin 24.3 pg (27.0-31.0); Mean Corpuscular Volume 81.2 fl (78.0-98.0); Mean Platelet Volume 11.3 fL (7.4-10.4); Platelet Count 205 10x3/uL (130-400); RBC Distribution Width 18.1 % (11.5-14.5); Red Blood Cell (RBC) Count 5.38 mill/uL (4.20-5.40)
[2022-08-11 17:47] LABS: BHCG - Serum Negative (NEGATIVE); Pregs Control Background? CLEAR/WHITE (CLR/WHITE); Pregs Control Bar Appear? YES (CONTROL BAR)
[2022-08-11 18:03] LABS: ALT (SGPT) 18 U/L (8-55); AST (SGOT) 33 U/L (5-34); Albumin 3.4 g/dL (3.5-5.0); Alkaline Phosphatase 152 U/L (40-110); Anion Gap 14 mmol/L (10-20); BUN (Urea Nitrogen) 18 mg/dL (7.0-18.7); Bilirubin, Total 1.7 mg/dL (0.2-1.2); Calc. Creatinine Clearance 0 mL/min (70-130); Calcium 9.1 mg/dL (7.8-10.44); Carbon Dioxide 23 mmol/L (22-29); Chloride 101 mmol/L (98-107); Estimated GFR 56; Globulin 4.8 g/dL (2.4-3.5); Glucose 148 mg/dL (70-105); Potassium 3.6 mmol/L (3.5-5.1); Protein, Total 8.2 g/dL (6.0-8.3); Sodium 134 mmol/L (136-145)
[2022-08-11] MEDS ORDERED: cloNIDine 0.1 MG TAB ONE (19:24)
[2022-08-11] MEDS ORDERED: Labetalol HCl 100 MG TAB ONE (19:25)
[2022-08-11] MEDS ORDERED: Carvedilol 6.25 MG TAB PO SCH (20:00)
[2022-08-11 20:10] LABS: Bilirubin Negative (Negative); Blood, Urine Negative (Negative); Clarity Clear (Clear); Glucose, Urine (Dipstick) Greater than 1000 mg/dL (Negative); Ketone, Urine Negative (Negative); Leukocyte Negative Leu/uL (Negative); Nitrite Negative (Negative); Protein, Urine (Dipstick) 100 mg/dL (Neg-Trace); RBC/HPF 0-3 HPF (0-3); Specific Gravity, Urine 1.009 (1.002-1.036); Squamous Epithelial 0-3 HPF (0-3); Urobilinogen Normal mg/dL (Less than 2); WBC/HPF 0-3 HPF (0-3)
[2022-08-11 20:12] LABS: Bacteria/HPF Rare-Few HPF (None Seen)
[2022-08-11 20:15] LABS: Amphetamine Not Detected (NotDetected); Barbiturates Screen Not Detected (NotDetected); Benzodiazepine Screen Not Detected (NotDetected); Cocaine Metabolite Screen Not Detected (NotDetected); Methadone Not Detected (NotDetected); Methamphetamine Not Detected (NotDetected); Opiate Screen Not Detected (NotDetected); Oxycodone Screen Not Detected (NotDetected); Phencyclidine (PCP) Not Detected (NotDetected); THC/Cannabinoid Screen Not Detected (NotDetected); Tricyclic Screen Not Detected (NotDetected)
== END 2022-08-11 23:50 | disposition left against medical advice (07) ==
LOC: ERS 16:12
DX: I11.0 Hypertensive heart disease with heart failure (principal); I50.9 Heart failure, unspecified; D72.819 Decreased white blood cell count, unspecified; I25.10 Atherosclerotic heart disease of native coronary artery without angina pectoris; E11.9 Type 2 diabetes mellitus without complications
CPT/HCPCS: 36415; 36416; 70450; 71045; 71275; 74174; 80053; 80306; 81003; 81015; 83880; 84484; 84703; 85025; 93005; Q9967

== ENCOUNTER 2023-02-27 19:22 | Inpatient (IN) | payer OTHER ==
[2023-02-27] MEDS ORDERED: Ondansetron PF 4 MG/2 ML Vial IVP PRN (22:15)
[2023-02-27] MEDS ORDERED: Acetaminophen 650 MG Suppository PR PRN (22:15)
[2023-02-27] MEDS ORDERED: Dextrose 50% Abboject 50 ML SYRINGE SLOW IVP PRN (22:15)
[2023-02-27] MEDS ORDERED: Ondansetron ODT 4 MG TAB PO PRN (22:15)
[2023-02-27] MEDS ORDERED: Dextrose 5% in Water 1,000 ML IV PRN (22:15)
[2023-02-27] MEDS ORDERED: Glucagon 1 MG/ML KIT IM PRN (22:15)
[2023-02-27] MEDS ORDERED: HumaLOG 300 UNITS/3 ML VIAL SC PRN ×2 (22:15)
[2023-02-27 22:40] VITALS: BMI 31.1
[2023-02-27] MEDS ORDERED: hydrALAZINE 20 MG/ML VIAL SLOW IVP PRN (22:54)
[2023-02-27] MEDS ORDERED: Gabapentin 300 MG CAP PO SCH (23:00)
[2023-02-27] MEDS ORDERED: Carvedilol 6.25 MG TAB PO SCH (23:00)
[2023-02-27] MEDS: Sodium Chloride 0.9% 1,000 ML IV SCH (23:17)
[2023-02-27 23:32] LABS: Anion Gap 18 mmol/L (10-20); BUN (Urea Nitrogen) 21 mg/dL (7.0-18.7); Calc. Creatinine Clearance 47 mL/min (70-130); Calcium 9.7 mg/dL (7.8-10.44); Carbon Dioxide 21 mmol/L (22-29); Chloride 101 mmol/L (98-107); Estimated GFR 31; Glucose 138 mg/dL (70-105); Potassium 3.9 mmol/L (3.5-5.1); Sodium 136 mmol/L (136-145)
[2023-02-28] MEDS: Morphine 4 MG/ML VIAL SLOW IVP PRN ×4 (03:24→17:30)
[2023-02-28 05:56] LABS: #Eosinphils 0.1 thou/uL (0.0-0.7); #Monocytes 0.6 thou/uL (0.11-0.59); %Basophils 0.7 % (0.0-1.0); %Eosinophils 1.9 % (0.0-10.0); %Lymphocytes 34.9 % (21.0-51.0); %Monocytes 15.2 % (0.0-10.0); %Neutrophils 47.1 % (42.0-75.0); Hemoglobin 10.4 g/dL (12.0-16.0); Mean Corpuscular HGB CONC 30.6 g/dL (32.0-36.0); Mean Corpuscular Hemoglobin 23.9 pg (27.0-31.0); Mean Platelet Volume 9.9 fL (7.4-10.4); Platelet Count 242 10x3/uL (130-400); RBC Distribution Width 14.3 % (11.5-14.5); Red Blood Cell (RBC) Count 4.36 mill/uL (4.20-5.40); White Blood Cell (WBC) Count 4.2 10x3/uL (4.8-10.8)
[2023-02-28 06:18] LABS: Anion Gap 14 mmol/L (10-20); BUN (Urea Nitrogen) 22 mg/dL (7.0-18.7); Calc. Creatinine Clearance 53 mL/min (70-130); Calcium 9.1 mg/dL (7.8-10.44); Carbon Dioxide 24 mmol/L (22-29); Chloride 103 mmol/L (98-107); Estimated GFR 36; Glucose 133 mg/dL (70-105); Potassium 3.8 mmol/L (3.5-5.1); Sodium 137 mmol/L (136-145)
[2023-02-28] MEDS: Sodium Chloride 0.9% 1,000 ML IV SCH ×2 (08:51→21:13)
[2023-02-28] MEDS ORDERED: Iopamidol-370 76% 500 ML MDV (1 ML CHARGE) ONE (08:52)
[2023-02-28] MEDS ORDERED: Lisinopril 20 MG TAB PO SCH (09:00)
[2023-02-28 09:07] LABS: Bilirubin Negative (Negative); Blood, Urine Trace (Negative); Clarity Clear (Clear); Glucose, Urine (Dipstick) 30 mg/dL (Negative); Ketone, Urine Negative (Negative); Leukocyte Negative Leu/uL (Negative); Nitrite Negative (Negative); Protein, Urine (Dipstick) 100 mg/dL (Neg-Trace); RBC/HPF 0-3 HPF (0-3); Squamous Epithelial 0-3 HPF (0-3); Urobilinogen Normal mg/dL (Less than 2); WBC/HPF 0-3 HPF (0-3); pH, Urine 7.5 (5.0-9.0)
[2023-02-28 09:10] LABS: Bacteria/HPF 1+ HPF (None Seen)
[2023-02-28] MEDS: tiZANidine HCl 4 MG TAB PO SCH ×5 (09:22→21:14)
[2023-02-28] MEDS: Labetalol HCl 100 MG TAB PO SCH ×2 (10:20→21:14)
[2023-02-28] MEDS: Carvedilol 6.25 MG TAB PO SCH ×2 (10:20→21:15)
[2023-02-28] MEDS: Gabapentin 300 MG CAP PO SCH ×2 (10:29→21:16)
[2023-02-28] MEDS: cloNIDine 0.1 MG TAB PO SCH (10:30)
[2023-02-28] MEDS: Amlodipine 5 MG TAB PO SCH ×2 (10:30→21:15)
[2023-02-28] MEDS: Acetaminophen 325 MG TAB PO PRN (16:18)
[2023-03-01] MEDS: Morphine 4 MG/ML VIAL SLOW IVP PRN ×2 (04:10→08:26)
[2023-03-01 05:32] LABS: #Eosinphils 0.1 thou/uL (0.0-0.7); #Monocytes 0.5 thou/uL (0.11-0.59); #Neutrophils 1.1 thou/uL (1.40-6.50); %Basophils 0.6 % (0.0-1.0); %Lymphocytes 46.1 % (21.0-51.0); %Monocytes 16.1 % (0.0-10.0); %Neutrophils 33.9 % (42.0-75.0); Hematocrit 35.3 % (36.0-47.0); Hemoglobin 11.1 g/dL (12.0-16.0); Mean Corpuscular HGB CONC 31.4 g/dL (32.0-36.0); Mean Corpuscular Hemoglobin 24.2 pg (27.0-31.0); Mean Corpuscular Volume 77.1 fl (78.0-98.0); Mean Platelet Volume 10.3 fL (7.4-10.4); Platelet Count 184 10x3/uL (130-400); RBC Distribution Width 14.4 % (11.5-14.5); Red Blood Cell (RBC) Count 4.58 mill/uL (4.20-5.40); White Blood Cell (WBC) Count 3.3 10x3/uL (4.8-10.8)
[2023-03-01 05:51] LABS: Anion Gap 14 mmol/L (10-20); BUN (Urea Nitrogen) 20 mg/dL (7.0-18.7); Calc. Creatinine Clearance 55 mL/min (70-130); Calcium 8.9 mg/dL (7.8-10.44); Carbon Dioxide 18 mmol/L (22-29); Chloride 107 mmol/L (98-107); Estimated GFR 38; Glucose 144 mg/dL (70-105); Potassium 4.3 mmol/L (3.5-5.1); Sodium 135 mmol/L (136-145)
[2023-03-01] MEDS: Sodium Chloride 0.9% 1,000 ML IV SCH ×2 (06:19→17:04)
[2023-03-01] MEDS: Labetalol HCl 100 MG TAB PO SCH (07:17)
[2023-03-01] MEDS: Carvedilol 6.25 MG TAB PO SCH (07:17)
[2023-03-01] MEDS: Sodium Bicarbonate Tab 325 MG TAB PO SCH ×2 (08:20→14:59)
[2023-03-01] MEDS: tiZANidine HCl 4 MG TAB PO SCH ×3 (08:21→16:08)
[2023-03-01] MEDS: Gabapentin 300 MG CAP PO SCH (08:21)
[2023-03-01] MEDS: Acetaminophen 325 MG TAB PO PRN (08:21)
[2023-03-01] MEDS: Amlodipine 5 MG TAB PO SCH (08:22)
[2023-03-01] MEDS: cloNIDine 0.1 MG TAB PO SCH (08:22)
[2023-03-01] MEDS ORDERED: ADENOSINE 60 MG/20 ML SDV ONE (08:47)
[2023-03-01 14:24] LABS: Creatinine, Urine 41.03 mg/dL (47-110)
[2023-03-01 15:09] VITALS: BP 163/75; TEMP 97.6
[2023-03-01] MEDS ORDERED: cloNIDine 0.1 MG TAB PO SCH (21:00)
== END 2023-03-01 17:38 | disposition home or self-care (01) | DRG 313 ==
LOC: 2SE 19:22 → OBSVTOIN 03-01 14:11
PROVIDERS: ADMIT Student in an Organized Health Care Education/Training Program; ATTEND Internal Medicine
DX: R07.89 Other chest pain (principal); I13.0 Hypertensive heart and chronic kidney disease with heart failure and stage 1 through stage 4 chronic kidney disease, or unspecified chronic kidney disease; I42.9 Cardiomyopathy, unspecified; N17.9 Acute kidney failure, unspecified; E87.1 Hypo-osmolality and hyponatremia; E87.21 Acute metabolic acidosis; I50.9 Heart failure, unspecified; N18.30 Chronic kidney disease, stage 3 unspecified; D63.1 Anemia in chronic kidney disease; E11.22 Type 2 diabetes mellitus with diabetic chronic kidney disease; E03.9 Hypothyroidism, unspecified; I25.10 Atherosclerotic heart disease of native coronary artery without angina pectoris; Z95.5 Presence of coronary angioplasty implant and graft; Z88.6 Allergy status to analgesic agent; Z88.8 Allergy status to other drugs, medicaments and biological substances; Z79.899 Other long term (current) drug therapy; Z90.49 Acquired absence of other specified parts of digestive tract; Z90.710 Acquired absence of both cervix and uterus; Z98.890 Other specified postprocedural states; Z87.891 Personal history of nicotine dependence; Z82.49 Family history of ischemic heart disease and other diseases of the circulatory system; Z89.412 Acquired absence of left great toe; Z89.411 Acquired absence of right great toe
CPT/HCPCS: 36415; 36416; 71275; 78452; 80048; 81001; 82570; 84156; 85025; 93017; 93970; 96372; 96374; 96376; A9500; G0378; J0153; J1650; J1815; J2270; J7050; Q9967

== ENCOUNTER 2023-05-27 00:15 | Emergency (ER) | payer OTHER ==
[2023-05-27] MEDS ORDERED: Acetaminophen/Codeine 30-300mg Tablet ONE (00:32)
[2023-05-27] MEDS ORDERED: Carvedilol 25 MG TAB ONE (00:33)
[2023-05-27 01:21] LABS: SARS-CoV-2 NAA Rapid Test Not Detected (NotDetected)
== END 2023-05-27 01:55 | disposition home or self-care (01) ==
LOC: ERS 00:15
DX: J18.9 Pneumonia, unspecified organism (principal); E11.22 Type 2 diabetes mellitus with diabetic chronic kidney disease; N18.9 Chronic kidney disease, unspecified; I12.9 Hypertensive chronic kidney disease with stage 1 through stage 4 chronic kidney disease, or unspecified chronic kidney disease; Z87.891 Personal history of nicotine dependence
CPT/HCPCS: 71045

== ENCOUNTER 2023-06-09 15:42 | Emergency (ER) | payer OTHER | END 2023-06-09 18:35 | disposition home or self-care (01) | LOC: ERS 15:42 | DX: M79.672 Pain in left foot (principal); I12.9 Hypertensive chronic kidney disease with stage 1 through stage 4 chronic kidney disease, or unspecified chronic kidney disease; N18.9 Chronic kidney disease, unspecified; Z87.891 Personal history of nicotine dependence ==

== ENCOUNTER 2023-07-20 21:21 | Emergency (ER) | payer OTHER | END 2023-07-21 00:09 | disposition home or self-care (01) | LOC: ERS 21:21 | DX: H65.91 Unspecified nonsuppurative otitis media, right ear (principal); H73.91 Unspecified disorder of tympanic membrane, right ear; E11.22 Type 2 diabetes mellitus with diabetic chronic kidney disease; N18.9 Chronic kidney disease, unspecified; I12.9 Hypertensive chronic kidney disease with stage 1 through stage 4 chronic kidney disease, or unspecified chronic kidney disease; Z87.891 Personal history of nicotine dependence | CPT/HCPCS: 99282 ==

== ENCOUNTER 2023-07-24 20:22 | Inpatient (IN) | payer OTHER ==
[2023-07-24] MEDS ORDERED: CEFAZOLIN 2 GM VIAL ONE (21:17)
[2023-07-24] MEDS ORDERED: Sodium Chloride 0.9% 100 ML ONE (21:17)
[2023-07-24] MEDS ORDERED: Cefepime 2 GM VIAL ONE (21:18)
[2023-07-24 22:16] LABS: Bacteria/HPF None Seen HPF (None Seen); Bilirubin Negative (Negative); Blood, Urine Negative (Negative); CAUTI Indications for Culture Pelvic or flank pain; Clarity Clear (Clear); Glucose, Urine (Dipstick) Greater than 1000 mg/dL (Negative); Ketone, Urine Negative (Negative); Leukocyte Negative Leu/uL (Negative); Nitrite Negative (Negative); Protein, Urine (Dipstick) 70 mg/dL (Neg-Trace); RBC/HPF 0-3 HPF (0-3); Specific Gravity, Urine 1.022 (1.002-1.036); Squamous Epithelial 0-3 HPF (0-3); Urobilinogen Normal mg/dL (Less than 2); WBC/HPF None Seen HPF (0-3)
[2023-07-24 22:17] LABS: Urine Culture Reflex No No
[2023-07-24 22:40] LABS: #Eosinphils 0.1 thou/uL (0.0-0.7); #Monocytes 0.6 thou/uL (0.11-0.59); #Neutrophils 4.7 thou/uL (1.40-6.50); %Basophils 0.2 % (0.0-1.0); %Eosinophils 1.8 % (0.0-10.0); %Lymphocytes 17.9 % (21.0-51.0); %Neutrophils 70.8 % (42.0-75.0); Hematocrit 29.4 % (36.0-47.0); Mean Corpuscular HGB CONC 30.6 g/dL (32.0-36.0); Mean Corpuscular Hemoglobin 24.6 pg (27.0-31.0); Mean Corpuscular Volume 80.3 fl (78.0-98.0); Mean Platelet Volume 11.1 fL (7.4-10.4); Platelet Count 195 10x3/uL (130-400); RBC Distribution Width 15.7 % (11.5-14.5); Red Blood Cell (RBC) Count 3.66 mill/uL (4.20-5.40); White Blood Cell (WBC) Count 6.6 10x3/uL (4.8-10.8)
[2023-07-24 23:06] LABS: ALT (SGPT) 10 U/L (8-55); AST (SGOT) 17 U/L (5-34); Albumin 3.4 g/dL (3.5-5.0); Alkaline Phosphatase 131 U/L (40-110); Anion Gap 14 mmol/L (10-20); BUN (Urea Nitrogen) 23 mg/dL (7.0-18.7); Bilirubin, Total 0.6 mg/dL (0.2-1.2); Calc. Creatinine Clearance 0 mL/min (70-130); Calcium 9.1 mg/dL (7.8-10.44); Carbon Dioxide 24 mmol/L (22-29); Chloride 101 mmol/L (98-107); Estimated GFR 36; Globulin 4.9 g/dL (2.4-3.5); Glucose 349 mg/dL (70-105); Potassium 4.6 mmol/L (3.5-5.1); Protein, Total 8.3 g/dL (6.0-8.3); Sodium 134 mmol/L (136-145)
[2023-07-24] MEDS ORDERED: Vancomycin 1 GM/200 ML (FROZEN) BAG ONE (23:31)
[2023-07-24] MEDS ORDERED: Acetaminophen 500 MG TAB ONE (23:33)
[2023-07-25] MEDS ORDERED: Acetaminophen 325 MG TAB PO PRN ×2 (00:18→05:30)
[2023-07-25] MEDS ORDERED: Ondansetron PF 4 MG/2 ML Vial IVP PRN (00:18)
[2023-07-25] MEDS ORDERED: Morphine 2 MG/ML VIAL ONE (00:21)
[2023-07-25] MEDS ORDERED: Glucagon 1 MG/ML KIT IM PRN (00:26)
[2023-07-25] MEDS ORDERED: Dextrose 50% Abboject 50 ML SYRINGE SLOW IVP PRN (00:26)
[2023-07-25] MEDS ORDERED: Dextrose 5% in Water 1,000 ML IV PRN (00:26)
[2023-07-25] MEDS: Vancomycin 1 GM in Premix 1 BAG IVPB SCH (02:07)
[2023-07-25] MEDS: HYDROcodone/Acetaminophen 5/325 mg Tablet PO PRN (04:18)
[2023-07-25] MEDS: HumaLOG 300 UNITS/3 ML VIAL SC PRN ×2 (04:19→20:03)
[2023-07-25 06:29] LABS: Anion Gap 13 mmol/L (10-20); BUN (Urea Nitrogen) 20 mg/dL (7.0-18.7); Calc. Creatinine Clearance 85 mL/min (70-130); Calcium 8.9 mg/dL (7.8-10.44); Carbon Dioxide 18 mmol/L (22-29); Chloride 106 mmol/L (98-107); Estimated GFR 50; Glucose 269 mg/dL (70-105); Potassium 4.3 mmol/L (3.5-5.1); Sodium 133 mmol/L (136-145)
[2023-07-25 07:41] LABS: #Eosinphils 0.1 thou/uL (0.0-0.7); #Monocytes 0.6 thou/uL (0.11-0.59); #Neutrophils 4.7 thou/uL (1.40-6.50); %Basophils 0.3 % (0.0-1.0); %Eosinophils 1.7 % (0.0-10.0); %Lymphocytes 15.9 % (21.0-51.0); %Monocytes 9.8 % (0.0-10.0); %Neutrophils 71.8 % (42.0-75.0); Hematocrit 29.7 % (36.0-47.0); Hemoglobin 8.9 g/dL (12.0-16.0); Mean Corpuscular Hemoglobin 24.5 pg (27.0-31.0); Mean Corpuscular Volume 81.6 fl (78.0-98.0); Mean Platelet Volume 11.3 fL (7.4-10.4); Platelet Count 197 10x3/uL (130-400); RBC Distribution Width 15.7 % (11.5-14.5); Red Blood Cell (RBC) Count 3.64 mill/uL (4.20-5.40); White Blood Cell (WBC) Count 6.6 10x3/uL (4.8-10.8)
[2023-07-25] MEDS: Spironolactone 25 MG TAB PO SCH (08:18)
[2023-07-25] MEDS: Gabapentin 300 MG CAP PO SCH (08:18)
[2023-07-25] MEDS: Carvedilol 25 MG TAB PO SCH (08:18)
[2023-07-25] MEDS: Torsemide 20 MG TAB PO SCH (08:19)
[2023-07-25] MEDS: FLU VACC QS2023-24(6MOS UP)/PF 60 MCG/0.5 ML SYRINGE IM ONE (08:21)
[2023-07-25 10:17] LABS: Hemoglobin A1c 12.3 % (4.0-6.0)
[2023-07-25] MEDS: Cefepime 1 GM in Sodium Chloride 0.9% 100 ML IVPB SCH (11:00)
[2023-07-25] MEDS: fentaNYL 50 mcg/mL 1 mL Vial SLOW IVP PRN ×2 (11:00→13:02)
[2023-07-25] MEDS: tiZANidine HCl 4 MG TAB PO SCH (15:27)
[2023-07-25] MEDS: Insulin Glargine 30 UNITS/0.3 ML VIAL SC SCH (20:04)
[2023-07-25] MEDS: Atorvastatin Calcium 40 MG TAB PO SCH (20:04)
[2023-07-25] MEDS ORDERED: Buprenorphine 8mg/Naloxone 2mg per 1 FILM SL SCH (21:00)
[2023-07-26] MEDS: VANCOMYCIN IVPB SCH (02:12)
[2023-07-26 06:17] LABS: #Eosinphils 0.2 thou/uL (0.0-0.7); #Monocytes 0.8 thou/uL (0.11-0.59); #Neutrophils 3.9 thou/uL (1.40-6.50); %Basophils 0.3 % (0.0-1.0); %Eosinophils 3.3 % (0.0-10.0); %Lymphocytes 27.3 % (21.0-51.0); %Monocytes 11.2 % (0.0-10.0); %Neutrophils 57.6 % (42.0-75.0); Hematocrit 30.6 % (36.0-47.0); Hemoglobin 9.4 g/dL (12.0-16.0); Mean Corpuscular HGB CONC 30.7 g/dL (32.0-36.0); Mean Corpuscular Hemoglobin 24.5 pg (27.0-31.0); Mean Corpuscular Volume 79.9 fl (78.0-98.0); Mean Platelet Volume 10.9 fL (7.4-10.4); Platelet Count 245 10x3/uL (130-400); RBC Distribution Width 15.7 % (11.5-14.5); Red Blood Cell (RBC) Count 3.83 mill/uL (4.20-5.40); White Blood Cell (WBC) Count 6.7 10x3/uL (4.8-10.8)
[2023-07-26 06:48] LABS: Anion Gap 12 mmol/L (10-20); BUN (Urea Nitrogen) 17 mg/dL (7.0-18.7); Calc. Creatinine Clearance 74 mL/min (70-130); Calcium 9.5 mg/dL (7.8-10.44); Carbon Dioxide 27 mmol/L (22-29); Chloride 100 mmol/L (98-107); Estimated GFR 45; Glucose 145 mg/dL (70-105); Potassium 4.2 mmol/L (3.5-5.1); Sodium 135 mmol/L (136-145)
[2023-07-26] MEDS ORDERED: PROPOFOL 20 ML ONE (08:40)
[2023-07-26] MEDS ORDERED: fentaNYL PF 100 MCG/2 ML SYRINGE ONE (08:40)
[2023-07-26] MEDS ORDERED: Lidocaine 1% PF 5 ML VIAL ONE (08:40)
[2023-07-26] MEDS ORDERED: Midazolam HCl 2 mg/2 ml Vial ONE (08:40)
[2023-07-26] MEDS ORDERED: Metoclopramide HCl 10 MG TAB ONE (09:06)
[2023-07-26] MEDS ORDERED: ePHEDrine Sulfate 50 MG/10 ML VIAL ONE (09:06)
[2023-07-26] MEDS ORDERED: fentaNYL 50 mcg/mL 1 mL Vial ONE ×3 (09:21→09:57)
[2023-07-26] MEDS: HYDROcodone/Acetaminophen 5/325 mg Tablet PO PRN (11:08)
[2023-07-27 05:22] LABS: #Eosinphils 0.2 thou/uL (0.0-0.7); #Monocytes 0.6 thou/uL (0.11-0.59); #Neutrophils 3.1 thou/uL (1.40-6.50); %Basophils 0.4 % (0.0-1.0); %Eosinophils 3.7 % (0.0-10.0); %Lymphocytes 29.3 % (21.0-51.0); %Monocytes 10.5 % (0.0-10.0); %Neutrophils 55.7 % (42.0-75.0); Hematocrit 25.9 % (36.0-47.0); Hemoglobin 7.9 g/dL (12.0-16.0); Mean Corpuscular HGB CONC 30.5 g/dL (32.0-36.0); Mean Corpuscular Hemoglobin 23.9 pg (27.0-31.0); Mean Corpuscular Volume 78.5 fl (78.0-98.0); Mean Platelet Volume 10.9 fL (7.4-10.4); Platelet Count 233 10x3/uL (130-400); RBC Distribution Width 15.4 % (11.5-14.5); White Blood Cell (WBC) Count 5.6 10x3/uL (4.8-10.8)
[2023-07-27 05:53] LABS: Anion Gap 13 mmol/L (10-20); BUN (Urea Nitrogen) 19 mg/dL (7.0-18.7); Calc. Creatinine Clearance 60 mL/min (70-130); Calcium 8.6 mg/dL (7.8-10.44); Carbon Dioxide 22 mmol/L (22-29); Chloride 101 mmol/L (98-107); Estimated GFR 35; Glucose 330 mg/dL (70-105); Potassium 4.1 mmol/L (3.5-5.1); Sodium 132 mmol/L (136-145)
[2023-07-27 05:54] LABS: Vancomycin, Trough 14.9 ug/mL
[2023-07-27] MEDS: VANCOMYCIN IVPB SCH (06:06)
[2023-07-27] MEDS ORDERED: Sevoflurane 250 ML INH ANEST BOTTLE ONE (07:04)
[2023-07-27] MEDS: HumaLOG 300 UNITS/3 ML VIAL SC SCH (07:59)
[2023-07-27] MEDS: cloNIDine 0.1 MG TAB PO SCH (08:15)
[2023-07-27] MEDS: Morphine 4 MG/ML VIAL SLOW IVP PRN (16:47)
[2023-07-27] MEDS: Insulin Glargine 30 UNITS/0.3 ML VIAL SC SCH (20:54)
[2023-07-28 13:10] VITALS: BMI 36.3
[2023-07-28 16:52] VITALS: BP 139/89; TEMP 98.1
== END 2023-07-28 19:19 | disposition home or self-care (01) | DRG 623 ==
LOC: ERS 20:22 → T4-A 07-25 00:50 → T4-B 07-25 00:54
PROVIDERS: ADMIT Internal Medicine; ATTEND Internal Medicine
PROC: 0JBR0ZZ Excision of Left Foot Subcutaneous Tissue and Fascia, Open Approach (ICD-10-PCS; principal; 2023-07-26)
DX: E11.621 Type 2 diabetes mellitus with foot ulcer (principal); I13.0 Hypertensive heart and chronic kidney disease with heart failure and stage 1 through stage 4 chronic kidney disease, or unspecified chronic kidney disease; I50.32 Chronic diastolic (congestive) heart failure; E11.22 Type 2 diabetes mellitus with diabetic chronic kidney disease; I25.10 Atherosclerotic heart disease of native coronary artery without angina pectoris; E11.69 Type 2 diabetes mellitus with other specified complication; L97.529 Non-pressure chronic ulcer of other part of left foot with unspecified severity; E11.51 Type 2 diabetes mellitus with diabetic peripheral angiopathy without gangrene; M54.9 Dorsalgia, unspecified; G89.29 Other chronic pain; Z79.899 Other long term (current) drug therapy; Z88.8 Allergy status to other drugs, medicaments and biological substances; Z79.4 Long term (current) use of insulin; Z95.5 Presence of coronary angioplasty implant and graft; Z90.49 Acquired absence of other specified parts of digestive tract; Z90.710 Acquired absence of both cervix and uterus; Z98.51 Tubal ligation status; Z98.890 Other specified postprocedural states; Z90.89 Acquired absence of other organs; Z83.3 Family history of diabetes mellitus; Z68.36 Body mass index [BMI] 36.0-36.9, adult; E66.9 Obesity, unspecified; N18.2 Chronic kidney disease, stage 2 (mild)
CPT/HCPCS: 36415; 36416; 80048; 80053; 80202; 81001; 83036; 83605; 83880; 85025; 86140; 87040; 87070; 87077; 87186; 87205; 96365; 96367; 96375; 97139; J0692; J1815; J2250; J2270; J2272; J2704; J3010; J3370-JW; J3490

== ENCOUNTER 2023-08-12 17:57 | Emergency (ER) | payer OTHER ==
[2023-08-12] MEDS ORDERED: HYDROcodone/Acetaminophen 5/325 mg Tablet ONE (19:33)
[2023-08-12] MEDS ORDERED: Rivaroxaban 15 MG TAB PO SCH (21:45)
== END 2023-08-12 21:57 | disposition home or self-care (01) ==
LOC: ERS 17:57
DX: I82.442 Acute embolism and thrombosis of left tibial vein (principal); E11.621 Type 2 diabetes mellitus with foot ulcer; I25.10 Atherosclerotic heart disease of native coronary artery without angina pectoris; I12.9 Hypertensive chronic kidney disease with stage 1 through stage 4 chronic kidney disease, or unspecified chronic kidney disease; E11.22 Type 2 diabetes mellitus with diabetic chronic kidney disease; N18.9 Chronic kidney disease, unspecified; Z55.6 Problems related to health literacy; Z75.3 Unavailability and inaccessibility of health-care facilities; Z79.4 Long term (current) use of insulin; Z79.84 Long term (current) use of oral hypoglycemic drugs

== ENCOUNTER 2023-08-13 10:34 | Emergency (ER) | payer OTHER ==
[2023-08-13 11:46] LABS: #Monocytes 0.4 thou/uL (0.11-0.59); %Eosinophils 0.1 % (0.0-10.0); %Lymphocytes 7.5 % (21.0-51.0); %Monocytes 5.5 % (0.0-10.0); %Neutrophils 86.6 % (42.0-75.0); Hematocrit 36.5 % (36.0-47.0); Hemoglobin 11.9 g/dL (12.0-16.0); Mean Corpuscular HGB CONC 32.6 g/dL (32.0-36.0); Mean Corpuscular Hemoglobin 24.4 pg (27.0-31.0); Mean Corpuscular Volume 74.9 fl (78.0-98.0); Mean Platelet Volume 11.3 fL (7.4-10.4); Platelet Count 221 10x3/uL (130-400); RBC Distribution Width 15.4 % (11.5-14.5); Red Blood Cell (RBC) Count 4.87 mill/uL (4.20-5.40); White Blood Cell (WBC) Count 6.9 10x3/uL (4.8-10.8)
[2023-08-13 11:49] LABS: Actual Bicarbonate (HCO3v) 24.1 mEq/L (22-28); Base Excess 0.6 mEq/L (-2.0 to +3.0); Calcium, Ionized (venous) 1.08 mmol/L (1.16-1.32); Chloride (VBG) 93 mmol/L (98-106); Hematocrit-VBG 38 % (36.0-47.0); Potassium (VBG) 4.08 mmol/L (3.70-5.30); Sodium 131 mmol/L (133-146); pH (venous) 7.454 (7.32-7.43)
[2023-08-13 12:02] LABS: Acetaminophen Less than 10 mcg/mL (10.0-30.0); Alcohol Less than 10.0 mg/dL (Less than 10); Lipase 45 U/L (8-78); Magnesium 2.2 mg/dL (1.6-2.6); Salicylate Less than 8.0 mg/dL (15.0-30.0)
[2023-08-13 12:03] LABS: ALT (SGPT) 17 U/L (8-55); AST (SGOT) 30 U/L (5-34); Albumin 3.9 g/dL (3.5-5.0); Alkaline Phosphatase 203 U/L (40-110); Anion Gap 20 mmol/L (10-20); BUN (Urea Nitrogen) 32 mg/dL (7.0-18.7); Bilirubin, Total 1.6 mg/dL (0.2-1.2); Calc. Creatinine Clearance 0 mL/min (70-130); Calcium 9.9 mg/dL (7.8-10.44); Carbon Dioxide 22 mmol/L (22-29); Chloride 91 mmol/L (98-107); Estimated GFR 26; Globulin 5.7 g/dL (2.4-3.5); Protein, Total 9.6 g/dL (6.0-8.3); Sodium 129 mmol/L (136-145)
[2023-08-13 12:06] LABS: Glucose 708 mg/dL (70-105)
[2023-08-13 12:19] LABS: Anisocytosis SLIGHT = 6-15 cells HPF (0-5); CellaVision Operator ID LAB.MJL; Hypochromia SLIGHT = 6-15 cells HPF (0-5); Microcytosis SLIGHT = 6-15 cells HPF (0-5); Platelet Adequacy Comment Platelets Normal; Polychromasia SLIGHT = 2-3 cells HPF (0-2)
[2023-08-13 12:27] LABS: Amphetamine Not Detected (NotDetected); Barbiturates Screen Not Detected (NotDetected); Benzodiazepine Screen Not Detected (NotDetected); Cocaine Metabolite Screen Not Detected (NotDetected); Methadone Not Detected (NotDetected); Methamphetamine Not Detected (NotDetected); Opiate Screen Detected (NotDetected); Oxycodone Screen Not Detected (NotDetected); Phencyclidine (PCP) Not Detected (NotDetected); THC/Cannabinoid Screen Not Detected (NotDetected); Tricyclic Screen Detected (NotDetected)
[2023-08-13 12:45] LABS: Bacteria/HPF 3+ HPF (None Seen); Bilirubin Negative (Negative); Blood, Urine 2+ (Negative); CAUTI Indications for Culture Alt mental st,lethar; Clarity Clear (Clear); Glucose, Urine (Dipstick) Greater than 1000 mg/dL (Negative); Ketone, Urine Negative (Negative); Leukocyte Negative Leu/uL (Negative); Nitrite Negative (Negative); Protein, Urine (Dipstick) 200 mg/dL (Neg-Trace); RBC/HPF 0-3 HPF (0-3); Specific Gravity, Urine 1.022 (1.002-1.036); Urobilinogen Normal mg/dL (Less than 2); WBC/HPF 0-3 HPF (0-3); pH, Urine 6.5 (5.0-9.0)
[2023-08-13 12:47] LABS: Urine Culture Reflex No No
[2023-08-13] MEDS ORDERED: Promethazine HCl 25 MG in Sodium Chloride 0.9% 50 ML IVPB SCH (13:00)
[2023-08-13] MEDS ORDERED: Insulin Regular 300 UNITS/3 ML VIAL ONE (13:12)
== END 2023-08-13 14:00 | disposition home or self-care (01) ==
LOC: ERS 10:34
DX: E11.65 Type 2 diabetes mellitus with hyperglycemia (principal); R11.2 Nausea with vomiting, unspecified; E11.22 Type 2 diabetes mellitus with diabetic chronic kidney disease; I12.9 Hypertensive chronic kidney disease with stage 1 through stage 4 chronic kidney disease, or unspecified chronic kidney disease; N18.9 Chronic kidney disease, unspecified; I25.10 Atherosclerotic heart disease of native coronary artery without angina pectoris; Z87.891 Personal history of nicotine dependence; Z79.4 Long term (current) use of insulin; Z79.84 Long term (current) use of oral hypoglycemic drugs
CPT/HCPCS: 36415; 36416; 74176; 80053; 80306; 80307; 81001; 82805; 83605; 83690; 83735; 85025; 93005; 96361; 96365; 96375; J1815; J2550

== ENCOUNTER 2023-08-18 20:17 | Inpatient (IN) | payer OTHER ==
[2023-08-18] MEDS ORDERED: cefTRIAXone (ROCEPHIN) 1 GM VIAL ONE (21:06)
[2023-08-18] MEDS ORDERED: Sodium Chloride 0.9% 100 ML ONE (21:06)
[2023-08-18] MEDS ORDERED: Acetaminophen 500 MG TAB ONE (21:06)
[2023-08-18 21:10] LABS: #Monocytes 1.1 thou/uL (0.11-0.59); #Neutrophils 10.2 thou/uL (1.40-6.50); %Basophils 0.2 % (0.0-1.0); %Eosinophils 0.2 % (0.0-10.0); %Lymphocytes 12.2 % (21.0-51.0); %Monocytes 8.7 % (0.0-10.0); %Neutrophils 78.1 % (42.0-75.0); Hematocrit 37.3 % (36.0-47.0); Hemoglobin 11.8 g/dL (12.0-16.0); Mean Corpuscular HGB CONC 31.6 g/dL (32.0-36.0); Mean Corpuscular Hemoglobin 24.3 pg (27.0-31.0); Mean Corpuscular Volume 76.9 fl (78.0-98.0); Mean Platelet Volume 11.1 fL (7.4-10.4); Platelet Count 276 10x3/uL (130-400); RBC Distribution Width 15.1 % (11.5-14.5); Red Blood Cell (RBC) Count 4.85 mill/uL (4.20-5.40); White Blood Cell (WBC) Count 13.1 10x3/uL (4.8-10.8)
[2023-08-18 21:27] LABS: Phosphorus 2.9 mg/dL (2.3-4.7)
[2023-08-18 21:28] LABS: ALT (SGPT) 9 U/L (8-55); AST (SGOT) 17 U/L (5-34); Albumin 3.8 g/dL (3.5-5.0); Alkaline Phosphatase 212 U/L (40-110); Anion Gap 17 mmol/L (10-20); BUN (Urea Nitrogen) 32 mg/dL (7.0-18.7); Bilirubin, Total 1.5 mg/dL (0.2-1.2); Calc. Creatinine Clearance 0 mL/min (70-130); Calcium 9.3 mg/dL (7.8-10.44); Carbon Dioxide 26 mmol/L (22-29); Chloride 86 mmol/L (98-107); Estimated GFR 18; Globulin 5.2 g/dL (2.4-3.5); Lipase 28 U/L (8-78); Magnesium 1.9 mg/dL (1.6-2.6); Sodium 125 mmol/L (136-145)
[2023-08-18 21:32] LABS: Troponin I 0.054 ng/mL (< 0.028)
[2023-08-18 21:39] LABS: Critical Call Chemistry NUR.SH13@2139; Glucose 566 mg/dL (70-105)
[2023-08-18 21:50] LABS: Actual Bicarbonate (HCO3v) 25.2 mEq/L (22-28); Base Excess -0.9 mEq/L (-2.0 to +3.0); Calcium, Ionized (venous) 1.09 mmol/L (1.16-1.32); Chloride (VBG) 87 mmol/L (98-106); Hematocrit-VBG 37 % (36.0-47.0); Hemoglobin (Hb) 12.6 g/dL (11.7-16.0); Potassium (VBG) 4.01 mmol/L (3.70-5.30); Sodium 127 mmol/L (133-146); pH (venous) 7.344 (7.32-7.43)
[2023-08-18] MEDS ORDERED: Morphine 4 MG/ML VIAL ONE (21:51)
[2023-08-18] MEDS ORDERED: Metoclopramide HCl 10 MG (2 mL) VIAL ONE (21:52)
[2023-08-18] MEDS ORDERED: Insulin Regular 300 UNITS/3 ML VIAL ONE (22:03)
[2023-08-18] MEDS ORDERED: Ondansetron PF 4 MG/2 ML Vial IVP PRN (22:46)
[2023-08-18] MEDS: Sodium Chloride 0.9% 1,000 ML IV SCH (23:00)
[2023-08-18] MEDS ORDERED: Glucagon 1 MG/ML KIT IM PRN (23:08)
[2023-08-18] MEDS ORDERED: Dextrose 50% Abboject 50 ML SYRINGE SLOW IVP PRN (23:08)
[2023-08-18] MEDS ORDERED: Dextrose 5% in Water 1,000 ML IV PRN (23:08)
[2023-08-18 23:43] LABS: Hematocrit 32.9 % (36.0-47.0); Hemoglobin 10.5 g/dL (12.0-16.0); Platelet Count 266 10x3/uL (130-400)
[2023-08-18 23:51] LABS: Hemoglobin A1c 13.1 % (4.0-6.0)
[2023-08-19 00:03] LABS: Troponin I 0.067 ng/mL (< 0.028)
[2023-08-19 00:30] VITALS: BMI 34.6
[2023-08-19] MEDS ORDERED: HYDROcodone/Acetaminophen 7.5/325 mg Tablet ONE ×3 (00:30→14:01)
[2023-08-19] MEDS: HYDROcodone/Acetaminophen 7.5/325 mg Tablet PO PRN (00:43)
[2023-08-19] MEDS ORDERED: Vancomycin Dose by Levels Sliding Scale (Wt 71-99) FS SCH (01:15)
[2023-08-19] MEDS: Insulin Glargine 30 UNITS/0.3 ML VIAL SC SCH ×2 (02:00→02:51)
[2023-08-19] MEDS: Vancomycin (BATCH) 2 GM in Premix 1 BAG IVPB SCH (02:04)
[2023-08-19] MEDS ORDERED: Enoxaparin 60 MG (0.6 mL) SYRINGE ONE (04:04)
[2023-08-19] MEDS ORDERED: Enoxaparin 30 MG (0.3 mL) SYRINGE ONE (04:05)
[2023-08-19] MEDS: Enoxaparin 100 MG (1 mL) SYRINGE SC SCH (04:42)
[2023-08-19 04:56] LABS: Anion Gap 20 mmol/L (10-20); BUN (Urea Nitrogen) 29 mg/dL (7.0-18.7); Calc. Creatinine Clearance 38 mL/min (70-130); Calcium 9.2 mg/dL (7.8-10.44); Carbon Dioxide 20 mmol/L (22-29); Chloride 92 mmol/L (98-107); Estimated GFR 21; Glucose 388 mg/dL (70-105); Sodium 128 mmol/L (136-145)
[2023-08-19] MEDS ORDERED: Morphine 4 MG/ML VIAL ONE (05:41)
[2023-08-19] MEDS: Morphine 4 MG/ML VIAL SLOW IVP SCH (05:48)
[2023-08-19 06:04] LABS: #Monocytes 1.4 thou/uL (0.11-0.59); #Neutrophils 8.5 thou/uL (1.40-6.50); %Basophils 0.2 % (0.0-1.0); %Eosinophils 0.1 % (0.0-10.0); %Lymphocytes 15.4 % (21.0-51.0); %Monocytes 12.1 % (0.0-10.0); %Neutrophils 71.7 % (42.0-75.0); Hematocrit 40.1 % (36.0-47.0); Hemoglobin 12.9 g/dL (12.0-16.0); Mean Corpuscular HGB CONC 32.2 g/dL (32.0-36.0); Mean Corpuscular Hemoglobin 24.6 pg (27.0-31.0); Mean Corpuscular Volume 76.4 fl (78.0-98.0); Mean Platelet Volume 10.9 fL (7.4-10.4); Platelet Count 227 10x3/uL (130-400); Red Blood Cell (RBC) Count 5.25 mill/uL (4.20-5.40); White Blood Cell (WBC) Count 11.8 10x3/uL (4.8-10.8)
[2023-08-19] MEDS: Communication Order-Pharmacy FS ONE (07:45)
[2023-08-19] MEDS ORDERED: Cefepime 1 GM VIAL ONE (09:11)
[2023-08-19] MEDS ORDERED: Sodium Chloride 0.9% 100 ML ONE (09:11)
[2023-08-19] MEDS ORDERED: Famotidine/PF 20 mg/2ml Vial ONE (09:12)
[2023-08-19] MEDS: Famotidine/PF 20 mg/2ml Vial SLOW IVP SCH (09:26)
[2023-08-19] MEDS: Cefepime 1 GM in Sodium Chloride 0.9% 100 ML IVPB SCH (09:27)
[2023-08-19] MEDS ORDERED: Vancomycin 1 GM/200 ML (FROZEN) BAG ONE (10:22)
[2023-08-19] MEDS ORDERED: HumaLOG 300 UNITS/3 ML VIAL ONE (11:41)
[2023-08-19] MEDS: HumaLOG 300 UNITS/3 ML VIAL SC PRN ×2 (11:46→21:09)
[2023-08-19] MEDS: Morphine 2 MG/ML VIAL SLOW IVP PRN (18:08)
[2023-08-19] MEDS: tiZANidine HCl 4 MG TAB PO SCH (18:10)
[2023-08-19] MEDS: hydrALAZINE 20 MG/ML VIAL SLOW IVP PRN (18:42)
[2023-08-19 18:52] LABS: Anion Gap 21 mmol/L (10-20); BUN (Urea Nitrogen) 30 mg/dL (7.0-18.7); Calc. Creatinine Clearance 39 mL/min (70-130); Carbon Dioxide 22 mmol/L (22-29); Chloride 96 mmol/L (98-107); Estimated GFR 22; Glucose 319 mg/dL (70-105); Potassium 4.1 mmol/L (3.5-5.1); Sodium 135 mmol/L (136-145)
[2023-08-19] MEDS: Gabapentin 300 MG CAP PO SCH (20:36)
[2023-08-19] MEDS: cloNIDine 0.1 MG TAB PO SCH (20:36)
[2023-08-19] MEDS: Promethazine 25 MG TAB PO SCH (21:08)
[2023-08-19] MEDS: Sodium Chloride 0.9% 1,000 ML IV SCH (23:52)
[2023-08-20] MEDS: Enoxaparin 100 MG (1 mL) SYRINGE SC SCH (05:15)
[2023-08-20 05:50] LABS: #Eosinphils 0.1 thou/uL (0.0-0.7); #Monocytes 1.2 thou/uL (0.11-0.59); #Neutrophils 8.8 thou/uL (1.40-6.50); %Basophils 0.2 % (0.0-1.0); %Eosinophils 0.5 % (0.0-10.0); %Lymphocytes 11.8 % (21.0-51.0); %Monocytes 10.4 % (0.0-10.0); %Neutrophils 76.6 % (42.0-75.0); Hematocrit 33.4 % (36.0-47.0); Hemoglobin 10.3 g/dL (12.0-16.0); Mean Corpuscular HGB CONC 30.8 g/dL (32.0-36.0); Mean Corpuscular Volume 77.9 fl (78.0-98.0); Platelet Count 259 10x3/uL (130-400); RBC Distribution Width 15.4 % (11.5-14.5); Red Blood Cell (RBC) Count 4.29 mill/uL (4.20-5.40); White Blood Cell (WBC) Count 11.5 10x3/uL (4.8-10.8)
[2023-08-20 06:26] LABS: Chloride 99 mmol/L (98-107); Potassium 4.1 mmol/L (3.5-5.1); Sodium 130 mmol/L (136-145)
[2023-08-20 06:27] LABS: Calcium 8.6 mg/dL (7.8-10.44); Glucose 372 mg/dL (70-105)
[2023-08-20 06:29] LABS: Carbon Dioxide 20 mmol/L (22-29); Vancomycin, Random 35.1 ug/mL (See Comment)
[2023-08-20 06:31] LABS: Calc. Creatinine Clearance 40 mL/min (70-130); Estimated GFR 23
[2023-08-20 06:32] LABS: Anion Gap 15 mmol/L (10-20); BUN (Urea Nitrogen) 35 mg/dL (7.0-18.7)
[2023-08-20 06:40] LABS: CRP (Inflammatory) 34.25 mg/dL (= or < 0.5)
[2023-08-20] MEDS: Insulin Glargine 30 UNITS/0.3 ML VIAL SC SCH (10:10)
[2023-08-20 16:58] LABS: Bilirubin Negative (Negative); Blood, Urine Trace (Negative); Clarity Turbid (Clear); Glucose, Urine (Dipstick) Greater than 1000 mg/dL (Negative); Ketone, Urine Negative (Negative); Leukocyte Negative Leu/uL (Negative); Nitrite Negative (Negative); Protein, Urine (Dipstick) 100 mg/dL (Neg-Trace); RBC/HPF 0-3 HPF (0-3); Specific Gravity, Urine 1.016 (1.002-1.036); Squamous Epithelial 0-3 HPF (0-3); Urobilinogen Normal mg/dL (Less than 2); pH, Urine 5.5 (5.0-9.0)
[2023-08-20 17:00] LABS: Bacteria/HPF 1+ HPF (None Seen)
[2023-08-20] MEDS: Sodium Chloride 0.9% 1,000 ML IV SCH (18:02)
[2023-08-21] MEDS: HumaLOG 300 UNITS/3 ML VIAL SC SCH (07:54)
[2023-08-21] MEDS ORDERED: DAPTOMYCIN IVPB PRN (07:54)
[2023-08-21 09:40] LABS: #Eosinphils 0.2 thou/uL (0.0-0.7); #Monocytes 0.5 thou/uL (0.11-0.59); #Neutrophils 4.8 thou/uL (1.40-6.50); %Basophils 0.1 % (0.0-1.0); %Lymphocytes 17.6 % (21.0-51.0); %Monocytes 7.9 % (0.0-10.0); %Neutrophils 71.1 % (42.0-75.0); Hematocrit 28.1 % (36.0-47.0); Hemoglobin 8.8 g/dL (12.0-16.0); Mean Corpuscular HGB CONC 31.3 g/dL (32.0-36.0); Mean Corpuscular Hemoglobin 24.2 pg (27.0-31.0); Mean Corpuscular Volume 77.4 fl (78.0-98.0); Mean Platelet Volume 10.4 fL (7.4-10.4); Platelet Count 246 10x3/uL (130-400); RBC Distribution Width 15.4 % (11.5-14.5); Red Blood Cell (RBC) Count 3.63 mill/uL (4.20-5.40); White Blood Cell (WBC) Count 6.7 10x3/uL (4.8-10.8)
[2023-08-21 10:10] LABS: Anion Gap 12 mmol/L (10-20); BUN (Urea Nitrogen) 28 mg/dL (7.0-18.7); Calc. Creatinine Clearance 55 mL/min (70-130); Calcium 8.2 mg/dL (7.8-10.44); Carbon Dioxide 22 mmol/L (22-29); Chloride 104 mmol/L (98-107); Estimated GFR 33; Glucose 237 mg/dL (70-105); Potassium 3.4 mmol/L (3.5-5.1); Sodium 135 mmol/L (136-145)
[2023-08-21] MEDS: Senokot 8.6 MG TAB PO PRN (11:33)
[2023-08-21] MEDS: Morphine 4 MG/ML VIAL SLOW IVP PRN (11:34)
[2023-08-21] MEDS: Sodium Chloride 0.9% 1,000 ML IV SCH (11:50)
[2023-08-21] MEDS: DAPTOmycin 1,000 MG in Sodium Chloride 0.9% 50 ML IVPB SCH (12:39)
[2023-08-21] MEDS: Promethazine 25 MG TAB PO PRN (17:13)
[2023-08-21] MEDS: Enoxaparin 100 MG (1 mL) SYRINGE SC SCH (17:14)
[2023-08-21] MEDS: HYDROmorphone 0.5 MG/0.5 ML SYRINGE SLOW IVP SCH (18:33)
[2023-08-21] MEDS: hydrALAZINE 25 MG TAB PO SCH (20:18)
[2023-08-22 06:43] LABS: Anion Gap 14 mmol/L (10-20); BUN (Urea Nitrogen) 19 mg/dL (7.0-18.7); Calc. Creatinine Clearance 69 mL/min (70-130); Calcium 8.5 mg/dL (7.8-10.44); Carbon Dioxide 19 mmol/L (22-29); Chloride 107 mmol/L (98-107); Estimated GFR 44; Glucose 195 mg/dL (70-105); Potassium 3.4 mmol/L (3.5-5.1); Sodium 137 mmol/L (136-145)
[2023-08-22] MEDS ORDERED: Iopamidol 370 76% 100 ML VIAL ONE (09:02)
[2023-08-22] MEDS: hydrALAZINE 25 MG TAB PO SCH (09:32)
[2023-08-22] MEDS ORDERED: hydrALAZINE 25 MG TAB PO SCH (15:00)
[2023-08-22] MEDS: Morphine 2 MG/ML VIAL SLOW IVP PRN (22:13)
[2023-08-23] MEDS: fentaNYL 50 mcg/mL 1 mL Vial SLOW IVP PRN (04:09)
[2023-08-23 05:43] LABS: Hematocrit 39.7 % (36.0-47.0); Hemoglobin 12.1 g/dL (12.0-16.0); Platelet Count 155 10x3/uL (130-400)
[2023-08-23] MEDS ORDERED: Sodium Bicarbonate 2.5 MEQ/5 ML SDV ONE ×4 (10:23→11:06)
[2023-08-23] MEDS ORDERED: Lidocaine 1% PF 5 ML VIAL ONE (10:24)
[2023-08-23] MEDS ORDERED: Iopamidol 100 ML FS ONE (11:04)
[2023-08-23] MEDS: hydrALAZINE 25 MG TAB PO SCH (12:24)
[2023-08-23] MEDS: Morphine 4 MG/ML VIAL SLOW IVP SCH (21:35)
[2023-08-23] MEDS: Polyethylene Glycol 3350 17 GM Packet PO PRN (21:37)
[2023-08-24 05:39] LABS: Hematocrit 33.9 % (36.0-47.0); Hemoglobin 10.1 g/dL (12.0-16.0); Platelet Count 222 10x3/uL (130-400)
[2023-08-24] MEDS: Gabapentin 300 MG CAP PO SCH ×2 (16:19→20:39)
[2023-08-24] MEDS: HYDROcodone/Acetaminophen 7.5/325 mg Tablet PO PRN (17:49)
[2023-08-24] MEDS: Senokot S 8.6-50 MG TAB PO SCH (21:00)
[2023-08-24] MEDS: Morphine 2 MG/ML VIAL SLOW IVP PRN (21:00)
[2023-08-25 05:09] LABS: Anion Gap 14 mmol/L (10-20); BUN (Urea Nitrogen) 18 mg/dL (7.0-18.7); CK (CPK) 156 U/L (29-168); Calc. Creatinine Clearance 80 mL/min (70-130); Calcium 8.9 mg/dL (7.8-10.44); Carbon Dioxide 24 mmol/L (22-29); Chloride 106 mmol/L (98-107); Estimated GFR 47; Glucose 67 mg/dL (70-105); Potassium 3.9 mmol/L (3.5-5.1); Sodium 140 mmol/L (136-145)
[2023-08-25] MEDS: Insulin Glargine 30 UNITS/0.3 ML VIAL SC SCH (08:57)
[2023-08-25 12:37] VITALS: BP 145/70; TEMP 97.6
[2023-08-25] MEDS ORDERED: Enoxaparin 100 MG (1 mL) SYRINGE SC SCH (18:00)
== END 2023-08-25 15:56 | disposition home or self-care (01) | DRG 872 ==
LOC: ERS 20:17 → ERHOLD 22:48 → 2NO 08-19 17:15
PROVIDERS: ADMIT Hospitalist; ATTEND Emergency Medicine
PROC: 3E03329 Introduction of Other Anti-infective into Peripheral Vein, Percutaneous Approach (ICD-10-PCS; 2023-08-19)
PROC: 02HV33Z Insertion of Infusion Device into Superior Vena Cava, Percutaneous Approach (ICD-10-PCS; principal; 2023-08-23)
PROC: B5181ZA Fluoroscopy of Superior Vena Cava using Low Osmolar Contrast, Guidance (ICD-10-PCS; 2023-08-23)
DX: A41.02 Sepsis due to Methicillin resistant Staphylococcus aureus (principal); N17.9 Acute kidney failure, unspecified; I50.32 Chronic diastolic (congestive) heart failure; I13.0 Hypertensive heart and chronic kidney disease with heart failure and stage 1 through stage 4 chronic kidney disease, or unspecified chronic kidney disease; R65.20 Severe sepsis without septic shock; Z88.8 Allergy status to other drugs, medicaments and biological substances; Z88.5 Allergy status to narcotic agent; Z79.4 Long term (current) use of insulin; Z79.84 Long term (current) use of oral hypoglycemic drugs; I25.10 Atherosclerotic heart disease of native coronary artery without angina pectoris; E11.22 Type 2 diabetes mellitus with diabetic chronic kidney disease; Z90.49 Acquired absence of other specified parts of digestive tract; Z90.710 Acquired absence of both cervix and uterus; Z90.89 Acquired absence of other organs; Z98.51 Tubal ligation status; Z79.899 Other long term (current) drug therapy; E11.65 Type 2 diabetes mellitus with hyperglycemia; E11.621 Type 2 diabetes mellitus with foot ulcer; I16.0 Hypertensive urgency; N18.30 Chronic kidney disease, stage 3 unspecified; Z83.3 Family history of diabetes mellitus; Z86.718 Personal history of other venous thrombosis and embolism; K59.00 Constipation, unspecified
CPT/HCPCS: 36415; 36416; 36569; 71045; 71260; 72129; 72132; 74177; 80048; 80053; 80202; 81001; 82010; 82550; 82805; 83036; 83605; 83690; 83735; 83880; 84100; 84484; 85014; 85018; 85025; 85049; 85520; 86140; 87040; 87077; 87186; 93306; 94760; 96374; 96375; 97139; C1751; J0360; J0692; J0696; J0878; J1170; J1650; J1815; J2270; J2272; J2765; J3010; J3370; J3370-JW; J3490; J7050; Q0169; Q9967; S0028

== ENCOUNTER 2023-09-02 07:47 | Inpatient (IN) | payer OTHER ==
[2023-09-02] MEDS ORDERED: Morphine 10 MG/ML VIAL ONE (08:09)
[2023-09-02 08:50] LABS: Hemoglobin 9.9 g/dL (12.0-16.0); Manual Diff?? YES; Mean Corpuscular Hemoglobin 24.3 pg (27.0-31.0); Mean Corpuscular Volume 81.1 fl (78.0-98.0); Mean Platelet Volume 10.9 fL (7.4-10.4); Platelet Count 357 10x3/uL (130-400); RBC Distribution Width 18.5 % (11.5-14.5); Red Blood Cell (RBC) Count 4.07 mill/uL (4.20-5.40); White Blood Cell (WBC) Count 6.5 10x3/uL (4.8-10.8)
[2023-09-02 08:55] LABS: Delete Auto Diff?? YES
[2023-09-02] MEDS ORDERED: hydrALAZINE 20 MG/ML VIAL ONE (09:11)
[2023-09-02 09:17] LABS: AST (SGOT) 828 U/L (5-34); Albumin 2.7 g/dL (3.5-5.0); Alkaline Phosphatase 167 U/L (40-110); Anion Gap 13 mmol/L (10-20); BUN (Urea Nitrogen) 15 mg/dL (7.0-18.7); Bilirubin, Total 1.1 mg/dL (0.2-1.2); Calc. Creatinine Clearance 0 mL/min (70-130); Calcium 8.1 mg/dL (7.8-10.44); Carbon Dioxide 21 mmol/L (22-29); Chloride 97 mmol/L (98-107); Estimated GFR 55; Globulin 5.2 g/dL (2.4-3.5); Glucose 344 mg/dL (70-105); Potassium 4.3 mmol/L (3.5-5.1); Protein, Total 7.9 g/dL (6.0-8.3); Sodium 127 mmol/L (136-145)
[2023-09-02 09:18] LABS: Troponin I 0.166 ng/mL (< 0.028)
[2023-09-02 09:24] LABS: Band 2 % (5-11); CellaVision Operator ID LAB.KW3; Eosinophils 1 % (0-10); Lymphocytes 13 % (21-51); Monocytes 6 % (0-10); Neutrophil 77 % (42-75); Platelet Adequacy Comment Platelets Normal; Polychromasia MODERATE = 3-4 cells HPF (0-2); Reactive Lymphocytes 1 % (0-10); Total Cell Count 101
[2023-09-02 09:32] LABS: ALT (SGPT) 261 U/L (8-55)
[2023-09-02] MEDS ORDERED: Morphine 4 MG/ML VIAL ONE (10:26)
[2023-09-02] MEDS ORDERED: Iopamidol-370 76% 500 ML MDV (1 ML CHARGE) ONE (11:51)
[2023-09-02 12:56] LABS: Troponin I 0.185 ng/mL (< 0.028)
[2023-09-02] MEDS ORDERED: Ondansetron PF 4 MG/2 ML Vial IVP PRN (13:17)
[2023-09-02] MEDS ORDERED: Electrolyte Replacement Protocol 1 EACH IVPB SCH (13:17)
[2023-09-02] MEDS ORDERED: Dextrose 50% Abboject 50 ML SYRINGE SLOW IVP PRN (13:24)
[2023-09-02] MEDS ORDERED: Dextrose 5% in Water 1,000 ML IV PRN (13:24)
[2023-09-02] MEDS ORDERED: Glucagon 1 MG/ML KIT IM PRN (13:24)
[2023-09-02 13:36] VITALS: BMI 38.0
[2023-09-02 14:39] LABS: Acetaminophen Less than 10 mcg/mL (10.0-30.0); CRP (Inflammatory) 3.08 mg/dL (= or < 0.5)
[2023-09-02 14:59] LABS: HBCM Index 0.11 S/CO (0-0.79); HBSAg Index 0.21 S/CO (0-0.99); Hep A IgM AB Non-Reactive (NonReactive); Hep A IgM S/CO 0.21 S/CO (0-0.79); Hep B Surf Ag Non-Reactive S/CO (NonReactive); Hep C IgG Ab Non-Reactive S/CO (NonReactive); Hepatitis B Core IgM Abs Non-Reactive S/CO (NonReactive)
[2023-09-02] MEDS: Sodium Chloride 0.9% 1,000 ML IV SCH (15:10)
[2023-09-02] MEDS ORDERED: Morphine 2 MG/ML VIAL ONE (15:27)
[2023-09-02 16:08] LABS: Troponin I 0.124 ng/mL (< 0.028)
[2023-09-02] MEDS: Morphine 2 MG/ML VIAL SLOW IVP PRN (16:13)
[2023-09-02] MEDS: Promethazine HCl 12.5 MG in Sodium Chloride 0.9% 50 ML IVPB PRN (16:17)
[2023-09-02] MEDS: Albumin 25% 25 GM (100 mL) BOT IVPB SCH (20:43)
[2023-09-02] MEDS: TICAGRELOR 90 MG TABLET PO SCH (20:44)
[2023-09-02] MEDS: Linezolid 600 MG in Premix 1 BAG IVPB SCH (21:04)
[2023-09-02] MEDS: Furosemide 20 MG (2 mL) VIAL SLOW IVP SCH (21:07)
[2023-09-02] MEDS: Insulin Regular 300 UNITS/3 ML VIAL SC PRN (21:12)
[2023-09-02 22:45] LABS: Bacteria/HPF None Seen HPF (None Seen); Bilirubin Negative (Negative); Blood, Urine 3+ (Negative); Clarity Clear (Clear); Glucose, Urine (Dipstick) 300 mg/dL (Negative); Ketone, Urine Negative (Negative); Leukocyte Negative Leu/uL (Negative); Nitrite Negative (Negative); Protein, Urine (Dipstick) 200 mg/dL (Neg-Trace); RBC/HPF 0-3 HPF (0-3); Specific Gravity, Urine 1.013 (1.002-1.036); Squamous Epithelial 0-3 HPF (0-3); Urobilinogen Normal mg/dL (Less than 2); WBC/HPF 0-3 HPF (0-3)
[2023-09-02] MEDS: Morphine 4 MG/ML VIAL SLOW IVP PRN (23:48)
[2023-09-03 00:06] LABS: Amphetamine Not Detected (NotDetected); Barbiturates Screen Not Detected (NotDetected); Benzodiazepine Screen Not Detected (NotDetected); Cocaine Metabolite Screen Not Detected (NotDetected); Methadone Not Detected (NotDetected); Methamphetamine Not Detected (NotDetected); Opiate Screen Detected (NotDetected); Oxycodone Screen Not Detected (NotDetected); Phencyclidine (PCP) Not Detected (NotDetected); THC/Cannabinoid Screen Not Detected (NotDetected); Tricyclic Screen Not Detected (NotDetected)
[2023-09-03] MEDS: Sodium Chloride 0.9% 1,000 ML IV SCH ×2 (00:37→15:58)
[2023-09-03 01:28] LABS: Creatinine, Urine 36.77 mg/dL (47-110)
[2023-09-03] MEDS: hydrALAZINE 20 MG/ML VIAL SLOW IVP PRN (04:08)
[2023-09-03] MEDS: Promethazine HCl 12.5 MG in Sodium Chloride 0.9% 50 ML IVPB SCH (04:52)
[2023-09-03] MEDS: HYDROmorphone 0.5 MG/0.5 ML SYRINGE SLOW IVP SCH (05:43)
[2023-09-03] MEDS: Albumin 25% 25 GM (100 mL) BOT IVPB SCH (06:08)
[2023-09-03] MEDS: Enoxaparin 40 MG (0.4 mL) SYRINGE SC SCH (08:20)
[2023-09-03] MEDS: hydrALAZINE 25 MG TAB PO SCH (08:33)
[2023-09-03] MEDS ORDERED: Torsemide 20 MG TAB PO SCH (09:00)
[2023-09-03] MEDS: Amlodipine 10 MG TAB PO SCH (10:11)
[2023-09-03] MEDS: HYDROcodone/Acetaminophen 5/325 mg Tablet PO SCH (11:15)
[2023-09-03] MEDS: tiZANidine HCl 4 MG TAB PO SCH (12:01)
[2023-09-03] MEDS: Labetalol HCl 100 MG/20 ML VIAL SLOW IVP PRN (12:22)
[2023-09-03] MEDS: Insulin Glargine 30 UNITS/0.3 ML VIAL SC SCH (12:26)
[2023-09-03 15:07] LABS: ALT (SGPT) 224 U/L (8-55); AST (SGOT) 842 U/L (5-34); Albumin 3.2 g/dL (3.5-5.0); Alkaline Phosphatase 143 U/L (40-110); Anion Gap 15 mmol/L (10-20); BUN (Urea Nitrogen) 16 mg/dL (7.0-18.7); Bilirubin, Total 1.4 mg/dL (0.2-1.2); Calc. Creatinine Clearance 78 mL/min (70-130); Calcium 8.9 mg/dL (7.8-10.44); Carbon Dioxide 23 mmol/L (22-29); Chloride 98 mmol/L (98-107); Estimated GFR 45; Globulin 4.6 g/dL (2.4-3.5); Glucose 356 mg/dL (70-105); Protein, Total 7.8 g/dL (6.0-8.3); Sodium 132 mmol/L (136-145)
[2023-09-03 15:13] LABS: #Basophils Less than 0.03 10x3/uL (0.0-0.2); #Eosinphils Less than 0.03 10x3/uL (0.0-0.7); %Basophils 0.2 % (0.0-1.0); %Eosinophils 0.1 % (0.0-10.0); %Lymphocytes 6.8 % (21.0-51.0); %Monocytes 5.6 % (0.0-10.0); %Neutrophils 86.8 % (42.0-75.0); Hematocrit 32.3 % (36.0-47.0); Hemoglobin 9.7 g/dL (12.0-16.0); Mean Corpuscular Hemoglobin 24.3 pg (27.0-31.0); Mean Corpuscular Volume 80.8 fl (78.0-98.0); Mean Platelet Volume 10.7 fL (7.4-10.4); Platelet Count 313 10x3/uL (130-400); RBC Distribution Width 19.5 % (11.5-14.5)
[2023-09-03 15:32] LABS: CK (CPK) 38001 U/L (29-168)
[2023-09-03] MEDS: Insulin Regular 300 UNITS/3 ML VIAL SC PRN (18:39)
[2023-09-04 05:42] LABS: ALT (SGPT) 168 U/L (8-55); AST (SGOT) 594 U/L (5-34); Albumin 3.6 g/dL (3.5-5.0); Alkaline Phosphatase 115 U/L (40-110); Anion Gap 12 mmol/L (10-20); BUN (Urea Nitrogen) 18 mg/dL (7.0-18.7); Bilirubin, Total 1.3 mg/dL (0.2-1.2); Calc. Creatinine Clearance 65 mL/min (70-130); Calcium 8.6 mg/dL (7.8-10.44); Carbon Dioxide 25 mmol/L (22-29); Chloride 101 mmol/L (98-107); Estimated GFR 36; Globulin 3.7 g/dL (2.4-3.5); Glucose 342 mg/dL (70-105); Potassium 3.9 mmol/L (3.5-5.1); Protein, Total 7.3 g/dL (6.0-8.3); Sodium 134 mmol/L (136-145)
[2023-09-04] MEDS: Amlodipine 10 MG TAB PO SCH (08:32)
[2023-09-04] MEDS: Insulin Glargine 30 UNITS/0.3 ML VIAL SC SCH (08:32)
[2023-09-04] MEDS: Furosemide 20 MG (2 mL) VIAL SLOW IVP SCH (20:29)
[2023-09-05 04:53] LABS: Creatinine, Urine Less than 20.00 mg/dL (47-110); Protein, Urine Random Quant 127 mg/dL (1-14)
[2023-09-05 05:58] LABS: ALT (SGPT) 201 U/L (8-55); AST (SGOT) 678 U/L (5-34); Albumin 3.8 g/dL (3.5-5.0); Alkaline Phosphatase 132 U/L (40-110); Anion Gap 16 mmol/L (10-20); BUN (Urea Nitrogen) 11 mg/dL (7.0-18.7); Bilirubin, Total 1.6 mg/dL (0.2-1.2); Calc. Creatinine Clearance 95 mL/min (70-130); Calcium 9.2 mg/dL (7.8-10.44); Carbon Dioxide 23 mmol/L (22-29); Chloride 101 mmol/L (98-107); Estimated GFR 56; Globulin 4.5 g/dL (2.4-3.5); Glucose 211 mg/dL (70-105); Potassium 3.3 mmol/L (3.5-5.1); Protein, Total 8.3 g/dL (6.0-8.3); Sodium 137 mmol/L (136-145)
[2023-09-05] MEDS: Morphine 4 MG/ML VIAL SLOW IVP SCH (06:06)
[2023-09-05 06:24] LABS: CK (CPK) 23547 U/L (29-168)
[2023-09-05 07:22] LABS: Magnesium 1.3 mg/dL (1.6-2.6)
[2023-09-05] MEDS: Magnesium Sulfate In Water 4 GM in Premix 1 BAG IVPB SCH (09:25)
[2023-09-05] MEDS: Potassium Chloride 20 MEQ TAB PO SCH (09:26)
[2023-09-05 17:57] LABS: Potassium 3.9 mmol/L (3.5-5.1)
[2023-09-06] MEDS ORDERED: hydrALAZINE 20 MG/ML VIAL SLOW IVP PRN (00:44)
[2023-09-06] MEDS ORDERED: Nitroglycerin 0.4 MG TAB (25 Tab Bottle) SL PRN (09:26)
[2023-09-06] MEDS: Morphine 4 MG/ML VIAL SLOW IVP PRN (09:54)
[2023-09-06] MEDS ORDERED: Iopamidol 370 76% 100 ML VIAL ONE (10:15)
[2023-09-06 10:33] LABS: Magnesium 1.7 mg/dL (1.6-2.6); Phosphorus 1.9 mg/dL (2.3-4.7)
[2023-09-06 10:35] LABS: ALT (SGPT) 173 U/L (8-55); AST (SGOT) 381 U/L (5-34); Albumin 3.4 g/dL (3.5-5.0); Alkaline Phosphatase 139 U/L (40-110); Anion Gap 13 mmol/L (10-20); BUN (Urea Nitrogen) 13 mg/dL (7.0-18.7); Bilirubin, Total 1.4 mg/dL (0.2-1.2); Calc. Creatinine Clearance 92 mL/min (70-130); Calcium 9.1 mg/dL (7.8-10.44); Carbon Dioxide 26 mmol/L (22-29); Chloride 101 mmol/L (98-107); Estimated GFR 54; Globulin 4.7 g/dL (2.4-3.5); Glucose 265 mg/dL (70-105); Potassium 3.7 mmol/L (3.5-5.1); Protein, Total 8.1 g/dL (6.0-8.3); Sodium 136 mmol/L (136-145)
[2023-09-06 10:51] LABS: Critical Call Chem Troponin I NUR.MM26@1050; Troponin I 0.827 ng/mL (< 0.028)
[2023-09-06 11:03] LABS: CK (CPK) 10292 U/L (29-168)
[2023-09-06] MEDS: Insulin Glargine 30 UNITS/0.3 ML VIAL SC SCH (11:11)
[2023-09-06] MEDS: hydrALAZINE 20 MG/ML VIAL SLOW IVP PRN ×2 (12:19→13:23)
[2023-09-06] MEDS: Magnesium 2 GM/50 ML(in water) 2 GM in Premix 1 BAG IVPB SCH (13:23)
[2023-09-06] MEDS: PHOS-NAK 1 PKT PACK PO SCH (13:24)
[2023-09-06 13:36] LABS: Critical Call Chem Troponin I NUR.KT2 @1336; Troponin I 0.883 ng/mL (< 0.028)
[2023-09-06 16:19] LABS: Critical Call Chem Troponin I NUR.KT2 @1618; Troponin I 0.808 ng/mL (< 0.028)
[2023-09-07 05:14] LABS: #Basophils Less than 0.03 10x3/uL (0.0-0.2); %Basophils 0.5 % (0.0-1.0); %Eosinophils 7.3 % (0.0-10.0); %Lymphocytes 20.5 % (21.0-51.0); %Monocytes 14.4 % (0.0-10.0); %Neutrophils 57.1 % (42.0-75.0); Hematocrit 36.6 % (36.0-47.0); Mean Corpuscular HGB CONC 30.1 g/dL (32.0-36.0); Mean Corpuscular Hemoglobin 24.2 pg (27.0-31.0); Mean Corpuscular Volume 80.6 fL (78.0-98.0); Mean Platelet Volume 10.2 fL (7.4-10.4); Platelet Count 221 10x3/uL (130-400); RBC Distribution Width 19.6 % (11.5-14.5); Red Blood Cell (RBC) Count 4.54 mill/uL (4.20-5.40)
[2023-09-07 05:46] LABS: ALT (SGPT) 144 U/L (8-55); AST (SGOT) 217 U/L (5-34); Albumin 3.3 g/dL (3.5-5.0); Alkaline Phosphatase 126 U/L (40-110); Anion Gap 14 mmol/L (10-20); BUN (Urea Nitrogen) 17 mg/dL (7.0-18.7); Bilirubin, Total 0.9 mg/dL (0.2-1.2); Calc. Creatinine Clearance 81 mL/min (70-130); Calcium 8.8 mg/dL (7.8-10.44); Carbon Dioxide 21 mmol/L (22-29); Chloride 105 mmol/L (98-107); Estimated GFR 47; Globulin 4.4 g/dL (2.4-3.5); Glucose 189 mg/dL (70-105); Potassium 4.2 mmol/L (3.5-5.1); Protein, Total 7.7 g/dL (6.0-8.3); Sodium 136 mmol/L (136-145)
[2023-09-07 05:59] LABS: CK (CPK) 5299 U/L (29-168)
[2023-09-07 07:22] LABS: Magnesium 1.8 mg/dL (1.6-2.6); Phosphorus 2.9 mg/dL (2.3-4.7)
[2023-09-07] MEDS: Insulin Glargine 30 UNITS/0.3 ML VIAL SC SCH (09:16)
[2023-09-07] MEDS: Magnesium 2 GM/50 ML(in water) 2 GM in Premix 1 BAG IVPB SCH (09:16)
[2023-09-07] MEDS: NIFEdipine XL 60 MG ER.TAB PO SCH (09:30)
[2023-09-07] MEDS: Sodium Chloride 0.9% 1,000 ML IV SCH (11:19)
[2023-09-07] MEDS: Polyethylene Glycol 3350 17 GM Packet PO SCH (11:19)
[2023-09-07] MEDS: HYDROcodone/Acetaminophen 5/325 mg Tablet PO PRN (11:19)
[2023-09-07] MEDS: Morphine 4 MG/ML VIAL SLOW IVP PRN (12:34)
[2023-09-07] MEDS: HumaLOG 300 UNITS/3 ML VIAL SC PRN ×2 (12:35→21:45)
[2023-09-07] MEDS: Senokot S 8.6-50 MG TAB PO SCH (20:02)
[2023-09-08 06:12] LABS: ALT (SGPT) 113 U/L (8-55); AST (SGOT) 118 U/L (5-34); Albumin 3.3 g/dL (3.5-5.0); Alkaline Phosphatase 119 U/L (40-110); Anion Gap 14 mmol/L (10-20); BUN (Urea Nitrogen) 18 mg/dL (7.0-18.7); Bilirubin, Total 0.9 mg/dL (0.2-1.2); CK (CPK) 2351 U/L (29-168); Calc. Creatinine Clearance 85 mL/min (70-130); Calcium 9.2 mg/dL (7.8-10.44); Carbon Dioxide 20 mmol/L (22-29); Chloride 106 mmol/L (98-107); Estimated GFR 49; Globulin 4.3 g/dL (2.4-3.5); Glucose 223 mg/dL (70-105); Potassium 4.6 mmol/L (3.5-5.1); Protein, Total 7.6 g/dL (6.0-8.3); Sodium 135 mmol/L (136-145)
[2023-09-08] MEDS: Polyethylene Glycol 3350 17 GM Packet PO SCH (08:23)
[2023-09-08] MEDS ORDERED: Non-Formulary Item 1 EACH (Carvedilol [Carvedilol] 12.5 MG Tablet) PO SCH (09:00)
[2023-09-08] MEDS: Albumin 25% 25 GM (100 mL) BOT IVPB SCH (11:21)
[2023-09-08] MEDS: Acetaminophen 500 MG TAB PO SCH (17:50)
[2023-09-08] MEDS: oxyCODONE 5 MG TAB PO PRN (17:50)
[2023-09-08] MEDS: hydrALAZINE 25 MG TAB PO SCH (21:09)
[2023-09-08] MEDS: Lidocaine 4% Patch TD SCH (21:49)
[2023-09-08] MEDS: Morphine 2 MG/ML VIAL SLOW IVP SCH (21:49)
[2023-09-08] MEDS: Transdermal Patch Removal TOP SCH (21:57)
[2023-09-09 05:47] LABS: #Basophils Less than 0.03 10x3/uL (0.0-0.2); %Basophils 0.5 % (0.0-1.0); %Eosinophils 3.2 % (0.0-10.0); %Lymphocytes 15.8 % (21.0-51.0); %Monocytes 10.8 % (0.0-10.0); %Neutrophils 69.4 % (42.0-75.0); Hematocrit 31.1 % (36.0-47.0); Hemoglobin 9.3 g/dL (12.0-16.0); Mean Corpuscular HGB CONC 29.9 g/dL (32.0-36.0); Mean Corpuscular Hemoglobin 24.2 pg (27.0-31.0); Mean Platelet Volume 10.2 fL (7.4-10.4); Platelet Count 182 10x3/uL (130-400); RBC Distribution Width 19.3 % (11.5-14.5); Red Blood Cell (RBC) Count 3.84 mill/uL (4.20-5.40)
[2023-09-09] MEDS: Morphine 4 MG/ML VIAL SLOW IVP SCH (05:59)
[2023-09-09 06:04] LABS: Anion Gap 14 mmol/L (10-20); BUN (Urea Nitrogen) 18 mg/dL (7.0-18.7); CK (CPK) 1120 U/L (29-168); Calc. Creatinine Clearance 78 mL/min (70-130); Calcium 10.3 mg/dL (7.8-10.44); Carbon Dioxide 26 mmol/L (22-29); Chloride 99 mmol/L (98-107); Estimated GFR 43; Glucose 329 mg/dL (70-105); Potassium 4.9 mmol/L (3.5-5.1); Sodium 134 mmol/L (136-145)
[2023-09-09] MEDS: NIFEdipine XL 90 MG ER.TAB PO SCH (08:42)
[2023-09-09] MEDS: Insulin Glargine 30 UNITS/0.3 ML VIAL SC SCH (08:43)
[2023-09-09] MEDS: Empagliflozin 10 MG TAB PO SCH (09:34)
[2023-09-09 09:49] LABS: Iron 31 ug/dL (50-170); Iron Binding Capacity, Total 301 mcg/dL (265-497)
[2023-09-09] MEDS: Lorazepam 2 MG/ML VIAL SLOW IVP PRN (13:00)
[2023-09-09] MEDS ORDERED: Buprenorphine 8mg/Naloxone 2mg per 1 FILM PO SCH (14:00)
[2023-09-09] MEDS: oxyCODONE 5 MG TAB PO SCH ×2 (15:08→20:33)
[2023-09-09] MEDS: NIFEdipine XL 30 MG ER.TAB PO SCH (20:33)
[2023-09-09] MEDS: Lidocaine 4% Patch TD SCH (23:57)
[2023-09-10] MEDS: traMADol HCl 50 MG TAB PO SCH (00:03)
[2023-09-10] MEDS: oxyCODONE 5 MG TAB PO SCH (00:16)
[2023-09-10 05:38] LABS: Anion Gap 14 mmol/L (10-20); BUN (Urea Nitrogen) 22 mg/dL (7.0-18.7); Calc. Creatinine Clearance 79 mL/min (70-130); Calcium 9.4 mg/dL (7.8-10.44); Carbon Dioxide 23 mmol/L (22-29); Chloride 101 mmol/L (98-107); Estimated GFR 44; Glucose 134 mg/dL (70-105); Potassium 4.3 mmol/L (3.5-5.1); Sodium 134 mmol/L (136-145)
[2023-09-10 05:45] LABS: Hematocrit 33.2 % (36.0-47.0); Hemoglobin 9.7 g/dL (12.0-16.0); Mean Corpuscular HGB CONC 29.2 g/dL (32.0-36.0); Mean Corpuscular Hemoglobin 23.7 pg (27.0-31.0); Mean Platelet Volume 10.1 fL (7.4-10.4); Platelet Count 174 10x3/uL (130-400); RBC Distribution Width 19.3 % (11.5-14.5)
[2023-09-10 06:32] LABS: Anisocytosis SLIGHT = 6-15 cells HPF (0-5); Eosinophils 4 % (0-10); Hypochromia SLIGHT = 6-15 cells HPF (0-5); Large Platelets 20.6 % (0-5); Lymphocytes 30 % (21-51); Macrocytosis SLIGHT = 6-15 cells HPF (0-5); Monocytes 3 % (0-10); Neutrophil 61 % (42-75); Ovalocytes SLIGHT = 2-5 cells HPF (0-1); Platelet Adequacy Comment Platelets Normal; Polychromasia SLIGHT = 2-3 cells HPF (0-2); Smudge Cells 17.5 %
[2023-09-10] MEDS: NIFEdipine XL 60 MG ER.TAB PO SCH (09:30)
[2023-09-10] MEDS: Buprenorphine 8mg/Naloxone 2mg per 1 FILM PO SCH (09:31)
[2023-09-10] MEDS: Spironolactone 25 MG TAB PO SCH (09:46)
[2023-09-10] MEDS: Iron, Sodium Ferric Gluconate 250 MG in Sodium Chloride 0.9% 250 ML 250 ML IVPB SCH (11:19)
[2023-09-10] MEDS: Transdermal Patch Removal TOP SCH (11:37)
[2023-09-10] MEDS: Morphine 2 MG/ML VIAL SLOW IVP SCH (14:25)
[2023-09-10 16:14] VITALS: BP 184/78; TEMP 98.5
[2023-09-10] MEDS: Lactated Ringer's 1,000 ML IV SCH (17:22)
[2023-09-10] MEDS: hydrALAZINE 25 MG TAB PO SCH (17:22)
[2023-09-10] MEDS: Albumin 25% 25 GM (100 mL) BOT IVPB SCH (17:23)
[2023-09-10] MEDS ORDERED: hydrALAZINE 25 MG TAB PO SCH (21:00)
[2023-09-10] MEDS ORDERED: oxyCODONE 5 MG TAB PO SCH (21:00)
[2023-09-10] MEDS ORDERED: Gabapentin 300 MG CAP PO SCH (21:00)
[2023-09-11] MEDS ORDERED: Spironolactone 25 MG TAB PO SCH (08:00)
== END 2023-09-10 18:15 | disposition left against medical advice (07) | DRG 441 ==
LOC: ERS 07:47 → ERHOLD 11:59 → 2SE 20:10
PROVIDERS: ADMIT Family Medicine; ATTEND Hospitalist
DX: K72.00 Acute and subacute hepatic failure without coma (principal); I50.33 Acute on chronic diastolic (congestive) heart failure; E87.1 Hypo-osmolality and hyponatremia; I13.0 Hypertensive heart and chronic kidney disease with heart failure and stage 1 through stage 4 chronic kidney disease, or unspecified chronic kidney disease; N17.9 Acute kidney failure, unspecified; M62.82 Rhabdomyolysis; I5A Non-ischemic myocardial injury (non-traumatic); N18.30 Chronic kidney disease, stage 3 unspecified; I25.10 Atherosclerotic heart disease of native coronary artery without angina pectoris; E11.621 Type 2 diabetes mellitus with foot ulcer; E11.40 Type 2 diabetes mellitus with diabetic neuropathy, unspecified; E86.9 Volume depletion, unspecified; D63.1 Anemia in chronic kidney disease; I34.0 Nonrheumatic mitral (valve) insufficiency; E83.42 Hypomagnesemia; K59.00 Constipation, unspecified; T36.8X5A Adverse effect of other systemic antibiotics, initial encounter; E11.22 Type 2 diabetes mellitus with diabetic chronic kidney disease; Z90.49 Acquired absence of other specified parts of digestive tract; Z90.710 Acquired absence of both cervix and uterus; Z89.422 Acquired absence of other left toe(s); Z89.421 Acquired absence of other right toe(s)
CPT/HCPCS: 36415; 36416; 71045; 71275; 72148; 72195; 74174; 74176; 76705; 80048; 80053; 80074; 80143; 80306; 81001; 82550; 82570; 82728; 83540; 83550; 83735; 83874; 83880; 83930; 83935; 84100; 84145; 84156; 84300; 84484; 85025; 85379; 86140; 87040; 93005; 93010; 93306; 94760; 96374; 96375; 96376; 97139; 80307; J0360; J0571; J1170; J1650; J1815; J1940; J2020; J2060; J2270; J2272; J2550; J2916; J3475; J7050; P9047; Q9967

== ENCOUNTER 2023-11-03 13:45 | Outpatient (CLI) | payer OTHER ==
[2023-11-03 14:54] LABS: #Basophils 0.04 10x3/uL (0.0-0.2); #Eosinphils 0.17 10x3/uL (0.0-0.5); #Monocytes 0.69 10x3/uL (0.0-1.1); #Neutrophils 4.62 10x3/uL (1.5-8.4); %Basophils 0.6 % (0.0-2.0); %Eosinophils 2.4 % (0.0-6.0); %Lymphocytes 20.2 % (18.0-47.0); %Monocytes 9.9 % (0.0-10.0); %Neutrophils 66.6 % (40.0-75.0); Hematocrit 34.5 % (34.9-44.5); Mean Corpuscular HGB CONC 31.9 g/dL (32.0-36.0); Mean Corpuscular Hemoglobin 24.8 pg (27.0-33.0); Mean Corpuscular Volume 77.7 fl (81.6-98.3); Mean Platelet Volume 11.2 fl (7.4-10.4); Platelet Count 239 10x3/uL (150-450); RBC Distribution Width 16.2 % (11.5-14.5); Red Blood Cell (RBC) Count 4.44 10x6/uL (3.90-5.03); White Blood Cell (WBC) Count 6.9 10x3/uL (3.5-10.5)
[2023-11-03 15:29] LABS: ALT (SGPT) 12 U/L (8-55); AST (SGOT) 18 U/L (5-34); Albumin 3.2 g/dL (3.5-5.0); Alkaline Phosphatase 117 U/L (40-110); Anion Gap 16 mmol/L (10-20); BUN (Urea Nitrogen) 17 mg/dL (7.0-18.7); Bilirubin, Direct 0.4 mg/dL (0.1-0.3); Calc. Creatinine Clearance 0 mL/min (70-130); Calcium 9.3 mg/dL (7.8-10.44); Carbon Dioxide 23 mmol/L (22-29); Cardiac Risk 2.8 (Less than 4.5); Chloride 99 mmol/L (98-107); Cholesterol 168 mg/dl (< 200 Desired); Estimated GFR 45; Glucose 190 mg/dL (70-105); HDL Cholesterol 59 mg/dL (>60 Neg Risk); LDL Cholesterol, Calculated 80 mg/dL; Potassium 4.2 mmol/L (3.5-5.1); Protein, Total 7.2 g/dL (6.0-8.3); Sodium 134 mmol/L (136-145); Triglycerides 143 mg/dL (Less than 150)
== END 2023-11-03 13:46 | disposition home or self-care (01) ==
LOC: LABBT 13:45
PROVIDERS: ATTEND Internal Medicine Cardiovascular Disease
DX: Z01.812 Encounter for preprocedural laboratory examination (principal)
CPT/HCPCS: 80053; 80061; 80076; 85025

== ENCOUNTER 2023-11-09 15:41 | Emergency (ER) | payer OTHER ==
[2023-11-09 16:29] LABS: #Basophils Less than 0.03 10x3/uL (0.0-0.2); %Basophils 0.4 % (0.0-1.0); %Eosinophils 1.3 % (0.0-10.0); %Lymphocytes 29.4 % (21.0-51.0); %Monocytes 9.4 % (0.0-10.0); %Neutrophils 59.5 % (42.0-75.0); Hematocrit 39.7 % (36.0-47.0); Hemoglobin 12.5 g/dL (12.0-16.0); Mean Corpuscular HGB CONC 31.5 g/dL (32.0-36.0); Mean Corpuscular Hemoglobin 24.4 pg (27.0-31.0); Mean Corpuscular Volume 77.5 fL (78.0-98.0); Mean Platelet Volume 10.4 fL (7.4-10.4); Platelet Count 214 10x3/uL (130-400); RBC Distribution Width 15.3 % (11.5-14.5); Red Blood Cell (RBC) Count 5.12 mill/uL (4.20-5.40)
[2023-11-09] MEDS ORDERED: HYDROcodone/Acetaminophen 10/325 mg Tablet ONE (16:38)
[2023-11-09 16:56] LABS: ALT (SGPT) 13 U/L (8-55); AST (SGOT) 20 U/L (5-34); Albumin 3.3 g/dL (3.5-5.0); Alkaline Phosphatase 145 U/L (40-110); Anion Gap 16 mmol/L (10-20); BUN (Urea Nitrogen) 20 mg/dL (7.0-18.7); Bilirubin, Total 0.6 mg/dL (0.2-1.2); Calc. Creatinine Clearance 0 mL/min (70-130); Calcium 9.7 mg/dL (7.8-10.44); Carbon Dioxide 21 mmol/L (22-29); Chloride 92 mmol/L (98-107); Estimated GFR 29; Globulin 5.6 g/dL (2.4-3.5); Glucose 659 mg/dL (70-105); Potassium 4.1 mmol/L (3.5-5.1); Protein, Total 8.9 g/dL (6.0-8.3); Sodium 125 mmol/L (136-145)
[2023-11-09] MEDS ORDERED: HumaLOG 300 UNITS/3 ML VIAL ONE (17:26)
== END 2023-11-09 17:35 | disposition home or self-care (01) ==
LOC: ERS 15:41
DX: E11.621 Type 2 diabetes mellitus with foot ulcer (principal); L97.429 Non-pressure chronic ulcer of left heel and midfoot with unspecified severity; E11.40 Type 2 diabetes mellitus with diabetic neuropathy, unspecified; I13.0 Hypertensive heart and chronic kidney disease with heart failure and stage 1 through stage 4 chronic kidney disease, or unspecified chronic kidney disease; E11.22 Type 2 diabetes mellitus with diabetic chronic kidney disease; N18.9 Chronic kidney disease, unspecified; I50.9 Heart failure, unspecified; I25.2 Old myocardial infarction; I25.10 Atherosclerotic heart disease of native coronary artery without angina pectoris; I73.9 Peripheral vascular disease, unspecified; I42.9 Cardiomyopathy, unspecified; Z79.4 Long term (current) use of insulin; Z79.84 Long term (current) use of oral hypoglycemic drugs; Z79.01 Long term (current) use of anticoagulants; Z79.899 Other long term (current) drug therapy
CPT/HCPCS: 36416; 80053; 83605; 85025; 86141; 87040; 87077; 87149; J1815

== ENCOUNTER 2023-11-12 07:14 | Inpatient (IN) | payer OTHER ==
[2023-11-12] MEDS ORDERED: fentaNYL 50 mcg/mL 1 mL Vial ONE (08:15)
[2023-11-12 09:21] LABS: Anion Gap 18 mmol/L (10-20); BUN (Urea Nitrogen) 38 mg/dL (7.0-18.7); Calc. Creatinine Clearance 35 mL/min (70-130); Calcium 9.7 mg/dL (7.8-10.44); Carbon Dioxide 21 mmol/L (22-29); Chloride 90 mmol/L (98-107); Estimated GFR 21; Glucose 670 mg/dL (70-105); Potassium 3.7 mmol/L (3.5-5.1); Sodium 125 mmol/L (136-145)
[2023-11-12] MEDS ORDERED: Acetaminophen/Codeine 30-300mg Tablet PO PRN (12:02)
[2023-11-12] MEDS ORDERED: Ondansetron ODT 4 MG TAB PO PRN (12:06)
[2023-11-12] MEDS ORDERED: Glucagon 1 MG/ML KIT IM PRN (12:06)
[2023-11-12] MEDS ORDERED: Dextrose 50% Abboject 50 ML SYRINGE SLOW IVP PRN (12:06)
[2023-11-12] MEDS ORDERED: Dextrose 5% in Water 1,000 ML IV PRN (12:06)
[2023-11-12] MEDS ORDERED: hydrALAZINE 20 MG/ML VIAL ONE (12:41)
[2023-11-12] MEDS: hydrALAZINE 20 MG/ML VIAL SLOW IVP SCH (12:47)
[2023-11-12] MEDS ORDERED: tiZANidine HCl 4 MG TAB ONE (12:50)
[2023-11-12] MEDS ORDERED: Morphine 2 MG/ML VIAL ONE (12:50)
[2023-11-12] MEDS: Amoxicillin/Potassium Clav 875 MG TAB PO SCH (13:00)
[2023-11-12] MEDS ORDERED: Promethazine HCl 25 MG/ML VIAL ONE (13:24)
[2023-11-12] MEDS ORDERED: Non-Formulary Item 1 EACH (Insulin Aspart [Novolog] 100 UNIT/ML Vial) SQ SCH (15:00)
[2023-11-12] MEDS: HumaLOG 300 UNITS/3 ML VIAL SC SCH ×2 (15:45→16:09)
[2023-11-12] MEDS: Sodium Chloride 0.9% 1,000 ML IV SCH ×2 (16:05→22:27)
[2023-11-12] MEDS: Heparin 5,000 UNITS/ML VIAL SC SCH (16:12)
[2023-11-12 16:52] VITALS: BMI 33.3
[2023-11-12] MEDS ORDERED: INSULIN ASPART 15 UNIT SQ SCH (17:00)
[2023-11-12 17:22] LABS: #Basophils Less than 0.03 10x3/uL (0.0-0.2); %Basophils 0.3 % (0.0-1.0); %Eosinophils 0.4 % (0.0-10.0); %Lymphocytes 15.4 % (21.0-51.0); %Monocytes 7.3 % (0.0-10.0); Hemoglobin 14.4 g/dL (12.0-16.0); Mean Corpuscular HGB CONC 32.7 g/dL (32.0-36.0); Mean Corpuscular Hemoglobin 23.8 pg (27.0-31.0); Mean Corpuscular Volume 72.7 fL (78.0-98.0); Mean Platelet Volume 10.9 fL (7.4-10.4); Platelet Count 212 10x3/uL (130-400); RBC Distribution Width 15.7 % (11.5-14.5); Red Blood Cell (RBC) Count 6.05 mill/uL (4.20-5.40)
[2023-11-12] MEDS: Morphine 2 MG/ML VIAL SLOW IVP PRN (17:23)
[2023-11-12] MEDS: Carvedilol 6.25 MG TAB PO SCH (17:23)
[2023-11-12 17:40] LABS: Microcytosis SLIGHT = 6-15 cells HPF (0-5); Platelet Adequacy Comment Platelets Normal; Polychromasia SLIGHT = 2-3 cells HPF (0-2); Target Cells SLIGHT = 2-5 cells HPF (0-1)
[2023-11-12] MEDS: Acetaminophen/Codeine 30-300mg Tablet PO PRN (19:13)
[2023-11-12] MEDS: NIFEdipine XL 60 MG ER.TAB PO SCH (20:18)
[2023-11-12] MEDS: Insulin Glargine 30 UNITS/0.3 ML VIAL SC SCH (20:18)
[2023-11-12] MEDS: Gabapentin 300 MG CAP PO SCH (20:18)
[2023-11-12] MEDS: tiZANidine HCl 4 MG TAB PO PRN (20:30)
[2023-11-12] MEDS: Ondansetron PF 4 MG/2 ML Vial IVP PRN (20:31)
[2023-11-12] MEDS ORDERED: Carvedilol 3.125 MG TAB PO SCH (21:00)
[2023-11-12] MEDS: Lidocaine 4% Patch TD SCH (22:30)
[2023-11-12] MEDS: Isosorbide Mononitrate 30 MG ER.TAB PO SCH (22:30)
[2023-11-12] MEDS: Sodium Bicarbonate Tab 325 MG TAB PO SCH (22:30)
[2023-11-13] MEDS: Promethazine HCl 12.5 MG in Sodium Chloride 0.9% 50 ML IVPB PRN (04:26)
[2023-11-13 04:33] LABS: #Basophils Less than 0.03 10x3/uL (0.0-0.2); %Basophils 0.3 % (0.0-1.0); %Eosinophils 1.4 % (0.0-10.0); %Monocytes 7.6 % (0.0-10.0); %Neutrophils 61.6 % (42.0-75.0); Hemoglobin 12.8 g/dL (12.0-16.0); Mean Corpuscular Hemoglobin 24.2 pg (27.0-31.0); Mean Corpuscular Volume 75.5 fL (78.0-98.0); Mean Platelet Volume 11.3 fL (7.4-10.4); Platelet Count 255 10x3/uL (130-400); RBC Distribution Width 15.2 % (11.5-14.5)
[2023-11-13 05:03] LABS: Albumin 2.9 g/dL (3.5-5.0); Anion Gap 17 mmol/L (10-20); BUN (Urea Nitrogen) 27 mg/dL (7.0-18.7); BUN/Creatinine Ratio 14.29; Calc. Creatinine Clearance 52 mL/min (70-130); Calcium 8.9 mg/dL (7.8-10.44); Carbon Dioxide 20 mmol/L (22-29); Chloride 102 mmol/L (98-107); Estimated GFR 32; Glucose 209 mg/dL (70-105); Phosphorus 2.9 mg/dL (2.3-4.7); Potassium 3.9 mmol/L (3.5-5.1); Sodium 135 mmol/L (136-145)
[2023-11-13] MEDS: Morphine 2 MG/ML VIAL SLOW IVP SCH (05:36)
[2023-11-13] MEDS: Carvedilol 6.25 MG TAB PO SCH (08:23)
[2023-11-13] MEDS: Ferrous Gluconate 324 MG TAB PO SCH (08:23)
[2023-11-13] MEDS: Transdermal Patch Removal TOP SCH (08:24)
[2023-11-13] MEDS ORDERED: Non-Formulary Item 1 EACH (Ferrous Gluconate [Ferrous Gluconate] 324 MG Tablet) PO SCH (09:00)
[2023-11-13] MEDS ORDERED: Amlodipine 5 MG TAB PO SCH (09:00)
[2023-11-13] MEDS: Morphine 2 MG/ML VIAL SLOW IVP PRN (09:48)
[2023-11-13] MEDS: tiZANidine HCl 4 MG TAB PO PRN (09:49)
[2023-11-13] MEDS: HYDROcodone/Acetaminophen 5/325 mg Tablet PO PRN (09:49)
[2023-11-14] MEDS: hydrALAZINE 20 MG/ML VIAL SLOW IVP SCH (00:59)
[2023-11-14 04:20] LABS: #Basophils Less than 0.03 10x3/uL (0.0-0.2); %Basophils 0.3 % (0.0-1.0); %Eosinophils 1.4 % (0.0-10.0); %Lymphocytes 22.7 % (21.0-51.0); %Neutrophils 66.3 % (42.0-75.0); Hematocrit 40.3 % (36.0-47.0); Mean Corpuscular HGB CONC 32.3 g/dL (32.0-36.0); Mean Corpuscular Hemoglobin 24.1 pg (27.0-31.0); Mean Corpuscular Volume 74.6 fL (78.0-98.0); Mean Platelet Volume 11.2 fL (7.4-10.4); Platelet Count 206 10x3/uL (130-400); RBC Distribution Width 15.6 % (11.5-14.5)
[2023-11-14 04:32] LABS: Hemoglobin A1c 12.8 % (4.0-6.0)
[2023-11-14 04:34] LABS: Anion Gap 18 mmol/L (10-20); BUN (Urea Nitrogen) 23 mg/dL (7.0-18.7); Calc. Creatinine Clearance 47 mL/min (70-130); Calcium 9.8 mg/dL (7.8-10.44); Carbon Dioxide 20 mmol/L (22-29); Chloride 98 mmol/L (98-107); Estimated GFR 29; Glucose 331 mg/dL (70-105); Potassium 3.9 mmol/L (3.5-5.1); Sodium 132 mmol/L (136-145)
[2023-11-14] MEDS: Insulin Glargine 30 UNITS/0.3 ML VIAL SC SCH ×2 (08:29→19:38)
[2023-11-14] MEDS: Albumin 25% 25 GM (100 mL) BOT IVPB SCH (09:35)
[2023-11-14] MEDS: Sodium Bicarbonate 75 MEQ in Sodium Chloride 0.45% 1,000 ML IV SCH (12:55)
[2023-11-15 04:05] LABS: #Basophils 0.03 10x3/uL (0.0-0.2); %Basophils 0.6 % (0.0-1.0); %Eosinophils 1.8 % (0.0-10.0); %Lymphocytes 37.7 % (21.0-51.0); %Monocytes 9.6 % (0.0-10.0); %Neutrophils 50.1 % (42.0-75.0); Hematocrit 32.9 % (36.0-47.0); Hemoglobin 10.4 g/dL (12.0-16.0); Mean Corpuscular HGB CONC 31.6 g/dL (32.0-36.0); Mean Corpuscular Hemoglobin 24.5 pg (27.0-31.0); Mean Corpuscular Volume 77.6 fL (78.0-98.0); Mean Platelet Volume 11.1 fL (7.4-10.4); Platelet Count 192 10x3/uL (130-400); RBC Distribution Width 15.6 % (11.5-14.5); Red Blood Cell (RBC) Count 4.24 mill/uL (4.20-5.40)
[2023-11-15 04:27] LABS: Anion Gap 16 mmol/L (10-20); BUN (Urea Nitrogen) 24 mg/dL (7.0-18.7); Calc. Creatinine Clearance 50 mL/min (70-130); Calcium 9.2 mg/dL (7.8-10.44); Carbon Dioxide 24 mmol/L (22-29); Chloride 98 mmol/L (98-107); Estimated GFR 31; Glucose 258 mg/dL (70-105); Potassium 3.8 mmol/L (3.5-5.1); Sodium 134 mmol/L (136-145)
[2023-11-15 08:04] VITALS: BMI 33.1
[2023-11-15] MEDS: Isosorbide Mononitrate 60 MG ER.TAB PO SCH (09:10)
[2023-11-15] MEDS: Lactated Ringer's 1,000 ML IV SCH (09:13)
[2023-11-15 15:12] LABS: Iron 123 ug/dL (50-170); Iron Binding Capacity, Total 334 mcg/dL (265-497)
[2023-11-16] MEDS: Morphine 4 MG/ML VIAL SLOW IVP SCH (02:01)
[2023-11-16 04:04] LABS: #Basophils 0.04 10x3/uL (0.0-0.2); %Basophils 0.7 % (0.0-1.0); %Eosinophils 2.4 % (0.0-10.0); %Lymphocytes 36.3 % (21.0-51.0); %Monocytes 12.6 % (0.0-10.0); %Neutrophils 47.8 % (42.0-75.0); Hematocrit 34.5 % (36.0-47.0); Hemoglobin 10.7 g/dL (12.0-16.0); Mean Corpuscular Hemoglobin 23.7 pg (27.0-31.0); Mean Corpuscular Volume 76.5 fL (78.0-98.0); Mean Platelet Volume 10.7 fL (7.4-10.4); Platelet Count 190 10x3/uL (130-400); RBC Distribution Width 15.7 % (11.5-14.5); Red Blood Cell (RBC) Count 4.51 mill/uL (4.20-5.40)
[2023-11-16 04:37] LABS: Anion Gap 16 mmol/L (10-20); BUN (Urea Nitrogen) 22 mg/dL (7.0-18.7); Calc. Creatinine Clearance 62 mL/min (70-130); Calcium 9.9 mg/dL (7.8-10.44); Carbon Dioxide 24 mmol/L (22-29); Chloride 98 mmol/L (98-107); Estimated GFR 40; Glucose 128 mg/dL (70-105); Magnesium 1.7 mg/dL (1.6-2.6); Potassium 3.7 mmol/L (3.5-5.1); Sodium 134 mmol/L (136-145)
[2023-11-16] MEDS: Insulin Glargine 30 UNITS/0.3 ML VIAL SC SCH (09:44)
[2023-11-16] MEDS: Senokot S 8.6-50 MG TAB PO PRN (09:44)
[2023-11-16] MEDS: HYDROcodone/Acetaminophen 10/325 mg Tablet PO PRN (14:25)
[2023-11-16] MEDS: Metoclopramide HCl 10 MG (2 mL) VIAL IVP PRN (14:48)
[2023-11-16] MEDS: Melatonin 3 MG TAB PO SCH (22:43)
[2023-11-16] MEDS: Morphine 2 MG/ML VIAL SLOW IVP PRN (22:44)
[2023-11-17 05:33] LABS: Albumin 2.7 g/dL (3.5-5.0); Anion Gap 14 mmol/L (10-20); BUN (Urea Nitrogen) 22 mg/dL (7.0-18.7); BUN/Creatinine Ratio 16.06; Calc. Creatinine Clearance 71 mL/min (70-130); Calcium 9.3 mg/dL (7.8-10.44); Carbon Dioxide 23 mmol/L (22-29); Chloride 102 mmol/L (98-107); Estimated GFR 47; Glucose 74 mg/dL (70-105); Phosphorus 4.1 mg/dL (2.3-4.7); Potassium 3.6 mmol/L (3.5-5.1); Sodium 135 mmol/L (136-145)
[2023-11-17] MEDS ORDERED: Heparin 10,000 UNITS/ 10 ML VIAL ONE (06:33)
[2023-11-17] MEDS ORDERED: Nitroglycerin 50 MG/250 ML BOT 0 ML ONE (06:39)
[2023-11-17] MEDS ORDERED: Adenosine 90 mg (30 mL) VIAL ONE (06:39)
[2023-11-17] MEDS ORDERED: fentaNYL 50 mcg/mL 1 mL Vial ONE ×3 (07:22→08:12)
[2023-11-17] MEDS ORDERED: Midazolam HCl 2 mg/2 ml Vial ONE ×2 (07:22→08:00)
[2023-11-17] MEDS ORDERED: hydrALAZINE 20 MG/ML VIAL ONE (07:30)
[2023-11-17] MEDS ORDERED: TICAGRELOR 90 MG TABLET ONE (08:14)
[2023-11-17] MEDS ORDERED: Iopamidol 370 76% 100 ML VIAL ONE (11:25)
[2023-11-18 05:04] LABS: #Basophils 0.03 10x3/uL (0.0-0.2); %Basophils 0.5 % (0.0-1.0); %Eosinophils 3.2 % (0.0-10.0); %Lymphocytes 35.2 % (21.0-51.0); %Monocytes 12.9 % (0.0-10.0); Hematocrit 30.6 % (36.0-47.0); Hemoglobin 9.3 g/dL (12.0-16.0); Mean Corpuscular HGB CONC 30.4 g/dL (32.0-36.0); Mean Corpuscular Hemoglobin 23.8 pg (27.0-31.0); Mean Corpuscular Volume 78.5 fL (78.0-98.0); Mean Platelet Volume 11.2 fL (7.4-10.4); Platelet Count 158 10x3/uL (130-400); RBC Distribution Width 16.2 % (11.5-14.5)
[2023-11-18 05:24] LABS: ALT (SGPT) 14 U/L (8-55); AST (SGOT) 26 U/L (5-34); Albumin 2.8 g/dL (3.5-5.0); Alkaline Phosphatase 83 U/L (40-110); Anion Gap 15 mmol/L (10-20); BUN (Urea Nitrogen) 25 mg/dL (7.0-18.7); Bilirubin, Total 0.4 mg/dL (0.2-1.2); Calc. Creatinine Clearance 54 mL/min (70-130); Calcium 8.6 mg/dL (7.8-10.44); Carbon Dioxide 21 mmol/L (22-29); Chloride 101 mmol/L (98-107); Estimated GFR 34; Globulin 3.8 g/dL (2.4-3.5); Glucose 349 mg/dL (70-105); Potassium 4.4 mmol/L (3.5-5.1); Protein, Total 6.6 g/dL (6.0-8.3); Sodium 133 mmol/L (136-145)
[2023-11-18] MEDS: Albumin 25% 25 GM (100 mL) BOT IVPB SCH (06:29)
[2023-11-18] MEDS: TICAGRELOR 90 MG TABLET PO SCH (07:54)
[2023-11-18] MEDS: Lactated Ringer's 1,000 ML IV SCH (08:48)
[2023-11-18] MEDS ORDERED: Glucagon 1 MG/ML KIT IM PRN (10:12)
[2023-11-18] MEDS ORDERED: Dextrose 50% Abboject 50 ML SYRINGE SLOW IVP PRN (10:12)
[2023-11-18] MEDS ORDERED: Dextrose 5% in Water 1,000 ML IV PRN (10:12)
[2023-11-18] MEDS: HumaLOG 300 UNITS/3 ML VIAL SC PRN (10:44)
[2023-11-18 12:03] VITALS: TEMP 97.8
[2023-11-18 12:10] VITALS: BP 124/62
== END 2023-11-18 13:58 | disposition home or self-care (01) | DRG 322 ==
LOC: SDC 07:14 → 2SW 15:34 → OBSVTOIN 11-13 11:59
PROVIDERS: ADMIT Internal Medicine; ATTEND Family Medicine
PROC: 30233J1 Transfusion of Nonautologous Serum Albumin into Peripheral Vein, Percutaneous Approach (ICD-10-PCS; 2023-11-14)
PROC: 4A023N7 Measurement of Cardiac Sampling and Pressure, Left Heart, Percutaneous Approach (ICD-10-PCS; principal; 2023-11-17)
PROC: 027034Z Dilation of Coronary Artery, One Artery with Drug-eluting Intraluminal Device, Percutaneous Approach (ICD-10-PCS; 2023-11-17)
PROC: B2151ZZ Fluoroscopy of Left Heart using Low Osmolar Contrast (ICD-10-PCS; 2023-11-17)
PROC: B2111ZZ Fluoroscopy of Multiple Coronary Arteries using Low Osmolar Contrast (ICD-10-PCS; 2023-11-17)
DX: I25.119 Atherosclerotic heart disease of native coronary artery with unspecified angina pectoris (principal); N17.9 Acute kidney failure, unspecified; I50.32 Chronic diastolic (congestive) heart failure; I13.0 Hypertensive heart and chronic kidney disease with heart failure and stage 1 through stage 4 chronic kidney disease, or unspecified chronic kidney disease; E87.20 Acidosis, unspecified; E87.1 Hypo-osmolality and hyponatremia; N18.30 Chronic kidney disease, stage 3 unspecified; L97.529 Non-pressure chronic ulcer of other part of left foot with unspecified severity; E11.65 Type 2 diabetes mellitus with hyperglycemia; G89.4 Chronic pain syndrome; E11.51 Type 2 diabetes mellitus with diabetic peripheral angiopathy without gangrene; I73.9 Peripheral vascular disease, unspecified; Z79.4 Long term (current) use of insulin; Z79.899 Other long term (current) drug therapy; Z88.8 Allergy status to other drugs, medicaments and biological substances; Z88.5 Allergy status to narcotic agent; I25.2 Old myocardial infarction
CPT/HCPCS: 36415; 36416; 80048; 80053; 80069; 82040; 82728; 83036; 83540; 83550; 83735; 85025; 85347; 92928; 93005; 93010; 93458; 96372; 96374; 96375; 96376; 97139; 99152; 99153; C1725; C1726; C1760; C1769; C1874; C9600; G0378; J0153; J0360; J1644; J1815; J2250; J2270; J2272; J2405; J2550; J2765; J3010; J7050; J7120; P9047; Q9967

== ENCOUNTER 2023-11-27 21:14 | Emergency (ER) | payer OTHER ==
[2023-11-27 22:35] LABS: #Basophils Less than 0.03 10x3/uL (0.0-0.2); %Basophils 0.5 % (0.0-1.0); %Eosinophils 1.7 % (0.0-10.0); %Lymphocytes 30.9 % (21.0-51.0); %Monocytes 11.6 % (0.0-10.0); %Neutrophils 55.1 % (42.0-75.0); Hemoglobin 12.3 g/dL (12.0-16.0); Mean Corpuscular HGB CONC 31.5 g/dL (32.0-36.0); Mean Corpuscular Hemoglobin 23.8 pg (27.0-31.0); Mean Corpuscular Volume 75.4 fL (78.0-98.0); Mean Platelet Volume 10.9 fL (7.4-10.4); Platelet Count 278 10x3/uL (130-400); RBC Distribution Width 16.2 % (11.5-14.5); Red Blood Cell (RBC) Count 5.17 mill/uL (4.20-5.40)
[2023-11-27 23:21] LABS: ALT (SGPT) 69 U/L (8-55); AST (SGOT) 34 U/L (5-34); Albumin 3.5 g/dL (3.5-5.0); Alkaline Phosphatase 131 U/L (40-110); Anion Gap 20 mmol/L (10-20); BUN (Urea Nitrogen) 39 mg/dL (7.0-18.7); Bilirubin, Total 0.7 mg/dL (0.2-1.2); Calc. Creatinine Clearance 0 mL/min (70-130); Calcium 9.4 mg/dL (7.8-10.44); Carbon Dioxide 20 mmol/L (22-29); Chloride 95 mmol/L (98-107); Estimated GFR 21; Globulin 4.9 g/dL (2.4-3.5); Glucose 550 mg/dL (70-105); Lipase 76 U/L (8-78); Potassium 3.7 mmol/L (3.5-5.1); Protein, Total 8.4 g/dL (6.0-8.3); Sodium 131 mmol/L (136-145)
[2023-11-27] MEDS ORDERED: tiZANidine HCl 4 MG TAB ONE (23:55)
[2023-11-28 01:10] LABS: Troponin I 0.092 ng/mL (< 0.028)
[2023-11-28 02:17] LABS: Analyzer IN Cardio ER; Base Excess -0.9 mEq/L (-2.0 to +3.0); Calcium, Ionized (venous) 1.04 mmol/L (1.16-1.32); Chloride (VBG) 95 mmol/L (98-106); Hematocrit-VBG 39 % (36.0-47.0); Hemoglobin (Hb) 13.1 g/dL (11.7-16.0); Potassium (VBG) 3.69 mmol/L (3.70-5.30); Sodium 135 mmol/L (133-146); pH (venous) 7.424 (7.32-7.43)
[2023-11-28] MEDS ORDERED: Acetaminophen 500 MG TAB ONE (03:30)
== END 2023-11-28 03:37 | disposition home or self-care (01) ==
LOC: ERS 21:14
DX: R07.9 Chest pain, unspecified (principal); N17.9 Acute kidney failure, unspecified; I13.0 Hypertensive heart and chronic kidney disease with heart failure and stage 1 through stage 4 chronic kidney disease, or unspecified chronic kidney disease; E11.22 Type 2 diabetes mellitus with diabetic chronic kidney disease; I50.9 Heart failure, unspecified; N18.9 Chronic kidney disease, unspecified; E11.65 Type 2 diabetes mellitus with hyperglycemia; Z79.4 Long term (current) use of insulin
CPT/HCPCS: 36415; 71045; 80053; 82010; 82805; 83690; 83735; 83880; 84484; 85025; 93005

== ENCOUNTER 2023-12-18 12:42 | Inpatient (IN) | payer OTHER ==
[2023-12-18] MEDS ORDERED: Naloxone HCl 2 mg/2 ml Syringe ONE (14:17)
[2023-12-18 14:49] LABS: Actual Bicarbonate (HCO3a) 28.7 mEq/L (22-28); Analyzer IN Cardio ER; Base Excess (BEa) 3.5 mEq/L (-2.0 to +3.0); CO2 Tension 45.8 mmHg (35.0-45.0); Calcium, Ionized (arterial) 1.09 mmol/L (1.12-1.30); Hematocrit-ABG 36 % (36.0-47.0); Hemoglobin (Hb) 12.4 g/dL (12.0-16.0); O2 Tension (PaO2), arterial 84.7 mmHg (80.0-100.0); Potassium - ABG Lab 3.69 mmol/L (3.70-5.30); pH, Arterial 7.415 (7.35-7.45)
[2023-12-18 14:50] LABS: Puncture Site RRA
[2023-12-18 15:34] LABS: Bacteria/HPF None Seen HPF (None Seen); Bilirubin Negative (Negative); Blood, Urine 2+ (Negative); CAUTI Indications for Culture Alt mental st,lethar; Clarity Clear (Clear); Glucose, Urine (Dipstick) Greater than 1000 mg/dL (Negative); Ketone, Urine Negative (Negative); Leukocyte Negative Leu/uL (Negative); Nitrite Negative (Negative); Protein, Urine (Dipstick) 300 mg/dL (Neg-Trace); RBC/HPF 0-3 HPF (0-3); Specific Gravity, Urine 1.019 (1.002-1.036); Squamous Epithelial 0-3 HPF (0-3); Urobilinogen Normal mg/dL (Less than 2); WBC/HPF 0-3 HPF (0-3)
[2023-12-18 15:35] LABS: Urine Culture Reflex No No
[2023-12-18 15:37] LABS: #Basophils Less than 0.03 10x3/uL (0.0-0.2); %Basophils 0.3 % (0.0-1.0); %Eosinophils 3.1 % (0.0-10.0); %Lymphocytes 15.7 % (21.0-51.0); %Monocytes 5.3 % (0.0-10.0); %Neutrophils 75.4 % (42.0-75.0); Hematocrit 35.4 % (36.0-47.0); Hemoglobin 11.5 g/dL (12.0-16.0); Mean Corpuscular HGB CONC 32.5 g/dL (32.0-36.0); Mean Corpuscular Volume 73.8 fL (78.0-98.0); Mean Platelet Volume 10.4 fL (7.4-10.4); Platelet Count 245 10x3/uL (130-400); RBC Distribution Width 15.3 % (11.5-14.5)
[2023-12-18 15:37] LABS: BHCG - Serum Negative (NEGATIVE); Pregs Control Background? CLEAR/WHITE (CLR/WHITE); Pregs Control Bar Appear? YES (CONTROL BAR)
[2023-12-18 15:46] LABS: Amphetamine Not Detected (NotDetected); Barbiturates Screen Not Detected (NotDetected); Benzodiazepine Screen Not Detected (NotDetected); Cocaine Metabolite Screen Not Detected (NotDetected); Methadone Not Detected (NotDetected); Methamphetamine Not Detected (NotDetected); Opiate Screen Detected (NotDetected); Oxycodone Screen Not Detected (NotDetected); Phencyclidine (PCP) Not Detected (NotDetected); THC/Cannabinoid Screen Not Detected (NotDetected); Tricyclic Screen Not Detected (NotDetected)
[2023-12-18 16:03] LABS: Troponin I 0.147 ng/mL (< 0.028)
[2023-12-18] MEDS ORDERED: fentaNYL 50 mcg/mL 1 mL Vial ONE ×2 (16:16→16:17)
[2023-12-18] MEDS ORDERED: Iopamidol-370 76% 500 ML MDV (1 ML CHARGE) ONE (16:18)
[2023-12-18 16:30] LABS: Acetaminophen Less than 10 mcg/mL (10.0-30.0); Alcohol Less than 10.0 mg/dL (Less than 10); CK (CPK) 438 U/L (29-168); Lipase 31 U/L (8-78); Salicylate Less than 8.0 mg/dL (15.0-30.0)
[2023-12-18 16:54] LABS: ALT (SGPT) 13 U/L (8-55); AST (SGOT) 35 U/L (5-34); Albumin 2.8 g/dL (3.5-5.0); Alkaline Phosphatase 128 U/L (40-110); Anion Gap 18 mmol/L (10-20); BUN (Urea Nitrogen) 26 mg/dL (7.0-18.7); Bilirubin, Total 0.9 mg/dL (0.2-1.2); Calc. Creatinine Clearance 0 mL/min (70-130); Carbon Dioxide 23 mmol/L (22-29); Chloride 92 mmol/L (98-107); Estimated GFR 24; Globulin 4.2 g/dL (2.4-3.5); Glucose 335 mg/dL (70-105); Potassium 3.5 mmol/L (3.5-5.1); Sodium 129 mmol/L (136-145)
[2023-12-18 17:19] LABS: Influenza A by NAA Not Detected (NotDetected); Influenza B by NAA Not Detected (NotDetected); SARS-CoV-2 NAA Rapid Test Not Detected (NotDetected)
[2023-12-18] MEDS ORDERED: Dextrose 50% Abboject 50 ML SYRINGE SLOW IVP PRN ×2 (17:39→17:45)
[2023-12-18] MEDS ORDERED: Glucagon 1 MG/ML KIT IM PRN ×2 (17:39→17:45)
[2023-12-18] MEDS ORDERED: Dextrose 5% in Water 1,000 ML IV PRN ×2 (17:39→17:45)
[2023-12-18] MEDS ORDERED: Insulin Lispro 100 UNIT/ML 10 ML VIAL SC PRN (17:45)
[2023-12-18 18:14] VITALS: BMI 32.9
[2023-12-18 20:54] LABS: Troponin I 0.185 ng/mL (< 0.028)
[2023-12-18] MEDS: Insulin Glargine 30 UNITS/0.3 ML VIAL SC SCH (23:15)
[2023-12-18] MEDS: TICAGRELOR 90 MG TABLET PO SCH (23:15)
[2023-12-18] MEDS: Acetaminophen 325 MG TAB PO SCH (23:16)
[2023-12-18] MEDS: Famotidine 20 MG TAB PO SCH (23:16)
[2023-12-18] MEDS: Isosorbide Mononitrate 60 MG ER.TAB PO SCH (23:16)
[2023-12-19] MEDS ORDERED: Acetaminophen/Codeine 30-300mg Tablet PO PRN (00:36)
[2023-12-19] MEDS: Acetaminophen/Codeine 30-300mg Tablet PO PRN (00:49)
[2023-12-19] MEDS: hydrALAZINE 20 MG/ML VIAL SLOW IVP PRN (02:31)
[2023-12-19] MEDS: hydrOXYzine 25 MG TAB PO SCH (03:06)
[2023-12-19] MEDS: Promethazine HCl 25 MG in Sodium Chloride 0.9% 50 ML IVPB SCH (03:54)
[2023-12-19 05:18] LABS: #Basophils Less than 0.03 10x3/uL (0.0-0.2); #Eosinphils Less than 0.03 10x3/uL (0.0-0.7); %Basophils 0.3 % (0.0-1.0); %Lymphocytes 16.4 % (21.0-51.0); %Monocytes 12.8 % (0.0-10.0); %Neutrophils 70.2 % (42.0-75.0); Hematocrit 41.1 % (36.0-47.0); Hemoglobin 12.8 g/dL (12.0-16.0); Mean Corpuscular HGB CONC 31.1 g/dL (32.0-36.0); Mean Corpuscular Hemoglobin 23.7 pg (27.0-31.0); Platelet Count 280 10x3/uL (130-400); RBC Distribution Width 15.9 % (11.5-14.5); Red Blood Cell (RBC) Count 5.41 mill/uL (4.20-5.40)
[2023-12-19 05:32] LABS: Anion Gap 19 mmol/L (10-20); BUN (Urea Nitrogen) 20 mg/dL (7.0-18.7); Calc. Creatinine Clearance 51 mL/min (70-130); Calcium 9.9 mg/dL (7.8-10.44); Carbon Dioxide 18 mmol/L (22-29); Chloride 98 mmol/L (98-107); Estimated GFR 32; Glucose 274 mg/dL (70-105); Potassium 2.9 mmol/L (3.5-5.1); Sodium 132 mmol/L (136-145)
[2023-12-19] MEDS ORDERED: Ketorolac Tromethamine 30 MG (1 mL) VIAL IVP SCH (05:45)
[2023-12-19] MEDS ORDERED: Labetalol HCl 100 MG/20 ML VIAL SLOW IVP SCH (06:00)
[2023-12-19] MEDS: fentaNYL 50 mcg/mL 1 mL Vial SLOW IVP SCH (06:15)
[2023-12-19] MEDS ORDERED: Ferrous Gluconate 324 MG TAB PO SCH (08:00)
[2023-12-19] MEDS ORDERED: Polyethylene Glycol 3350 17 GM Packet PO PRN (08:26)
[2023-12-19 08:52] LABS: Phosphorus 2.3 mg/dL (2.3-4.7)
[2023-12-19] MEDS ORDERED: Furosemide 40 MG TAB PO SCH (09:00)
[2023-12-19] MEDS ORDERED: Enoxaparin 40 MG (0.4 mL) SYRINGE SC SCH (09:00)
[2023-12-19] MEDS: Senokot S 8.6-50 MG TAB PO SCH (09:15)
[2023-12-19] MEDS: Lactated Ringer's 1,000 ML IV SCH (09:15)
[2023-12-19] MEDS: Carvedilol 25 MG TAB PO SCH (09:15)
[2023-12-19] MEDS: Heparin 5,000 UNITS/ML VIAL SC SCH (09:15)
[2023-12-19] MEDS: Lidocaine 4% Patch TD SCH (09:15)
[2023-12-19] MEDS: Potassium Chloride 20 MEQ TAB PO SCH (09:15)
[2023-12-19] MEDS: Promethazine HCl 12.5 MG in Sodium Chloride 0.9% 50 ML IVPB PRN (10:23)
[2023-12-19 11:10] LABS: Troponin I 0.195 ng/mL (< 0.028)
[2023-12-19] MEDS: fentaNYL 50 mcg/mL 1 mL Vial SLOW IVP PRN (13:08)
[2023-12-19] MEDS: Gabapentin 300 MG CAP PO SCH ×2 (13:09→21:16)
[2023-12-19] MEDS: tiZANidine HCl 4 MG TAB PO PRN (15:26)
[2023-12-19] MEDS: Insulin Glargine 30 UNITS/0.3 ML VIAL SC SCH (17:01)
[2023-12-19 17:09] LABS: Anion Gap 17 mmol/L (10-20); BUN (Urea Nitrogen) 19 mg/dL (7.0-18.7); Calc. Creatinine Clearance 58 mL/min (70-130); Calcium 9.7 mg/dL (7.8-10.44); Carbon Dioxide 19 mmol/L (22-29); Chloride 99 mmol/L (98-107); Estimated GFR 37; Glucose 441 mg/dL (70-105); Potassium 3.9 mmol/L (3.5-5.1); Sodium 131 mmol/L (136-145)
[2023-12-19] MEDS: Insulin Lispro 100 UNIT/ML 10 ML VIAL SC PRN ×2 (18:36→21:18)
[2023-12-19] MEDS: Transdermal Patch Removal TOP SCH (21:00)
[2023-12-19] MEDS ORDERED: Insulin Glargine 30 UNITS/0.3 ML VIAL SC SCH (21:00)
[2023-12-20 05:00] LABS: #Basophils Less than 0.03 10x3/uL (0.0-0.2); #Eosinphils Less than 0.03 10x3/uL (0.0-0.7); %Basophils 0.3 % (0.0-1.0); %Eosinophils 0.1 % (0.0-10.0); %Lymphocytes 19.3 % (21.0-51.0); %Monocytes 13.1 % (0.0-10.0); %Neutrophils 66.9 % (42.0-75.0); Hematocrit 38.4 % (36.0-47.0); Hemoglobin 12.2 g/dL (12.0-16.0); Mean Corpuscular HGB CONC 31.8 g/dL (32.0-36.0); Mean Corpuscular Hemoglobin 23.7 pg (27.0-31.0); Mean Corpuscular Volume 74.7 fL (78.0-98.0); Mean Platelet Volume 10.9 fL (7.4-10.4); Platelet Count 255 10x3/uL (130-400); RBC Distribution Width 16.2 % (11.5-14.5); Red Blood Cell (RBC) Count 5.14 mill/uL (4.20-5.40)
[2023-12-20 05:11] LABS: Anion Gap 14 mmol/L (10-20); BUN (Urea Nitrogen) 20 mg/dL (7.0-18.7); Calc. Creatinine Clearance 44 mL/min (70-130); Calcium 9.3 mg/dL (7.8-10.44); Carbon Dioxide 23 mmol/L (22-29); Chloride 102 mmol/L (98-107); Estimated GFR 27; Glucose 209 mg/dL (70-105); Potassium 3.2 mmol/L (3.5-5.1); Sodium 136 mmol/L (136-145)
[2023-12-20] MEDS ORDERED: Cefepime 2 GM in Sodium Chloride 0.9% 100 ML IVPB SCH (07:45)
[2023-12-20] MEDS: Famotidine 20 MG TAB PO SCH (08:30)
[2023-12-20] MEDS: Insulin Glargine 30 UNITS/0.3 ML VIAL SC SCH (08:45)
[2023-12-20] MEDS: Cefepime 2 GM in Sodium Chloride 0.9% 100 ML IVPB SCH (08:45)
[2023-12-20] MEDS ORDERED: Vancomycin 1 GM in Premix 1 BAG IVPB SCH (09:00)
[2023-12-20] MEDS: Vancomycin 1 GM in Premix 1 BAG IVPB SCH ×2 (10:16→15:13)
[2023-12-20] MEDS ORDERED: HumaLOG 300 UNITS/3 ML VIAL SC PRN (14:27)
[2023-12-20] MEDS: Insulin Lispro 100 UNIT/ML 10 ML VIAL SC PRN (17:02)
[2023-12-20] MEDS: Lactated Ringer's 1,000 ML IV SCH (17:03)
[2023-12-20] MEDS: Acetaminophen/Codeine 30-300mg Tablet PO PRN (18:07)
[2023-12-20] MEDS ORDERED: Ondansetron PF 4 MG/2 ML Vial IVP PRN (20:30)
[2023-12-20] MEDS ORDERED: Ondansetron ODT 4 MG TAB PO PRN (20:30)
[2023-12-20] MEDS: Acetaminophen/Codeine 30-300mg Tablet PO SCH (20:53)
[2023-12-20] MEDS: Cefepime 1 GM in Sodium Chloride 0.9% 100 ML IVPB SCH (20:54)
[2023-12-20] MEDS: Heparin 5,000 UNITS/ML VIAL SC SCH (20:57)
[2023-12-20] MEDS ORDERED: Insulin Glargine 30 UNITS/0.3 ML VIAL SC SCH (21:00)
[2023-12-20] MEDS: tiZANidine HCl 4 MG TAB PO SCH (21:56)
[2023-12-20] MEDS: Promethazine 25 MG TAB PO PRN (22:26)
[2023-12-20] MEDS: cloNIDine 0.1 MG TAB PO PRN (23:55)
[2023-12-21] MEDS ORDERED: Nitroglycerin 0.4 MG TAB (25 Tab Bottle) SL PRN (00:49)
[2023-12-21] MEDS: Labetalol HCl 100 MG/20 ML VIAL SLOW IVP SCH (00:53)
[2023-12-21 01:44] LABS: Magnesium 2.1 mg/dL (1.6-2.6)
[2023-12-21] MEDS: hydrALAZINE 20 MG/ML VIAL SLOW IVP SCH (02:08)
[2023-12-21] MEDS: tiZANidine HCl 4 MG TAB PO SCH ×2 (02:08→15:04)
[2023-12-21 02:17] LABS: Troponin I 0.407 ng/mL (< 0.028)
[2023-12-21 04:29] LABS: #Basophils 0.03 10x3/uL (0.0-0.2); %Basophils 0.4 % (0.0-1.0); %Eosinophils 0.9 % (0.0-10.0); %Lymphocytes 17.2 % (21.0-51.0); %Monocytes 11.3 % (0.0-10.0); %Neutrophils 69.6 % (42.0-75.0); Hematocrit 37.5 % (36.0-47.0); Hemoglobin 11.6 g/dL (12.0-16.0); Mean Corpuscular HGB CONC 30.9 g/dL (32.0-36.0); Mean Corpuscular Hemoglobin 23.5 pg (27.0-31.0); Mean Corpuscular Volume 75.9 fL (78.0-98.0); Mean Platelet Volume 11.2 fL (7.4-10.4); Platelet Count 212 10x3/uL (130-400); RBC Distribution Width 16.2 % (11.5-14.5); Red Blood Cell (RBC) Count 4.94 mill/uL (4.20-5.40)
[2023-12-21 04:38] LABS: ALT (SGPT) 10 U/L (8-55); AST (SGOT) 27 U/L (5-34); Albumin 2.3 g/dL (3.5-5.0); Alkaline Phosphatase 101 U/L (40-110); Anion Gap 18 mmol/L (10-20); BUN (Urea Nitrogen) 25 mg/dL (7.0-18.7); Bilirubin, Total 0.6 mg/dL (0.2-1.2); Calc. Creatinine Clearance 44 mL/min (70-130); Calcium 8.7 mg/dL (7.8-10.44); Carbon Dioxide 20 mmol/L (22-29); Chloride 104 mmol/L (98-107); Estimated GFR 27; Globulin 3.9 g/dL (2.4-3.5); Glucose 221 mg/dL (70-105); Magnesium 1.9 mg/dL (1.6-2.6); Potassium 3.5 mmol/L (3.5-5.1); Protein, Total 6.2 g/dL (6.0-8.3); Sodium 138 mmol/L (136-145)
[2023-12-21 04:43] LABS: Vancomycin, Random 23.7 ug/mL (See Comment)
[2023-12-21 06:28] LABS: Critical Call Chem Troponin I DECREASING; Troponin I 0.343 ng/mL (< 0.028)
[2023-12-21] MEDS: Insulin Glargine 30 UNITS/0.3 ML VIAL SC SCH (08:27)
[2023-12-21] MEDS: tiZANidine HCl 4 MG TAB PO PRN (11:46)
[2023-12-21] MEDS: Acetaminophen/Codeine 30-300mg Tablet PO PRN (17:18)
[2023-12-21] MEDS: NIFEdipine XL 60 MG ER.TAB PO SCH (22:58)
[2023-12-21] MEDS: Sodium Bicarbonate 150 MEQ in Sterile Water 1,000 ML IV SCH (22:58)
[2023-12-22] MEDS: Aspirin 325 MG TAB PO SCH (01:11)
[2023-12-22 04:39] LABS: #Basophils Less than 0.03 10x3/uL (0.0-0.2); %Basophils 0.4 % (0.0-1.0); %Eosinophils 3.8 % (0.0-10.0); %Lymphocytes 37.7 % (21.0-51.0); %Monocytes 9.7 % (0.0-10.0); %Neutrophils 48.2 % (42.0-75.0); Hematocrit 39.4 % (36.0-47.0); Hemoglobin 12.2 g/dL (12.0-16.0); Mean Corpuscular Hemoglobin 23.3 pg (27.0-31.0); Mean Corpuscular Volume 75.2 fL (78.0-98.0); Mean Platelet Volume 10.6 fL (7.4-10.4); Platelet Count 237 10x3/uL (130-400); Red Blood Cell (RBC) Count 5.24 mill/uL (4.20-5.40)
[2023-12-22 05:02] LABS: Vancomycin, Random 24.6 ug/mL (See Comment)
[2023-12-22 06:30] LABS: Chloride 99 mmol/L (98-107); Potassium 3.3 mmol/L (3.5-5.1); Sodium 136 mmol/L (136-145)
[2023-12-22 06:31] LABS: Calcium 9.4 mg/dL (7.8-10.44); Glucose 176 mg/dL (70-105)
[2023-12-22 06:32] LABS: Globulin 4.5 g/dL (2.4-3.5); Protein, Total 7.5 g/dL (6.0-8.3)
[2023-12-22 06:33] LABS: Anion Gap 16 mmol/L (10-20); Carbon Dioxide 24 mmol/L (22-29)
[2023-12-22 06:34] LABS: Alkaline Phosphatase 108 U/L (40-110); Bilirubin, Total 0.6 mg/dL (0.2-1.2)
[2023-12-22 06:35] LABS: BUN (Urea Nitrogen) 23 mg/dL (7.0-18.7); Calc. Creatinine Clearance 60 mL/min (70-130); Estimated GFR 38
[2023-12-22 06:37] LABS: ALT (SGPT) 11 U/L (8-55); AST (SGOT) 24 U/L (5-34); CK (CPK) 98 U/L (29-168)
[2023-12-22 09:09] LABS: Magnesium 1.9 mg/dL (1.6-2.6)
[2023-12-22] MEDS: NIFEdipine XL 30 MG ER.TAB PO SCH (09:45)
[2023-12-22] MEDS: Potassium Chloride 20 MEQ TAB PO SCH (09:45)
[2023-12-22] MEDS: Carvedilol 6.25 MG TAB PO SCH (09:45)
[2023-12-22] MEDS: Pantoprazole DR 40 MG TAB PO SCH (09:45)
[2023-12-22] MEDS ORDERED: Vancomycin HCl 500 MG in Sodium Chloride 0.9% 100 ML IVPB SCH (10:00)
[2023-12-22] MEDS: Acetaminophen/Codeine 30-300mg Tablet PO PRN (16:22)
[2023-12-22 17:12] VITALS: BP 176/101; TEMP 98.1
== END 2023-12-22 17:36 | disposition home or self-care (01) | DRG 92 ==
LOC: ERS 12:42 → 2NO 16:42 → OBSVTOIN 12-20 09:18
PROVIDERS: ADMIT Internal Medicine; ATTEND Internal Medicine
PROC: 4A033R1 Measurement of Arterial Saturation, Peripheral, Percutaneous Approach (ICD-10-PCS; principal; 2023-12-18)
DX: G92.8 Other toxic encephalopathy (principal); E87.1 Hypo-osmolality and hyponatremia; N17.9 Acute kidney failure, unspecified; I50.32 Chronic diastolic (congestive) heart failure; I13.0 Hypertensive heart and chronic kidney disease with heart failure and stage 1 through stage 4 chronic kidney disease, or unspecified chronic kidney disease; E87.21 Acute metabolic acidosis; R45.851 Suicidal ideations; I95.9 Hypotension, unspecified; E87.6 Hypokalemia; I25.10 Atherosclerotic heart disease of native coronary artery without angina pectoris; G89.4 Chronic pain syndrome; E11.22 Type 2 diabetes mellitus with diabetic chronic kidney disease; F19.90 Other psychoactive substance use, unspecified, uncomplicated; T40.2X5A Adverse effect of other opioids, initial encounter; E11.65 Type 2 diabetes mellitus with hyperglycemia; E11.21 Type 2 diabetes mellitus with diabetic nephropathy; N18.32 Chronic kidney disease, stage 3b; E11.51 Type 2 diabetes mellitus with diabetic peripheral angiopathy without gangrene; Z88.5 Allergy status to narcotic agent; Z88.8 Allergy status to other drugs, medicaments and biological substances; Z79.4 Long term (current) use of insulin; Z79.899 Other long term (current) drug therapy; Z79.2 Long term (current) use of antibiotics; Z89.411 Acquired absence of right great toe; Z89.412 Acquired absence of left great toe; Z89.422 Acquired absence of other left toe(s); Z90.49 Acquired absence of other specified parts of digestive tract; Z90.710 Acquired absence of both cervix and uterus; Z98.51 Tubal ligation status; Z98.890 Other specified postprocedural states; Z68.32 Body mass index [BMI] 32.0-32.9, adult
CPT/HCPCS: 36415; 36416; 36600; 70450; 71045; 71275; 74174; 76770; 80048; 80053; 80202; 80306; 80307; 81001; 82140; 82550; 82805; 83605; 83690; 83735; 83880; 84100; 84146; 84443; 84484; 84703; 85025; 86141; 87040; 87077; 87149; 93005; 93010; 96372; 96375; 96376; A4217; G0378; J0360; J0692; J1644; J1815; J2310; J2550; J3010; J3370-JW; J3490; J7120; Q0169; Q9967

== ENCOUNTER 2023-12-28 16:34 | Emergency (ER) | payer OTHER ==
[2023-12-28] MEDS ORDERED: Morphine 4 MG/ML VIAL ONE (19:15)
== END 2023-12-28 19:29 | disposition home or self-care (01) ==
LOC: ERS 16:34
DX: G89.29 Other chronic pain (principal); M54.50 Low back pain, unspecified; I13.0 Hypertensive heart and chronic kidney disease with heart failure and stage 1 through stage 4 chronic kidney disease, or unspecified chronic kidney disease; E11.22 Type 2 diabetes mellitus with diabetic chronic kidney disease; N18.9 Chronic kidney disease, unspecified; I50.9 Heart failure, unspecified; I25.2 Old myocardial infarction; Z79.4 Long term (current) use of insulin; Z79.899 Other long term (current) drug therapy
CPT/HCPCS: 96372; 99282; J2270

== ENCOUNTER 2023-12-29 08:54 | Emergency (ER) | payer OTHER ==
[2023-12-29 09:43] LABS: #Basophils 0.08 10x3/uL (0.0-0.2); %Basophils 1.2 % (0.0-1.0); %Eosinophils 1.4 % (0.0-10.0); %Lymphocytes 34.1 % (21.0-51.0); %Monocytes 11.2 % (0.0-10.0); %Neutrophils 51.8 % (42.0-75.0); Hematocrit 48.6 % (36.0-47.0); Hemoglobin 14.7 g/dL (12.0-16.0); Mean Corpuscular HGB CONC 30.2 g/dL (32.0-36.0); Mean Corpuscular Hemoglobin 23.6 pg (27.0-31.0); Mean Corpuscular Volume 77.9 fL (78.0-98.0); Mean Platelet Volume 11.1 fL (7.4-10.4); Platelet Count 149 10x3/uL (130-400); RBC Distribution Width 16.8 % (11.5-14.5); Red Blood Cell (RBC) Count 6.24 mill/uL (4.20-5.40)
[2023-12-29 11:05] LABS: ALT (SGPT) 14 U/L (8-55); AST (SGOT) 24 U/L (5-34); Albumin 3.5 g/dL (3.5-5.0); Alkaline Phosphatase 134 U/L (40-110); Anion Gap 18 mmol/L (10-20); BUN (Urea Nitrogen) 31 mg/dL (7.0-18.7); Bilirubin, Total 0.8 mg/dL (0.2-1.2); Calc. Creatinine Clearance 0 mL/min (70-130); Carbon Dioxide 20 mmol/L (22-29); Chloride 98 mmol/L (98-107); Estimated GFR 31; Globulin 5.2 g/dL (2.4-3.5); Glucose 296 mg/dL (70-105); Potassium 3.5 mmol/L (3.5-5.1); Protein, Total 8.7 g/dL (6.0-8.3); Sodium 132 mmol/L (136-145)
[2023-12-29 11:19] LABS: Troponin I 0.156 ng/mL (< 0.028)
[2023-12-29] MEDS ORDERED: tiZANidine HCl 4 MG TAB ONE (12:31)
== END 2023-12-29 12:42 | disposition home or self-care (01) ==
LOC: ERS 08:54
DX: M94.0 Chondrocostal junction syndrome [Tietze] (principal); I13.0 Hypertensive heart and chronic kidney disease with heart failure and stage 1 through stage 4 chronic kidney disease, or unspecified chronic kidney disease; E11.22 Type 2 diabetes mellitus with diabetic chronic kidney disease; N18.9 Chronic kidney disease, unspecified; I50.9 Heart failure, unspecified; I25.10 Atherosclerotic heart disease of native coronary artery without angina pectoris
CPT/HCPCS: 36415; 71046; 80053; 84484; 85025; 93005

== ENCOUNTER 2024-01-02 03:43 | Inpatient (IN) | payer OTHER ==
[2024-01-02 04:33] LABS: Actual Bicarbonate (HCO3v) 22.9 mEq/L (22-28); Base Excess 0.2 mEq/L (-2.0 to +3.0); Calcium, Ionized (venous) 1.04 mmol/L (1.16-1.32); Chloride (VBG) 97 mmol/L (98-106); Hematocrit-VBG 40 % (36.0-47.0); Hemoglobin (Hb) 13.5 g/dL (11.7-16.0); Potassium (VBG) 3.87 mmol/L (3.70-5.30); Sodium 133 mmol/L (133-146); pH (venous) 7.478 (7.32-7.43)
[2024-01-02 04:47] LABS: #Basophils Less than 0.03 10x3/uL (0.0-0.2); %Basophils 0.4 % (0.0-1.0); %Eosinophils 1.4 % (0.0-10.0); %Lymphocytes 34.8 % (21.0-51.0); %Monocytes 9.1 % (0.0-10.0); %Neutrophils 54.1 % (42.0-75.0); Hematocrit 40.1 % (36.0-47.0); Hemoglobin 12.7 g/dL (12.0-16.0); Mean Corpuscular HGB CONC 31.7 g/dL (32.0-36.0); Mean Corpuscular Hemoglobin 23.5 pg (27.0-31.0); Mean Corpuscular Volume 74.1 fL (78.0-98.0); Mean Platelet Volume 11.7 fL (7.4-10.4); Platelet Count 222 10x3/uL (130-400); RBC Distribution Width 15.5 % (11.5-14.5); Red Blood Cell (RBC) Count 5.41 mill/uL (4.20-5.40)
[2024-01-02 05:20] LABS: Troponin I 0.109 ng/mL (< 0.028)
[2024-01-02 05:23] LABS: ALT (SGPT) 13 U/L (8-55); AST (SGOT) 18 U/L (5-34); Albumin 3.2 g/dL (3.5-5.0); Alkaline Phosphatase 131 U/L (40-110); Anion Gap 15 mmol/L (10-20); BUN (Urea Nitrogen) 27 mg/dL (7.0-18.7); Bilirubin, Total 0.6 mg/dL (0.2-1.2); Calc. Creatinine Clearance 0 mL/min (70-130); Calcium 9.6 mg/dL (7.8-10.44); Carbon Dioxide 18 mmol/L (22-29); Chloride 99 mmol/L (98-107); Estimated GFR 31; Glucose 473 mg/dL (70-105); Potassium 3.6 mmol/L (3.5-5.1); Protein, Total 8.2 g/dL (6.0-8.3); Sodium 128 mmol/L (136-145)
[2024-01-02] MEDS ORDERED: Labetalol HCl 100 MG/20 ML VIAL ONE (06:22)
[2024-01-02] MEDS ORDERED: Insulin Regular, Human 100 UNIT/ML 10 ML VIAL ONE (08:56)
[2024-01-02] MEDS ORDERED: Morphine 4 MG/ML VIAL ONE (08:56)
[2024-01-02] MEDS ORDERED: niCARdipine 25 MG/10 ML SDV ONE ×2 (08:56→13:07)
[2024-01-02] MEDS ORDERED: Sodium Chloride 0.9% 100 ML ONE (08:57)
[2024-01-02] MEDS ORDERED: diphenhydrAMINE 50 MG/ML VIAL ONE (11:16)
[2024-01-02] MEDS ORDERED: Haloperidol Lactate 5 MG/ML VIAL ONE (11:16)
[2024-01-02] MEDS ORDERED: Enoxaparin 80 MG (0.8 mL) SYRINGE ONE (11:17)
[2024-01-02] MEDS ORDERED: tiZANidine HCl 4 MG TAB ONE (11:36)
[2024-01-02 12:01] LABS: Troponin I 0.116 ng/mL (< 0.028)
[2024-01-02] MEDS ORDERED: Senokot S 8.6-50 MG TAB PO PRN (12:31)
[2024-01-02] MEDS ORDERED: Electrolyte Replacement Protocol 1 EACH IVPB PRN (12:31)
[2024-01-02] MEDS ORDERED: Dextrose 5% in Water 1,000 ML IV PRN ×2 (13:00→13:11)
[2024-01-02] MEDS ORDERED: Glucagon 1 MG/ML KIT IM PRN ×2 (13:00→13:11)
[2024-01-02] MEDS ORDERED: Dextrose 50% Abboject 50 ML SYRINGE SLOW IVP PRN ×2 (13:00→13:11)
[2024-01-02] MEDS ORDERED: Electrolyte Replacement Protocol FS PRN (13:30)
[2024-01-02] MEDS: Insulin Glargine 30 UNITS/0.3 ML VIAL SC SCH ×2 (14:27→20:53)
[2024-01-02 14:35] VITALS: BMI 32.4
[2024-01-02] MEDS: Acetaminophen 325 MG TAB PO SCH (14:47)
[2024-01-02] MEDS: Isosorbide Mononitrate 60 MG ER.TAB PO SCH ×2 (14:47→20:54)
[2024-01-02] MEDS: HYDROcodone/Acetaminophen 10/325 mg Tablet PO PRN (14:47)
[2024-01-02] MEDS: Furosemide 40 MG TAB PO SCH (14:48)
[2024-01-02] MEDS: tiZANidine HCl 4 MG TAB PO SCH (14:48)
[2024-01-02 15:38] LABS: Troponin I 0.116 ng/mL (< 0.028)
[2024-01-02] MEDS: fentaNYL 50 mcg/mL 1 mL Vial SLOW IVP SCH (17:00)
[2024-01-02] MEDS: Insulin Lispro 100 UNIT/ML 10 ML VIAL SC SCH (17:00)
[2024-01-02] MEDS: niCARdipine 25 MG in Sodium Chloride 0.9% 250 ML 250 ML IVPB PRN (19:14)
[2024-01-02] MEDS: Carvedilol 6.25 MG TAB PO SCH (20:50)
[2024-01-02] MEDS: Gabapentin 300 MG CAP PO SCH (20:51)
[2024-01-02] MEDS: TICAGRELOR 90 MG TABLET PO SCH (20:54)
[2024-01-03 06:06] LABS: #Basophils 0.04 10x3/uL (0.0-0.2); %Basophils 0.9 % (0.0-1.0); %Eosinophils 4.7 % (0.0-10.0); %Lymphocytes 33.4 % (21.0-51.0); %Monocytes 9.6 % (0.0-10.0); %Neutrophils 51.2 % (42.0-75.0); Hematocrit 41.5 % (36.0-47.0); Hemoglobin 13.2 g/dL (12.0-16.0); Mean Corpuscular HGB CONC 31.8 g/dL (32.0-36.0); Mean Corpuscular Hemoglobin 23.5 pg (27.0-31.0); Mean Corpuscular Volume 73.8 fL (78.0-98.0); Mean Platelet Volume 10.6 fL (7.4-10.4); Platelet Count 230 10x3/uL (130-400); RBC Distribution Width 15.8 % (11.5-14.5); Red Blood Cell (RBC) Count 5.62 mill/uL (4.20-5.40)
[2024-01-03 06:26] LABS: Anion Gap 16 mmol/L (10-20); BUN (Urea Nitrogen) 18 mg/dL (7.0-18.7); Calc. Creatinine Clearance 53 mL/min (70-130); Calcium 9.4 mg/dL (7.8-10.44); Carbon Dioxide 20 mmol/L (22-29); Chloride 102 mmol/L (98-107); Estimated GFR 34; Glucose 272 mg/dL (70-105); Potassium 3.6 mmol/L (3.5-5.1); Sodium 134 mmol/L (136-145)
[2024-01-03] MEDS: HumaLOG 300 UNITS/3 ML VIAL SC PRN (06:40)
[2024-01-03] MEDS: Ferrous Gluconate 324 MG TAB PO SCH (09:12)
[2024-01-03] MEDS: Enoxaparin 40 MG (0.4 mL) SYRINGE SC SCH (09:13)
[2024-01-03] MEDS: Potassium Chloride 20 MEQ TAB PO SCH (09:13)
[2024-01-03] MEDS: Furosemide 40 MG TAB PO SCH (09:13)
[2024-01-03] MEDS: NIFEdipine XL 60 MG ER.TAB PO SCH (09:17)
[2024-01-03] MEDS: hydrALAZINE 25 MG TAB PO SCH (10:47)
[2024-01-03] MEDS: Insulin Glargine 30 UNITS/0.3 ML VIAL SC SCH (10:47)
[2024-01-03] MEDS: Morphine 4 MG/ML VIAL SLOW IVP SCH (17:21)
[2024-01-03] MEDS: Carvedilol 6.25 MG TAB PO SCH (20:43)
[2024-01-04 07:31] LABS: #Basophils Less than 0.03 10x3/uL (0.0-0.2); %Basophils 0.4 % (0.0-1.0); %Eosinophils 4.9 % (0.0-10.0); %Lymphocytes 35.7 % (21.0-51.0); %Monocytes 10.7 % (0.0-10.0); %Neutrophils 48.1 % (42.0-75.0); Hemoglobin 13.1 g/dL (12.0-16.0); Mean Corpuscular Hemoglobin 23.9 pg (27.0-31.0); Mean Platelet Volume 10.7 fL (7.4-10.4); Platelet Count 230 10x3/uL (130-400); RBC Distribution Width 15.7 % (11.5-14.5); Red Blood Cell (RBC) Count 5.47 mill/uL (4.20-5.40)
[2024-01-04 07:49] LABS: Anion Gap 15 mmol/L (10-20); BUN (Urea Nitrogen) 21 mg/dL (7.0-18.7); Calc. Creatinine Clearance 59 mL/min (70-130); Calcium 9.4 mg/dL (7.8-10.44); Carbon Dioxide 21 mmol/L (22-29); Chloride 96 mmol/L (98-107); Estimated GFR 36; Glucose 256 mg/dL (70-105); Potassium 4.1 mmol/L (3.5-5.1); Sodium 128 mmol/L (136-145)
[2024-01-04] MEDS: Buprenorphine HCl 2 MG SL TAB SL SCH (08:52)
[2024-01-04] MEDS: Insulin Glargine 30 UNITS/0.3 ML VIAL SC SCH ×2 (11:11→20:30)
[2024-01-05] MEDS: traMADol HCl 50 MG TAB PO PRN (03:34)
[2024-01-05 06:51] LABS: #Basophils Less than 0.03 10x3/uL (0.0-0.2); %Basophils 0.5 % (0.0-1.0); %Eosinophils 3.7 % (0.0-10.0); %Lymphocytes 32.9 % (21.0-51.0); %Monocytes 10.7 % (0.0-10.0); Hematocrit 43.3 % (36.0-47.0); Hemoglobin 13.8 g/dL (12.0-16.0); Mean Corpuscular HGB CONC 31.9 g/dL (32.0-36.0); Mean Corpuscular Hemoglobin 23.2 pg (27.0-31.0); Mean Corpuscular Volume 72.9 fL (78.0-98.0); Mean Platelet Volume 10.2 fL (7.4-10.4); Platelet Count 218 10x3/uL (130-400); RBC Distribution Width 16.1 % (11.5-14.5); Red Blood Cell (RBC) Count 5.94 mill/uL (4.20-5.40)
[2024-01-05 06:59] LABS: Anion Gap 16 mmol/L (10-20); BUN (Urea Nitrogen) 16 mg/dL (7.0-18.7); Calc. Creatinine Clearance 65 mL/min (70-130); Calcium 9.7 mg/dL (7.8-10.44); Carbon Dioxide 22 mmol/L (22-29); Chloride 95 mmol/L (98-107); Estimated GFR 42; Glucose 222 mg/dL (70-105); Potassium 4.7 mmol/L (3.5-5.1); Sodium 128 mmol/L (136-145)
[2024-01-06] MEDS: Labetalol HCl 100 MG/20 ML VIAL SLOW IVP SCH (04:48)
[2024-01-06 06:02] LABS: Anion Gap 13 mmol/L (10-20); BUN (Urea Nitrogen) 24 mg/dL (7.0-18.7); Calc. Creatinine Clearance 51 mL/min (70-130); Calcium 9.8 mg/dL (7.8-10.44); Carbon Dioxide 24 mmol/L (22-29); Chloride 93 mmol/L (98-107); Estimated GFR 32; Glucose 157 mg/dL (70-105); Potassium 3.8 mmol/L (3.5-5.1); Sodium 126 mmol/L (136-145)
[2024-01-06] MEDS ORDERED: Carvedilol 6.25 MG TAB PO SCH (08:00)
[2024-01-06] MEDS: Labetalol HCl 100 MG TAB PO SCH (08:57)
[2024-01-06] MEDS: Morphine 2 MG/ML VIAL SLOW IVP SCH (11:39)
[2024-01-07 05:06] LABS: Anion Gap 13 mmol/L (10-20); BUN (Urea Nitrogen) 28 mg/dL (7.0-18.7); Calc. Creatinine Clearance 64 mL/min (70-130); Calcium 9.3 mg/dL (7.8-10.44); Carbon Dioxide 22 mmol/L (22-29); Chloride 91 mmol/L (98-107); Estimated GFR 42; Glucose 230 mg/dL (70-105); Potassium 4.3 mmol/L (3.5-5.1); Sodium 122 mmol/L (136-145)
[2024-01-07] MEDS: Labetalol HCl 100 MG TAB PO SCH (09:02)
[2024-01-07 11:18] VITALS: BMI 35.8
[2024-01-07] MEDS: Albumin 25% 25 GM (100 mL) BOT IVPB SCH (12:18)
[2024-01-07 12:21] VITALS: BP 139/85; TEMP 98.2
[2024-01-07] MEDS: Acetaminophen/Codeine 30-300mg Tablet PO PRN (15:35)
[2024-01-07 18:11] LABS: Anion Gap 15 mmol/L (10-20); BUN (Urea Nitrogen) 28 mg/dL (7.0-18.7); Calc. Creatinine Clearance 65 mL/min (70-130); Carbon Dioxide 24 mmol/L (22-29); Chloride 93 mmol/L (98-107); Estimated GFR 39; Glucose 147 mg/dL (70-105); Potassium 4.1 mmol/L (3.5-5.1); Sodium 128 mmol/L (136-145)
== END 2024-01-07 20:18 | disposition home or self-care (01) | DRG 281 ==
LOC: SUATTDRO 03:43 → ERS 03:43 → ERHOLD 11:12 → CCU 14:35 → 2NO 01-05 13:16
PROVIDERS: ADMIT Internal Medicine; ATTEND Internal Medicine
PROC: 30233J1 Transfusion of Nonautologous Serum Albumin into Peripheral Vein, Percutaneous Approach (ICD-10-PCS; principal; 2024-01-07)
DX: I16.1 Hypertensive emergency (principal); E87.1 Hypo-osmolality and hyponatremia; I21.A1 Myocardial infarction type 2; N17.9 Acute kidney failure, unspecified; I50.32 Chronic diastolic (congestive) heart failure; E87.21 Acute metabolic acidosis; I11.0 Hypertensive heart disease with heart failure; I25.10 Atherosclerotic heart disease of native coronary artery without angina pectoris; G89.4 Chronic pain syndrome; E78.5 Hyperlipidemia, unspecified; E11.51 Type 2 diabetes mellitus with diabetic peripheral angiopathy without gangrene; E11.22 Type 2 diabetes mellitus with diabetic chronic kidney disease; N18.30 Chronic kidney disease, stage 3 unspecified; E11.21 Type 2 diabetes mellitus with diabetic nephropathy; I15.9 Secondary hypertension, unspecified; E11.65 Type 2 diabetes mellitus with hyperglycemia; Z88.8 Allergy status to other drugs, medicaments and biological substances; Z88.5 Allergy status to narcotic agent; Z79.82 Long term (current) use of aspirin; Z79.2 Long term (current) use of antibiotics; Z89.412 Acquired absence of left great toe; Z90.49 Acquired absence of other specified parts of digestive tract; Z90.710 Acquired absence of both cervix and uterus; Z98.51 Tubal ligation status; Z98.890 Other specified postprocedural states; Z90.89 Acquired absence of other organs
CPT/HCPCS: 36415; 36416; 71045; 80048; 80053; 82010; 82040; 82384; 82805; 83835; 83880; 84484; 85025; 93005; 96374; 96375; 97139; J0571; J1200; J1630; J1650; J1815; J2270; J2272; J3010; J3490; J7050; P9047

== ENCOUNTER 2024-02-05 14:48 | Emergency (ER) | payer OTHER ==
[2024-02-05] MEDS ORDERED: HYDROcodone/Acetaminophen 10/325 mg Tablet ONE (15:38)
== END 2024-02-05 15:46 | disposition home or self-care (01) ==
LOC: ERS 14:48
DX: S39.012A Strain of muscle, fascia and tendon of lower back, initial encounter (principal); M79.672 Pain in left foot; G89.18 Other acute postprocedural pain; E11.51 Type 2 diabetes mellitus with diabetic peripheral angiopathy without gangrene; I11.0 Hypertensive heart disease with heart failure; I50.9 Heart failure, unspecified; I25.2 Old myocardial infarction; X50.9XXA Other and unspecified overexertion or strenuous movements or postures, initial encounter
CPT/HCPCS: 99283

== ENCOUNTER 2024-03-08 15:01 | Emergency (ER) | payer OTHER ==
[2024-03-08 16:35] LABS: #Basophils 0.03 10x3/uL (0.0-0.2); %Basophils 0.5 % (0.0-1.0); %Eosinophils 1.6 % (0.0-10.0); %Lymphocytes 31.1 % (21.0-51.0); %Monocytes 9.9 % (0.0-10.0); %Neutrophils 56.7 % (42.0-75.0); Hematocrit 32.7 % (36.0-47.0); Hemoglobin 10.4 g/dL (12.0-16.0); Mean Corpuscular HGB CONC 31.8 g/dL (32.0-36.0); Mean Corpuscular Hemoglobin 24.3 pg (27.0-31.0); Mean Corpuscular Volume 76.4 fL (78.0-98.0); Mean Platelet Volume 10.5 fL (7.4-10.4); Platelet Count 234 10x3/uL (130-400); RBC Distribution Width 16.9 % (11.5-14.5); Red Blood Cell (RBC) Count 4.28 mill/uL (4.20-5.40)
[2024-03-08 16:57] LABS: BHCG - Serum Negative (NEGATIVE); Pregs Control Background? CLEAR/WHITE (CLR/WHITE); Pregs Control Bar Appear? YES (CONTROL BAR)
[2024-03-08 17:03] LABS: ALT (SGPT) 14 U/L (8-55); AST (SGOT) 21 U/L (5-34); Albumin 3.2 g/dL (3.5-5.0); Alkaline Phosphatase 107 U/L (40-110); Anion Gap 12 mmol/L (10-20); BUN (Urea Nitrogen) 26 mg/dL (7.0-18.7); Calc. Creatinine Clearance 0 mL/min (70-130); Calcium 9.5 mg/dL (7.8-10.44); Carbon Dioxide 24 mmol/L (22-29); Chloride 96 mmol/L (98-107); Estimated GFR 40; Glucose 352 mg/dL (70-105); Protein, Total 8.2 g/dL (6.0-8.3); Sodium 128 mmol/L (136-145)
[2024-03-08 17:16] LABS: Troponin I 0.282 ng/mL (< 0.028)
[2024-03-08] MEDS ORDERED: hydrALAZINE 20 MG/ML VIAL ONE (17:31)
[2024-03-08] MEDS ORDERED: Morphine 2 MG/ML VIAL ONE (17:32)
[2024-03-08 17:56] LABS: Bacteria/HPF None Seen HPF (None Seen); Bilirubin Negative (Negative); Blood, Urine Negative (Negative); CAUTI Indications for Culture Pelvic or flank pain; Clarity Clear (Clear); Glucose, Urine (Dipstick) 500 mg/dL (Negative); Ketone, Urine Negative (Negative); Leukocyte Negative Leu/uL (Negative); Nitrite Negative (Negative); Protein, Urine (Dipstick) 200 mg/dL (Neg-Trace); RBC/HPF 0-3 HPF (0-3); Specific Gravity, Urine 1.006 (1.002-1.036); Squamous Epithelial 0-3 HPF (0-3); Urobilinogen Normal mg/dL (Less than 2); WBC/HPF None Seen HPF (0-3)
[2024-03-08 18:04] LABS: Urine Culture Reflex No No
== END 2024-03-08 18:45 | disposition home or self-care (01) ==
LOC: ERS 15:01
DX: M54.50 Low back pain, unspecified (principal); I16.1 Hypertensive emergency; I13.0 Hypertensive heart and chronic kidney disease with heart failure and stage 1 through stage 4 chronic kidney disease, or unspecified chronic kidney disease; I50.9 Heart failure, unspecified; N18.9 Chronic kidney disease, unspecified; E11.22 Type 2 diabetes mellitus with diabetic chronic kidney disease
CPT/HCPCS: 36415; 71045; 80053; 81001; 83880; 84484; 84703; 85025; 93005; 96374; 96375; J0360; J2272

== ENCOUNTER 2024-03-29 17:02 | Emergency (ER) | payer OTHER ==
[2024-03-29] MEDS ORDERED: Morphine 4 MG/ML VIAL ONE (17:40)
== END 2024-03-29 18:52 | disposition home or self-care (01) ==
LOC: ERS 17:02
DX: M54.50 Low back pain, unspecified (principal); I25.10 Atherosclerotic heart disease of native coronary artery without angina pectoris; I25.2 Old myocardial infarction; I13.0 Hypertensive heart and chronic kidney disease with heart failure and stage 1 through stage 4 chronic kidney disease, or unspecified chronic kidney disease; E11.22 Type 2 diabetes mellitus with diabetic chronic kidney disease; N18.9 Chronic kidney disease, unspecified; I50.9 Heart failure, unspecified; E11.51 Type 2 diabetes mellitus with diabetic peripheral angiopathy without gangrene; W03.XXXA Other fall on same level due to collision with another person, initial encounter
CPT/HCPCS: 72100; 96372; 99283; J2272

== ENCOUNTER → 2024-04-04 | Emergency (ER) | payer OTHER ==
[2024-04-04 20:32] LABS: Bacteria/HPF None Seen HPF (None Seen); Bilirubin Negative (Negative); Blood, Urine Trace (Negative); CAUTI Indications for Culture Pelvic or flank pain; Clarity Clear (Clear); Glucose, Urine (Dipstick) Greater than 1000 mg/dL (Negative); Ketone, Urine Negative (Negative); Leukocyte Negative Leu/uL (Negative); Nitrite Negative (Negative); Protein, Urine (Dipstick) 100 mg/dL (Neg-Trace); RBC/HPF 0-3 HPF (0-3); Specific Gravity, Urine 1.011 (1.002-1.036); Squamous Epithelial 0-3 HPF (0-3); Urobilinogen Normal mg/dL (Less than 2); WBC/HPF 0-3 HPF (0-3)
[2024-04-04 20:33] LABS: Urine Culture Reflex No No
== END ==
LOC: ERS 17:06
DX: Z53.21 Procedure and treatment not carried out due to patient leaving prior to being seen by health care provider (principal)
CPT/HCPCS: 81001

== ENCOUNTER 2024-04-06 19:12 | Emergency (ER) | payer OTHER ==
[2024-04-06 20:17] LABS: #Basophils 0.03 10x3/uL (0.0-0.2); %Basophils 0.5 % (0.0-1.0); %Eosinophils 0.5 % (0.0-10.0); %Lymphocytes 35.8 % (21.0-51.0); %Monocytes 6.6 % (0.0-10.0); %Neutrophils 56.4 % (42.0-75.0); Hematocrit 43.3 % (36.0-47.0); Hemoglobin 13.7 g/dL (12.0-16.0); Mean Corpuscular HGB CONC 31.6 g/dL (32.0-36.0); Mean Corpuscular Hemoglobin 23.8 pg (27.0-31.0); Mean Corpuscular Volume 75.2 fL (78.0-98.0); Mean Platelet Volume 10.7 fL (7.4-10.4); Platelet Count 300 10x3/uL (130-400); RBC Distribution Width 16.2 % (11.5-14.5); Red Blood Cell (RBC) Count 5.76 mill/uL (4.20-5.40)
[2024-04-06 20:42] LABS: Troponin I 0.114 ng/mL (< 0.028)
[2024-04-06 20:50] LABS: ALT (SGPT) 14 U/L (8-55); AST (SGOT) 32 U/L (5-34); Albumin 2.7 g/dL (3.5-5.0); Alkaline Phosphatase 128 U/L (40-110); Anion Gap 18 mmol/L (10-20); BUN (Urea Nitrogen) 39 mg/dL (7.0-18.7); Bilirubin, Total 0.7 mg/dL (0.2-1.2); Calc. Creatinine Clearance 0 mL/min (70-130); Calcium 9.4 mg/dL (7.8-10.44); Carbon Dioxide 19 mmol/L (22-29); Chloride 91 mmol/L (98-107); Estimated GFR 19; Globulin 5.5 g/dL (2.4-3.5); Glucose 548 mg/dL (70-105); Potassium 4.4 mmol/L (3.5-5.1); Protein, Total 8.2 g/dL (6.0-8.3); Sodium 124 mmol/L (136-145)
[2024-04-06] MEDS ORDERED: Acetaminophen/Codeine 30-300mg Tablet ONE (21:45)
[2024-04-07 00:06] LABS: Analyzer IN Cardio ER; Base Excess -19.9 mEq/L (-2.0 to +3.0); Calcium, Ionized (venous) 1.19 mmol/L (1.16-1.32); Chloride (VBG) 92 mmol/L (98-106); Hematocrit-VBG 42 % (36.0-47.0); Hemoglobin (Hb) 14.3 g/dL (11.7-16.0); Potassium (VBG) 3.95 mmol/L (3.70-5.30); Sodium 136 mmol/L (133-146)
[2024-04-11 13:15] LABS: pH (venous) 7.042 (7.32-7.43)
== END 2024-04-06 21:55 | disposition left against medical advice (07) ==
LOC: ERS 19:12
DX: E11.621 Type 2 diabetes mellitus with foot ulcer (principal); R11.0 Nausea; E11.22 Type 2 diabetes mellitus with diabetic chronic kidney disease; I13.0 Hypertensive heart and chronic kidney disease with heart failure and stage 1 through stage 4 chronic kidney disease, or unspecified chronic kidney disease; N18.9 Chronic kidney disease, unspecified; I50.9 Heart failure, unspecified; I25.2 Old myocardial infarction; I25.10 Atherosclerotic heart disease of native coronary artery without angina pectoris; Z79.4 Long term (current) use of insulin; Z79.01 Long term (current) use of anticoagulants; Z79.84 Long term (current) use of oral hypoglycemic drugs; Z79.899 Other long term (current) drug therapy
CPT/HCPCS: 36415; 36416; 71045; 80053; 82805; 84484; 85025; 87428; 93005

== ENCOUNTER 2024-04-26 14:00 | Emergency (ER) | payer OTHER ==
[2024-04-26] MEDS ORDERED: Diazepam 5 MG TAB ONE (16:58)
[2024-04-26 17:22] LABS: Bacteria/HPF None Seen HPF (None Seen); Bilirubin Negative (Negative); Blood, Urine Trace (Negative); CAUTI Indications for Culture Pelvic or flank pain; Clarity Clear (Clear); Glucose, Urine (Dipstick) Greater than 1000 mg/dL (Negative); Ketone, Urine Negative (Negative); Leukocyte Negative Leu/uL (Negative); Nitrite Negative (Negative); Protein, Urine (Dipstick) 300 mg/dL (Neg-Trace); RBC/HPF 0-3 HPF (0-3); Specific Gravity, Urine 1.019 (1.002-1.036); Squamous Epithelial 0-3 HPF (0-3); Urobilinogen Normal mg/dL (Less than 2); WBC/HPF 0-3 HPF (0-3); pH, Urine 6.5 (5.0-9.0)
[2024-04-26 17:23] LABS: Urine Culture Reflex No No
== END 2024-04-26 19:14 | disposition home or self-care (01) ==
LOC: ERS 14:00
DX: M54.50 Low back pain, unspecified (principal); I13.0 Hypertensive heart and chronic kidney disease with heart failure and stage 1 through stage 4 chronic kidney disease, or unspecified chronic kidney disease; E11.22 Type 2 diabetes mellitus with diabetic chronic kidney disease; N18.9 Chronic kidney disease, unspecified; I50.9 Heart failure, unspecified; E11.51 Type 2 diabetes mellitus with diabetic peripheral angiopathy without gangrene; I25.2 Old myocardial infarction; Z79.84 Long term (current) use of oral hypoglycemic drugs; Z79.4 Long term (current) use of insulin
CPT/HCPCS: 81001; 93005; 99283

== ENCOUNTER 2024-05-02 15:15 | Emergency (ER) | payer OTHER ==
[2024-05-02] MEDS ORDERED: HYDROcodone/Acetaminophen 10/325 mg Tablet ONE (17:29)
[2024-05-02] MEDS ORDERED: Lidocaine 4% Patch ONE (17:29)
== END 2024-05-02 18:35 | disposition home or self-care (01) ==
LOC: ERS 15:15
DX: M54.50 Low back pain, unspecified (principal); E11.51 Type 2 diabetes mellitus with diabetic peripheral angiopathy without gangrene; I13.0 Hypertensive heart and chronic kidney disease with heart failure and stage 1 through stage 4 chronic kidney disease, or unspecified chronic kidney disease; I50.9 Heart failure, unspecified; N18.9 Chronic kidney disease, unspecified; E11.22 Type 2 diabetes mellitus with diabetic chronic kidney disease; I25.10 Atherosclerotic heart disease of native coronary artery without angina pectoris; Z79.84 Long term (current) use of oral hypoglycemic drugs; Z55.6 Problems related to health literacy; Z79.4 Long term (current) use of insulin
CPT/HCPCS: 72100; 99283

== ENCOUNTER 2024-05-13 16:59 | Inpatient (IN) | payer OTHER ==
[2024-05-13] MEDS ORDERED: tiZANidine HCl 4 MG TAB ONE ×2 (19:39→22:44)
[2024-05-13] MEDS ORDERED: Lidocaine 4% Patch ONE (19:39)
[2024-05-13 20:27] LABS: Bacteria/HPF None Seen HPF (None Seen); Bilirubin Negative (Negative); Blood, Urine 2+ (Negative); CAUTI Indications for Culture Pelvic or flank pain; Clarity Clear (Clear); Glucose, Urine (Dipstick) Greater than 1000 mg/dL (Negative); Ketone, Urine Negative (Negative); Leukocyte Negative Leu/uL (Negative); Nitrite Negative (Negative); Protein, Urine (Dipstick) 600 mg/dL (Neg-Trace); Specific Gravity, Urine 1.031 (1.002-1.036); Urobilinogen Normal mg/dL (Less than 2); WBC/HPF 0-3 HPF (0-3); pH, Urine 6.5 (5.0-9.0)
[2024-05-13 20:29] LABS: Urine Culture Reflex No No
[2024-05-13 20:47] LABS: Base Excess -0.1 mEq/L (-2.0 to +3.0); Calcium, Ionized (venous) 1.12 mmol/L (1.16-1.32); Hematocrit-VBG 46 % (36.0-47.0); Hemoglobin (Hb) 15.7 g/dL (11.7-16.0); Potassium (VBG) 3.51 mmol/L (3.70-5.30); Sodium 136 mmol/L (133-146); pH (venous) 7.422 (7.32-7.43)
[2024-05-13] MEDS ORDERED: Morphine 4 MG/ML VIAL ONE ×2 (21:13→22:44)
[2024-05-13] MEDS ORDERED: Labetalol HCl 100 MG/20 ML VIAL ONE (21:13)
[2024-05-13 21:37] LABS: #Basophils Less than 0.03 10x3/uL (0.0-0.2); #Eosinophils Less than 0.03 10x3/uL (0.0-0.7); %Basophils 0.2 % (0.0-1.0); %Eosinophils 0.2 % (0.0-10.0); %Lymphocytes 15.5 % (21.0-51.0); %Monocytes 8.3 % (0.0-10.0); %Neutrophils 75.4 % (42.0-75.0); Hemoglobin 13.9 g/dL (12.0-16.0); Mean Corpuscular HGB CONC 33.1 g/dL (32.0-36.0); Mean Corpuscular Hemoglobin 23.9 pg (27.0-31.0); Mean Corpuscular Volume 72.2 fL (78.0-98.0); Mean Platelet Volume 11.2 fL (7.4-10.4); Platelet Count 250 10x3/uL (130-400); RBC Distribution Width 15.1 % (11.5-14.5); Red Blood Cell (RBC) Count 5.82 mill/uL (4.20-5.40)
[2024-05-13 21:52] LABS: Phosphorus 3.8 mg/dL (2.3-4.7)
[2024-05-13 22:05] LABS: ALT (SGPT) 13 U/L (8-55); AST (SGOT) 22 U/L (5-34); Albumin 2.9 g/dL (3.5-5.0); Alkaline Phosphatase 138 U/L (40-110); Anion Gap 20 mmol/L (10-20); BUN (Urea Nitrogen) 18 mg/dL (7.0-18.7); Bilirubin, Total 0.9 mg/dL (0.2-1.2); Calc. Creatinine Clearance 0 mL/min (70-130); Carbon Dioxide 23 mmol/L (22-29); Chloride 93 mmol/L (98-107); Estimated GFR 25; Globulin 5.9 g/dL (2.4-3.5); Glucose 609 mg/dL (70-105); Lipase 66 U/L (8-78); Magnesium 1.8 mg/dL (1.6-2.6); Potassium 2.9 mmol/L (3.5-5.1); Protein, Total 8.8 g/dL (6.0-8.3); Sodium 133 mmol/L (136-145); Troponin I 0.463 ng/mL (< 0.028)
[2024-05-13] MEDS ORDERED: Promethazine HCl 25 MG/ML VIAL ONE (22:44)
[2024-05-13] MEDS ORDERED: NS 0.9% w/ 20 MEQ KCL 1,000 ML ONE (22:45)
[2024-05-13 23:24] LABS: Lactic Acid 3.28 mmol/L (0.5-2.2)
[2024-05-14] MEDS ORDERED: niCARdipine 25 MG/10 ML SDV ONE ×3 (00:26→07:21)
[2024-05-14 01:55] LABS: Anion Gap 17 mmol/L (10-20); BUN (Urea Nitrogen) 17 mg/dL (7.0-18.7); Calc. Creatinine Clearance 0 mL/min (70-130); Calcium 9.5 mg/dL (7.8-10.44); Carbon Dioxide 24 mmol/L (22-29); Chloride 96 mmol/L (98-107); Estimated GFR 25; Glucose 610 mg/dL (70-105); Potassium 3.2 mmol/L (3.5-5.1); Sodium 134 mmol/L (136-145)
[2024-05-14] MEDS ORDERED: Potassium Chloride 20 MEQ TAB ONE ×2 (01:59→08:51)
[2024-05-14] MEDS ORDERED: Droperidol 5 MG/2 ML VIAL ONE (01:59)
[2024-05-14] MEDS ORDERED: Potassium Chloride 20 MEQ (100 mL) BAG ONE (01:59)
[2024-05-14] MEDS ORDERED: Ondansetron PF 4 MG/2 ML Vial IVP PRN (02:39)
[2024-05-14] MEDS ORDERED: Dextrose 5% in Water 1,000 ML IV PRN (02:42)
[2024-05-14] MEDS ORDERED: Glucagon 1 MG/ML KIT IM PRN (02:42)
[2024-05-14] MEDS ORDERED: Dextrose 50% Abboject 50 ML SYRINGE SLOW IVP PRN (02:42)
[2024-05-14] MEDS ORDERED: niCARdipine 25 MG in Sodium Chloride 0.9% 250 ML 250 ML IVPB SCH (02:45)
[2024-05-14 02:57] LABS: Troponin I 0.489 ng/mL (< 0.028)
[2024-05-14 04:59] VITALS: BMI 32.1
[2024-05-14 05:59] LABS: #Basophils Less than 0.03 10x3/uL (0.0-0.2); #Eosinophils Less than 0.03 10x3/uL (0.0-0.7); %Basophils 0.2 % (0.0-1.0); %Lymphocytes 9.1 % (21.0-51.0); %Monocytes 5.5 % (0.0-10.0); %Neutrophils 84.8 % (42.0-75.0); Hematocrit 41.3 % (36.0-47.0); Hemoglobin 13.4 g/dL (12.0-16.0); Mean Corpuscular HGB CONC 32.4 g/dL (32.0-36.0); Mean Corpuscular Hemoglobin 24.6 pg (27.0-31.0); Mean Corpuscular Volume 75.9 fL (78.0-98.0); Mean Platelet Volume 11.2 fL (7.4-10.4); Platelet Count 206 10x3/uL (130-400); RBC Distribution Width 15.3 % (11.5-14.5); Red Blood Cell (RBC) Count 5.44 mill/uL (4.20-5.40)
[2024-05-14 06:51] LABS: Troponin I 0.434 ng/mL (< 0.028)
[2024-05-14 06:52] LABS: Anion Gap 20 mmol/L (10-20); BUN (Urea Nitrogen) 17 mg/dL (7.0-18.7); Calc. Creatinine Clearance 46 mL/min (70-130); Calcium 9.3 mg/dL (7.8-10.44); Carbon Dioxide 19 mmol/L (22-29); Chloride 98 mmol/L (98-107); Estimated GFR 29; Glucose 645 mg/dL (70-105); Magnesium 1.7 mg/dL (1.6-2.6); Potassium 3.5 mmol/L (3.5-5.1); Sodium 133 mmol/L (136-145)
[2024-05-14 07:12] LABS: Lactic Acid 4.48 mmol/L (0.5-2.2)
[2024-05-14] MEDS ORDERED: NS 0.9% w/ 20 MEQ KCL 1,000 ML IV PRN ×2 (07:41)
[2024-05-14] MEDS ORDERED: Sodium Chloride 0.9% 1,000 ML IV PRN ×4 (07:41)
[2024-05-14] MEDS ORDERED: Dextrose 5 %-0.45 % NaCl 1,000 ML IV PRN (07:41)
[2024-05-14] MEDS ORDERED: tiZANidine HCl 4 MG TAB ONE (07:59)
[2024-05-14] MEDS ORDERED: Ondansetron PF 4 MG/2 ML Vial ONE (07:59)
[2024-05-14] MEDS ORDERED: Metoclopramide HCl 10 MG (2 mL) VIAL IVP PRN (08:01)
[2024-05-14] MEDS ORDERED: INSULIN REGULAR IN 0.9 % NACL 100 ML ONE (08:07)
[2024-05-14] MEDS: tiZANidine HCl 4 MG TAB PO PRN (08:08)
[2024-05-14] MEDS ORDERED: Promethazine HCl 25 MG/ML VIAL ONE (08:12)
[2024-05-14 08:44] LABS: Anion Gap 21 mmol/L (10-20); BUN (Urea Nitrogen) 16 mg/dL (7.0-18.7); Calc. Creatinine Clearance 46 mL/min (70-130); Calcium 9.5 mg/dL (7.8-10.44); Carbon Dioxide 17 mmol/L (22-29); Chloride 97 mmol/L (98-107); Estimated GFR 29; Glucose 658 mg/dL (70-105); Potassium 3.9 mmol/L (3.5-5.1); Sodium 131 mmol/L (136-145)
[2024-05-14] MEDS ORDERED: Magnesium 2 GM/50 ML BAG (IN WATER) ONE (08:54)
[2024-05-14] MEDS: INSULIN REGULAR IN 0.9 % NACL 100 ML IVPB SCH (09:00)
[2024-05-14 09:05] LABS: Amphetamine Not Detected (NotDetected); Barbiturates Screen Not Detected (NotDetected); Benzodiazepine Screen Detected (NotDetected); Cocaine Metabolite Screen Not Detected (NotDetected); Methadone Not Detected (NotDetected); Methamphetamine Not Detected (NotDetected); Opiate Screen Detected (NotDetected); Oxycodone Screen Not Detected (NotDetected); Phencyclidine (PCP) Not Detected (NotDetected); THC/Cannabinoid Screen Not Detected (NotDetected); Tricyclic Screen Not Detected (NotDetected)
[2024-05-14] MEDS: Potassium Chloride 20 MEQ TAB PO SCH (09:11)
[2024-05-14] MEDS: Electrolyte Replacement Protocol 1 EACH IVPB SCH (09:40)
[2024-05-14] MEDS ORDERED: NS 0.9% w/ 20 MEQ KCL 1,000 ML ONE (09:55)
[2024-05-14] MEDS: Promethazine HCl 12.5 MG in Sodium Chloride 0.9% 50 ML IVPB PRN (12:15)
[2024-05-14] MEDS: Insulin Glargine 30 UNITS/0.3 ML VIAL SC SCH ×2 (12:24→20:06)
[2024-05-14] MEDS: Sodium Chloride 0.9% 500 ML IV SCH (12:24)
[2024-05-14] MEDS: Magnesium 2 GM/50 ML(in water) 2 GM in Premix 1 BAG IVPB SCH (12:24)
[2024-05-14] MEDS: Heparin 5,000 UNITS/ML VIAL SC SCH (12:24)
[2024-05-14] MEDS: Labetalol HCl 100 MG TAB PO SCH (12:25)
[2024-05-14] MEDS: TICAGRELOR 90 MG TABLET PO SCH (12:25)
[2024-05-14] MEDS ORDERED: oxyCODONE 5 MG TAB PO PRN (12:36)
[2024-05-14] MEDS: oxyCODONE 5 MG TAB PO PRN (12:59)
[2024-05-14 13:30] LABS: Lactic Acid 4.96 mmol/L (0.5-2.2)
[2024-05-14 13:31] LABS: Anion Gap 19 mmol/L (10-20); BUN (Urea Nitrogen) 15 mg/dL (7.0-18.7); Calc. Creatinine Clearance 50 mL/min (70-130); Calcium 10.1 mg/dL (7.8-10.44); Carbon Dioxide 18 mmol/L (22-29); Chloride 100 mmol/L (98-107); Estimated GFR 33; Glucose 376 mg/dL (70-105); Potassium 3.8 mmol/L (3.5-5.1); Sodium 133 mmol/L (136-145)
[2024-05-14] MEDS: NIFEdipine XL 60 MG ER.TAB PO SCH (13:52)
[2024-05-14] MEDS: D5 1/2 NS w/20 mEq KCL 1,000 ML IV PRN (14:28)
[2024-05-14 16:34] LABS: Anion Gap 12 mmol/L (10-20); BUN (Urea Nitrogen) 14 mg/dL (7.0-18.7); Calc. Creatinine Clearance 62 mL/min (70-130); Calcium 8.7 mg/dL (7.8-10.44); Carbon Dioxide 23 mmol/L (22-29); Chloride 105 mmol/L (98-107); Estimated GFR 42; Glucose 164 mg/dL (70-105); Potassium 3.3 mmol/L (3.5-5.1); Sodium 137 mmol/L (136-145)
[2024-05-14] MEDS: Potassium Chloride 20 MEQ in Premix 1 BAG IVPB SCH (17:15)
[2024-05-14] MEDS: Carvedilol 25 MG TAB PO SCH (17:16)
[2024-05-14] MEDS: Atorvastatin Calcium 40 MG TAB PO SCH (20:06)
[2024-05-15] MEDS: Insulin Lispro 100 UNIT/ML 10 ML VIAL SC PRN ×2 (00:19→04:10)
[2024-05-15 06:42] LABS: #Basophils 0.03 10x3/uL (0.0-0.2); %Basophils 0.4 % (0.0-1.0); %Eosinophils 0.6 % (0.0-10.0); %Lymphocytes 22.5 % (21.0-51.0); %Monocytes 11.3 % (0.0-10.0); %Neutrophils 64.8 % (42.0-75.0); Hematocrit 45.2 % (36.0-47.0); Hemoglobin 14.2 g/dL (12.0-16.0); Mean Corpuscular HGB CONC 31.4 g/dL (32.0-36.0); Mean Corpuscular Hemoglobin 23.9 pg (27.0-31.0); Mean Platelet Volume 10.8 fL (7.4-10.4); Platelet Count 215 10x3/uL (130-400); Red Blood Cell (RBC) Count 5.95 mill/uL (4.20-5.40)
[2024-05-15 06:57] LABS: Anion Gap 11 mmol/L (10-20); BUN (Urea Nitrogen) 16 mg/dL (7.0-18.7); Calc. Creatinine Clearance 55 mL/min (70-130); Calcium 9.4 mg/dL (7.8-10.44); Carbon Dioxide 20 mmol/L (22-29); Chloride 102 mmol/L (98-107); Estimated GFR 37; Glucose 221 mg/dL (70-105); Magnesium 1.8 mg/dL (1.6-2.6); Potassium 4.3 mmol/L (3.5-5.1); Sodium 129 mmol/L (136-145)
[2024-05-15] MEDS ORDERED: Lorazepam 2 MG/ML VIAL SLOW IVP SCH (07:45)
[2024-05-15] MEDS ORDERED: NIFEdipine XL 60 MG ER.TAB PO SCH (09:00)
[2024-05-15] MEDS: NIFEdipine XL 30 MG ER.TAB PO SCH (09:20)
[2024-05-15] MEDS: Labetalol HCl 100 MG TAB PO SCH (09:21)
[2024-05-15] MEDS: Magnesium 2 GM/50 ML(in water) 2 GM in Premix 1 BAG IVPB SCH (09:22)
[2024-05-15] MEDS: Sodium Bicarbonate Tab 325 MG TAB PO SCH (10:57)
[2024-05-15] MEDS: fentaNYL 25 mcg Patch TD SCH (12:40)
[2024-05-15] MEDS: Morphine 4 MG/ML VIAL SLOW IVP PRN (17:36)
[2024-05-15] MEDS: hydrALAZINE 20 MG/ML VIAL SLOW IVP PRN (18:51)
[2024-05-15] MEDS: NIFEdipine XL 60 MG ER.TAB PO SCH (19:17)
[2024-05-16 06:48] LABS: #Basophils Less than 0.03 10x3/uL (0.0-0.2); %Basophils 0.3 % (0.0-1.0); %Lymphocytes 36.1 % (21.0-51.0); %Monocytes 14.5 % (0.0-10.0); %Neutrophils 47.8 % (42.0-75.0); Hematocrit 46.6 % (36.0-47.0); Hemoglobin 14.4 g/dL (12.0-16.0); Mean Corpuscular HGB CONC 30.9 g/dL (32.0-36.0); Mean Corpuscular Hemoglobin 24.2 pg (27.0-31.0); Mean Corpuscular Volume 78.2 fL (78.0-98.0); Platelet Count 221 10x3/uL (130-400); RBC Distribution Width 15.9 % (11.5-14.5); Red Blood Cell (RBC) Count 5.96 mill/uL (4.20-5.40)
[2024-05-16 07:02] LABS: Anion Gap 14 mmol/L (10-20); BUN (Urea Nitrogen) 15 mg/dL (7.0-18.7); Calc. Creatinine Clearance 49 mL/min (70-130); Calcium 9.5 mg/dL (7.8-10.44); Carbon Dioxide 22 mmol/L (22-29); Chloride 100 mmol/L (98-107); Estimated GFR 32; Glucose 116 mg/dL (70-105); Potassium 3.8 mmol/L (3.5-5.1); Sodium 132 mmol/L (136-145)
[2024-05-16] MEDS ORDERED: Isosorbide Mononitrate 30 MG ER.TAB PO SCH ×2 (09:00)
[2024-05-16] MEDS: NIFEdipine XL 30 MG ER.TAB PO SCH (09:22)
[2024-05-16] MEDS: Isosorbide Mononitrate 30 MG ER.TAB PO SCH (09:22)
[2024-05-16] MEDS: Lactated Ringer's 1,000 ML IV SCH (09:28)
[2024-05-16] MEDS: Acetaminophen 325 MG TAB PO PRN (14:26)
[2024-05-17 06:54] LABS: Anion Gap 13 mmol/L (10-20); BUN (Urea Nitrogen) 15 mg/dL (7.0-18.7); Calc. Creatinine Clearance 59 mL/min (70-130); Calcium 9.1 mg/dL (7.8-10.44); Carbon Dioxide 21 mmol/L (22-29); Chloride 105 mmol/L (98-107); Estimated GFR 38; Glucose 173 mg/dL (70-105); Potassium 3.8 mmol/L (3.5-5.1); Sodium 135 mmol/L (136-145)
[2024-05-17] MEDS: Isosorbide Mononitrate 30 MG ER.TAB PO SCH (07:55)
[2024-05-17] MEDS: Labetalol HCl 100 MG TAB PO SCH (07:57)
[2024-05-17 08:06] VITALS: TEMP 98.3
[2024-05-17 12:06] VITALS: BP 122/71
[2024-05-17 14:46] VITALS: BMI 32.8
== END 2024-05-17 14:38 | disposition home or self-care (01) | DRG 304 ==
LOC: ERS 16:59 → ERHOLD 05-14 01:59 → CCU 05-14 11:19 → SURG B 05-14 22:27
PROVIDERS: ADMIT Internal Medicine; ATTEND Hospitalist
DX: I16.1 Hypertensive emergency (principal); E11.00 Type 2 diabetes mellitus with hyperosmolarity without nonketotic hyperglycemic-hyperosmolar coma (NKHHC); E11.10 Type 2 diabetes mellitus with ketoacidosis without coma; N18.4 Chronic kidney disease, stage 4 (severe); I50.32 Chronic diastolic (congestive) heart failure; N17.9 Acute kidney failure, unspecified; I5A Non-ischemic myocardial injury (non-traumatic); I13.0 Hypertensive heart and chronic kidney disease with heart failure and stage 1 through stage 4 chronic kidney disease, or unspecified chronic kidney disease; E11.51 Type 2 diabetes mellitus with diabetic peripheral angiopathy without gangrene; G89.4 Chronic pain syndrome; M54.50 Low back pain, unspecified; Z88.5 Allergy status to narcotic agent; Z88.8 Allergy status to other drugs, medicaments and biological substances; I25.10 Atherosclerotic heart disease of native coronary artery without angina pectoris; E11.22 Type 2 diabetes mellitus with diabetic chronic kidney disease; Z90.49 Acquired absence of other specified parts of digestive tract; Z90.710 Acquired absence of both cervix and uterus; Z98.51 Tubal ligation status; Z89.412 Acquired absence of left great toe; Z89.411 Acquired absence of right great toe; E86.0 Dehydration; E87.6 Hypokalemia
CPT/HCPCS: 36415; 36416; 71045; 72148; 74176; 80048; 80053; 80306; 81001; 82010; 82040; 82805; 83605; 83690; 83735; 84100; 84484; 85025; 93005; 96360; 96361; 96365; 96366; 96375; 96376; 97139; J0360; J1644; J1790; J1815; J2272; J2405; J2550; J3475; J3480; J7120

== ENCOUNTER 2024-05-18 10:40 | Inpatient (IN) | payer OTHER ==
[2024-05-18 12:19] LABS: #Basophils Less than 0.03 10x3/uL (0.0-0.2); %Basophils 0.3 % (0.0-1.0); %Eosinophils 0.5 % (0.0-10.0); %Lymphocytes 18.3 % (21.0-51.0); %Monocytes 6.6 % (0.0-10.0); %Neutrophils 73.6 % (42.0-75.0); Hematocrit 40.2 % (36.0-47.0); Hemoglobin 12.5 g/dL (12.0-16.0); Mean Corpuscular HGB CONC 31.1 g/dL (32.0-36.0); Mean Corpuscular Hemoglobin 24.6 pg (27.0-31.0); Mean Platelet Volume 10.7 fL (7.4-10.4); Platelet Count 192 10x3/uL (130-400); RBC Distribution Width 16.2 % (11.5-14.5); Red Blood Cell (RBC) Count 5.09 mill/uL (4.20-5.40)
[2024-05-18 12:36] LABS: Lipase 34 U/L (8-78)
[2024-05-18 12:38] LABS: Acetaminophen Less than 10 mcg/mL (Less than 10); Alcohol Less than 10.0 mg/dL (Less than 10); Salicylate Less than 8.0 mg/dL (Less than 8.0)
[2024-05-18 12:55] LABS: Bacteria/HPF None Seen HPF (None Seen); Bilirubin Negative (Negative); Blood, Urine 1+ (Negative); CAUTI Indications for Culture Alt mental st,lethar; Clarity Clear (Clear); Glucose, Urine (Dipstick) 30 mg/dL (Negative); Ketone, Urine Negative (Negative); Leukocyte Negative Leu/uL (Negative); Nitrite Negative (Negative); Protein, Urine (Dipstick) 100 mg/dL (Neg-Trace); RBC/HPF 0-3 HPF (0-3); Squamous Epithelial None Seen HPF (0-3); Urobilinogen Normal mg/dL (Less than 2); WBC/HPF 0-3 HPF (0-3); pH, Urine 7.5 (5.0-9.0)
[2024-05-18 12:57] LABS: Urine Culture Reflex No No
[2024-05-18 12:58] LABS: Amphetamine Not Detected (NotDetected); Barbiturates Screen Not Detected (NotDetected); Benzodiazepine Screen Not Detected (NotDetected); Cocaine Metabolite Screen Not Detected (NotDetected); Methadone Not Detected (NotDetected); Methamphetamine Not Detected (NotDetected); Opiate Screen Detected (NotDetected); Oxycodone Screen Not Detected (NotDetected); Phencyclidine (PCP) Not Detected (NotDetected); THC/Cannabinoid Screen Not Detected (NotDetected); Tricyclic Screen Not Detected (NotDetected)
[2024-05-18] MEDS ORDERED: Labetalol HCl 100 MG/20 ML VIAL ONE (14:01)
[2024-05-18] MEDS ORDERED: Heparin 25,000 units/D5W 500 ML ONE (14:01)
[2024-05-18] MEDS ORDERED: cefTRIAXone (ROCEPHIN) 2 GM VIAL ONE (14:01)
[2024-05-18] MEDS ORDERED: Sodium Chloride 0.9% 100 ML ONE (14:01)
[2024-05-18] MEDS ORDERED: Heparin 5,000 UNITS/ML VIAL ONE (14:01)
[2024-05-18 15:09] LABS: ALT (SGPT) 13 U/L (8-55); AST (SGOT) 38 U/L (5-34); Albumin 2.6 g/dL (3.5-5.0); Alkaline Phosphatase 108 U/L (40-110); Anion Gap 14 mmol/L (10-20); BUN (Urea Nitrogen) 21 mg/dL (7.0-18.7); Bilirubin, Total 0.4 mg/dL (0.2-1.2); Calc. Creatinine Clearance 0 mL/min (70-130); Calcium 9.2 mg/dL (7.8-10.44); Carbon Dioxide 22 mmol/L (22-29); Chloride 107 mmol/L (98-107); Estimated GFR 36; Globulin 4.8 g/dL (2.4-3.5); Glucose 194 mg/dL (70-105); Protein, Total 7.4 g/dL (6.0-8.3); Sodium 139 mmol/L (136-145)
[2024-05-18 15:46] LABS: Critical Call Chem Troponin I RESULT DECREASING; Troponin I 0.873 ng/mL (< 0.028)
[2024-05-18 15:50] LABS: Prothrombin Time 13.6 sec (12.0-14.7)
[2024-05-18] MEDS ORDERED: Heparin 10,000 UNITS/ 10 ML VIAL SLOW IVP SCH (16:26)
[2024-05-18] MEDS ORDERED: Acetaminophen 500 MG TAB PO PRN (16:26)
[2024-05-18] MEDS ORDERED: Nitroglycerin 0.4 MG TAB (25 Tab Bottle) SL PRN (16:26)
[2024-05-18] MEDS ORDERED: Heparin 25,000 units/D5W 500 ML IVPB SCH (16:26)
[2024-05-18] MEDS ORDERED: Dextrose 5% in Water 1,000 ML IV PRN (16:26)
[2024-05-18] MEDS ORDERED: Ondansetron PF 4 MG/2 ML Vial IVP PRN (16:26)
[2024-05-18] MEDS ORDERED: Insulin Lispro 100 UNIT/ML 10 ML VIAL SC PRN ×2 (16:26)
[2024-05-18] MEDS ORDERED: Ondansetron ODT 4 MG TAB PO PRN (16:26)
[2024-05-18] MEDS ORDERED: Glucagon 1 MG/ML KIT IM PRN (16:26)
[2024-05-18] MEDS ORDERED: Dextrose 50% Abboject 50 ML SYRINGE SLOW IVP PRN (16:26)
[2024-05-18] MEDS: Vancomycin (BATCH) 2 GM in Premix 1 BAG IVPB SCH (16:36)
[2024-05-18 16:46] VITALS: BMI 33.0
[2024-05-18] MEDS: Labetalol HCl 100 MG/20 ML VIAL SLOW IVP PRN (17:51)
[2024-05-18 18:19] LABS: Hematocrit 40.3 % (36.0-47.0); Hemoglobin 12.7 g/dL (12.0-16.0); Platelet Count 214 10x3/uL (130-400)
[2024-05-18] MEDS: Sodium Chloride 0.9% 1,000 ML IV SCH (18:34)
[2024-05-18] MEDS: Morphine 2 MG/ML VIAL SLOW IVP PRN (18:34)
[2024-05-18 19:00] LABS: Troponin I 0.915 ng/mL (< 0.028)
[2024-05-18] MEDS: Atorvastatin Calcium 40 MG TAB PO SCH (19:52)
[2024-05-18] MEDS: Famotidine/PF 20 mg/2ml Vial SLOW IVP SCH (19:52)
[2024-05-18] MEDS: Sodium Bicarbonate Tab 325 MG TAB PO SCH (19:52)
[2024-05-18] MEDS: NIFEdipine XL 30 MG ER.TAB PO SCH (19:53)
[2024-05-18] MEDS: Gabapentin 300 MG CAP PO SCH (19:53)
[2024-05-18] MEDS: Labetalol HCl 100 MG TAB PO SCH (19:53)
[2024-05-18] MEDS ORDERED: Metoclopramide HCl 10 MG (2 mL) VIAL IVP PRN (21:05)
[2024-05-18] MEDS: hydrALAZINE 20 MG/ML VIAL SLOW IVP PRN (21:18)
[2024-05-18] MEDS: Promethazine 25 MG TAB PO PRN (21:28)
[2024-05-18] MEDS: tiZANidine HCl 4 MG TAB PO PRN (23:02)
[2024-05-19 04:01] LABS: #Basophils Less than 0.03 10x3/uL (0.0-0.2); %Basophils 0.3 % (0.0-1.0); %Eosinophils 0.4 % (0.0-10.0); %Lymphocytes 13.4 % (21.0-51.0); %Monocytes 14.1 % (0.0-10.0); %Neutrophils 71.2 % (42.0-75.0); Hematocrit 36.9 % (36.0-47.0); Hemoglobin 11.2 g/dL (12.0-16.0); Mean Corpuscular HGB CONC 30.4 g/dL (32.0-36.0); Mean Corpuscular Hemoglobin 24.1 pg (27.0-31.0); Mean Corpuscular Volume 79.5 fL (78.0-98.0); Mean Platelet Volume 11.6 fL (7.4-10.4); Platelet Count 134 10x3/uL (130-400); RBC Distribution Width 16.1 % (11.5-14.5); Red Blood Cell (RBC) Count 4.64 mill/uL (4.20-5.40)
[2024-05-19 04:20] LABS: ALT (SGPT) 12 U/L (8-55); AST (SGOT) 35 U/L (5-34); Albumin 2.2 g/dL (3.5-5.0); Alkaline Phosphatase 96 U/L (40-110); Anion Gap 15 mmol/L (10-20); BUN (Urea Nitrogen) 19 mg/dL (7.0-18.7); Bilirubin, Total 0.3 mg/dL (0.2-1.2); Calc. Creatinine Clearance 62 mL/min (70-130); Calcium 8.2 mg/dL (7.8-10.44); Carbon Dioxide 18 mmol/L (22-29); Cardiac Risk 2.4 (Less than 4.5); Chloride 107 mmol/L (98-107); Cholesterol 175 mg/dl (< 200 Desired); Estimated GFR 40; Globulin 4.3 g/dL (2.4-3.5); Glucose 170 mg/dL (70-105); HDL Cholesterol 74 mg/dL (>60 Neg Risk); LDL Cholesterol, Calculated 77 mg/dL; Potassium 4.3 mmol/L (3.5-5.1); Protein, Total 6.5 g/dL (6.0-8.3); Sodium 136 mmol/L (136-145); Triglycerides 120 mg/dL (Less than 150)
[2024-05-19] MEDS: Morphine 2 MG/ML VIAL SLOW IVP PRN (06:27)
[2024-05-19] MEDS: Ferrous Sulfate 325 MG TAB PO SCH (08:35)
[2024-05-19] MEDS: Furosemide 40 MG TAB PO SCH (08:35)
[2024-05-19] MEDS: Dapagliflozin Propanediol 10 MG TAB PO SCH (08:35)
[2024-05-19] MEDS: Potassium Chloride 20 MEQ TAB PO SCH (08:36)
[2024-05-19] MEDS ORDERED: Isosorbide Mononitrate 60 MG ER.TAB PO SCH (09:00)
[2024-05-19] MEDS ORDERED: Nitroglycerin 2% Ointment 1 INCH/1 GM Packet TOP SCH (09:00)
[2024-05-19 11:17] VITALS: TEMP 98.3
[2024-05-19 17:56] VITALS: BP 156/88
[2024-05-19] MEDS ORDERED: Atorvastatin Calcium 40 MG TAB PO SCH (21:00)
== END 2024-05-19 18:55 | disposition home or self-care (01) | DRG 91 ==
LOC: ERS 10:40 → ERHOLD 14:18 → OBSVTOIN 14:30 → 2NO 16:14
PROVIDERS: ADMIT Family Medicine; ATTEND Internal Medicine
DX: G92.8 Other toxic encephalopathy (principal); I21.A1 Myocardial infarction type 2; I13.0 Hypertensive heart and chronic kidney disease with heart failure and stage 1 through stage 4 chronic kidney disease, or unspecified chronic kidney disease; I42.9 Cardiomyopathy, unspecified; I16.1 Hypertensive emergency; I50.32 Chronic diastolic (congestive) heart failure; N18.4 Chronic kidney disease, stage 4 (severe); E11.649 Type 2 diabetes mellitus with hypoglycemia without coma; I25.10 Atherosclerotic heart disease of native coronary artery without angina pectoris; I50.9 Heart failure, unspecified; E11.621 Type 2 diabetes mellitus with foot ulcer; E11.51 Type 2 diabetes mellitus with diabetic peripheral angiopathy without gangrene; Z88.5 Allergy status to narcotic agent; Z88.8 Allergy status to other drugs, medicaments and biological substances; Z95.5 Presence of coronary angioplasty implant and graft; Z90.49 Acquired absence of other specified parts of digestive tract; Z90.710 Acquired absence of both cervix and uterus; Z90.89 Acquired absence of other organs; Z98.51 Tubal ligation status; Z89.411 Acquired absence of right great toe; Z89.412 Acquired absence of left great toe; Z89.422 Acquired absence of other left toe(s)
CPT/HCPCS: 36415; 36416; 51702; 70450; 71045; 80053; 80061; 80306; 80307; 81001; 82140; 83605; 83690; 83880; 84443; 84484; 85025; 85610; 85730; 87040; 87086; 93005; 94760; 96365; 96367; 96368; 96375; 96376; J0360; J0696; J1644; J2272; J3370; J3490; J7030; Q0169

== ENCOUNTER 2024-06-13 09:05 | Inpatient (IN) | payer OTHER ==
[2024-06-13] MEDS ORDERED: Lorazepam 2 MG/ML VIAL ONE (09:10)
[2024-06-13] MEDS ORDERED: fentaNYL 50 mcg/mL 1 mL Vial ONE (09:31)
[2024-06-13 09:33] LABS: Analyzer IN Cardio ER; Base Excess -3.8 mEq/L (-2.0 to +3.0); Calcium, Ionized (venous) 1.15 mmol/L (1.16-1.32); Chloride (VBG) 106 mmol/L (98-106); Hematocrit-VBG 33 % (36.0-47.0); Hemoglobin (Hb) 11.3 g/dL (11.7-16.0); Potassium (VBG) 4.17 mmol/L (3.70-5.30); Sodium 138 mmol/L (133-146); pH (venous) 7.412 (7.32-7.43)
[2024-06-13 09:51] LABS: #Basophils 0.03 10x3/uL (0.0-0.2); %Basophils 0.3 % (0.0-1.0); %Eosinophils 0.8 % (0.0-10.0); %Lymphocytes 18.1 % (21.0-51.0); %Monocytes 9.7 % (0.0-10.0); %Neutrophils 69.3 % (42.0-75.0); Hematocrit 32.4 % (36.0-47.0); Hemoglobin 9.7 g/dL (12.0-16.0); Mean Corpuscular HGB CONC 29.9 g/dL (32.0-36.0); Mean Corpuscular Hemoglobin 23.7 pg (27.0-31.0); Mean Corpuscular Volume 79.2 fL (78.0-98.0); Platelet Count 433 10x3/uL (130-400); RBC Distribution Width 17.2 % (11.5-14.5); Red Blood Cell (RBC) Count 4.09 mill/uL (4.20-5.40)
[2024-06-13 10:05] LABS: INR-International Normal Ratio 1.1; Prothrombin Time 14.5 sec (12.0-14.7)
[2024-06-13 10:15] LABS: ALT (SGPT) 25 U/L (8-55); AST (SGOT) 52 U/L (5-34); Albumin 2.2 g/dL (3.5-5.0); Alkaline Phosphatase 142 U/L (40-110); Anion Gap 17 mmol/L (10-20); BUN (Urea Nitrogen) 15 mg/dL (7.0-18.7); Bilirubin, Total 0.5 mg/dL (0.2-1.2); Calc. Creatinine Clearance 0 mL/min (70-130); Calcium 9.4 mg/dL (7.8-10.44); Carbon Dioxide 16 mmol/L (22-29); Chloride 108 mmol/L (98-107); Estimated GFR 44; Globulin 6.3 g/dL (2.4-3.5); Glucose 232 mg/dL (70-105); Protein, Total 8.5 g/dL (6.0-8.3); Sodium 137 mmol/L (136-145)
[2024-06-13 10:36] LABS: Bacteria/HPF 1+ HPF (None Seen); Bilirubin Negative (Negative); Blood, Urine 1+ (Negative); CAUTI Indications for Culture Dysuria,urgency,freq; Clarity Clear (Clear); Glucose, Urine (Dipstick) 300 mg/dL (Negative); Ketone, Urine Negative (Negative); Leukocyte Negative Leu/uL (Negative); Nitrite Negative (Negative); Protein, Urine (Dipstick) 100 mg/dL (Neg-Trace); Specific Gravity, Urine 1.008 (1.002-1.036); Urobilinogen Normal mg/dL (Less than 2); WBC/HPF 0-3 HPF (0-3)
[2024-06-13 10:37] LABS: Urine Culture Reflex No No
[2024-06-13] MEDS ORDERED: Sodium Chloride 0.9% 100 ML ONE (10:53)
[2024-06-13] MEDS ORDERED: Furosemide 40 MG (4 mL) VIAL ONE (10:53)
[2024-06-13] MEDS ORDERED: Enoxaparin 100 MG (1 mL) SYRINGE ONE (10:53)
[2024-06-13] MEDS ORDERED: Piperacillin/Tazobactam 3.375 GM VIAL ONE (10:53)
[2024-06-13] MEDS ORDERED: Labetalol HCl 100 MG/20 ML VIAL ONE (11:51)
[2024-06-13] MEDS ORDERED: Morphine 4 MG/ML VIAL ONE ×2 (12:59→14:57)
[2024-06-13] MEDS ORDERED: Ondansetron PF 4 MG/2 ML Vial IVP PRN (13:13)
[2024-06-13] MEDS ORDERED: Nitroglycerin 50 MG/250 ML BOT 250 ML IVPB SCH (13:15)
[2024-06-13] MEDS ORDERED: Iopamidol-370 76% 500 ML MDV (1 ML CHARGE) ONE (13:59)
[2024-06-13 14:18] LABS: Troponin I 0.082 ng/mL (< 0.028)
[2024-06-13] MEDS: Vancomycin (BATCH) 2.5 GM in Premix 1 BAG IVPB SCH (14:20)
[2024-06-13] MEDS: Furosemide 100 MG (10 mL) VIAL SLOW IVP SCH (14:21)
[2024-06-13] MEDS ORDERED: niCARdipine 25 MG/10 ML SDV ONE ×2 (14:58→16:57)
[2024-06-13] MEDS: niCARdipine 25 MG in Sodium Chloride 0.9% 250 ML 250 ML IVPB SCH (15:09)
[2024-06-13] MEDS: Morphine 4 MG/ML VIAL SLOW IVP PRN (15:10)
[2024-06-13 15:48] LABS: Troponin I 0.093 ng/mL (< 0.028)
[2024-06-13 15:55] LABS: Actual Bicarbonate (HCO3v) 21.6 mEq/L (22-28); Analyzer IN Cardio ER; Calcium, Ionized (venous) 1.21 mmol/L (1.16-1.32); Chloride (VBG) 105 mmol/L (98-106); Hematocrit-VBG 33 % (36.0-47.0); Hemoglobin (Hb) 11.2 g/dL (11.7-16.0); Potassium (VBG) 4.06 mmol/L (3.70-5.30); Sodium 140 mmol/L (133-146); pH (venous) 7.382 (7.32-7.43)
[2024-06-13] MEDS: Dexmedetomidine In 0.9 % NaCl 100 ML IV SCH (16:29)
[2024-06-13] MEDS: niCARdipine 50 MG, Admixture Fee 1 EACH in Sodium Chloride 0.9% 250 ML 230 ML IV SCH (18:45)
[2024-06-13 18:48] LABS: Actual Bicarbonate (HCO3v) 20.9 mEq/L (22-28); Base Excess -1.8 mEq/L (-2.0 to +3.0); Calcium, Ionized (venous) 1.05 mmol/L (1.16-1.32); Chloride (VBG) 108 mmol/L (98-106); Hematocrit-VBG 28 % (36.0-47.0); Hemoglobin (Hb) 9.4 g/dL (11.7-16.0); Potassium (VBG) 3.84 mmol/L (3.70-5.30); Sodium 138 mmol/L (133-146); pH (venous) 7.484 (7.32-7.43)
[2024-06-13] MEDS: Labetalol HCl 100 MG/20 ML VIAL SLOW IVP SCH (20:19)
[2024-06-13] MEDS ORDERED: Ipratropium/Albuterol 3 ML NEB NEB PRN (20:45)
[2024-06-14 05:17] LABS: #Basophils Less than 0.03 10x3/uL (0.0-0.2); %Basophils 0.4 % (0.0-1.0); %Eosinophils 2.1 % (0.0-10.0); %Lymphocytes 17.9 % (21.0-51.0); %Monocytes 10.5 % (0.0-10.0); %Neutrophils 68.3 % (42.0-75.0); Mean Corpuscular Hemoglobin 23.7 pg (27.0-31.0); Mean Corpuscular Volume 76.5 fL (78.0-98.0); Mean Platelet Volume 10.3 fL (7.4-10.4); Platelet Count 305 10x3/uL (130-400); RBC Distribution Width 17.1 % (11.5-14.5); Red Blood Cell (RBC) Count 3.79 mill/uL (4.20-5.40)
[2024-06-14 05:21] LABS: Anion Gap 12 mmol/L (10-20); BUN (Urea Nitrogen) 13 mg/dL (7.0-18.7); Calc. Creatinine Clearance 96 mL/min (70-130); Calcium 8.8 mg/dL (7.8-10.44); Carbon Dioxide 19 mmol/L (22-29); Chloride 111 mmol/L (98-107); Estimated GFR 58; Glucose 114 mg/dL (70-105); Potassium 3.8 mmol/L (3.5-5.1); Sodium 138 mmol/L (136-145)
[2024-06-14 05:28] LABS: Vancomycin, Random 30.6 ug/mL (See Comment)
[2024-06-14] MEDS: hydrALAZINE 20 MG/ML VIAL SLOW IVP PRN (06:17)
[2024-06-14] MEDS: Dapagliflozin Propanediol 10 MG TAB PO SCH (08:08)
[2024-06-14] MEDS: Heparin 5,000 UNITS/ML VIAL SC SCH (08:08)
[2024-06-14] MEDS ORDERED: Vancomycin 1 GM in Premix 1 BAG IVPB SCH (12:00)
[2024-06-14] MEDS: Acetaminophen/Codeine 30-300mg Tablet PO PRN (13:29)
[2024-06-14 14:20] VITALS: BMI 40.9
[2024-06-14] MEDS: Vancomycin 1 GM in Premix 1 BAG IVPB SCH (16:24)
[2024-06-14] MEDS: Sodium Bicarbonate Tab 325 MG TAB PO SCH (20:29)
[2024-06-14] MEDS: TICAGRELOR 90 MG TABLET PO SCH (20:30)
[2024-06-14] MEDS: Atorvastatin Calcium 40 MG TAB PO SCH (20:30)
[2024-06-14] MEDS: NIFEdipine XL 30 MG ER.TAB PO SCH (20:30)
[2024-06-14] MEDS: Isosorbide Mononitrate 60 MG ER.TAB PO SCH (20:30)
[2024-06-14] MEDS: Labetalol HCl 100 MG TAB PO SCH (20:30)
[2024-06-14] MEDS: Insulin Glargine 30 UNITS/0.3 ML VIAL SC SCH (20:32)
[2024-06-15 05:16] LABS: #Basophils Less than 0.03 10x3/uL (0.0-0.2); %Basophils 0.3 % (0.0-1.0); %Lymphocytes 18.2 % (21.0-51.0); %Neutrophils 62.8 % (42.0-75.0); Hematocrit 29.1 % (36.0-47.0); Hemoglobin 9.1 g/dL (12.0-16.0); Mean Corpuscular HGB CONC 31.3 g/dL (32.0-36.0); Mean Corpuscular Hemoglobin 24.3 pg (27.0-31.0); Mean Corpuscular Volume 77.6 fL (78.0-98.0); Mean Platelet Volume 9.9 fL (7.4-10.4); Platelet Count 279 10x3/uL (130-400); Red Blood Cell (RBC) Count 3.75 mill/uL (4.20-5.40)
[2024-06-15 05:48] LABS: ALT (SGPT) 16 U/L (8-55); AST (SGOT) 22 U/L (5-34); Albumin 1.9 g/dL (3.5-5.0); Alkaline Phosphatase 101 U/L (40-110); Anion Gap 11 mmol/L (10-20); BUN (Urea Nitrogen) 17 mg/dL (7.0-18.7); Bilirubin, Total 0.4 mg/dL (0.2-1.2); Calc. Creatinine Clearance 85 mL/min (70-130); Calcium 8.7 mg/dL (7.8-10.44); Carbon Dioxide 25 mmol/L (22-29); Chloride 106 mmol/L (98-107); Estimated GFR 51; Globulin 5.3 g/dL (2.4-3.5); Glucose 76 mg/dL (70-105); Potassium 3.3 mmol/L (3.5-5.1); Protein, Total 7.2 g/dL (6.0-8.3); Sodium 139 mmol/L (136-145)
[2024-06-15] MEDS: Gabapentin 300 MG CAP PO SCH (07:35)
[2024-06-15] MEDS: Ferrous Gluconate 324 MG TAB PO SCH (08:11)
[2024-06-15] MEDS: Potassium Chloride 20 MEQ TAB PO SCH ×3 (08:11→20:03)
[2024-06-15] MEDS: tiZANidine HCl 4 MG TAB PO PRN (15:51)
[2024-06-16 04:07] LABS: #Basophils 0.04 10x3/uL (0.0-0.2); %Basophils 0.6 % (0.0-1.0); %Eosinophils 2.5 % (0.0-10.0); %Lymphocytes 22.1 % (21.0-51.0); %Monocytes 15.1 % (0.0-10.0); %Neutrophils 59.3 % (42.0-75.0); Hematocrit 29.3 % (36.0-47.0); Mean Corpuscular HGB CONC 30.7 g/dL (32.0-36.0); Mean Corpuscular Hemoglobin 23.9 pg (27.0-31.0); Mean Corpuscular Volume 77.9 fL (78.0-98.0); Mean Platelet Volume 9.4 fL (7.4-10.4); Platelet Count 329 10x3/uL (130-400); RBC Distribution Width 16.6 % (11.5-14.5); Red Blood Cell (RBC) Count 3.76 mill/uL (4.20-5.40)
[2024-06-16 06:18] VITALS: BMI 38.0
[2024-06-16] MEDS: Insulin Regular, Human 100 UNIT/ML 10 ML VIAL SC PRN (16:13)
[2024-06-16] MEDS: Acetaminophen/Codeine 30-300mg Tablet PO PRN (18:48)
[2024-06-16] MEDS: tiZANidine HCl 4 MG TAB PO PRN (20:47)
[2024-06-17 04:51] LABS: #Basophils 0.04 10x3/uL (0.0-0.2); %Basophils 0.6 % (0.0-1.0); %Eosinophils 1.4 % (0.0-10.0); %Lymphocytes 20.4 % (21.0-51.0); %Monocytes 12.8 % (0.0-10.0); %Neutrophils 64.5 % (42.0-75.0); Hematocrit 28.1 % (36.0-47.0); Hemoglobin 8.8 g/dL (12.0-16.0); Mean Corpuscular HGB CONC 31.3 g/dL (32.0-36.0); Mean Corpuscular Hemoglobin 24.2 pg (27.0-31.0); Mean Corpuscular Volume 77.4 fL (78.0-98.0); Mean Platelet Volume 9.5 fL (7.4-10.4); Platelet Count 285 10x3/uL (130-400); RBC Distribution Width 16.3 % (11.5-14.5); Red Blood Cell (RBC) Count 3.63 mill/uL (4.20-5.40)
[2024-06-17 05:04] LABS: Vancomycin, Random 34.7 ug/mL (See Comment)
[2024-06-17 05:12] LABS: Anion Gap 15 mmol/L (10-20); BUN (Urea Nitrogen) 18 mg/dL (7.0-18.7); Calc. Creatinine Clearance 60 mL/min (70-130); Calcium 8.2 mg/dL (7.8-10.44); Carbon Dioxide 25 mmol/L (22-29); Chloride 99 mmol/L (98-107); Estimated GFR 37; Glucose 72 mg/dL (70-105); Potassium 4.5 mmol/L (3.5-5.1); Sodium 134 mmol/L (136-145)
[2024-06-17 19:22] VITALS: BP 176/85; TEMP 98.5
[2024-06-17] MEDS ORDERED: Vancomycin HCl 500 MG in Sodium Chloride 0.9% 100 ML IVPB SCH (21:00)
== END 2024-06-17 20:20 | disposition home or self-care (01) | DRG 291 ==
LOC: ERS 09:05 → ERHOLD 12:43 → CCU 19:50 → IMCU/EMU 06-14 07:15 → MSONC 06-16 10:58
PROVIDERS: ADMIT Internal Medicine; ATTEND Family Medicine
DX: I13.0 Hypertensive heart and chronic kidney disease with heart failure and stage 1 through stage 4 chronic kidney disease, or unspecified chronic kidney disease (principal); I50.33 Acute on chronic diastolic (congestive) heart failure; J96.01 Acute respiratory failure with hypoxia; N17.9 Acute kidney failure, unspecified; E87.20 Acidosis, unspecified; I16.1 Hypertensive emergency; Z88.8 Allergy status to other drugs, medicaments and biological substances; Z79.899 Other long term (current) drug therapy; Z79.4 Long term (current) use of insulin; I25.10 Atherosclerotic heart disease of native coronary artery without angina pectoris; I25.2 Old myocardial infarction; Z90.710 Acquired absence of both cervix and uterus; Z90.49 Acquired absence of other specified parts of digestive tract; Z98.51 Tubal ligation status; Z90.89 Acquired absence of other organs; Z98.890 Other specified postprocedural states; E11.22 Type 2 diabetes mellitus with diabetic chronic kidney disease; N18.30 Chronic kidney disease, stage 3 unspecified; E11.621 Type 2 diabetes mellitus with foot ulcer; Z79.01 Long term (current) use of anticoagulants
CPT/HCPCS: 36415; 36416; 51702; 71045; 71275; 80048; 80053; 80202; 81001; 82805; 83605; 83880; 84484; 85025; 85610; 85730; 87040; 87086; 93005; 93798; 94660; 94760; 96365; 96366; 96367; 96372; 96374; 96375; 97139; 99292; J0360; J1644; J1650; J1815; J1940; J2060; J2270; J2543; J3010; J3370; J7050; Q9967

== ENCOUNTER 2024-06-19 21:10 | Inpatient (IN) | payer OTHER ==
[2024-06-19] MEDS ORDERED: Lorazepam 2 MG/ML VIAL ONE (21:26)
[2024-06-19] MEDS ORDERED: Nitroglycerin 50 MG/250 ML BOT 0 ML ONE (21:27)
[2024-06-19] MEDS ORDERED: Morphine 2 MG/ML VIAL ONE (21:45)
[2024-06-19] MEDS ORDERED: Furosemide 40 MG (4 mL) VIAL ONE (21:45)
[2024-06-19 21:56] LABS: #Basophils 0.09 10x3/uL (0.0-0.2); %Eosinophils 1.2 % (0.0-10.0); %Lymphocytes 16.4 % (21.0-51.0); %Monocytes 7.7 % (0.0-10.0); %Neutrophils 73.4 % (42.0-75.0); Hematocrit 33.4 % (36.0-47.0); Hemoglobin 10.3 g/dL (12.0-16.0); Mean Corpuscular HGB CONC 30.8 g/dL (32.0-36.0); Mean Corpuscular Hemoglobin 23.9 pg (27.0-31.0); Mean Corpuscular Volume 77.5 fL (78.0-98.0); Mean Platelet Volume 9.9 fL (7.4-10.4); Platelet Count 271 10x3/uL (130-400); RBC Distribution Width 16.2 % (11.5-14.5); Red Blood Cell (RBC) Count 4.31 mill/uL (4.20-5.40)
[2024-06-19] MEDS ORDERED: hydrALAZINE 20 MG/ML VIAL ONE (22:07)
[2024-06-19 22:13] LABS: ALT (SGPT) 14 U/L (8-55); AST (SGOT) 23 U/L (5-34); Albumin 2.5 g/dL (3.5-5.0); Alkaline Phosphatase 114 U/L (40-110); Anion Gap 15 mmol/L (10-20); BUN (Urea Nitrogen) 17 mg/dL (7.0-18.7); Bilirubin, Total 0.8 mg/dL (0.2-1.2); Calc. Creatinine Clearance 0 mL/min (70-130); Calcium 9.4 mg/dL (7.8-10.44); Carbon Dioxide 23 mmol/L (22-29); Chloride 103 mmol/L (98-107); Estimated GFR 47; Globulin 6.6 g/dL (2.4-3.5); Glucose 320 mg/dL (70-105); Protein, Total 9.1 g/dL (6.0-8.3); Sodium 136 mmol/L (136-145)
[2024-06-19 22:18] LABS: Troponin I 0.082 ng/mL (< 0.028)
[2024-06-19] MEDS ORDERED: Glucagon 1 MG/ML KIT IM PRN (23:00)
[2024-06-19] MEDS ORDERED: Dextrose 50% Abboject 50 ML SYRINGE SLOW IVP PRN (23:00)
[2024-06-19] MEDS ORDERED: Dextrose 5% in Water 1,000 ML IV PRN (23:00)
[2024-06-19] MEDS ORDERED: niCARdipine 25 MG/10 ML SDV ONE (23:10)
[2024-06-19] MEDS ORDERED: Ondansetron PF 4 MG/2 ML Vial IVP PRN ×2 (23:36→23:49)
[2024-06-19] MEDS ORDERED: Acetaminophen 650 MG Suppository PR PRN (23:36)
[2024-06-19] MEDS ORDERED: Ondansetron ODT 4 MG TAB PO PRN (23:36)
[2024-06-19] MEDS ORDERED: Furosemide 20 MG (2 mL) VIAL ONE (23:42)
[2024-06-19 23:59] LABS: Actual Bicarbonate (HCO3a) 26.8 mEq/L (22-28); Analyzer IN Cardio ER; Base Excess (BEa) 2.5 mEq/L (-2.0 to +3.0); CO2 Tension 40.7 mmHg (35.0-45.0); Calcium, Ionized (arterial) 1.18 mmol/L (1.12-1.30); Carboxyhemoglobin (COHb) 0.5 gm% (0.0-3.0); Hematocrit-ABG 33 % (36.0-47.0); Hemoglobin (Hb) 11.1 g/dL (12.0-16.0); O2 Tension (PaO2), arterial 98.3 mmHg (80.0-100.0); pH, Arterial 7.437 (7.35-7.45)
[2024-06-20 00:12] LABS: ALV-art Gradient 278.625 mmHg (0-20); Puncture Site Left Radial artery
[2024-06-20 01:39] VITALS: BMI 33.7
[2024-06-20] MEDS ORDERED: Labetalol HCl 100 MG/20 ML VIAL SLOW IVP PRN (01:55)
[2024-06-20 01:57] LABS: Troponin I 0.082 ng/mL (< 0.028)
[2024-06-20] MEDS ORDERED: niCARdipine 25 MG in Sodium Chloride 0.9% 250 ML 250 ML IVPB SCH (02:00)
[2024-06-20] MEDS: Morphine 2 MG/ML VIAL SLOW IVP SCH (03:16)
[2024-06-20] MEDS: Furosemide 20 MG (2 mL) VIAL SLOW IVP SCH (03:17)
[2024-06-20 03:40] LABS: #Basophils 0.07 10x3/uL (0.0-0.2); %Basophils 0.8 % (0.0-1.0); %Eosinophils 1.2 % (0.0-10.0); %Lymphocytes 16.3 % (21.0-51.0); %Monocytes 7.5 % (0.0-10.0); %Neutrophils 73.9 % (42.0-75.0); Hematocrit 36.1 % (36.0-47.0); Hemoglobin 11.3 g/dL (12.0-16.0); Mean Corpuscular HGB CONC 31.3 g/dL (32.0-36.0); Mean Corpuscular Hemoglobin 23.8 pg (27.0-31.0); Mean Corpuscular Volume 76.2 fL (78.0-98.0); Platelet Count 225 10x3/uL (130-400); RBC Distribution Width 16.3 % (11.5-14.5); Red Blood Cell (RBC) Count 4.74 mill/uL (4.20-5.40)
[2024-06-20 03:48] LABS: Anion Gap 16 mmol/L (10-20); BUN (Urea Nitrogen) 18 mg/dL (7.0-18.7); Calc. Creatinine Clearance 67 mL/min (70-130); Calcium 9.8 mg/dL (7.8-10.44); Carbon Dioxide 24 mmol/L (22-29); Chloride 100 mmol/L (98-107); Estimated GFR 44; Glucose 263 mg/dL (70-105); Potassium 4.2 mmol/L (3.5-5.1); Sodium 136 mmol/L (136-145)
[2024-06-20 04:05] LABS: Troponin I 0.086 ng/mL (< 0.028)
[2024-06-20] MEDS: Furosemide 40 MG (4 mL) VIAL SLOW IVP SCH (05:26)
[2024-06-20] MEDS: Insulin Lispro 100 UNIT/ML 10 ML VIAL SC PRN ×2 (06:36→20:33)
[2024-06-20] MEDS: Isosorbide Mononitrate 60 MG ER.TAB PO SCH (07:50)
[2024-06-20] MEDS: NIFEdipine XL 30 MG ER.TAB PO SCH (07:51)
[2024-06-20] MEDS: Labetalol HCl 100 MG TAB PO SCH (07:51)
[2024-06-20] MEDS: Sodium Bicarbonate Tab 325 MG TAB PO SCH (07:52)
[2024-06-20] MEDS: Dapagliflozin Propanediol 10 MG TAB PO SCH (07:52)
[2024-06-20] MEDS: Gabapentin 300 MG CAP PO SCH (07:52)
[2024-06-20] MEDS: hydrALAZINE 20 MG/ML VIAL SLOW IVP PRN (07:54)
[2024-06-20] MEDS: Insulin Glargine 30 UNITS/0.3 ML VIAL SC SCH (07:56)
[2024-06-20] MEDS: Famotidine 20 MG TAB PO SCH (08:03)
[2024-06-20] MEDS: Famotidine/PF 20 mg/2ml Vial SLOW IVP SCH (08:03)
[2024-06-20] MEDS: Enoxaparin 30 MG (0.3 mL) SYRINGE SC SCH (08:04)
[2024-06-20] MEDS: Morphine 4 MG/ML VIAL SLOW IVP PRN (08:53)
[2024-06-20] MEDS ORDERED: tiZANidine HCl 4 MG TAB PO PRN (10:36)
[2024-06-20] MEDS: tiZANidine HCl 4 MG TAB PO PRN (10:58)
[2024-06-20] MEDS: Atorvastatin Calcium 40 MG TAB PO SCH (20:29)
[2024-06-21 05:12] LABS: #Basophils 0.05 10x3/uL (0.0-0.2); %Basophils 1.1 % (0.0-1.0); %Eosinophils 4.3 % (0.0-10.0); %Lymphocytes 43.6 % (21.0-51.0); %Monocytes 15.5 % (0.0-10.0); %Neutrophils 35.3 % (42.0-75.0); Hematocrit 27.8 % (36.0-47.0); Hemoglobin 8.5 g/dL (12.0-16.0); Mean Corpuscular HGB CONC 30.6 g/dL (32.0-36.0); Mean Corpuscular Volume 78.5 fL (78.0-98.0); Mean Platelet Volume 10.1 fL (7.4-10.4); Platelet Count 208 10x3/uL (130-400); RBC Distribution Width 16.3 % (11.5-14.5); Red Blood Cell (RBC) Count 3.54 mill/uL (4.20-5.40)
[2024-06-21 05:31] LABS: ALT (SGPT) 20 U/L (8-55); AST (SGOT) 34 U/L (5-34); Albumin 2.1 g/dL (3.5-5.0); Alkaline Phosphatase 83 U/L (40-110); Anion Gap 14 mmol/L (10-20); BUN (Urea Nitrogen) 20 mg/dL (7.0-18.7); Bilirubin, Total 0.6 mg/dL (0.2-1.2); Calc. Creatinine Clearance 63 mL/min (70-130); Calcium 8.7 mg/dL (7.8-10.44); Carbon Dioxide 24 mmol/L (22-29); Chloride 99 mmol/L (98-107); Estimated GFR 41; Globulin 5.6 g/dL (2.4-3.5); Glucose 167 mg/dL (70-105); Magnesium 1.9 mg/dL (1.6-2.6); Potassium 3.4 mmol/L (3.5-5.1); Protein, Total 7.7 g/dL (6.0-8.3); Sodium 134 mmol/L (136-145)
[2024-06-21] MEDS: Enoxaparin 40 MG (0.4 mL) SYRINGE SC SCH (09:01)
[2024-06-21] MEDS ORDERED: Ondansetron ODT 4 MG TAB PO PRN (11:30)
[2024-06-21] MEDS: Acetaminophen 325 MG TAB PO PRN (12:02)
[2024-06-21] MEDS: HYDROcodone/Acetaminophen 5/325 mg Tablet PO PRN (23:05)
[2024-06-22] MEDS: Morphine 2 MG/ML VIAL SLOW IVP PRN ×2 (01:14→09:45)
[2024-06-22] MEDS: Calcium Carbonate 500 MG ChewTAB PO PRN (04:56)
[2024-06-22 06:42] LABS: #Basophils 0.03 10x3/uL (0.0-0.2); %Basophils 0.6 % (0.0-1.0); %Eosinophils 3.5 % (0.0-10.0); %Lymphocytes 26.7 % (21.0-51.0); %Monocytes 13.5 % (0.0-10.0); %Neutrophils 55.5 % (42.0-75.0); Hematocrit 32.2 % (36.0-47.0); Hemoglobin 10.1 g/dL (12.0-16.0); Mean Corpuscular HGB CONC 31.4 g/dL (32.0-36.0); Mean Corpuscular Volume 76.5 fL (78.0-98.0); Mean Platelet Volume 9.8 fL (7.4-10.4); Platelet Count 238 10x3/uL (130-400); RBC Distribution Width 15.9 % (11.5-14.5); Red Blood Cell (RBC) Count 4.21 mill/uL (4.20-5.40)
[2024-06-22 07:03] LABS: Calc. Creatinine Clearance 59 mL/min (70-130); Estimated GFR 39
[2024-06-22 07:04] LABS: Anion Gap 14 mmol/L (10-20); BUN (Urea Nitrogen) 17 mg/dL (7.0-18.7); Calcium 9.3 mg/dL (7.8-10.44); Carbon Dioxide 27 mmol/L (22-29); Chloride 99 mmol/L (98-107); Glucose 80 mg/dL (70-105); Magnesium 2.1 mg/dL (1.6-2.6); Potassium 3.2 mmol/L (3.5-5.1); Sodium 137 mmol/L (136-145)
[2024-06-22] MEDS ORDERED: Electrolyte Replacement Protocol 1 EACH FS SCH (09:15)
[2024-06-22] MEDS: Potassium Chloride 20 MEQ TAB PO SCH (09:45)
[2024-06-22] MEDS: Promethazine HCl 6.25 MG in Sodium Chloride 0.9% 50 ML IVPB SCH (12:10)
[2024-06-22 14:27] VITALS: BP 118/77; TEMP 98.3
== END 2024-06-22 15:05 | disposition home or self-care (01) | DRG 280 ==
LOC: ERS 21:10 → CCU 23:36 → T4-B 06-20 12:34
PROVIDERS: ADMIT Student in an Organized Health Care Education/Training Program; ATTEND Internal Medicine
DX: I13.0 Hypertensive heart and chronic kidney disease with heart failure and stage 1 through stage 4 chronic kidney disease, or unspecified chronic kidney disease (principal); I50.43 Acute on chronic combined systolic (congestive) and diastolic (congestive) heart failure; I21.A1 Myocardial infarction type 2; J96.01 Acute respiratory failure with hypoxia; I16.1 Hypertensive emergency; I25.10 Atherosclerotic heart disease of native coronary artery without angina pectoris; G89.29 Other chronic pain; N18.32 Chronic kidney disease, stage 3b; I34.0 Nonrheumatic mitral (valve) insufficiency; E78.5 Hyperlipidemia, unspecified; E11.65 Type 2 diabetes mellitus with hyperglycemia; D50.9 Iron deficiency anemia, unspecified; G89.18 Other acute postprocedural pain; M79.662 Pain in left lower leg; Z90.49 Acquired absence of other specified parts of digestive tract; Z88.0 Allergy status to penicillin; Z88.8 Allergy status to other drugs, medicaments and biological substances; Z88.1 Allergy status to other antibiotic agents; Z89.412 Acquired absence of left great toe; Z79.899 Other long term (current) drug therapy
CPT/HCPCS: 36415; 36416; 36600; 71045; 80048; 80053; 82805; 83735; 83880; 84484; 85025; 93005; 93306; 94660; 96365; 96375; 96376; 97139; J0360; J1650; J1815; J1940; J2060; J2270; J2272; J2550; J3490

== ENCOUNTER 2024-07-02 16:05 | Inpatient (IN) | payer OTHER ==
[2024-07-02 16:48] LABS: #Basophils 0.04 10x3/uL (0.0-0.2); %Eosinophils 2.7 % (0.0-10.0); %Lymphocytes 33.7 % (21.0-51.0); %Neutrophils 51.4 % (42.0-75.0); Hematocrit 41.1 % (36.0-47.0); Hemoglobin 12.7 g/dL (12.0-16.0); Mean Corpuscular HGB CONC 30.9 g/dL (32.0-36.0); Mean Corpuscular Hemoglobin 23.8 pg (27.0-31.0); Mean Platelet Volume 10.3 fL (7.4-10.4); Platelet Count 309 10x3/uL (130-400); RBC Distribution Width 16.1 % (11.5-14.5); Red Blood Cell (RBC) Count 5.34 mill/uL (4.20-5.40)
[2024-07-02 17:11] LABS: Troponin I 0.097 ng/mL (< 0.028)
[2024-07-02 17:16] LABS: ALT (SGPT) 33 U/L (8-55); AST (SGOT) 31 U/L (5-34); Albumin 2.4 g/dL (3.5-5.0); Alkaline Phosphatase 119 U/L (40-110); Anion Gap 15 mmol/L (10-20); BUN (Urea Nitrogen) 31 mg/dL (7.0-18.7); Bilirubin, Total 0.7 mg/dL (0.2-1.2); Calc. Creatinine Clearance 0 mL/min (70-130); Calcium 8.9 mg/dL (7.8-10.44); Carbon Dioxide 20 mmol/L (22-29); Chloride 100 mmol/L (98-107); Estimated GFR 29; Globulin 6.3 g/dL (2.4-3.5); Glucose 419 mg/dL (70-105); Protein, Total 8.7 g/dL (6.0-8.3); Sodium 131 mmol/L (136-145)
[2024-07-02] MEDS ORDERED: Insulin Regular, Human 100 UNIT/ML 10 ML VIAL ONE (18:15)
[2024-07-02 19:16] LABS: Bacteria/HPF 2+ HPF (None Seen); Bilirubin Negative (Negative); Blood, Urine 2+ (Negative); CAUTI Indications for Culture Dysuria,urgency,freq; Glucose, Urine (Dipstick) Greater than 1000 mg/dL (Negative); Ketone, Urine Negative (Negative); Leukocyte Negative Leu/uL (Negative); Nitrite Negative (Negative); Protein, Urine (Dipstick) 600 mg/dL (Neg-Trace); Specific Gravity, Urine 1.027 (1.002-1.036); Squamous Epithelial 21-50 HPF (0-3); Urobilinogen Normal mg/dL (Less than 2)
[2024-07-02 19:18] LABS: Clarity Hazy (Clear)
[2024-07-02 19:19] LABS: Urine Culture Reflex No No
[2024-07-02 19:20] LABS: Pregnancy Test - Urine (BHCG) Negative (Negative)
[2024-07-02 19:21] LABS: Pregu Control Background? CLEAR/WHITE (CLR/WHITE); Pregu Control Bar Appear? YES (CONTROL BAR); Specific Gravity 1.034 (1.002-1.036)
[2024-07-02] MEDS ORDERED: Morphine 4 MG/ML VIAL ONE (20:05)
[2024-07-02] MEDS ORDERED: Dextrose 50% Abboject 50 ML SYRINGE SLOW IVP PRN (20:31)
[2024-07-02] MEDS ORDERED: Glucagon 1 MG/ML KIT IM PRN (20:31)
[2024-07-02] MEDS ORDERED: Dextrose 5% in Water 1,000 ML IV PRN (20:31)
[2024-07-02] MEDS ORDERED: Insulin Regular, Human 100 UNIT/ML 10 ML VIAL SC PRN (20:31)
[2024-07-02 21:14] LABS: Troponin I 0.082 ng/mL (< 0.028)
[2024-07-02 21:41] VITALS: BMI 31.6
[2024-07-02] MEDS: Atorvastatin Calcium 40 MG TAB PO SCH (22:02)
[2024-07-02] MEDS: Isosorbide Mononitrate 60 MG ER.TAB PO SCH (22:02)
[2024-07-02] MEDS: Gabapentin 300 MG CAP PO SCH (22:02)
[2024-07-02] MEDS: tiZANidine HCl 4 MG TAB PO PRN (22:02)
[2024-07-02] MEDS: Sodium Bicarbonate Tab 325 MG TAB PO SCH (22:02)
[2024-07-02] MEDS: Insulin Glargine 30 UNITS/0.3 ML VIAL SC SCH (22:03)
[2024-07-02] MEDS: Insulin Regular, Human 100 UNIT/ML 10 ML VIAL SC PRN (22:06)
[2024-07-02] MEDS: Heparin 5,000 UNITS/ML VIAL SC SCH (22:06)
[2024-07-02] MEDS: Acetaminophen/Codeine 30-300mg Tablet PO PRN (23:44)
[2024-07-03] MEDS: Morphine 2 MG/ML VIAL SLOW IVP SCH (01:49)
[2024-07-03] MEDS: Labetalol HCl 100 MG/20 ML VIAL SLOW IVP SCH (04:40)
[2024-07-03 04:55] LABS: Troponin I 0.096 ng/mL (< 0.028)
[2024-07-03 05:03] LABS: Sodium 132 mmol/L (136-145)
[2024-07-03 05:04] LABS: Anion Gap 17 mmol/L (10-20); BUN (Urea Nitrogen) 34 mg/dL (7.0-18.7); Calc. Creatinine Clearance 41 mL/min (70-130); Calcium 9.4 mg/dL (7.8-10.44); Carbon Dioxide 15 mmol/L (22-29); Chloride 104 mmol/L (98-107); Estimated GFR 26; Glucose 131 mg/dL (70-105); Magnesium 1.7 mg/dL (1.6-2.6); Potassium 3.5 mmol/L (3.5-5.1)
[2024-07-03] MEDS ORDERED: Ondansetron PF 4 MG/2 ML Vial IVP PRN ×2 (05:40→10:36)
[2024-07-03] MEDS: Promethazine 25 MG TAB PO PRN (06:07)
[2024-07-03] MEDS ORDERED: Prochlorperazine 10 MG/2 ML VIAL IM PRN (09:31)
[2024-07-03] MEDS ORDERED: Nitroglycerin 2% Ointment 1 INCH/1 GM Packet TOP SCH ×2 (10:35→14:00)
[2024-07-03] MEDS ORDERED: NIFEdipine XL 30 MG ER.TAB PO SCH (10:40)
[2024-07-03] MEDS: Metoprolol Tartrate 5 MG (5 mL) VIAL IVP SCH ×2 (11:03→11:43)
[2024-07-03] MEDS: NIFEdipine XL 30 MG ER.TAB PO SCH (11:13)
[2024-07-03] MEDS: Dapagliflozin Propanediol 10 MG TAB PO SCH (11:14)
[2024-07-03] MEDS: Ondansetron PF 4 MG/2 ML Vial IVP SCH (11:15)
[2024-07-03] MEDS: NIFEdipine XL 60 MG ER.TAB PO SCH (11:21)
[2024-07-03] MEDS: Metoprolol Succinate XL 50 MG ER.TAB PO SCH (11:22)
[2024-07-03] MEDS ORDERED: Acetaminophen 325 MG TAB PO PRN (12:21)
[2024-07-03] MEDS: HYDROcodone/Acetaminophen 10/325 mg Tablet PO PRN (13:21)
[2024-07-03] MEDS: Promethazine HCl 12.5 MG in Sodium Chloride 0.9% 50 ML IVPB SCH (13:35)
[2024-07-03] MEDS: Insulin Lispro 100 UNIT/ML 10 ML VIAL SC SCH (18:08)
[2024-07-03] MEDS: Insulin Glargine 30 UNITS/0.3 ML VIAL SC SCH (20:04)
[2024-07-04 04:58] LABS: #Basophils 0.03 10x3/uL (0.0-0.2); %Basophils 0.5 % (0.0-1.0); %Eosinophils 1.1 % (0.0-10.0); %Lymphocytes 28.5 % (21.0-51.0); %Monocytes 13.2 % (0.0-10.0); %Neutrophils 56.5 % (42.0-75.0); Hematocrit 44.1 % (36.0-47.0); Hemoglobin 13.7 g/dL (12.0-16.0); Mean Corpuscular HGB CONC 31.1 g/dL (32.0-36.0); Mean Corpuscular Hemoglobin 23.8 pg (27.0-31.0); Mean Corpuscular Volume 76.6 fL (78.0-98.0); Mean Platelet Volume 9.9 fL (7.4-10.4); Platelet Count 343 10x3/uL (130-400); RBC Distribution Width 16.8 % (11.5-14.5); Red Blood Cell (RBC) Count 5.76 mill/uL (4.20-5.40)
[2024-07-04 05:21] LABS: Anion Gap 20 mmol/L (10-20); BUN (Urea Nitrogen) 34 mg/dL (7.0-18.7); Calc. Creatinine Clearance 34 mL/min (70-130); Calcium 9.6 mg/dL (7.8-10.44); Carbon Dioxide 19 mmol/L (22-29); Chloride 103 mmol/L (98-107); Estimated GFR 21; Glucose 123 mg/dL (70-105); Potassium 3.6 mmol/L (3.5-5.1); Sodium 138 mmol/L (136-145)
[2024-07-04] MEDS: NIFEdipine XL 60 MG ER.TAB PO SCH (08:19)
[2024-07-04] MEDS: Metoprolol Succinate XL 50 MG ER.TAB PO SCH (08:21)
[2024-07-04] MEDS: Albumin 25% 25 GM (100 mL) BOT IVPB SCH (12:24)
[2024-07-04 13:41] VITALS: BMI 31.6
[2024-07-04] MEDS: Sodium Bicarbonate 75 MEQ in Sodium Chloride 0.45% 1,000 ML IV SCH (16:19)
[2024-07-04] MEDS: TICAGRELOR 90 MG TABLET PO SCH (20:22)
[2024-07-05] MEDS: HYDROcodone/Acetaminophen 5/325 mg Tablet PO PRN (02:58)
[2024-07-05 05:27] LABS: #Basophils 0.03 10x3/uL (0.0-0.2); %Basophils 0.5 % (0.0-1.0); %Eosinophils 2.2 % (0.0-10.0); %Lymphocytes 22.7 % (21.0-51.0); %Monocytes 18.6 % (0.0-10.0); %Neutrophils 55.7 % (42.0-75.0); Hematocrit 35.3 % (36.0-47.0); Mean Corpuscular HGB CONC 31.2 g/dL (32.0-36.0); Mean Corpuscular Hemoglobin 24.1 pg (27.0-31.0); Mean Corpuscular Volume 77.2 fL (78.0-98.0); Mean Platelet Volume 10.4 fL (7.4-10.4); Platelet Count 255 10x3/uL (130-400); RBC Distribution Width 16.7 % (11.5-14.5); Red Blood Cell (RBC) Count 4.57 mill/uL (4.20-5.40)
[2024-07-05 05:32] LABS: ALT (SGPT) 14 U/L (Less than 34); AST (SGOT) 24 U/L (11-34); Albumin 3.2 g/dL (3.1-4.5); Alkaline Phosphatase 88 U/L (40-110); Anion Gap 12 mmol/L (10-20); BUN (Urea Nitrogen) 34 mg/dL (7.0-18.7); Bilirubin, Total 0.6 mg/dL (0.3-1.2); Calc. Creatinine Clearance 43 mL/min (70-130); Calcium 8.7 mg/dL (7.8-10.44); Carbon Dioxide 26 mmol/L (22-29); Chloride 106 mmol/L (98-107); Estimated GFR 27; Globulin 4.3 g/dL (2.4-3.5); Glucose 123 mg/dL (70-105); Magnesium 1.9 mg/dL (1.6-2.6); Potassium 3.4 mmol/L (3.5-5.1); Protein, Total 7.5 g/dL (6.0-8.3); Sodium 141 mmol/L (136-145)
[2024-07-05] MEDS: NIFEdipine XL 90 MG ER.TAB PO SCH (10:27)
[2024-07-05] MEDS: Albumin 25% 25 GM (100 mL) BOT IVPB SCH (11:08)
[2024-07-05] MEDS: Potassium Chloride 20 MEQ TAB PO SCH (11:08)
[2024-07-05] MEDS: cloNIDine 0.1 MG TAB PO PRN (11:36)
[2024-07-05] MEDS ORDERED: hydrALAZINE 20 MG/ML VIAL SLOW IVP PRN (11:45)
[2024-07-05] MEDS: Morphine 2 MG/ML VIAL SLOW IVP PRN (12:44)
[2024-07-05 13:18] LABS: Troponin I 0.104 ng/mL (< 0.028)
[2024-07-06] MEDS: Insulin Regular, Human 100 UNIT/ML 10 ML VIAL SC PRN (05:08)
[2024-07-06 05:37] LABS: #Basophils 0.03 10x3/uL (0.0-0.2); %Basophils 0.5 % (0.0-1.0); %Lymphocytes 40.1 % (21.0-51.0); %Monocytes 12.9 % (0.0-10.0); %Neutrophils 43.3 % (42.0-75.0); Hematocrit 44.7 % (36.0-47.0); Hemoglobin 13.5 g/dL (12.0-16.0); Mean Corpuscular HGB CONC 30.2 g/dL (32.0-36.0); Mean Corpuscular Hemoglobin 23.6 pg (27.0-31.0); Mean Corpuscular Volume 78.3 fL (78.0-98.0); Mean Platelet Volume 10.7 fL (7.4-10.4); Platelet Count 289 10x3/uL (130-400); RBC Distribution Width 17.2 % (11.5-14.5); Red Blood Cell (RBC) Count 5.71 mill/uL (4.20-5.40)
[2024-07-06 05:47] LABS: ALT (SGPT) 12 U/L (Less than 34); AST (SGOT) 27 U/L (11-34); Albumin 3.7 g/dL (3.1-4.5); Alkaline Phosphatase 89 U/L (40-110); Anion Gap 14 mmol/L (10-20); BUN (Urea Nitrogen) 26 mg/dL (7.0-18.7); Bilirubin, Total 0.7 mg/dL (0.3-1.2); Calc. Creatinine Clearance 54 mL/min (70-130); Calcium 9.4 mg/dL (7.8-10.44); Carbon Dioxide 24 mmol/L (22-29); Chloride 103 mmol/L (98-107); Estimated GFR 36; Globulin 4.8 g/dL (2.4-3.5); Glucose 211 mg/dL (70-105); Protein, Total 8.5 g/dL (6.0-8.3); Sodium 137 mmol/L (136-145)
[2024-07-06 08:48] VITALS: TEMP 98.4
[2024-07-06 14:15] VITALS: BP 165/88
[2024-07-06] MEDS: hydrALAZINE 25 MG TAB PO SCH (14:20)
== END 2024-07-06 15:45 | disposition home or self-care (01) | DRG 305 ==
LOC: ERS 16:05 → OBS 19:28 → OBSVTOIN 07-03 12:36
PROVIDERS: ADMIT Internal Medicine; ATTEND Internal Medicine
PROC: 30233J1 Transfusion of Nonautologous Serum Albumin into Peripheral Vein, Percutaneous Approach (ICD-10-PCS; principal; 2024-07-03)
DX: I16.0 Hypertensive urgency (principal); E87.1 Hypo-osmolality and hyponatremia; I24.89 Other forms of acute ischemic heart disease; E87.20 Acidosis, unspecified; N17.9 Acute kidney failure, unspecified; R59.0 Localized enlarged lymph nodes; E11.51 Type 2 diabetes mellitus with diabetic peripheral angiopathy without gangrene; I25.10 Atherosclerotic heart disease of native coronary artery without angina pectoris; R63.8 Other symptoms and signs concerning food and fluid intake; E11.21 Type 2 diabetes mellitus with diabetic nephropathy; M25.512 Pain in left shoulder; I12.9 Hypertensive chronic kidney disease with stage 1 through stage 4 chronic kidney disease, or unspecified chronic kidney disease; N18.9 Chronic kidney disease, unspecified; E11.65 Type 2 diabetes mellitus with hyperglycemia; R79.1 Abnormal coagulation profile; L97.529 Non-pressure chronic ulcer of other part of left foot with unspecified severity; G89.4 Chronic pain syndrome; Z79.899 Other long term (current) drug therapy; Z95.5 Presence of coronary angioplasty implant and graft; Z79.4 Long term (current) use of insulin
CPT/HCPCS: 36415; 36416; 71045; 78451; 80048; 80053; 81001; 81025; 82040; 83735; 83880; 84484; 85025; 85379; 93005; 94760; 96372; 96374; 96375; 96376; 97139; A9540; G0378; J1644; J1815; J2270; J2272; J2550; P9047; Q0169

== ENCOUNTER 2024-07-08 10:14 | Inpatient (IN) | payer OTHER ==
[2024-07-08] MEDS ORDERED: fentaNYL 50 mcg/mL 1 mL Vial ONE ×2 (10:34→11:34)
[2024-07-08 11:23] LABS: #Basophils 0.03 10x3/uL (0.0-0.2); %Basophils 0.5 % (0.0-1.0); %Eosinophils 1.6 % (0.0-10.0); %Lymphocytes 26.4 % (21.0-51.0); %Monocytes 8.5 % (0.0-10.0); %Neutrophils 62.7 % (42.0-75.0); Hematocrit 34.3 % (36.0-47.0); Hemoglobin 10.8 g/dL (12.0-16.0); Mean Corpuscular HGB CONC 31.5 g/dL (32.0-36.0); Mean Corpuscular Hemoglobin 24.2 pg (27.0-31.0); Mean Corpuscular Volume 76.7 fL (78.0-98.0); Platelet Count 215 10x3/uL (130-400); RBC Distribution Width 16.4 % (11.5-14.5); Red Blood Cell (RBC) Count 4.47 mill/uL (4.20-5.40)
[2024-07-08] MEDS ORDERED: Labetalol HCl 100 MG/20 ML VIAL ONE (11:29)
[2024-07-08] MEDS ORDERED: hydrALAZINE 20 MG/ML VIAL ONE (11:34)
[2024-07-08 11:44] LABS: ALT (SGPT) 10 U/L (Less than 34); AST (SGOT) 26 U/L (11-34); Albumin 3.5 g/dL (3.1-4.5); Alkaline Phosphatase 83 U/L (40-110); Anion Gap 15 mmol/L (10-20); BUN (Urea Nitrogen) 31 mg/dL (7.0-18.7); Bilirubin, Total 0.5 mg/dL (0.3-1.2); Calc. Creatinine Clearance 0 mL/min (70-130); Calcium 9.3 mg/dL (7.8-10.44); Carbon Dioxide 20 mmol/L (22-29); Chloride 105 mmol/L (98-107); Estimated GFR 41; Globulin 4.9 g/dL (2.4-3.5); Glucose 147 mg/dL (70-105); Potassium 4.2 mmol/L (3.5-5.1); Protein, Total 8.4 g/dL (6.0-8.3); Sodium 136 mmol/L (136-145)
[2024-07-08 11:48] LABS: Troponin I 0.084 ng/mL (< 0.028)
[2024-07-08] MEDS ORDERED: Promethazine HCl 25 MG/ML VIAL ONE (12:25)
[2024-07-08] MEDS ORDERED: Promethazine 25 MG TAB ONE (12:29)
[2024-07-08] MEDS ORDERED: diphenhydrAMINE 50 MG/ML VIAL ONE (12:47)
[2024-07-08] MEDS ORDERED: Haloperidol Lactate 5 MG/ML VIAL ONE (12:48)
[2024-07-08] MEDS ORDERED: Lorazepam 2 MG/ML VIAL ONE (12:50)
[2024-07-08 13:20] LABS: Troponin I 0.093 ng/mL (< 0.028)
[2024-07-08] MEDS ORDERED: Nitroglycerin 0.4 MG TAB (25 Tab Bottle) SL PRN (13:53)
[2024-07-08] MEDS ORDERED: Acetaminophen 325 MG TAB PO PRN (13:53)
[2024-07-08] MEDS ORDERED: Promethazine HCl 25 MG in Sodium Chloride 0.9% 50 ML IVPB PRN (14:08)
[2024-07-08] MEDS ORDERED: Dextrose 5% in Water 1,000 ML IV PRN (14:12)
[2024-07-08] MEDS ORDERED: Glucagon 1 MG/ML KIT IM PRN (14:12)
[2024-07-08] MEDS ORDERED: Dextrose 50% Abboject 50 ML SYRINGE SLOW IVP PRN (14:12)
[2024-07-08] MEDS ORDERED: Insulin Lispro 100 UNIT/ML 10 ML VIAL SC PRN (14:12)
[2024-07-08] MEDS: Acetaminophen/Codeine 30-300mg Tablet PO PRN (14:58)
[2024-07-08] MEDS: hydrALAZINE 25 MG TAB PO SCH (14:58)
[2024-07-08 15:04] VITALS: BMI 33.7
[2024-07-08] MEDS: Sodium Chloride 0.9% 1,000 ML IV SCH (15:48)
[2024-07-08] MEDS: tiZANidine HCl 4 MG TAB PO PRN (15:48)
[2024-07-08] MEDS: Isosorbide Mononitrate 60 MG ER.TAB PO SCH (18:30)
[2024-07-08 19:59] LABS: Troponin I 0.146 ng/mL (< 0.028)
[2024-07-08] MEDS: Sodium Bicarbonate Tab 325 MG TAB PO SCH (20:20)
[2024-07-08] MEDS: Gabapentin 300 MG CAP PO SCH (20:20)
[2024-07-08] MEDS: Insulin Glargine 30 UNITS/0.3 ML VIAL SC SCH (20:20)
[2024-07-08] MEDS: Atorvastatin Calcium 40 MG TAB PO SCH (20:20)
[2024-07-08] MEDS: Labetalol HCl 100 MG/20 ML VIAL SLOW IVP SCH (20:21)
[2024-07-08] MEDS: TICAGRELOR 90 MG TABLET PO SCH (20:21)
[2024-07-08] MEDS ORDERED: Gabapentin 300 MG CAP PO SCH (21:00)
[2024-07-08 21:45] LABS: Amphetamine Not Detected (NotDetected); Barbiturates Screen Not Detected (NotDetected); Benzodiazepine Screen Not Detected (NotDetected); Cocaine Metabolite Screen Not Detected (NotDetected); Methadone Not Detected (NotDetected); Methamphetamine Not Detected (NotDetected); Opiate Screen Detected (NotDetected); Oxycodone Screen Not Detected (NotDetected); Phencyclidine (PCP) Not Detected (NotDetected); THC/Cannabinoid Screen Not Detected (NotDetected); Tricyclic Screen Not Detected (NotDetected)
[2024-07-09 00:58] LABS: Troponin I 0.349 ng/mL (< 0.028)
[2024-07-09] MEDS: Labetalol HCl 100 MG/20 ML VIAL SLOW IVP SCH (04:22)
[2024-07-09 05:57] LABS: #Basophils 0.03 10x3/uL (0.0-0.2); %Basophils 0.5 % (0.0-1.0); %Eosinophils 1.4 % (0.0-10.0); %Lymphocytes 31.1 % (21.0-51.0); %Monocytes 9.3 % (0.0-10.0); %Neutrophils 57.5 % (42.0-75.0); Hematocrit 33.4 % (36.0-47.0); Hemoglobin 10.3 g/dL (12.0-16.0); Mean Corpuscular HGB CONC 30.8 g/dL (32.0-36.0); Mean Corpuscular Hemoglobin 24.1 pg (27.0-31.0); Platelet Count 221 10x3/uL (130-400); Red Blood Cell (RBC) Count 4.28 mill/uL (4.20-5.40)
[2024-07-09] MEDS: NIFEdipine XL 90 MG ER.TAB PO SCH (06:27)
[2024-07-09 07:10] LABS: Anion Gap 12 mmol/L (10-20); BUN (Urea Nitrogen) 29 mg/dL (7.0-18.7); Calc. Creatinine Clearance 69 mL/min (70-130); Calcium 9.2 mg/dL (7.8-10.44); Carbon Dioxide 24 mmol/L (22-29); Cardiac Risk 2.7 (Less than 4.5); Chloride 106 mmol/L (98-107); Cholesterol 163 mg/dl (< 200 Desired); Estimated GFR 45; Glucose 71 mg/dL (70-105); HDL Cholesterol 61 mg/dL (>60 Neg Risk); LDL Cholesterol, Calculated 82 mg/dL; Magnesium 1.8 mg/dL (1.6-2.6); Potassium 3.8 mmol/L (3.5-5.1); Sodium 138 mmol/L (136-145); Triglycerides 102 mg/dL (Less than 150)
[2024-07-09 07:49] LABS: Bilirubin, Total 0.9 mg/dL (0.3-1.2)
[2024-07-09 08:03] LABS: ALT (SGPT) 12 U/L (Less than 34); AST (SGOT) 29 U/L (11-34); Albumin 3.1 g/dL (3.1-4.5); Alkaline Phosphatase 74 U/L (40-110); Bilirubin, Direct 0.3 mg/dL (0.1-0.3)
[2024-07-09] MEDS: Enoxaparin 40 MG (0.4 mL) SYRINGE SC SCH (09:10)
[2024-07-09] MEDS: Metoprolol Succinate XL 50 MG ER.TAB PO SCH (09:10)
[2024-07-09] MEDS: Insulin Lispro 100 UNIT/ML 10 ML VIAL SC PRN (11:12)
[2024-07-09] MEDS: Morphine 2 MG/ML VIAL SLOW IVP PRN (13:59)
[2024-07-09] MEDS: hydrALAZINE 25 MG TAB PO SCH (16:35)
[2024-07-09] MEDS: Morphine 2 MG/ML VIAL SLOW IVP SCH (20:33)
[2024-07-10] MEDS: fentaNYL 50 mcg/mL 1 mL Vial SLOW IVP PRN (03:24)
[2024-07-10] MEDS: FLU (Fluarix Triv) TS24-25(6MOS UP)/PF 45 MCG/0.5 ML Syringe IM ONE (08:49)
[2024-07-10] MEDS: Morphine 2 MG/ML VIAL SLOW IVP PRN (11:11)
[2024-07-10] MEDS: hydrALAZINE 25 MG TAB PO SCH (14:26)
[2024-07-10 15:21] VITALS: BMI 33.7
[2024-07-11] MEDS ORDERED: Nitroglycerin 0.4 MG TAB (25 Tab Bottle) SL PRN (07:36)
[2024-07-11] MEDS: Morphine 2 MG/ML VIAL SLOW IVP SCH (10:05)
[2024-07-11] MEDS: Labetalol HCl 100 MG/20 ML VIAL SLOW IVP SCH (12:29)
[2024-07-11 15:52] VITALS: BP 126/76; TEMP 97.9
== END 2024-07-11 16:40 | disposition home or self-care (01) | DRG 305 ==
LOC: SUATTDRO 10:14 → ERS 10:14 → OBS 14:50 → OBSVTOIN 07-09 13:44
PROVIDERS: ADMIT Family Medicine; ATTEND Internal Medicine
DX: I16.1 Hypertensive emergency (principal); I42.9 Cardiomyopathy, unspecified; I24.89 Other forms of acute ischemic heart disease; N18.9 Chronic kidney disease, unspecified; I13.0 Hypertensive heart and chronic kidney disease with heart failure and stage 1 through stage 4 chronic kidney disease, or unspecified chronic kidney disease; E11.51 Type 2 diabetes mellitus with diabetic peripheral angiopathy without gangrene; E11.22 Type 2 diabetes mellitus with diabetic chronic kidney disease; I50.9 Heart failure, unspecified; I25.10 Atherosclerotic heart disease of native coronary artery without angina pectoris; Z88.8 Allergy status to other drugs, medicaments and biological substances; Z90.49 Acquired absence of other specified parts of digestive tract; Z90.89 Acquired absence of other organs; Z98.51 Tubal ligation status; Z90.710 Acquired absence of both cervix and uterus; Z98.890 Other specified postprocedural states; Z89.411 Acquired absence of right great toe; Z91.148 Patient's other noncompliance with medication regimen for other reason
CPT/HCPCS: 36415; 36416; 71045; 80048; 80053; 80061; 80076; 80306; 83735; 83880; 84484; 85025; 85379; 86850; 86900; 86901; 93005; 94760; 96372; 96374; 96375; 96376; 97139; G0378; J0360; J1200; J1630; J1650; J1815; J2060; J2272; J2550; J3010; Q0169